=== PATIENT | male | born 1970 | race Caucasian/White ===

== ENCOUNTER 2020-08-22 10:49 | Outpatient (REF) | payer OTHER, SELFPAY ==
[2020-08-22 13:53] LABS: MANUAL DIFF FLAG NO
[2020-08-22 14:02] LABS: Basophils Absolute Auto 0.1 X10*3/uL (0.0-0.2); Basophils Percent Auto 0.8 % (0-2); Eosinophils Absolute Auto 0.1 X10*3/uL (0.0-0.4); Eosinophils Percent Auto 0.8 % (0-4); Hematocrit 53.3 % (42-52); Hemoglobin 16.9 g/dl (14.0-18.0); Imm Gran Abs Auto 0.04 X10*3/uL (0.00-0.03); Imm Gran Pct Auto 0.4 % (0.0-0.4); Lymphocytes Absolute Auto 2.1 X10*3/uL (1.2-4.9); Lymphocytes Percent Auto 22.2 % (20-40); Mean Corpuscular HGB Conc 31.7 g/dl (31.0-36.0); Mean Corpuscular Volume 78.8 fL (80-98); Mean Platelet Volume 11.3 fL (9.4-12.4); Monocytes Absolute Auto 0.7 X10*3/uL (0.1-1.2); Monocytes Percent Auto 7.3 % (2-11); Neutrophils Absolute Auto 6.4 X10*3/uL (2.0-8.3); Neutrophils Percent Auto 68.5 % (45-73); Platelet Count 280 X10*3/uL (160-400); Red Blood Count 6.76 X10*6/uL (4.60-5.80); Red Cell Distribution Width 19.5 % (11.0-16.0); White Blood Count 9.3 X10*3/uL (4.8-10.8)
[2020-08-22 14:06] LABS: Estimated Average Glucose 128 mg/dL; Hemoglobin A1c % 6.1 %
[2020-08-22 14:35] LABS: Anion Gap 16 (12-20); Blood Urea Nitrogen 21 mg/dL (9-16); Calcium 9.5 mg/dL (8.4-10.2); Carbon Dioxide 24 mmol/L (22-29); Chloride 103 mmol/L (96-108); Estimated Glomerular Filt Rate > 60; Glucose Random 85 mg/dL (60-115); Potassium 4.3 mmol/l (3.3-5.1); Sodium 139 mmol/L (135-145)
[2020-08-22 14:43] LABS: Microalbumin Urine < 5.0 mg/L
[2020-08-22 14:47] LABS: TSH reflex Free T4 1.33 mIU/mL (0.32-4.0)
[2020-08-23 21:12] LABS: LDL Cholesterol Direct 102 mg/dL (<100)
== END 2020-08-22 10:50 | disposition home or self-care (01) ==
LOC: HO.HMGCLDS 10:49
PROVIDERS: PCP Internal Medicine; Visit Provider Internal Medicine
DX: K21.9 Gastro-esophageal reflux disease without esophagitis (principal); E78.9 Disorder of lipoprotein metabolism, unspecified; E13.9 Other specified diabetes mellitus without complications; I10 Essential (primary) hypertension; Z76.89 Persons encountering health services in other specified circumstances
CPT/HCPCS: 36415; 80048; 82043; 83036; 83721; 84443; 85025

== ENCOUNTER 2021-01-03 11:40 | Outpatient (REF) | payer OTHER, SELFPAY ==
[2021-01-03 13:55] LABS: MANUAL DIFF FLAG NO
[2021-01-03 13:59] LABS: Basophils Absolute Auto 0.1 X10*3/uL (0.0-0.2); Basophils Percent Auto 0.5 % (0-2); Eosinophils Absolute Auto 0.1 X10*3/uL (0.0-0.4); Eosinophils Percent Auto 0.6 % (0-4); Hematocrit 50.5 % (42-52); Hemoglobin 15.7 g/dl (14.0-18.0); Imm Gran Abs Auto 0.05 X10*3/uL (0.00-0.03); Imm Gran Pct Auto 0.5 % (0.0-0.4); Lymphocytes Absolute Auto 2.1 X10*3/uL (1.2-4.9); Lymphocytes Percent Auto 21.1 % (20-40); Mean Corpuscular HGB Conc 31.1 g/dl (31.0-36.0); Mean Corpuscular Hemoglobin 25.2 pg (27.0-33.0); Mean Corpuscular Volume 80.9 fL (80-98); Mean Platelet Volume 11.3 fL (9.4-12.4); Monocytes Absolute Auto 0.8 X10*3/uL (0.1-1.2); Monocytes Percent Auto 8.3 % (2-11); Neutrophils Absolute Auto 6.9 X10*3/uL (2.0-8.3); Platelet Count 377 X10*3/uL (160-400); Red Blood Count 6.24 X10*6/uL (4.60-5.80); Red Cell Distribution Width 18.3 % (11.0-16.0)
[2021-01-03 14:10] LABS: Estimated Average Glucose 123 mg/dL; Hemoglobin A1c % 5.9 %
[2021-01-03 14:27] LABS: Alanine Aminotransferase 78 U/L (0-40); Albumin Level 4.4 g/dL (3.5-5.0); Alkaline Phosphatase 44 U/L (39-117); Anion Gap 14 (12-20); Aspartate Amino Transferase 58 U/L (5-37); Bilirubin Direct 0.3 mg/dL (0.0-0.5); Bilirubin Total 0.6 mg/dL (0.0-1.0); Blood Urea Nitrogen 18 mg/dL (9-16); Calcium 9.7 mg/dL (8.4-10.2); Carbon Dioxide 28 mmol/L (22-29); Chloride 99 mmol/L (96-108); Estimated Glomerular Filt Rate > 60; Glucose Random 103 mg/dL (60-115); Potassium 4.5 mmol/L (3.3-5.1); Sodium 136 mmol/L (135-145); Total Protein 7.3 g/dL (6.5-8.0)
[2021-01-03 14:37] LABS: Creatinine Urine 63.81 mg/dL; Microalbum/Creatinine Ratio Ur 15.6 ug/mg cr
[2021-01-04 05:06] LABS: LDL Cholesterol Direct 123 mg/dL (<100)
== END 2021-01-03 11:41 | disposition home or self-care (01) ==
LOC: HO.HMGCLDS 11:40
PROVIDERS: PCP Internal Medicine; Visit Provider Internal Medicine
DX: M96.1 Postlaminectomy syndrome, not elsewhere classified (principal); I10 Essential (primary) hypertension; E78.9 Disorder of lipoprotein metabolism, unspecified; E13.9 Other specified diabetes mellitus without complications
CPT/HCPCS: 36415; 80048; 80076; 82043; 83036; 83721; 85025

== ENCOUNTER 2021-01-28 07:57 | Outpatient (REF) | payer OTHER, SELFPAY ==
--- NOTE | ~2021-01-28 | CT_ITS ---
EXAMINATION: CT CHEST WITHOUT CONTRAST CLINICAL INFORMATION: Contusion of right frontal wall of thorax. COMPARISON: Chest 11/30/2019. TECHNIQUE: Multidetector volumetric CT imaging of the chest was done. Axial MIP volume rendering provided. Sagittal and coronal reformatted images were obtained. This CT examination was performed using dose optimization techniques as appropriate, variously including the following: *Automated exposure control *Adjustment of mA and/or kV according to patient size (this includes techniques or standardized protocols for targeted exams where dose is matched to indication/reason for exam; i.e. extremities or head) *Use of iterative reconstruction technique DLP: 279 mGy-cm. 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 LUNGS: The lungs are well expanded and clear of acute pneumonic process. There are no pulmonary nodules, mass or consolidation. MEDIASTINUM: The thyroid lobes are symmetrical and normal. The central trachea and the bronchi are widely patent. There is no pericardial effusion. Heart size and great vessels are normal caliber. No abnormal-sized mediastinal or hilar lymph nodes seen. There is a small hiatal hernia. PLEURA: There is no pleural effusion. No pleural mass or thickening. AXILLA: No lymphadenopathy. UPPER ABDOMEN: Visualized liver, spleen, pancreas and bilateral adrenal glands are unremarkable. OSSEOUS STRUCTURES: There is no lytic or sclerotic process. There is moderate ventral spondylosis T9-T10 disc level. CT/CT chest wo con IMPRESSION: No acute intrathoracic process seen. There is no consolidation, pulmonary nodule or abnormal mediastinal or hilar lymph nodes.
== END 2021-01-28 07:58 | disposition home or self-care (01) ==
LOC: HO.CT 07:57
PROVIDERS: PCP Internal Medicine; Visit Provider Hospitalist
DX: S20.211A Contusion of right front wall of thorax, initial encounter (principal)
CPT/HCPCS: 71250

== ENCOUNTER 2021-04-29 16:26 | Emergency (ER) | payer OTHER, SELFPAY ==
[2021-04-29 17:23] VITALS: BP 153/89; PULSE 73; RESP 18; TEMP 36.8; O2SAT 96; BMI 33.6
--- NOTE | 2021-04-29 18:12 | ED_ITS ---
HPI - Ear Problem General Chief complaint: Ear Problems Stated complaint: ear infection Source: patient Mode of arrival: ambulatory Limitations: no limitations History of Present Illness HPI Narrative: PATIENT PRESENTS TO ED FOR LEFT EAR PAIN. PATIENT STATES HISTORY OF RECURRENT EAR INFECTION. PATIENT STATES SHE HAS BEEN A DRAIN ANTIBIOTIC FOR 1 WEEK AND STILL HAS EAR PAIN. Related Data Home Medications Medication Instructions Recorded Confirmed albuterol sulfate 90 mcg/actuation 0 mcg INHALATION 08/22/20 04/19/21 aerosol inhaler alprazolam 1 mg tablet 0 mg PO 08/22/20 04/19/21 aripiprazole 20 mg tablet 20 mg PO DAILY 08/22/20 04/19/21 dextroamphetamine-amphetamine 10 1 tab PO DAILY 08/22/20 04/19/21 mg tablet dextroamphetamine-amphetamine 30 1 tab PO TID 08/22/20 04/19/21 mg tablet fluoxetine 40 mg capsule 0 mg PO 08/22/20 04/19/21 metoprolol succinate 25 mg 25 mg PO DAILY 08/22/20 04/19/21 tablet,extended release 24 hr zolpidem 10 mg tablet 10 mg PO BEDTIME PRN 08/22/20 02/27/21 Previous Rx's Medication Instructions Recorded rosuvastatin 20 mg tablet 20 mg PO DAILY #90 tab 11/11/20 blood sugar diagnostic #100 ea 11/29/20 blood-glucose meter #1 ea 11/29/20 lancets #100 ea 11/29/20 ibuprofen 600 mg tablet 600 mg PO TID #90 tab 01/03/21 empagliflozin 10 mg tablet 10 mg PO QAM #30 tab 01/23/21 lisinopril 20 1 tab PO DAILY #90 tab 02/11/21 mg-hydrochlorothiazide 25 mg tablet omeprazole 20 mg capsule,delayed 20 mg PO DAILY #90 cap 04/02/21 release amoxicillin 875 mg-potassium 1 tab PO BID #20 tab 04/19/21 clavulanate 125 mg tablet prednisone 20 mg tablet 20 mg PO .COMPLEX #18 tab 04/19/21 ciprofloxacin HCl [Cipro] 500 mg PO Q12H 7 Days #14 tab 04/29/21 oxycodone-acetaminophen [Percocet] 1 tab PO TID PRN #9 tab 04/29/21 Allergies Allergy/AdvReac Type Severity Reaction Status Date / Time benztropine [From COGENTIN] Allergy Unknown SWEATING Verified 04/29/21 17:22 pregabalin [From LYRICA] Allergy Unknown SWELLING Verified 04/29/21 17:22 sitagliptin [From JANUVIA] Allergy Unknown PER H&P Verified 04/29/21 17:22 Review of Systems Review of Systems: Yes all other systems are reviewed and are negative Constitutional: Constitutional: Reports as per HPI and Reports no additional constitutional complaints Eyes: Eyes: Reports as per HPI and Reports no additional eye complaints ENT: Reports system reviewed and no additional complaints, except as documented and Reports as per HPI Cardiovascular: Cardiovascular: Reports as per HPI and Reports no additional cardiovascular complaints Respiratory: Respiratory: Reports as per HPI and Reports no additional respiratory complaints Gastrointestinal: Gastrointestinal: Reports as per HPI and Reports no additional gastrointestinal complaints Genitourinary: Genitourinary: Reports no additional male genitourinary complaints and Reports as per HPI Musculoskeletal: Musculoskeletal: Reports no additional musculoskeletal complaints and Reports as per HPI Neurologic: Reports system reviewed and no additional complaints, except as documented and Reports as per HPI Psychiatric: Psychiatric: Reports no additional psychiatric complaints and Reports as per HPI [facility] Past Medical History Medical History (Updated 04/29/21 @ 18:50 by ALYSON Najera) ADHD Anxiety, generalized Chronic GERD Depression, major, 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, managed as type 2 Ear infection Erectile 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 Hypertension, essential Lipid disorder PTSD (post-traumatic stress disorder) Sleep apnea Surgical History History of discectomy History of ear surgery History of knee surgery History of laparoscopic appendectomy History of left knee surgery History of lithotripsy History of lumbar fusion History of removal of laparoscopic gastric banding device Family History Family History Father Alcoholism Hyperlipidemia HTN (hypertension) CVD (cardiovascular disease) Mental illness in member of household Mother CAD (coronary artery disease) Breast cancer High cholesterol Diabetes mellitus CVD (cardiovascular disease) Mental illness in member of household Maternal Grandfather No problems noted. Maternal Grandmother No problems noted. Paternal Grandfather No problems noted. Paternal Grandmother No problems noted. Sister No problems noted. Sister No problems noted. Daughter No problems noted. Daughter No problems noted. Social History Social History Advance Directives: No Advance Directives Information Provided: Yes Physical Exam Vital Signs: Vital Signs: Last Vital Signs Temp 98.4 F 04/29/21 18:26 Pulse 68 04/29/21 18:26 Resp 16 04/29/21 18:26 BP 163/95 H 04/29/21 18:26 Pulse Ox 95 04/29/21 18:26 Body Mass Index 33.6 Const: General: cooperative, healthy appearing, comfortable, no acute distress, well developed, alert, awake and Physically active Orientation/consciousness: patient oriented x3 HENMT: Other: NEGATIVE FOR SWELLING OR REDNESS IN FRONT OR BEHIND EAR TO INDICATE MASTOIDITIS. EARS NOT RED OR SWOLLEN. ORAL EXAM NEGATIVE FOR ANY ABSCESSES. not able to evaluate tympanic membrane. Head: Yes normal to inspection, Yes No palpable skull fracture present, Yes normocephalic, Yes atraumatic and No abrasion Ears: mastoids normal and Abnormal EAC present ( SWOLLEN WITH YELLOW DISCHARGE. NOT ABLE TO SEE TYMPANIC MEMBRANE.) Eyes: General: appearance normal, both eyes and all related structures Neck: Neck: Yes normal visual inspection, Yes full ROM, Yes no lymphadenopathy, Yes no meningeal signs, Yes trachea midline, Yes supple and No tender Chest: Chest palpation & inspection: normal inspection of the chest and normal palpation of entire chest wall Resp: Effort & Inspection: normal respiratory effort and able to speak in complete sentences Cardio: Jugular venous distension: no JVD Heart sounds: S1 normal heart sound present and S2 normal heart sound present GI: Inspection: Yes normal to inspection and No abdominal wall ecchymosis Palpation (GI): Soft to palpation, not firm, nontender, no guarding and not rigid : General: No CVA tenderness and Yes no CVA tenderness Back/Spine/Pelvis: Back: no CVA tenderness, No CVA tenderness and No back tenderness Skin: General skin exam: no rashes or lesions noted and elasticity normal Neuro: General: patient oriented x3, no meningeal signs and CN's II-XI intact bilaterally Cranial nerves: Yes CN's II-XII intact bilaterally Extrem: General: Yes normal to inspection and Yes full ROM Psych: Appearance: grossly normal, well kempt and not disheveled Course Course Course Narrative: OTITIS EXTERNA. Reevaluation(s) Reevaluation #1: PATIENT REFUSES EAR DROPS. PATIENT WAS EXPLAINED HE WOULD BENEFIT FROM EAR DROPS WITH EAR WICK, BUT PATIENT REFUSED. PATIENT STATES HE HAS PTSD FROM EAR DROPS SINCE BEING A CHILD AND will NOT TAKE ANY TYPE OF EAR DROPS EVEN WITH wick. PATIENT WILL TAKE ORAL ANTIBIOTICS. PATIENT ALREADY ON AMOXICILLIN AND PREDNISONE. PATIENT WILL BE DISCHARGED WITH CIPRO AND PERCOCET. NOT SUSPECTING ANY MASTOIDITIS. Time: 18:37 MDM - Ear MDM Narrative Medical decision making narrative: OITIS MEDIA Discharge Plan Discharge Clinical Impression: Otitis externa Patient Disposition: Home, Self-Care Instructions: Otitis Externa (ED) Additional Instructions: Return to the ED immediately for worsening ear pain, swelling/redness of ear /in front or behind ear,, headache, dizziness, fever, chills, dizziness, ringing in the ear, or any other concerning symptoms. Please follow-up with the PCP Prescriptions: New ciprofloxacin HCl [Cipro] 500 mg tablet 500 mg PO Q12H 7 Days Qty: 14 RF: 0 oxycodone-acetaminophen [Percocet] 5-325 mg tablet 1 tab PO TID PRN (Reason: pain) Qty: 9 RF: 0 No Action rosuvastatin 20 mg tablet 20 mg PO DAILY Qty: 90 RF: 1 empagliflozin [Jardiance] 10 mg tablet 10 mg PO QAM Qty: 30 RF: 3 lisinopril-hydrochlorothiazide 20-25 mg tablet 1 tab PO DAILY Qty: 90 RF: 0 omeprazole 20 mg capsule,delayed release(DR/EC) 20 mg PO DAILY Qty: 90 RF: 0 dextroamphetamine-amphetamine 30 mg tablet 1 tab PO TID RF: 0 dextroamphetamine-amphetamine 10 mg tablet 1 tab PO DAILY RF: 0 zolpidem 10 mg tablet 10 mg PO BEDTIME PRNRF: 0 alprazolam 1 mg tablet 0 mg PO RF: 0 aripiprazole 20 mg tablet 20 mg PO DAILY RF: 0 fluoxetine 40 mg capsule 0 mg PO RF: 0 albuterol sulfate 90 mcg/actuation HFA aerosol inhaler 0 mcg inhalation RF: 0 metoprolol succinate 25 mg tablet extended release 24 hr 25 mg PO DAILY RF: 0 (DME) lancets [Accu-Chek Softclix Lancets] Misc See Rx Instructions .ROUTE .MEDSUPPLY Qty: 100 RF: 0 (DME) blood-glucose meter [Accu-Chek Guide Glucose Meter] Misc See Rx Instructions .ROUTE .MEDSUPPLY Qty: 1 RF: 0 (DME) Accu-Chek Guide test strips Strip See Rx Instructions .ROUTE .MEDSUPPLY Qty: 100 RF: 0 prednisone 20 mg tablet 20 mg PO .COMPLEX Qty: 18 RF: 0 amoxicillin-pot clavulanate [Augmentin] 875-125 mg tablet 1 tab PO BID Qty: 20 RF: 0 ibuprofen 600 mg tablet 600 mg PO TID Qty: 90 RF: 0 Referrals: Lizabeth Adame MD [Primary Care Provider] - 2 days ( recurring infection) Gino Shine [Physician] - 2 days ( recurring infections) Interventions: ED Discharge Assessment Last Done: 04/29/21 18:59 Discharge Date/Time: 04/29/21 19:02 Print Language: Faroese
[2021-04-29 18:26] VITALS: BP 163/95; PULSE 68; RESP 16; TEMP 36.9; O2SAT 95
== END 2021-04-29 19:02 | disposition home or self-care (01) ==
PROVIDERS: Emergency Provider Internal Medicine; PCP Internal Medicine
DX: H60.92 Unspecified otitis externa, left ear (principal); E13.9 Other specified diabetes mellitus without complications; I10 Essential (primary) hypertension; Z79.899 Other long term (current) drug therapy
CPT/HCPCS: 99283; 99284

== ENCOUNTER 2021-08-05 15:00 | Outpatient (REF) | payer OTHER, SELFPAY ==
[2021-08-05 16:24] LABS: MANUAL DIFF FLAG NO
[2021-08-05 16:35] LABS: Basophils Absolute Auto 0.1 X10*3/uL (0.0-0.2); Basophils Percent Auto 0.8 % (0-2); Eosinophils Absolute Auto 0.8 X10*3/uL (0.0-0.4); Eosinophils Percent Auto 9.3 % (0-4); Hematocrit 53.7 % (42-52); Hemoglobin 17.6 g/dl (14.0-18.0); Imm Gran Abs Auto 0.04 X10*3/uL (0.00-0.03); Imm Gran Pct Auto 0.5 % (0.0-0.4); Lymphocytes Absolute Auto 2.2 X10*3/uL (1.2-4.9); Lymphocytes Percent Auto 24.7 % (20-40); Mean Corpuscular HGB Conc 32.8 g/dl (31.0-36.0); Mean Corpuscular Hemoglobin 28.1 pg (27.0-33.0); Mean Corpuscular Volume 85.8 fL (80-98); Mean Platelet Volume 10.6 fL (9.4-12.4); Monocytes Absolute Auto 0.7 X10*3/uL (0.1-1.2); Monocytes Percent Auto 7.5 % (2-11); Neutrophils Percent Auto 57.2 % (45-73); Platelet Count 376 X10*3/uL (160-400); Red Blood Count 6.26 X10*6/uL (4.60-5.80); Red Cell Distribution Width 14.6 % (11.0-16.0); White Blood Count 8.8 X10*3/uL (4.8-10.8)
[2021-08-05 16:36] LABS: Estimated Average Glucose 137 mg/dL; Hemoglobin A1c % 6.4 %
[2021-08-05 16:49] LABS: Alanine Aminotransferase 71 U/L (0-40); Albumin Level 4.6 g/dL (3.5-5.0); Alkaline Phosphatase 61 U/L (39-117); Anion Gap 14 (12-20); Aspartate Amino Transferase 38 U/L (5-37); Bilirubin Total 0.6 mg/dL (0.0-1.0); Blood Urea Nitrogen 14 mg/dL (9-16); Calcium 9.2 mg/dL (8.4-10.2); Carbon Dioxide 26 mmol/L (22-29); Chloride 102 mmol/L (96-108); Estimated Glomerular Filt Rate > 60; Glucose Random 131 mg/dL (60-115); Lipase 138 U/L (8-78); Potassium 4.3 mmol/L (3.3-5.1); Sodium 138 mmol/L (135-145); Total Protein 7.4 g/dL (6.5-8.0)
[2021-08-05 16:52] LABS: Microalbum/Creatinine Ratio Ur 26.7 ug/mg cr
== END 2021-08-05 15:01 | disposition home or self-care (01) ==
LOC: HO.HMGCLDS 15:00
PROVIDERS: PCP Internal Medicine; Visit Provider Internal Medicine
DX: E13.9 Other specified diabetes mellitus without complications (principal); K85.90 Acute pancreatitis without necrosis or infection, unspecified; I10 Essential (primary) hypertension; K21.9 Gastro-esophageal reflux disease without esophagitis; E78.9 Disorder of lipoprotein metabolism, unspecified
CPT/HCPCS: 36415; 80053; 82043; 83036; 83690; 85025

== ENCOUNTER 2021-12-31 11:18 | Outpatient (REF) | payer OTHER, SELFPAY ==
[2021-12-31 14:18] LABS: Estimated Average Glucose 226 mg/dL; Hemoglobin A1c % 9.5 %
[2021-12-31 14:28] LABS: Alanine Aminotransferase 32 U/L (0-40); Albumin Level 4.5 g/dL (3.5-5.0); Alkaline Phosphatase 72 U/L (39-117); Anion Gap 15 (12-20); Aspartate Amino Transferase 20 U/L (5-37); Bilirubin Direct 0.2 mg/dL (0.0-0.5); Bilirubin Total 0.7 mg/dL (0.0-1.0); Blood Urea Nitrogen 16 mg/dL (9-16); Calcium 10.1 mg/dL (8.4-10.2); Carbon Dioxide 27 mmol/L (22-29); Chloride 99 mmol/L (96-108); Estimated Glomerular Filt Rate > 60; Glucose Random 278 mg/dL (60-115); Lipase 73 U/L (8-78); Potassium 4.2 mmol/L (3.3-5.1); Sodium 137 mmol/L (135-145); Total Protein 7.6 g/dL (6.5-8.0)
== END 2021-12-31 11:19 | disposition home or self-care (01) ==
LOC: HO.HMGCLDS 11:18
PROVIDERS: PCP Internal Medicine; Visit Provider Internal Medicine
DX: K85.90 Acute pancreatitis without necrosis or infection, unspecified (principal); E13.9 Other specified diabetes mellitus without complications; I10 Essential (primary) hypertension
CPT/HCPCS: 36415; 80053; 82248; 83036; 83690

== ENCOUNTER 2022-07-30 15:04 | Outpatient (REF) | payer OTHER, SELFPAY ==
[2022-07-30 17:05] LABS: Alanine Aminotransferase 24 U/L (0-40); Albumin Level 4.9 g/dL (3.5-5.0); Alkaline Phosphatase 80 U/L (39-117); Anion Gap 21 (12-20); Aspartate Amino Transferase 14 U/L (5-37); Bilirubin Total 0.2 mg/dL (0.0-1.0); Blood Urea Nitrogen 17 mg/dL (9-16); Calcium 9.9 mg/dL (8.4-10.2); Carbon Dioxide 23 mmol/L (22-29); Chloride 99 mmol/L (96-108); Estimated Glomerular Filt Rate > 60; Glucose Random 220 mg/dL (60-115); Potassium 4.1 mmol/L (3.3-5.1); Sodium 139 mmol/L (135-145); Total Protein 7.8 g/dL (6.5-8.0)
[2022-08-01 10:22] LABS: LDL Cholesterol Direct 155 mg/dL (<100)
== END 2022-07-30 15:05 | disposition home or self-care (01) ==
LOC: HO.HMGCLDS 15:04
PROVIDERS: PCP Internal Medicine; Visit Provider Internal Medicine
DX: E11.65 Type 2 diabetes mellitus with hyperglycemia (principal); E78.9 Disorder of lipoprotein metabolism, unspecified; I10 Essential (primary) hypertension; K21.9 Gastro-esophageal reflux disease without esophagitis
CPT/HCPCS: 36415; 80053; 83721

== ENCOUNTER 2022-12-08 16:07 | Emergency (ER) | payer OTHER, SELFPAY ==
[2022-12-08 17:07] VITALS: BP 141/102; PULSE 91; RESP 18; TEMP 36.7; O2SAT 96; BMI 38.4
--- NOTE | 2022-12-08 17:07 | ECG_ITS ---
Test Reason : nausea Blood Pressure : / mmHG Vent. Rate : 087 BPM Atrial Rate : 087 BPM P-R Int : 136 ms QRS Dur : 100 ms QT Int : 408 ms P-R-T Axes : 037 000 006 degrees QTc Int : 490 ms Normal sinus rhythm Prolonged QT Abnormal ECG No previous ECGs available Referred By: Bossman Mcfarlane Electronically Signed By:ANDRÉS MELENDEZ MD
--- NOTE | 2022-12-08 17:10 | ED.GENADULT ---
HPI - General Adult General Chief complaint: General Medical Stated complaint: high blood sugar Time Seen by Provider: 12/08/22 21:02 Related Data Home Medications Medication Instructions Recorded Confirmed albuterol sulfate 90 mcg/actuation 0 mcg inhalation 08/22/20 08/04/22 aerosol inhaler alprazolam 1 mg tablet 0 mg PO 08/22/20 08/04/22 aripiprazole 20 mg tablet 20 mg PO DAILY 08/22/20 08/04/22 dextroamphetamine-amphetamine 10 1 tab PO DAILY 08/22/20 08/04/22 mg tablet dextroamphetamine-amphetamine 30 1 tab PO TID 08/22/20 08/04/22 mg tablet zolpidem 10 mg tablet 10 mg PO BEDTIME PRN 08/22/20 08/04/22 lurasidone 80 mg tablet (Latuda) 80 mg PO DAILY 01/01/22 08/04/22 vortioxetine 20 mg tablet 20 mg PO DAILY 01/01/22 08/04/22 (Trintellix) Previous Rx's Medication Instructions Recorded blood sugar diagnostic (Accu-Chek #100 ea 11/29/20 Guide test strips) blood-glucose meter (Accu-Chek #1 ea 11/29/20 Guide Glucose Meter) lancets (Accu-Chek Softclix #100 ea 11/29/20 Lancets) triamcinolone acetonide 0.1 % 1 appl topical DAILY Rash back 30 01/01/22 lotion days #60 mL empagliflozin 10 mg tablet 10 mg PO QAM 90 days #90 tabs 07/22/22 (Jardiance) lisinopril 20 1 tab PO DAILY #90 tabs 07/22/22 mg-hydrochlorothiazide 25 mg tablet dulaglutide 1.5 mg/0.5 mL 1.5 mg (0.5 mL) subcut QWEEK 30 08/19/22 subcutaneous pen injector days #2.5 mL (Trulicity) amlodipine 5 mg tablet 5 mg PO DAILY 90 days #90 tabs 10/24/22 metoprolol succinate 25 mg 25 mg PO DAILY 90 days #90 tabs 10/24/22 tablet,extended release 24 hr omeprazole 20 mg capsule,delayed 20 mg PO DAILY #90 caps 10/24/22 release rosuvastatin 20 mg tablet 20 mg PO DAILY 90 days #90 tabs 10/24/22 Allergies Allergy/AdvReac Type Severity Reaction Status Date / Time benztropine [From COGENTIN] Allergy Unknown SWEATING Verified 08/04/22 11:52 pregabalin [From LYRICA] Allergy Unknown SWELLING Verified 08/04/22 11:52 sitagliptin [From JANUVIA] Allergy Unknown PER H&P Verified 08/04/22 11:52 PMFSH Past Medical History 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, managed as type 2 Ear infection Erectile 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 Hypertension, essential Lipid disorder PTSD (post-traumatic stress disorder) Sleep apnea Surgical History History of discectomy History of ear surgery History of knee surgery History of laparoscopic appendectomy History of left knee surgery History of lithotripsy History of lumbar fusion History of removal of laparoscopic gastric banding device Family History Family History Father Alcoholism Hyperlipidemia HTN (hypertension) CVD (cardiovascular disease) Mental illness in member of household Mother CAD (coronary artery disease) Breast cancer High cholesterol Diabetes mellitus CVD (cardiovascular disease) Mental illness in member of household Maternal Grandfather No problems noted. Maternal Grandmother No problems noted. Paternal Grandfather No problems noted. Paternal Grandmother No problems noted. Sister No problems noted. Sister No problems noted. Daughter No problems noted. Daughter No problems noted. Other Mental health disorder Social History Social History Housing: Apartment Patient Tobacco Use Status: Never used Tobacco e-Cigarette/Vaping Use: Currently Using (vape) Advance Directives: No Advance Directives Information Provided: No Current occupational status: disabled Cognitive needs: No Hearing needs: No Vision needs: No Physical Exam ED Vital Signs: BMI result Body Mass Index 38.4 Course Course Course Narrative: RME: patient presents to the ED for elevated GLucose. patient states hyperglycemia over 350 with some nausea, polydpsia, and polyuria. patient sent by PCP. Glucose POC in the ER is 180. WIll do labs, EKG, and UA Medical Decision Making Lab Data 12/08/22 17:46 12/08/22 17:46 Labs: Lab Results 12/08/22 12/08/22 12/08/22 Range/Units 17:46 17:46 17:46 WBC 10.3 (4.8-10.8) X10*3/uL RBC 5.94 H (4.60-5.80) X10*6/uL Hgb 17.5 (14.0-18.0) g/dl Hct 50.1 (42.0-52.0) % MCV 84.3 (80.0-98.0) fL MCH 29.5 (27.0-33.0) pg MCHC 34.9 (31.0-36.0) g/dl RDW 12.8 (11.0-16.0) % Plt Count 256 (160-400) X10*3/uL MPV 10.5 (9.4-12.4) fL Immature Gran % (Auto) 0.5 H (0.0-0.4) % Neut % (Auto) 69.7 (45-73) % Lymph % (Auto) 22.5 (20-40) % [place] % (Auto) 6.0 (2-11) % Eos % (Auto) 0.6 (0-4) % Baso % (Auto) 0.7 (0-2) % Lymph # (Auto) 2.3 (1.2-4.9) X10*3/uL [place] # (Auto) 0.6 (0.1-1.2) X10*3/uL Eos # (Auto) 0.1 (0.0-0.4) X10*3/uL Baso # (Auto) 0.1 (0.0-0.2) X10*3/uL Abs Immat Gran (auto) 0.05 H (0.00-0.03) X10*3/uL Absolute Neuts (auto) 7.2 (2.0-8.3) x10*3/uL Absolute Nucleated RBC 0.000 (0.0-0.012) X10*3/uL Nucleated RBC % (auto) 0.0 (0.0-0.2) /100WBC PT (10.0-13.1) SEC INR (0.9-1.1) APTT (26.0-36.4) SEC Sodium 136 (135-145) mmol/L Potassium 4.0 (3.3-5.1) mmol/L Chloride 98 (96-108) mmol/L Carbon Dioxide 24 (22-29) mmol/L Anion Gap 18 (12-20) BUN 15 (9-16) mg/dL Creatinine 0.85 (0.5-1.4) mg/dL Estim Creat Clear Calc 125.8 Estimated GFR > 60 Random Glucose 190 H (60-115) mg/dL Calcium 9.8 (8.4-10.2) mg/dL Total Bilirubin 0.5 (0.0-1.0) mg/dL AST 18 (5-37) U/L ALT 32 (0-40) U/L Alkaline Phosphatase 77 (39-117) U/L Troponin I High Sens < 3.5 (<3.5-35.0) ng/L Total Protein 7.6 (6.5-8.0) g/dL Albumin 4.8 (3.5-5.0) g/dL Urine Color Urine Appearance Urine pH (5.0-9.0) Ur Specific [place] (1.005-1.025) Urine Protein (Neg-Trace) mg/dL Urine Glucose (UA) (Negative) mg/dL Urine Ketones (Negative) mg/dL Urine Blood (Negative) Urine Nitrite (Negative) Ur Leukocyte Esterase (Negative) Urine RBC (0-2) /HPF Urine WBC (0-5) /HPF Ur Squamous Epith Cells (0-2) /HPF Urine Bacteria (None Seen) Hyaline Casts (0-2) /LPF Acetone, Qual (Negative) 12/08/22 12/08/22 12/08/22 Range/Units 17:46 17:46 21:31 WBC (4.8-10.8) X10*3/uL RBC (4.60-5.80) X10*6/uL Hgb (14.0-18.0) g/dl Hct (42.0-52.0) % MCV (80.0-98.0) fL MCH (27.0-33.0) pg MCHC (31.0-36.0) g/dl RDW (11.0-16.0) % Plt Count (160-400) X10*3/uL MPV (9.4-12.4) fL Immature Gran % (Auto) (0.0-0.4) % Neut % (Auto) (45-73) % Lymph % (Auto) (20-40) % [place] % (Auto) (2-11) % Eos % (Auto) (0-4) % Baso % (Auto) (0-2) % Lymph # (Auto) (1.2-4.9) X10*3/uL [place] # (Auto) (0.1-1.2) X10*3/uL Eos # (Auto) (0.0-0.4) X10*3/uL Baso # (Auto) (0.0-0.2) X10*3/uL Abs Immat Gran (auto) (0.00-0.03) X10*3/uL Absolute Neuts (auto) (2.0-8.3) x10*3/uL Absolute Nucleated RBC (0.0-0.012) X10*3/uL Nucleated RBC % (auto) (0.0-0.2) /100WBC PT 10.5 (10.0-13.1) SEC INR 0.9 (0.9-1.1) APTT 28.5 (26.0-36.4) SEC Sodium (135-145) mmol/L Potassium (3.3-5.1) mmol/L Chloride (96-108) mmol/L Carbon Dioxide (22-29) mmol/L Anion Gap (12-20) BUN (9-16) mg/dL Creatinine (0.5-1.4) mg/dL Estim Creat Clear Calc Estimated GFR Random Glucose (60-115) mg/dL Calcium (8.4-10.2) mg/dL Total Bilirubin (0.0-1.0) mg/dL AST (5-37) U/L ALT (0-40) U/L Alkaline Phosphatase (39-117) U/L Troponin I High Sens (<3.5-35.0) ng/L Total Protein (6.5-8.0) g/dL Albumin (3.5-5.0) g/dL Urine Color Yellow Urine Appearance Clear Urine pH 6.0 (5.0-9.0) Ur Specific [place] >= 1.030 H (1.005-1.025) Urine Protein Negative (Neg-Trace) mg/dL Urine Glucose (UA) >=1000 H (Negative) mg/dL Urine Ketones 80 (Negative) mg/dL Urine Blood Negative (Negative) Urine Nitrite Negative (Negative) Ur Leukocyte Esterase Negative (Negative) Urine RBC 0-2 (0-2) /HPF Urine WBC 0-5 (0-5) /HPF Ur Squamous Epith Cells 0-2 (0-2) /HPF Urine Bacteria None Seen (None Seen) Hyaline Casts 0-2 (0-2) /LPF Acetone, Qual Negative (Negative) Discharge Plan Discharge Clinical Impression: Acute hyperglycemia Patient Disposition: Home, Self-Care Instructions: Diabetic Hyperglycemia (ED) Prescriptions: No Action Jardiance 10 mg tablet 10 mg PO QAM 90 Days Qty: 90 1RF lisinopril-hydrochlorothiazide 20-25 mg tablet 1 tab PO DAILY Qty: 90 1RF Trulicity 1.5 mg/0.5 mL pen injector 1.5 mg subcut QWEEK 30 Days Qty: 2.5 4RF amlodipine 5 mg tablet 5 mg PO DAILY 90 Days Qty: 90 0RF metoprolol succinate 25 mg tablet extended release 24 hr 25 mg PO DAILY 90 Days Qty: 90 0RF omeprazole 20 mg capsule,delayed release(DR/EC) 20 mg PO DAILY Qty: 90 0RF rosuvastatin 20 mg tablet 20 mg PO DAILY 90 Days Qty: 90 0RF dextroamphetamine-amphetamine 30 mg tablet 1 tab PO TID dextroamphetamine-amphetamine 10 mg tablet 1 tab PO DAILY zolpidem 10 mg tablet 10 mg PO BEDTIME PRN alprazolam 1 mg tablet 0 mg PO aripiprazole 20 mg tablet 20 mg PO DAILY albuterol sulfate 90 mcg/actuation HFA aerosol inhaler 0 mcg inhalation (DME) lancets [Accu-Chek Softclix Lancets] Misc See Rx Instructions .ROUTE .MEDSUPPLY Qty: 100 0RF Rx Instructions: to be checked once daily (DME) blood-glucose meter [Accu-Chek Guide Glucose Meter] Misc See Rx Instructions .ROUTE .MEDSUPPLY Qty: 1 0RF Rx Instructions: to be checked once daily (DME) Accu-Chek Guide test strips Strip See Rx Instructions .ROUTE .MEDSUPPLY Qty: 100 0RF Rx Instructions: to be checked once daily Trintellix 20 mg tablet 20 mg PO DAILY Latuda 80 mg tablet 80 mg PO DAILY Rx Instructions: must administer with food (at least 350 calories) triamcinolone acetonide 0.1 % lotion 1 appl topical DAILY 30 Days Qty: 60 1RF Referrals: Lizabeth Adame MD [Primary Care Provider] - Interventions: ED Discharge Assessment Last Done: 12/08/22 22:31 Discharge Date/Time: 12/08/22 22:36
[2022-12-08 17:52] LABS: MANUAL DIFF FLAG NO
[2022-12-08 17:54] LABS: Basophils Absolute Auto 0.1 X10*3/uL (0.0-0.2); Basophils Percent Auto 0.7 % (0-2); Eosinophils Absolute Auto 0.1 X10*3/uL (0.0-0.4); Eosinophils Percent Auto 0.6 % (0-4); Hematocrit 50.1 % (42.0-52.0); Hemoglobin 17.5 g/dl (14.0-18.0); Imm Gran Abs Auto 0.05 X10*3/uL (0.00-0.03); Imm Gran Pct Auto 0.5 % (0.0-0.4); Lymphocytes Absolute Auto 2.3 X10*3/uL (1.2-4.9); Lymphocytes Percent Auto 22.5 % (20-40); Mean Corpuscular HGB Conc 34.9 g/dl (31.0-36.0); Mean Corpuscular Hemoglobin 29.5 pg (27.0-33.0); Mean Corpuscular Volume 84.3 fL (80.0-98.0); Mean Platelet Volume 10.5 fL (9.4-12.4); Monocytes Absolute Auto 0.6 X10*3/uL (0.1-1.2); Neutrophils Absolute Auto 7.2 x10*3/uL (2.0-8.3); Neutrophils Percent Auto 69.7 % (45-73); Platelet Count 256 X10*3/uL (160-400); Red Blood Count 5.94 X10*6/uL (4.60-5.80); Red Cell Distribution Width 12.8 % (11.0-16.0); White Blood Count 10.3 X10*3/uL (4.8-10.8)
[2022-12-08 18:00] LABS: INTERNATIONAL NORM RATIO 0.9 (0.9-1.1); Prothrombin Time 10.5 SEC (10.0-13.1)
[2022-12-08 18:01] LABS: Acetone, serum QL Negative (Negative)
[2022-12-08 18:03] LABS: Partial Thromboplastin Time 28.5 SEC (26.0-36.4)
[2022-12-08 18:10] LABS: Alanine Aminotransferase 32 U/L (0-40); Albumin Level 4.8 g/dL (3.5-5.0); Alkaline Phosphatase 77 U/L (39-117); Anion Gap 18 (12-20); Aspartate Amino Transferase 18 U/L (5-37); Bilirubin Total 0.5 mg/dL (0.0-1.0); Blood Urea Nitrogen 15 mg/dL (9-16); Calcium 9.8 mg/dL (8.4-10.2); Carbon Dioxide 24 mmol/L (22-29); Chloride 98 mmol/L (96-108); Creatinine Clr Calc Pharmacy 125.8; Estimated Glomerular Filt Rate > 60; Glucose Random 190 mg/dL (60-115); Sodium 136 mmol/L (135-145); Total Protein 7.6 g/dL (6.5-8.0)
[2022-12-08 18:19] LABS: Troponin-I High Sensitivity < 3.5 ng/L (<3.5-35.0)
--- NOTE | 2022-12-08 21:31 | PC.NURSE ---
urine collection obtained and sent to lab via tube system
[2022-12-08 21:53] LABS: Appearance Urine Clear; Color Urine Yellow; Glucose Urine UA >=1000 mg/dL (Negative); Leukocyte Esterase Urine Negative (Negative); Nitrite Urine Negative (Negative); Specific Gravity - Urine >= 1.030 (1.005-1.025); UMIC TRIGGER UACC YES; Urine Blood Negative (Negative); Urine Ketones 80 mg/dL (Negative); Urine Protein Negative (Neg-Trace)
--- NOTE | 2022-12-08 21:58 | ED_ITS ---
HPI - General Adult General Chief complaint: General Medical Stated complaint: high blood sugar Time Seen by Provider: 12/08/22 21:02 History of Present Illness HPI narrative: Patient is a 52-year-old male presented today with having noted by patient's primary physicians have a high sugar on electrolytes labs. Patient feel like he is urinating more than usual. He is on diabetes medicine and he is compliant with his medication. He takes Dulaglutide and empagliflozin. No fever no chills no diaphoresis no chest pain or shortness of breath patient is from home Related Data Home Medications Medication Instructions Recorded Confirmed albuterol sulfate 90 mcg/actuation 0 mcg inhalation 08/22/20 08/04/22 aerosol inhaler alprazolam 1 mg tablet 0 mg PO 08/22/20 08/04/22 aripiprazole 20 mg tablet 20 mg PO DAILY 08/22/20 08/04/22 dextroamphetamine-amphetamine 10 1 tab PO DAILY 08/22/20 08/04/22 mg tablet dextroamphetamine-amphetamine 30 1 tab PO TID 08/22/20 08/04/22 mg tablet zolpidem 10 mg tablet 10 mg PO BEDTIME PRN 08/22/20 08/04/22 lurasidone 80 mg tablet (Latuda) 80 mg PO DAILY 01/01/22 08/04/22 vortioxetine 20 mg tablet 20 mg PO DAILY 01/01/22 08/04/22 (Trintellix) Previous Rx's Medication Instructions Recorded blood sugar diagnostic (Accu-Chek #100 ea 11/29/20 Guide test strips) blood-glucose meter (Accu-Chek #1 ea 11/29/20 Guide Glucose Meter) lancets (Accu-Chek Softclix #100 ea 11/29/20 Lancets) triamcinolone acetonide 0.1 % 1 appl topical DAILY Rash back 30 01/01/22 lotion days #60 mL empagliflozin 10 mg tablet 10 mg PO QAM 90 days #90 tabs 07/22/22 (Jardiance) lisinopril 20 1 tab PO DAILY #90 tabs 07/22/22 mg-hydrochlorothiazide 25 mg tablet dulaglutide 1.5 mg/0.5 mL 1.5 mg (0.5 mL) subcut QWEEK 30 08/19/22 subcutaneous pen injector days #2.5 mL (Trulicity) amlodipine 5 mg tablet 5 mg PO DAILY 90 days #90 tabs 10/24/22 metoprolol succinate 25 mg 25 mg PO DAILY 90 days #90 tabs 10/24/22 tablet,extended release 24 hr omeprazole 20 mg capsule,delayed 20 mg PO DAILY #90 caps 10/24/22 release rosuvastatin 20 mg tablet 20 mg PO DAILY 90 days #90 tabs 10/24/22 Allergies Allergy/AdvReac Type Severity Reaction Status Date / Time benztropine [From COGENTIN] Allergy Unknown SWEATING Verified 08/04/22 11:52 pregabalin [From LYRICA] Allergy Unknown SWELLING Verified 08/04/22 11:52 sitagliptin [From JANUVIA] Allergy Unknown PER H&P Verified 08/04/22 11:52 Review of Systems Review of Systems: No fever no chills no chest pain or shortness of breath no nausea no vomiting no focal weakness Yes all other systems are reviewed and are negative [facility] Past Medical History Attestation statement: The following information was validated with the patient. 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, managed as type 2 Ear infection Erectile 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 Hypertension, essential Lipid disorder PTSD (post-traumatic stress disorder) Sleep apnea Surgical History History of discectomy History of ear surgery History of knee surgery History of laparoscopic appendectomy History of left knee surgery History of lithotripsy History of lumbar fusion History of removal of laparoscopic gastric banding device Family History Family History Father Alcoholism Hyperlipidemia HTN (hypertension) CVD (cardiovascular disease) Mental illness in member of household Mother CAD (coronary artery disease) Breast cancer High cholesterol Diabetes mellitus CVD (cardiovascular disease) Mental illness in member of household Maternal Grandfather No problems noted. Maternal Grandmother No problems noted. Paternal Grandfather No problems noted. Paternal Grandmother No problems noted. Sister No problems noted. Sister No problems noted. Daughter No problems noted. Daughter No problems noted. Other Mental health disorder Social History Social History Housing: Apartment Patient Tobacco Use Status: Never used Tobacco e-Cigarette/Vaping Use: Currently Using (vape) Advance Directives: No Advance Directives Information Provided: No Current occupational status: disabled Cognitive needs: No Hearing needs: No Vision needs: No Physical Exam ED Vital Signs: Vital Signs - 24 hr 12/08/22 17:07 Temperature 98.1 F Pulse Rate 91 Respiratory Rate 18 Blood Pressure 141/102 H Pulse Oximetry 96 Oxygen Delivery Method Room Air BMI result Body Mass Index 38.4 Appearance: Alert. Oriented X3. No acute distress. Eyes: Pupils equal, round and reactive to light. ENT: Pharynx normal. Neck: Normal inspection. Neck supple. No lymph nodes noted. No crepitus CVS: Normal heart rate and rhythm. Pulses normal. Normal S1 and S2 Respiratory: No respiratory distress. Breath sounds normal. No Wheezing. No rales Abdomen: Soft and nontender. No rigidity. No distention. good BS x4 Skin: Skin warm and dry. Normal skin color. Normal skin turgor. Extremities: No lower extremity edema. Neurovascular intact to all extremities. No Lacerations. No Rash Neuro: Oriented X 3. No motor deficit. No sensory deficit. Moving all extermities. No slurred speech Medical Decision Making Medical Decision Making [facility] Narrative: Patient well appearing no acute distress. His electrolytes in the emergency department showed a normal anion gap sugar was 190. There is no evidence for euglycemic diabetic ketoacidosis. Patient's hemoglobin is normal. Well- appearing. No distress. Exam is normal. Will discharge patient home. Sugar slightly elevated will require follow-up on an outpatient basis. Patient is in stable condition.. Differential Diagnosis Hyperglycemia, DKA, other electrolyte abnormality. Lab Data [facility] Lab Attestation statement: I reviewed the patient's lab results. 12/08/22 17:46 12/08/22 17:46 Labs: Lab Results 12/08/22 12/08/22 12/08/22 Range/Units 17:46 17:46 17:46 WBC 10.3 (4.8-10.8) X10*3/uL RBC 5.94 H (4.60-5.80) X10*6/uL Hgb 17.5 (14.0-18.0) g/dl Hct 50.1 (42.0-52.0) % MCV 84.3 (80.0-98.0) fL MCH 29.5 (27.0-33.0) pg MCHC 34.9 (31.0-36.0) g/dl RDW 12.8 (11.0-16.0) % Plt Count 256 (160-400) X10*3/uL MPV 10.5 (9.4-12.4) fL Immature Gran % (Auto) 0.5 H (0.0-0.4) % Neut % (Auto) 69.7 (45-73) % Lymph % (Auto) 22.5 (20-40) % [place] % (Auto) 6.0 (2-11) % Eos % (Auto) 0.6 (0-4) % Baso % (Auto) 0.7 (0-2) % Lymph # (Auto) 2.3 (1.2-4.9) X10*3/uL [place] # (Auto) 0.6 (0.1-1.2) X10*3/uL Eos # (Auto) 0.1 (0.0-0.4) X10*3/uL Baso # (Auto) 0.1 (0.0-0.2) X10*3/uL Abs Immat Gran (auto) 0.05 H (0.00-0.03) X10*3/uL Absolute Neuts (auto) 7.2 (2.0-8.3) x10*3/uL Absolute Nucleated RBC 0.000 (0.0-0.012) X10*3/uL Nucleated RBC % (auto) 0.0 (0.0-0.2) /100WBC PT (10.0-13.1) SEC INR (0.9-1.1) APTT (26.0-36.4) SEC Sodium 136 (135-145) mmol/L Potassium 4.0 (3.3-5.1) mmol/L Chloride 98 (96-108) mmol/L Carbon Dioxide 24 (22-29) mmol/L Anion Gap 18 (12-20) BUN 15 (9-16) mg/dL Creatinine 0.85 (0.5-1.4) mg/dL Estim Creat Clear Calc 125.8 Estimated GFR > 60 Random Glucose 190 H (60-115) mg/dL Calcium 9.8 (8.4-10.2) mg/dL Total Bilirubin 0.5 (0.0-1.0) mg/dL AST 18 (5-37) U/L ALT 32 (0-40) U/L Alkaline Phosphatase 77 (39-117) U/L Troponin I High Sens < 3.5 (<3.5-35.0) ng/L Total Protein 7.6 (6.5-8.0) g/dL Albumin 4.8 (3.5-5.0) g/dL Acetone, Qual (Negative) 12/08/22 12/08/22 Range/Units 17:46 17:46 WBC (4.8-10.8) X10*3/uL RBC (4.60-5.80) X10*6/uL Hgb (14.0-18.0) g/dl Hct (42.0-52.0) % MCV (80.0-98.0) fL MCH (27.0-33.0) pg MCHC (31.0-36.0) g/dl RDW (11.0-16.0) % Plt Count (160-400) X10*3/uL MPV (9.4-12.4) fL Immature Gran % (Auto) (0.0-0.4) % Neut % (Auto) (45-73) % Lymph % (Auto) (20-40) % [place] % (Auto) (2-11) % Eos % (Auto) (0-4) % Baso % (Auto) (0-2) % Lymph # (Auto) (1.2-4.9) X10*3/uL [place] # (Auto) (0.1-1.2) X10*3/uL Eos # (Auto) (0.0-0.4) X10*3/uL Baso # (Auto) (0.0-0.2) X10*3/uL Abs Immat Gran (auto) (0.00-0.03) X10*3/uL Absolute Neuts (auto) (2.0-8.3) x10*3/uL Absolute Nucleated RBC (0.0-0.012) X10*3/uL Nucleated RBC % (auto) (0.0-0.2) /100WBC PT 10.5 (10.0-13.1) SEC INR 0.9 (0.9-1.1) APTT 28.5 (26.0-36.4) SEC Sodium (135-145) mmol/L Potassium (3.3-5.1) mmol/L Chloride (96-108) mmol/L Carbon Dioxide (22-29) mmol/L Anion Gap (12-20) BUN (9-16) mg/dL Creatinine (0.5-1.4) mg/dL Estim Creat Clear Calc Estimated GFR Random Glucose (60-115) mg/dL Calcium (8.4-10.2) mg/dL Total Bilirubin (0.0-1.0) mg/dL AST (5-37) U/L ALT (0-40) U/L Alkaline Phosphatase (39-117) U/L Troponin I High Sens (<3.5-35.0) ng/L Total Protein (6.5-8.0) g/dL Albumin (3.5-5.0) g/dL Acetone, Qual Negative (Negative) External Record Review External record reviewed: Inpatient record Chronic Conditions Patient?s care impacted by: Diabetes Discharge Plan Discharge Clinical Impression: Acute hyperglycemia Patient Disposition: Home, Self-Care Instructions: Diabetic Hyperglycemia (ED) Prescriptions: No Action Jardiance 10 mg tablet 10 mg PO QAM 90 Days Qty: 90 1RF lisinopril-hydrochlorothiazide 20-25 mg tablet 1 tab PO DAILY Qty: 90 1RF Trulicity 1.5 mg/0.5 mL pen injector 1.5 mg subcut QWEEK 30 Days Qty: 2.5 4RF amlodipine 5 mg tablet 5 mg PO DAILY 90 Days Qty: 90 0RF metoprolol succinate 25 mg tablet extended release 24 hr 25 mg PO DAILY 90 Days Qty: 90 0RF omeprazole 20 mg capsule,delayed release(DR/EC) 20 mg PO DAILY Qty: 90 0RF rosuvastatin 20 mg tablet 20 mg PO DAILY 90 Days Qty: 90 0RF dextroamphetamine-amphetamine 30 mg tablet 1 tab PO TID dextroamphetamine-amphetamine 10 mg tablet 1 tab PO DAILY zolpidem 10 mg tablet 10 mg PO BEDTIME PRN alprazolam 1 mg tablet 0 mg PO aripiprazole 20 mg tablet 20 mg PO DAILY albuterol sulfate 90 mcg/actuation HFA aerosol inhaler 0 mcg inhalation (DME) lancets [Accu-Chek Softclix Lancets] Misc See Rx Instructions .ROUTE .MEDSUPPLY Qty: 100 0RF Rx Instructions: to be checked once daily (DME) blood-glucose meter [Accu-Chek Guide Glucose Meter] Misc See Rx Instructions .ROUTE .MEDSUPPLY Qty: 1 0RF Rx Instructions: to be checked once daily (DME) Accu-Chek Guide test strips Strip See Rx Instructions .ROUTE .MEDSUPPLY Qty: 100 0RF Rx Instructions: to be checked once daily Trintellix 20 mg tablet 20 mg PO DAILY Latuda 80 mg tablet 80 mg PO DAILY Rx Instructions: must administer with food (at least 350 calories) triamcinolone acetonide 0.1 % lotion 1 appl topical DAILY 30 Days Qty: 60 1RF Referrals: Lizabeth Adame MD [Primary Care Provider] -
[2022-12-08 22:06] LABS: Bacteria Urine None Seen (None Seen); Hyaline Casts Urine 0-2 /LPF (0-2); RBC Urine 0-2 /HPF (0-2); Squamous Epithelial Cell Urine 0-2 /HPF (0-2); WBC Urine 0-5 /HPF (0-5)
--- NOTE | 2022-12-08 22:34 | PC.NURSE ---
pt left prior to discharge instructions being given; no notice
[2022-12-15 11:52] LABS: Glucose, Whole Blood 182 mg/dL (60-115)
== END 2022-12-08 22:36 | disposition home or self-care (01) ==
PROVIDERS: Physician Assistant; Emergency Provider Emergency Medicine Emergency Medical Services; PCP Internal Medicine
DX: E13.65 Other specified diabetes mellitus with hyperglycemia (principal); Z79.85 Long-term (current) use of injectable non-insulin antidiabetic drugs; I10 Essential (primary) hypertension; E78.5 Hyperlipidemia, unspecified; Z79.02 Long term (current) use of antithrombotics/antiplatelets; Z79.899 Other long term (current) drug therapy
CPT/HCPCS: 36415; 80053; 81001; 82009; 82947; 84484; 85025; 85610; 85730; 93005; 99283; 99284

== ENCOUNTER → 2023-04-08 14:01 | Outpatient (BNVA) | payer OTHER, SELFPAY | PROVIDERS: PCP Internal Medicine; Visit Provider Nurse Practitioner | DX: Z01.818 Encounter for other preprocedural examination (principal); R11.14 Bilious vomiting; K85.90 Acute pancreatitis without necrosis or infection, unspecified; K76.9 Liver disease, unspecified; E66.01 Morbid (severe) obesity due to excess calories; Z68.36 Body mass index [BMI] 36.0-36.9, adult; I10 Essential (primary) hypertension; E10.65 Type 1 diabetes mellitus with hyperglycemia; G47.30 Sleep apnea, unspecified | CPT/HCPCS: 99202 ==

== ENCOUNTER → 2023-04-21 08:05 | Outpatient (REF) | payer OTHER, SELFPAY ==
--- NOTE | ~2023-04-21 | NM_ITS ---
EXAMINATION: NM RADIONUCLIDE SOLID FOOD GASTRIC EMPTYING 4-HOUR STUDY CLINICAL INFORMATION: Nausea with vomiting, unspecified. COMPARISON: None available. TECHNIQUE: A standard meal consisting of 4 oz of Egg Beaters brand tagged with 1000 microcuries Tc-99m Sulfur Colloid, 8 oz water and 2 slices of toast with jelly was administered orally to the patient. Images were obtained using a dual head gamma camera in the anterior and posterior projections over of the stomach immediately post ingestion and at hourly intervals up to 4 hours post ingestion. The anterior and posterior counts at each time interval were averaged using the geometric mean and expressed as percentage of the immediate post ingestion counts. FINDINGS: There is good visualization of activity in the stomach immediately post ingestion. As the study progresses, there is good clearance of activity from the stomach and visualization of progressively increasing small bowel activity. By the end of the study, there is almost no retention noted in the stomach. Retention in the stomach at each time interval was: 1 hour 62% (normal 37%-90%) 2 hours 51% (normal 30%-60%) 3 hours 38% 4 hours 6% (normal 0%-10%) NM/NM gastric emptying study IMPRESSION: Normal 4-hour solid food gastric emptying study.
== END ==
LOC: HO.NUCMED 08:05
PROVIDERS: PCP Internal Medicine; Visit Provider Nurse Practitioner
DX: R11.2 Nausea with vomiting, unspecified (principal); K76.9 Liver disease, unspecified
CPT/HCPCS: 78264; A9541

== ENCOUNTER → 2023-04-23 15:36 | Outpatient (BNVA) | payer OTHER, SELFPAY | PROVIDERS: PCP Internal Medicine; Visit Provider Nurse Practitioner | DX: Z01.818 Encounter for other preprocedural examination (principal); R11.14 Bilious vomiting; K76.9 Liver disease, unspecified; K85.90 Acute pancreatitis without necrosis or infection, unspecified; E10.65 Type 1 diabetes mellitus with hyperglycemia; E10.43 Type 1 diabetes mellitus with diabetic autonomic (poly)neuropathy; K31.84 Gastroparesis; E66.01 Morbid (severe) obesity due to excess calories; U07.0 Vaping-related disorder; Z68.36 Body mass index [BMI] 36.0-36.9, adult; Z86.010 Personal history of colon polyps; Z98.84 Bariatric surgery status | CPT/HCPCS: 99212 ==

== ENCOUNTER 2023-05-08 11:51 | Day surgery (SDC) | payer OTHER, SELFPAY ==
[2023-05-06 12:55] VITALS: BMI 35.4
--- NOTE | 2023-05-07 10:14 | HO.ANESPROP2 ---
HPI - Anesthesia Eval Consult details Narrative: 52yo M for Upper Endoscopy and Colonoscopy COUNTS INCLUDE 234 BEDS AT THE [facility] Active Problems Active Problems: All Active Problems (Updated 05/06/23 @ 12:46 by Jennifer Arriaga, RN) Establishing care with new doctor, encounter for (Acute) Failed back syndrome (Acute) Hematoma of right chest wall (Acute) Left otitis media (Acute) Acute pancreatitis (Acute) Hospital discharge follow-up (Acute) Rash (Acute) Change in mole (Acute) Uncontrolled diabetes mellitus (Acute) Psychiatric illness (Acute) Excessive sweating (Acute) Morbid obesity due to excess calories (Acute) Insulin dependent type 1 diabetes mellitus (Acute) Uncontrolled hypertension (Acute) Colon cancer screening (Acute) Nausea & vomiting (Acute) Pre-op examination (Acute) Liver lesion (Acute) Diabetic gastroparesis (Acute) Sleep apnea (Acute) Erectile 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 (Acute) Hypertension, essential (Acute) Chronic GERD (Acute) Lipid disorder (Acute) Diabetes 1.5, managed as type 2 (Acute) Past Medical History Medical History (Updated 05/06/23 @ 12:46 by Jennifer Arriaga RN) ADHD Anxiety, generalized Back pain Chronic GERD Depression, major, 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, managed as type 2 Ear infection Erectile 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 Hypertension, essential Lipid disorder Liver lesion Pneumonia PTSD (post-traumatic stress disorder) Sleep apnea URI, acute Family History Family History Father Alcoholism Hyperlipidemia HTN (hypertension) CVD (cardiovascular disease) Mental illness in member of household Mother CAD (coronary artery disease) Breast cancer High cholesterol Diabetes mellitus CVD (cardiovascular disease) Mental illness in member of household Maternal Grandfather No problems noted. Maternal Grandmother No problems noted. Paternal Grandfather No problems noted. Paternal Grandmother No problems noted. Sister No problems noted. Sister No problems noted. Daughter No problems noted. Daughter No problems noted. Other Mental health disorder Surgical History Surgical History History of discectomy History of ear surgery History of knee surgery History of laparoscopic appendectomy History of left knee surgery History of lithotripsy History of lumbar fusion History of removal of laparoscopic gastric banding device Social History Social History Housing: Apartment Are you a primary farm or ranch animal caretaker to a significant other at home: No Do you presently have visiting nurse or other home services: No Patient Tobacco Use Status: Former Tobacco user e-Cigarette/Vaping Use: Currently Using service: No Current occupational status: disabled Cognitive needs: No Hearing needs: No Vision needs: No Meds Allergies Allergy/AdvReac Type Severity Reaction Status Date / Time benztropine [From COGENTIN] Allergy Unknown SWEATING Verified 04/23/23 15:40 pregabalin [From LYRICA] Allergy Unknown SWELLING Verified 04/23/23 15:40 sitagliptin [From JANUVIA] Allergy Unknown PER H&P Verified 04/23/23 15:40 Home Medications Medication Instructions Recorded Confirmed Last Taken Type dextroamphetamine-amphetamine 30 1 tab PO TID 08/22/20 05/06/23 Unknown History mg tablet zolpidem 10 mg tablet 10 mg PO BEDTIME PRN Insomnia 08/22/20 05/06/23 Unknown History alprazolam 1 mg tablet 2 mg PO BEDTIME 04/08/23 05/06/23 Unknown History cetirizine 10 mg tablet 10 mg PO DAILY 04/08/23 05/06/23 Unknown History oxcarbazepine 300 mg tablet 300 mg PO DAILY 04/08/23 05/06/23 Unknown History pen needle, diabetic 32 gauge x #50 ea 04/08/23 Unknown History (BD Erica 2nd Gen Pen Needle) tamsulosin 0.4 mg capsule 0.4 mg PO BEDTIME 04/08/23 05/06/23 Unknown History metoprolol succinate 25 mg 25 mg PO BEDTIME 05/06/23 05/06/23 Unknown History tablet,extended release 24 hr oxcarbazepine 600 mg tablet 600 mg PO BEDTIME 05/06/23 05/06/23 Unknown History rosuvastatin 20 mg tablet 20 mg PO BEDTIME 05/06/23 05/06/23 Unknown History Exam Exam Date and Time: May 07, 2023 1014 Height,Weight and Vital Signs: Height 5 ft 9 in Weight 108.862 kg Pertinent Lab Results Pertinent Lab Results: Laboratory Tests 12/08/22 12/08/22 17:46 17:46 WBC 10.3 Hgb 17.5 Hct 50.1 Plt Count 256 Sodium 136 Potassium 4.0 Chloride 98 Carbon Dioxide 24 BUN 15 Creatinine 0.85 Narrative Narrative: EKG 12/2022 Vent. Rate : 087 BPM ? ? Atrial Rate : 087 BPM ?? P-R Int : 136 ms? QRS Dur : 100 ms ? ? QT Int : 408 ms ? ? ? P-R-T Axes : 037 000 006 degrees ?? QTc Int : 490 ms ? Normal sinus rhythm Prolonged QT Abnormal ECG No previous ECGs available Assessment and Plan Assessment Anesthesia Assessment: Chart Reviewed
--- NOTE | 2023-05-08 12:13 | MHC.SHP ---
Pre-Procedural Eval Section A Date of Service: 05/08/23 The patient is an INPATIENT: No Changes since office visit: Yes Patient answered all questions; No Cold of Flu in the past 2 weeks, No New Medical Problems and No Changes in Medication The History & Physical has been completed within 30 days and I have reviewed it.: Yes Section B Chief Complaint: vomiting, screening, morbid obesity, sleep apnea Allergies: Allergies Allergy/AdvReac Type Severity Reaction Status Date / Time benztropine [From COGENTIN] Allergy Unknown SWEATING Verified 04/23/23 15:40 pregabalin [From LYRICA] Allergy Unknown SWELLING Verified 04/23/23 15:40 sitagliptin [From JANUVIA] Allergy Unknown PER H&P Verified 04/23/23 15:40 Plan I have reviewed the history and physical and performed a pertinent physical examination on my patient. No changes have occurred unless specified. Time Spent With Patient Time: Total time managing care of this patient today ____ minutes.
[2023-05-08 12:43] VITALS: BP 132/74; PULSE 80; RESP 16; TEMP 36.7; O2SAT 91
--- NOTE | 2023-05-08 13:56 | P.OP_ITS ---
Operative Note Operative Note Date of Service: 05/08/23 Narrative: FLEXIBLE TRANSORAL UPPER GASTROINTESTINAL ENDOSCOPY WITH BIOPSIES AND COLONOSCOPY TILL TRANSVERSE COLON Pre-op diagnosis: screening, nausea and vomiting Post-op diagnosis: GERD, hiatal hernia, Gastritis, multiple gastric polyps, incomplete colonoscopy due to poor colon prep Endoscopist:Gina Duncan MD Anesthesia:?MAC UPPER ENDOSCOPY Consent: Indications for the procedure and potential complications of bleeding, perforation, reaction to medications and missed diagnosis were discussed with the patient and informed consent was obtained. Instrument: Olympus GIF H 190 mid size upper endoscope Monitoring: Vital signs and clinical assessment, continuous EKG monitoring, Pulse oximetry, Carbon Dioxide monitoring and blood pressure monitoring were done throughout the procedure. Procedure: The patient was placed in the left lateral decubitis position and pre-procedure medications were administered and a bite block was placed. The endoscope was inserted into the mouth and advanced under direct vision to the third part of duodenum. A careful inspection was made as the upper endoscope was withdrawn including a retroflexed examination of the proximal stomach; Findings and interventions are described below. Findings: Larynx: Normal Esophagus: GE junction at 38 cms, hiatal hernia 38 to 42 cms. No esophagitis or Zayas's. Stomach: Multiple 8 to 12 mm benign appearing polyps in the gastric body and fundus - biopsied. Mild gastric erythema. Biopsies were obtained. Grade 3 flap valve on retroflexed examination of the cardia. Duodenum: Normal bulb and descending duodenum. Biopsies were obtained from 3rd part of duodenum to check for celiac sprue. Intervention: Biopsies as noted above COLONOSCOPY PROCEDURE NOTE Consent: Indications for the procedure and potential complications of bleeding, perforation, reaction to medications and missed diagnosis were discussed with the patient and informed consent was obtained. Instrument: Olympus CF H 190 L variable stiffness adult colonoscope Monitoring: Vital signs and clinical assessment, intermittent blood pressure monitoring, continuous EKG monitoring, Pulse oximetry and Carbon Dioxide monitoring were done throughout the procedure. Procedure: The patient was placed in the left lateral decubitis position and pre-procedure medications were administered. After a digital rectal examination of the ano-rectum, the video colonoscope was inserted into the rectum and advanced through the colon to 80 cms into the mid transverse colon. Colonoscope was not advanced further due to poor colon prep with liquid and semi-solid stools covering the colon mucosa and could not be suctioned. colonoscope was slowly withdrawn in a retrograde panoramic fashion and the colon mucosa was carefully examined including a retroflexed view of the rectum. Findings and interventions are described below. Procedure Difficulty: : Without difficulty Findings: Terminal Ileum: Not evaluated Cecum: Not evaluated due to poor prep Ascending Colon: Not evaluated due to poor prep Transverse Colon: Not evaluated due to poor prep Descending Colon: Not evaluated due to poor prep Sigmoid Colon: Partially evaluated due to poor prep Rectum: Partially evaluated due to poor prep Ano-rectum: Not evaluated due to poor prep Colon preparation: Fair in the left colon and poor in the trasverse and right colon Impression and Post Procedure Diagnosis: Endoscopy Findings: ESOPHAGUS: Medium sized hiatal hernia STOMACH: Gastritis and multiple gastric polyps DUODENUM: Normal - biopsied to check for celiac sprue Colonoscopy Findings: Procedure was discontinued due to poor prep. Plan: Await pathology results Patient has an appointment on 05/21/23 in the GI Clinic with Basia Lagos NP. Reschedule colonoscopy appointment after re-discussing colon prep (Consider 2 day prep versus Bisacodyl 2 tablets daily starting 5 days before colonoscopy) Above findings were reviewed with the patient and Gastric polyps and Hiatal Hernia handouts were given in the discharge area BIOPSIES SHOWED: A.? Small bowel, biopsy:? Small-bowel/duodenal mucosa with preserved villi and no specific change; no evidence of celiac disease.? B.? Gastric antrum, biopsy:? Gastric antral mucosa with mild reactive changes and focal minimal chronic inactive inflammation; negative for intestinal metaplasia and dysplasia (see comment).? C.? Gastric polyps:? Fundic gland polyps with focal minimal inactive infl ammation; negative for intestinal metaplasia and dysplasia (see comment).? Comment: (B and C):? H pylori stains: Negative
--- NOTE | 2023-05-08 13:58 | HO.ANESPROP2 ---
[facility] Active Problems Active Problems: All Active Problems (Updated 05/06/23 @ 12:46 by Jennifer Arriaga RN) Establishing care with new doctor, encounter for (Acute) Failed back syndrome (Acute) Hematoma of right chest wall (Acute) Left otitis media (Acute) Acute pancreatitis (Acute) Hospital discharge follow-up (Acute) Rash (Acute) Change in mole (Acute) Uncontrolled diabetes mellitus (Acute) Psychiatric illness (Acute) Excessive sweating (Acute) Morbid obesity due to excess calories (Acute) Insulin dependent type 1 diabetes mellitus (Acute) Uncontrolled hypertension (Acute) Colon cancer screening (Acute) Nausea & vomiting (Acute) Pre-op examination (Acute) Liver lesion (Acute) Diabetic gastroparesis (Acute) Sleep apnea (Acute) Erectile 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 (Acute) Hypertension, essential (Acute) Chronic GERD (Acute) Lipid disorder (Acute) Diabetes 1.5, managed as type 2 (Acute) Past Medical History Medical History (Updated 05/06/23 @ 12:46 by Jennifer Arriaga RN) ADHD Anxiety, generalized Back pain Chronic GERD Depression, major, 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, managed as type 2 Ear infection Erectile 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 Hypertension, essential Lipid disorder Liver lesion Pneumonia PTSD (post-traumatic stress disorder) Sleep apnea URI, acute Family History Family History Father Alcoholism Hyperlipidemia HTN (hypertension) CVD (cardiovascular disease) Mental illness in member of household Mother CAD (coronary artery disease) Breast cancer High cholesterol Diabetes mellitus CVD (cardiovascular disease) Mental illness in member of household Maternal Grandfather No problems noted. Maternal Grandmother No problems noted. Paternal Grandfather No problems noted. Paternal Grandmother No problems noted. Sister No problems noted. Sister No problems noted. Daughter No problems noted. Daughter No problems noted. Other Mental health disorder Family history of problems with anesthesia: No Surgical History Surgical History History of discectomy History of ear surgery History of knee surgery History of laparoscopic appendectomy History of left knee surgery History of lithotripsy History of lumbar fusion History of removal of laparoscopic gastric banding device History of Problems with Anesthesia: Yes (nausea) Social History Social History (Reviewed 04/23/23 @ 15:40 by CLEMENTE Kaufman Housing: Apartment Are you a primary customer care consultant to a significant other at home: No Do you presently have visiting nurse or other home services: No Patient Tobacco Use Status: Former Tobacco user e-Cigarette/Vaping Use: Currently Using Substance Use Frequency: Daily Advance Directives: No Advance Directives Information Provided: Yes Recently lost weight without trying: No Eating poorly because of decreased appetite: No Nutrition Risks: No Nutritional Risk service: No Current occupational status: disabled Cognitive needs: No Hearing needs: No Vision needs: No Meds Allergies Allergy/AdvReac Type Severity Reaction Status Date / Time benztropine [From COGENTIN] Allergy Unknown SWEATING Verified 04/23/23 15:40 pregabalin [From LYRICA] Allergy Unknown SWELLING Verified 04/23/23 15:40 sitagliptin [From JANUVIA] Allergy Unknown PER H&P Verified 04/23/23 15:40 Active Medications: Current Medications Lactated Ringer's (Lr) 1,000 mls @ 100 mls/hr IVCONT .Q10H FABI Last Admin: 05/08/23 12:55 Dose: 100 mls/hr Ondansetron HCl (Ondansetron Hcl 4 Mg/2 Ml Vial) 4 mg IVPUSH ONCE PRN PRN Reason: Nausea and Vomiting Home Medications Medication Instructions Recorded Confirmed Last Taken Type dextroamphetamine-amphetamine 30 1 tab PO TID 08/22/20 05/06/23 Unknown History mg tablet zolpidem 10 mg tablet 10 mg PO BEDTIME PRN Insomnia 08/22/20 05/06/23 Unknown History alprazolam 1 mg tablet 2 mg PO BEDTIME 04/08/23 05/06/23 Unknown History cetirizine 10 mg tablet 10 mg PO DAILY 04/08/23 05/06/23 Unknown History oxcarbazepine 300 mg tablet 300 mg PO DAILY 04/08/23 05/06/23 05/08/23 History pen needle, diabetic 32 gauge x #50 ea 04/08/23 Unknown History (BD Erica 2nd Gen Pen Needle) tamsulosin 0.4 mg capsule 0.4 mg PO BEDTIME 04/08/23 05/06/23 Unknown History metoprolol succinate 25 mg 25 mg PO BEDTIME 05/06/23 05/06/23 Unknown History tablet,extended release 24 hr oxcarbazepine 600 mg tablet 600 mg PO BEDTIME 05/06/23 05/06/23 Unknown History rosuvastatin 20 mg tablet 20 mg PO BEDTIME 05/06/23 05/06/23 Unknown History Exam Exam Date and Time: May 08, 2023 1358 Height,Weight and Vital Signs: Height 5 ft 9 in Weight 108.862 kg Last Vital Signs Temp 98.1 F 05/08/23 12:43 Pulse 80 05/08/23 12:43 Resp 16 05/08/23 12:43 BP 132/74 05/08/23 12:43 Pulse Ox 91 L 05/08/23 12:43 O2 Del Method Room Air 05/08/23 12:43 Pertinent Lab Results Pertinent Lab Results: Laboratory Tests 05/08/23 12:49 POC Glucose 132 H Airway Mallampati Class: I TM Dist: >3cm Neck ROM: Full Loose/Missing/Broken Teeth: Yes and Upper Heart: rrr Lungs: lungs Assessment and Plan Final Anesthetic Review Family History of Problems with Anesthesia: No History of Problems with Anesthesia: Yes (nausea) NPO: Yes ASA Class: III Final Preanesthetic Review: No Changes in Pt Med Stat, Meds/Allgs Chart Reviewed, Consent Obtained/Reviewed and Anes Risks/Benef Reviewed Patient Risk: Intermediate Procedure Risk: Low Anesthetic Plan Anesthetic Plan: MAC: Disposition: Standard PACU
[2023-05-08 14:56] VITALS: BP 99/84; PULSE 88; RESP 20; TEMP 36.8; O2SAT 94
[2023-05-08 15:11] VITALS: BP 123/76; PULSE 71; RESP 20; TEMP 36.6; O2SAT 94
== END 2023-05-08 15:28 | disposition home or self-care (01) ==
PROVIDERS: PCP Internal Medicine; Visit Provider Internal Medicine Gastroenterology
PROC: (CPT 45378; principal; 2023-05-08 14:30)
DX: Z12.11 Encounter for screening for malignant neoplasm of colon (principal); Z86.010 Personal history of colon polyps; R11.14 Bilious vomiting; E66.01 Morbid (severe) obesity due to excess calories; Z68.36 Body mass index [BMI] 36.0-36.9, adult; G47.30 Sleep apnea, unspecified; K29.50 Unspecified chronic gastritis without bleeding; K31.7 Polyp of stomach and duodenum; K21.9 Gastro-esophageal reflux disease without esophagitis; K44.9 Diaphragmatic hernia without obstruction or gangrene; K76.9 Liver disease, unspecified; K85.90 Acute pancreatitis without necrosis or infection, unspecified; I10 Essential (primary) hypertension; E10.65 Type 1 diabetes mellitus with hyperglycemia; K31.84 Gastroparesis; F90.2 Attention-deficit hyperactivity disorder, combined type; F33.9 Major depressive disorder, recurrent, unspecified; Z79.84 Long term (current) use of oral hypoglycemic drugs; Z79.85 Long-term (current) use of injectable non-insulin antidiabetic drugs; Z79.899 Other long term (current) drug therapy; Z87.01 Personal history of pneumonia (recurrent); Z88.8 Allergy status to other drugs, medicaments and biological substances; Z98.890 Other specified postprocedural states; Z87.891 Personal history of nicotine dependence
CPT/HCPCS: 45378; 43239; 82947; 88305; 88342

== ENCOUNTER → 2023-05-08 11:51 | Outpatient (BNV) | payer OTHER, SELFPAY | PROVIDERS: PCP Internal Medicine; Visit Provider Internal Medicine Gastroenterology | DX: Z12.11 Encounter for screening for malignant neoplasm of colon (principal); Z91.199 Patient's noncompliance with other medical treatment and regimen due to unspecified reason; K29.70 Gastritis, unspecified, without bleeding; K31.7 Polyp of stomach and duodenum | CPT/HCPCS: 43239; 45378 ==

== ENCOUNTER 2023-05-21 | Outpatient (REF) | payer OTHER, SELFPAY | END 2023-05-21 00:01 | disposition home or self-care (01) | LOC: CF | PROVIDERS: PCP Internal Medicine; Visit Provider Nurse Practitioner | DX: R11.14 Bilious vomiting (principal); K21.9 Gastro-esophageal reflux disease without esophagitis; K76.9 Liver disease, unspecified; R21 Rash and other nonspecific skin eruption; K31.84 Gastroparesis | CPT/HCPCS: 99212 ==

== ENCOUNTER 2023-05-21 14:25 | Outpatient (AMB) | payer OTHER, SELFPAY ==
--- NOTE | 2023-05-21 14:26 | A.OFFVIS_ITS ---
Intake Vital Signs 05/21/23 14:40 Height 5 ft 9 in Weight 244 lb 11.41 oz BMI 36.1 BP 144/94 H Blood Pressure Location Lt brachial Position Sitting Pulse 105 H Intake Visit Reasons: s/p colo/EGD Intake Note: Joo presents in the office as a follow up egd and colo. CC: He is having concerns with nausea. He had issues with the prep. He threw up twice since the last time he was seen. He is nauseous at times. Rn Placement Required: No Allergies benztropine [From COGENTIN] Allergy (Unknown, Verified 05/21/23 14:41) SWEATING pregabalin [From LYRICA] Allergy (Unknown, Verified 05/21/23 14:41) SWELLING sitagliptin [From JANUVIA] Allergy (Unknown, Verified 05/21/23 14:41) PER H&P HPI s/p colo/EGD HPI Details Assessment & Plan (1) Nausea & vomiting: ?Code(s): R11.2 - Nausea with vomiting, unspecified ?Qualifiers: ?Vomiting type:?bilious vomiting? Qualified Code(s):?R11.14 - Bilious vomiting ?Plan: He is improved with the reglan at 5mg he only vomited twice in the past 2 weeks! But he still has nausea, so we ill increase the dose as he is a big walter and since he has had absolutely no adverse effects or signs of serotonin syndrome.? We will increase it to 10 mg 4 times a day and monitor him.? He feels happy with the progress he has made so far even though it is not complete resolution.? The gastric emptying study was normal but he did not stop the Reglan for the so this likely impacted the study adversely. He has not yet heard about scheduling the MRI to look at his liver lesion which does not surprise me since this needs to go through a prior approval process.? The hematoma on his back has been slowly resolving with the use warm packs and he is happy about this. ROV 4 weeks. (2) Liver lesion: ?Comment: On CT report ATIF and BECK ?Code(s): K76.9 - Liver disease, unspecified (3) Morbid obesity due to excess calories: ?Code(s): E66.01 - Morbid (severe) obesity due to excess calories (4) Uncontrolled diabetes mellitus: ?Code(s): E11.65 - Type 2 diabetes mellitus with hyperglycemia ?Qualifiers: ?Diabetes mellitus type:?type 1??Glycemic state:?with hyperglycemia? Qualified Code(s):?E10.65 - Type 1 diabetes mellitus with hyperglycemia (5) Diabetic gastroparesis: ?Comment: .? Gastric emptying study normal but he for got to stop the Reglan ?Code(s): E11.43 - Type 2 diabetes mellitus with diabetic autonomic (poly)neuropathy; K31.84 - Gastroparesis ? ? ? Medications: New metoclopramide HCl (Reglan) ?? provi maria elena aware of possi ble interactions a nd is monitoring/B 10 mg? PO QIDACHS 120 tabs 6RF E11.43 - Type 2 di abetes mellitus wi th diabetic autono mckinley (poly)neuropat hy, K31.84 - Gastr oparesis ? Discontinued metoclopramide HCl (Reglan) ?? provi maria elena aware of possi ble interactions a nd is monitoring/ ?? Discontinued Re ason:? Doctor's Or maria elena 5 mg? PO QIDACHS 1 20 tabs 3RF R11.2 - Nausea wit h vomiting, unspec ified MRI OF THE ABDOMEN WITH CONTRAST NOT OBTAINED, We cancelled r/t problems with machine they were waiting for reschedule date EGD/COLONOSCOPY 05/08/23 Findings: Larynx:? Normal Esophagus:?GE junction at 38 cms, hiatal hernia 38 to 42 cms. No esophagitis or Zayas's. Stomach:?Multiple 8 to 12 mm benign appearing polyps in the gastric body and fundus - biopsied. Mild gastric erythema. Biopsies were obtained. Grade 3 flap valve on retroflexed examination of the cardia. Duodenum:?Normal bulb and descending duodenum. Biopsies were obtained from 3rd part of duodenum to check for celiac sprue. Intervention:?Biopsies as noted above Findings: Terminal Ileum: Not evaluated Cecum:? Not evaluated due to poor prep Ascending Colon:??Not evaluated due to poor prep Transverse Colon:??Not evaluated due to poor prep Descending Colon:? Not evaluated due to poor prep Sigmoid Colon:??Partially evaluated due to poor prep Rectum:??Partially evaluated due to poor prep Ano-rectum:??Not evaluated due to poor prep Colon preparation: ? Fair in the left colon and poor in the trasverse and right colon Impression and Post Procedure Diagnosis: Endoscopy Findings: ESOPHAGUS: Medium sized hiatal hernia STOMACH: Gastritis and multiple gastric polyps DUODENUM: Normal - biopsied to check for celiac sprue Colonoscopy Findings: Procedure was discontinued due to poor prep. Plan: Await pathology results Patient has an appointment on 05/21/23 in the GI Clinic with? Basia Lagos NP. Reschedule colonoscopy appointment after re-discussing colon prep (Consider 2 day prep versus Bisacodyl 2 tablets daily starting 5 days before colonoscopy) Addendum Addendum #1 (B and C):? Immunostains for H pylori are negative with appropriate control. Electronically Signed By: Oneyda Griffith ? 05/13/23 1610 Diagnosis A.? Small bowel, biopsy:? Small-bowel/duodenal mucosa with preserved villi and no specific change; no evidence of celiac disease.? B.? Gastric antrum, biopsy:? Gastric antral mucosa with mild reactive changes and focal minimal chronic inactive inflammation; negative for intestinal metaplasia and dysplasia (see comment).? C.? Gastric polyps:? Fundic gland polyps with focal minimal inactive inflammat ion; negative for intestinal metaplasia and dysplasia (see comment).? Comment: (B and C):? H pylori stains pending; addendum to follow. TODAY'S VISIT He tolerated the procedure well. They are aware of the problem with the prep, he drank it but was just bloated and did not start moving his bowels till about 4 in the morning and of course he was not well cleared. They are quite agreeable to trying a 2 day prep using MiraLax and Dulcolax for the next round as the patient really dislikes the taste of the GoLYTELY. We review the findings and since there is continued minimal irritation I think will increase his omeprazole 40 mg once a day. However, he is quite happy to report that he has only vomited twice since I last saw him and this is a huge improvement. He does have frequent episodes during the day worry has a feeling that seems to start in his lower belly as a feeling of warmth, moves up to his mid belly and then to the upper belly. He will start burping and this is followed by nausea and vomiting. He is happy that when he does vomited only lasts her about 5 minutes since he states ?it used to last all day. ? I think what we will do is give him 5 mg of Reglan and I encouraged him to take it at the 1st sign of this syndrome to see if we can afford what ever is happening. He is utilizing the 10 mg Reglan 4 times a day without any obvious adverse effects. He has not wanted problem with itching that seems to be isolated to the antecubital area of his right arm that seems worse at night. I am uncertain if this is a medication reaction but I will get a liver panel to see if he is having hyperbilirubinemia and I suggest the use of Benadryl cream and hydroxyzine. They are waiting for their MRI to be rescheduled since there apparently was a problem with the machine that cause a cancellation. 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, managed as type 2 Ear infection Erectile 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 Hypertension, essential Lipid disorder Liver lesion Pneumonia PTSD (post-traumatic stress disorder) Sleep apnea URI, acute Surgical History History of discectomy History of ear surgery History of knee surgery History of laparoscopic appendectomy History of left knee surgery History of lithotripsy History of lumbar fusion History of removal of laparoscopic gastric banding device Family History Father Alcoholism Hyperlipidemia HTN (hypertension) CVD (cardiovascular disease) Mental illness in member of household Mother CAD (coronary artery disease) Breast cancer High cholesterol Diabetes mellitus CVD (cardiovascular disease) Mental illness in member of household Maternal Grandfather No problems noted. Maternal Grandmother No problems noted. Paternal Grandfather No problems noted. Paternal Grandmother No problems noted. Sister No problems noted. Sister No problems noted. Daughter No problems noted. Daughter No problems noted. Other Mental health disorder Social History Housing: Apartment Are you a primary vision care associate to a significant other at home: No Do you presently have visiting nurse or other home services: No Patient Tobacco Use Status: Former Tobacco user e-Cigarette/Vaping Use: Currently Using service: No Current occupational status: disabled Cognitive needs: No Hearing needs: No Vision needs: No Review of Systems Const Denies fatigue, Denies fever(s), Denies night sweats, Denies poor appetite and Denies weight loss ENT Reports Normal hearing present, Denies dental pain, Denies dysphagia, Denies hearing loss, Denies mouth pain, Denies odynophagia, Denies throat swelling, Denies tongue swelling and Reports other (Dentition adequate) Card Reports no additional complaints Resp Reports no additional complaints GI Denies abdominal pain, Denies melena, Reports bloating, Denies hematochezia, Denies constipation, Denies GI cramping, Denies dysphagia, Denies excessive flatus, Denies early satiety, Reports heartburn, Denies diarrhea, Reports nausea, Denies odynophagia, Reports vomiting and Denies hematemesis Skin/Breast Reports pruritus, Denies lesions, Reports rash and Denies jaundice Neuro Reports Normal hearing present and Denies Abnormal speech present Endo Denies fatigue Aller/Immun Denies throat swelling and Denies tongue swelling Physical Exam Vital Signs: Last Vital Signs Pulse 105 H 05/21/23 14:40 BP 144/94 H 05/21/23 14:40 BMI result Body Mass Index 36.1 Const General: cooperative, no acute distress, well developed and well groomed Nutritional Appearance: well nourished and obese Orientation/consciousness: oriented to person, oriented to place and oriented to time Limitations: No language barrier and other limitations HEENT Head: Yes normocephalic and Yes atraumatic Eyes General: appearance normal, both eyes and all related structures Pupils: Equal, round and reactive pupils present Neck Neck: Yes normal visual inspection and Yes no lymphadenopathy Thyroid: Thyroid normal Resp Effort & Inspection: normal respiratory effort and able to speak in complete sentences Auscultation: clear to auscultation bilaterally Cardio Rate: regular rate Rhythm: regular rhythm Heart sounds: Normal, physiologic split S2 sound present Peripheral pulses: radial pulses present and posterior tibial pulses present GI Inspection: No distended, No Abdominal panniculus present and Yes obesity Palpation (GI): Soft to palpation, nontender, no guarding, not rigid and No hepatosplenomegaly present Percussion: Yes normal to percussion Auscultation: normal bowel sounds Rectal Exam - Male: Yes deferred Skin Other: I cannot note any areas of papules macules etc. on the arm in question. There is some excoriation from scratching. General skin exam: no rashes or lesions noted, turgor normal, skin not dry, no jaundice, No spider nevi and no striae Rashes: no rashes Nails: normal Neuro General: oriented to person, oriented to place and oriented to time Cranial nerves: Yes Equal, round and reactive pupils present and Yes Normal hearing present Speech: No Abnormal speech present Extrem General: Yes normal to inspection, No clubbing, No cyanosis and No edema Psych Appearance: grossly normal and well kempt Mental Status: mental status grossly normal Speech and movement: Normal speech and movement present Affect: normal affect Attitude: cooperative Thought process: Normal thought process present and not confabulating Thought content: Normal thought content present Insight: Limited insight present (Psych) Judgement: Limited judgement present (Psych) Results Reviewed Results Reviewed: EGD/COLONOSCOPY 05/08/23 Findings: Larynx:? Normal Esophagus:?GE junction at 38 cms, hiatal hernia 38 to 42 cms. No esophagitis or Zayas's. Stomach:?Multiple 8 to 12 mm benign appearing polyps in the gastric body and fundus - biopsied. Mild gastric erythema. Biopsies were obtained. Grade 3 flap valve on retroflexed examination of the cardia. Duodenum:?Normal bulb and descending duodenum. Biopsies were obtained from 3rd part of duodenum to check for celiac sprue. Intervention:?Biopsies as noted above Findings: Terminal Ileum: Not evaluated Cecum:? Not evaluated due to poor prep Ascending Colon:??Not evaluated due to poor prep Transverse Colon:??Not evaluated due to poor prep Descending Colon:? Not evaluated due to poor prep Sigmoid Colon:??Partially evaluated due to poor prep Rectum:??Partially evaluated due to poor prep Ano-rectum:??Not evaluated due to poor prep Colon preparation: ? Fair in the left colon and poor in the trasverse and right colon Impression and Post Procedure Diagnosis: Endoscopy Findings: ESOPHAGUS: Medium sized hiatal hernia STOMACH: Gastritis and multiple gastric polyps DUODENUM: Normal - biopsied to check for celiac sprue Colonoscopy Findings: Procedure was discontinued due to poor prep. Plan: Await pathology results Patient has an appointment on 05/21/23 in the GI Clinic with? Basia Lagos NP. Reschedule colonoscopy appointment after re-discussing colon prep (Consider 2 day prep versus Bisacodyl 2 tablets daily starting 5 days before colonoscopy) Addendum Addendum #1 (B and C):? Immunostains for H pylori are negative with appropriate control. Electronically Signed By: Oneyda Griffith ? 05/13/23 1610 Diagnosis A.? Small bowel, biopsy:? Small-bowel/duodenal mucosa with preserved villi and no specific change; no evidence of celiac disease.? B.? Gastric antrum, biopsy:? Gastric antral mucosa with mild reactive changes and focal minimal chronic inactive inflammation; negative for intestinal metaplasia and dysplasia (see comment).? C.? Gastric polyps:? Fundic gland polyps with focal minimal inactive inflammation; negative for intestinal metaplasia and dysplasia (see comment).? Comment: (B and C):? H pylori stains pending; addendum to follow. Assessment & Plan Assessment & Plan (1) Diabetic gastroparesis: Comment: . Gastric emptying study normal but he for got to stop the Reglan Code(s): E11.43 - Type 2 diabetes mellitus with diabetic autonomic (poly)neuropathy; K31.84 - Gastroparesis Plan: He tolerated the procedure well. They are aware of the problem with the prep, he drank it but was just bloated and did not start moving his bowels till about 4 in the morning and of course he was not well cleared. They are quite agreeable to trying a 2 day prep using MiraLax and Dulcolax for the next round as the patient really dislikes the taste of the GoLYTELY. We review the findings and since there is continued minimal irritation I think will increase his omeprazole 40 mg once a day. However, he is quite happy to report that he has only vomited twice since I last saw him and this is a huge improvement. He does have frequent episodes during the day worry has a feeling that seems to start in his lower belly as a feeling of warmth, moves up to his mid belly and then to the upper belly. He will start burping and this is followed by nausea and vomiting. He is happy that when he does vomited only lasts her about 5 minutes since he states ?it used to last all day. ? I think what we will do is give him 5 mg of Reglan and I encouraged him to take it at the 1st sign of this syndrome to see if we can afford what ever is happening. He is utilizing the 10 mg Reglan 4 times a day without any obvious adverse effects. He has not wanted problem with itching that seems to be isolated to the antecubital area of his right arm that seems worse at night. I am uncertain if this is a medication reaction but I will get a liver panel to see if he is having hyperbilirubinemia and I suggest the use of Benadryl cream and hydroxyzine. They are waiting for their MRI to be rescheduled since there apparently was a problem with the machine that cause a cancellation. Return office visit in 3 weeks MRI OF THE ABDOMEN WITH CONTRAST NOT OBTAINED, We cancelled r/t problems with machine they were waiting for reschedule date (2) Nausea & vomiting: Code(s): R11.2 - Nausea with vomiting, unspecified Qualifiers: Vomiting type: bilious vomiting Qualified Code(s): R11.14 - Bilious vomiting (3) Morbid obesity due to excess calories: Code(s): E66.01 - Morbid (severe) obesity due to excess calories (4) Liver lesion: Comment: On CT report Monica Code(s): K76.9 - Liver disease, unspecified (5) Chronic GERD: Code(s): K21.9 - Gastro-esophageal reflux disease without esophagitis (6) Uncontrolled diabetes mellitus: Code(s): E11.65 - Type 2 diabetes mellitus with hyperglycemia Qualifiers: Diabetes mellitus type: type 1 Glycemic state: with hyperglycemia Qualified Code(s): E10.65 - Type 1 diabetes mellitus with hyperglycemia (7) History of esophagogastroduodenoscopy (EGD): Code(s): Z98.890 - Other specified postprocedural states (8) Rash: Code(s): R21 - Rash and other nonspecific skin eruption (9) Colon cancer screening: Code(s): Z12.11 - Encounter for screening for malignant neoplasm of colon Orders: Orders Liver Panel Today R21 - Rash and other nonspecific skin eruption Complete Blood Count Auto Diff Today R21 - Rash and other nonspecific skin eruption Colonoscopy - GI Use Only Today Z12.11 - Encounter for screening for malignant neoplasm of colon Medications: New omeprazole 40 mg PO DAILY 30 days 30 caps 6RF R11.2 - Nausea with vomiting, unspecified metoclopramide HCl (Reglan) 5 mg PO TID 90 tabs 3RF E11.43 - Type 2 diabetes mellitus with diabetic autonomic (poly)neuropathy, K31.84 - Gastroparesis diphenhydramine HCl 2% (Benadryl) 1 appl topical QID 103 mL 3RF R21 - Rash and other nonspecific skin eruption hydroxyzine HCl 50 mg (2 x 25 mg) PO BEDTIME 60 tabs 3RF R21 - Rash and other nonspecific skin eruption polyethylene glycol 3350 (Miralax) 238 grams PO ONCE 1 day 238 grams 0RF colonoscopy prep bisacodyl (Dulcolax (bisacodyl)) 10 mg (2 x 5 mg) PO BEDTIME 2 days 8 tabs 0RF Discontinued rosuvastatin 20 mg PO DAILY 90 days 90 tabs 0RF omeprazole Discontinued Reason: Doctor's Order 20 mg PO DAILY 90 caps 0RF K21.9 - Gastro-esophageal reflux disease without esophagitis metoprolol succinate ER 25 mg PO DAILY 90 days 90 tabs 0RF Coding Level of Care Code Est Pt Level 4 (50439) Diagnoses Diabetic gastroparesis E11.43; K31.84 Nausea & vomiting R11.14 Vomiting type: bilious vomiting Morbid obesity due to excess calories E66.01 Liver lesion K76.9 Chronic GERD K21.9 Uncontrolled diabetes mellitus E10.65 Diabetes mellitus type: type 1 Glycemic state: with hyperglycemia History of esophagogastroduodenoscopy (EGD) Z98.890 Rash R21 Colon cancer screening Z12.11
[2023-05-21 14:40] VITALS: BP 144/94; PULSE 105; BMI 36.1
== END 2023-05-21 15:11 | disposition home or self-care (01) ==
LOC: HO.HGI 14:25
PROVIDERS: PCP Internal Medicine; Visit Provider Nurse Practitioner
DX: R11.14 Bilious vomiting (principal); K31.84 Gastroparesis; K21.9 Gastro-esophageal reflux disease without esophagitis; K76.9 Liver disease, unspecified
CPT/HCPCS: 99214

== ENCOUNTER 2023-06-03 15:07 | Outpatient (AMB) | payer OTHER, SELFPAY ==
--- NOTE | 2023-06-03 15:08 | MHC.PC.OV ---
Vital Signs 06/03/23 15:10 Height 5 ft 9 in Weight 249 lb BMI 36.8 BP 138/92 H Blood Pressure Location Rt brachial Position Sitting Pulse 97 Pulse Source Pulse Oximeter Pulse Oximetry (%) 95 Oxygen Delivery Method Room Air Intake Visit Reasons: resched from 05/12/2023 Allergies benztropine [From COGENTIN] Allergy (Unknown, Verified 06/03/23 15:10) SWEATING pregabalin [From LYRICA] Allergy (Unknown, Verified 06/03/23 15:10) SWELLING sitagliptin [From JANUVIA] Allergy (Unknown, Verified 06/03/23 15:10) PER H&P Medication List - Last Reconciled 06/03/23 by Lizabeth Adame MD alprazolam 2 mg PO BEDTIME amlodipine 5 mg PO DAILY 90 days blood sugar diagnostic (Accu-Chek Guide test strips) to be checked once daily blood-glucose meter (Accu-Chek Guide Glucose Meter) to be checked once daily cetirizine 10 mg PO DAILY dextroamphetamine-amphetamine 30 mg 1 tab PO TID diphenhydramine HCl 2% (Benadryl) 1 appl topical QID dulaglutide (Trulicity) 1.5 mg (0.5 mL) subcut QWEEK 30 days empagliflozin (Jardiance) 10 mg PO QAM 90 days hydrochlorothiazide 25 mg PO DAILY hydroxyzine HCl 50 mg (2 x 25 mg) PO BEDTIME insulin glargine (Lantus Solostar U-100 Insulin) 38 units (0.38 mL) subcut QPM 30 days [Insulin pen needles Once a day] lancets (Accu-Chek Softclix Lancets) to be checked once daily lisinopril 40 mg PO DAILY metoclopramide HCl (Reglan) 10 mg PO QIDACHS metoprolol succinate ER 25 mg PO BEDTIME omeprazole 40 mg PO DAILY 30 days oxcarbazepine 600 mg PO BEDTIME oxcarbazepine 300 mg PO DAILY pen needle, diabetic (BD Erica 2nd Gen Pen Needle) As directed polyethylene glycol 3350 (Miralax) 238 grams PO ONCE 1 day rosuvastatin 20 mg PO BEDTIME tamsulosin 0.4 mg PO BEDTIME zolpidem 10 mg PO BEDTIME PRN Tobacco use date assessed: 06/03/23 Dental Screening Dental Screen Date: 06/03/23 Did you have a dental visit in the last 12 months?: Yes Did you have a dental problem in the last 6 months where you did not have access to dental care?: No Was dental information given to patient?: Patient has dentist HPI resched from 05/12/2023 HPI Details Patient is a 52-year-old gentleman who has been having uncontrolled sugars. Lab order placed to be done as soon as possible his last hemoglobin A1c was above 9 He is currently taking Trulicity 3, Jardiance 10 mg, and long-acting insulin 38 units I have also increase his Trulicity to 3 mg Hypertension: Continue lisinopril to 40 mg and hydrochlorothiazide 25 mg , metoprolol 25 mg Need to lose weight BMI is elevated Patient has developed rash on his right forearm he has seen manisha see Dermatology and was given 3 different creams which did not help him On examination it seems as if patient developed contact dermatitis like poison sarah and he continued to scratch it so it is not healing. I have placed dermatology referral for 2nd opinion meanwhile I have told his to put a sock on his left hand, patient is left handed He had pneumonia in March and after that he feels as if he gets short of breath if he is exerting himself, his pulse ox is 95% on room air I am ordering pulmonary rehab patient will benefit from that. 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, managed as type 2 Ear infection Erectile 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 Hypertension, essential Lipid disorder Liver lesion Pneumonia PTSD (post-traumatic stress disorder) Sleep apnea URI, acute Surgical History History of discectomy History of ear surgery History of knee surgery History of laparoscopic appendectomy History of left knee surgery History of lithotripsy History of lumbar fusion History of removal of laparoscopic gastric banding device Family History Father Alcoholism Hyperlipidemia HTN (hypertension) CVD (cardiovascular disease) Mental illness in member of household Mother CAD (coronary artery disease) Breast cancer High cholesterol Diabetes mellitus CVD (cardiovascular disease) Mental illness in member of household Maternal Grandfather No problems noted. Maternal Grandmother No problems noted. Paternal Grandfather No problems noted. Paternal Grandmother No problems noted. Sister No problems noted. Sister No problems noted. Daughter No problems noted. Daughter No problems noted. Other Mental health disorder Social History Housing: Apartment Are you a primary elderly caregiver to a significant other at home: No Do you presently have visiting nurse or other home services: No Patient Tobacco Use Status: Former Tobacco user e-Cigarette/Vaping Use: Currently Using service: No Current occupational status: disabled Cognitive needs: No Hearing needs: No Vision needs: No Questionnaire Thrive Questionnaire Date Thrive assessed: 12/19/22 AUDIT C Alcohol Use Questionnaire (AUDIT-C) 1. How often do you have a drink containing alcohol?: Never Total Score: 0 RISHI-7 AMB Questionnaire RISHI-7 Date RISHI - 7 assessed: 12/19/22 Source: Developed by Drs. Jan Del Rio, Gail Hayward, Son Hanks and colleagues, with an educational jeannie from [employer]. Review of Systems Const Denies chills and Denies fever(s) ENT Denies epistaxis and Denies nasal discharge Card Denies chest pain Resp Denies chest congestion, Denies cough and Denies hemoptysis GI Denies diarrhea and Denies nausea Skin/Breast Denies rash Neuro Reports no additional complaints Psych Reports no additional complaints Endo Reports no additional complaints Physical exam (Primary Care) Vital Signs: Last Vital Signs Pulse 97 06/03/23 15:10 BP 138/92 H 06/03/23 15:10 Pulse Ox 95 06/03/23 15:10 Oxygen Delivery Method Room Air 06/03/23 15:10 BMI result Body Mass Index 36.8 Tobacco/Smoking Status: Tobacco use Status Tobacco use date assessed 06/03/23 06/03/23 15:11 Patient Tobacco Use Status Former Tobacco user 06/03/23 15:09 e-Cigarette/Vaping Use Currently Using 06/03/23 15:09 Thrive Assessment: Date of Thrive Assessment Date Thrive assessed 12/19/22 06/03/23 15:09 Const General: cooperative, comfortable and no acute distress Orientation/consciousness: patient oriented x3 HENMT Head: Yes normocephalic Eyes General: appearance normal, both eyes and all related structures Neck Neck: Yes supple Resp Effort & Inspection: normal respiratory effort, no cough and no stridor Cardio Rhythm: regular rhythm Heart sounds: S1 normal heart sound present and S2 normal heart sound present Skin General skin exam: turgor normal Full body images: 1. Discrete papular rash with scratch garcia Neuro General: patient oriented x3, tone normal and moves all extremities Extrem Right lower extremity: no edema Left lower extremity: no edema Assessment and Plan Assessment & Plan (1) Diabetes 1.5, managed as type 2: Code(s): E13.9 - Other specified diabetes mellitus without complications (2) Lipid disorder: Code(s): E78.9 - Disorder of lipoprotein metabolism, unspecified (3) Chronic GERD: Code(s): K21.9 - Gastro-esophageal reflux disease without esophagitis (4) Hypertension, essential: Code(s): I10 - Essential (primary) hypertension (5) Insulin dependent type 1 diabetes mellitus: Code(s): E10.9 - Type 1 diabetes mellitus without complications (6) Shortness of breath: Code(s): R06.02 - Shortness of breath (7) History of pneumonia: Code(s): Z87.01 - Personal history of pneumonia (recurrent) (8) Rash: Code(s): R21 - Rash and other nonspecific skin eruption (9) Uncontrolled diabetes mellitus: Code(s): E11.65 - Type 2 diabetes mellitus with hyperglycemia Qualifiers: Diabetes mellitus type: type 1 Glycemic state: with hyperglycemia Qualified Code(s): E10.65 - Type 1 diabetes mellitus with hyperglycemia (10) Morbid obesity due to excess calories: Code(s): E66.01 - Morbid (severe) obesity due to excess calories (11) Psychiatric illness: Code(s): F99 - Mental disorder, not otherwise specified Plan Patient is a 52-year-old gentleman who has been having uncontrolled sugars. Lab order placed to be done as soon as possible his last hemoglobin A1c was above 9 He is currently taking Trulicity 3, Jardiance 10 mg, and long-acting insulin 38 units I have also increase his Trulicity to 3 mg Hypertension: Continue lisinopril to 40 mg and hydrochlorothiazide 25 mg , metoprolol 25 mg Need to lose weight BMI is elevated Patient has developed rash on his right forearm he has seen manisha see Dermatology and was given 3 different creams which did not help him On examination it seems as if patient developed contact dermatitis like poison sarah and he continued to scratch it so it is not healing. I have placed dermatology referral for 2nd opinion meanwhile I have told his to put a sock on his left hand, patient is left handed He had pneumonia in March and after that he feels as if he gets short of breath if he is exerting himself, his pulse ox is 95% on room air I am ordering pulmonary rehab patient will benefit from that. He is requesting refill on numerous medication which I have sent for him He is also requesting a script for gustavo a Glucometer which I have sent if his insurance covers it he can have that Labs to be done as soon as possible Follow-up after the lab if sugar is still high otherwise in 3 months Orders: Orders Comprehensive Met. Panel Today E13.9 - Other specified diabetes mellitus without complications, E78.9 - Disorder of lipoprotein metabolism, unspecified, I10 - Essential (primary) hypertension, K21.9 - Gastro-esophageal reflux disease without esophagitis Hemoglobin A1c Today E13.9 - Other specified diabetes mellitus without complications, E78.9 - Disorder of lipoprotein metabolism, unspecified, I10 - Essential (primary) hypertension, K21.9 - Gastro-esophageal reflux disease without esophagitis LDL Cholesterol Direct Today E13.9 - Other specified diabetes mellitus without complications, E78.9 - Disorder of lipoprotein metabolism, unspecified, I10 - Essential (primary) hypertension, K21.9 - Gastro-esophageal reflux disease without esophagitis Complete Blood Count Auto Diff Today E13.9 - Other specified diabetes mellitus without complications, E78.9 - Disorder of lipoprotein metabolism, unspecified, I10 - Essential (primary) hypertension, K21.9 - Gastro-esophageal reflux disease without esophagitis Pulmonary Rehab Today R06.02 - Shortness of breath, Z87.01 - Personal history of pneumonia (recurrent) Referrals Dermatology Referral R21 - Rash and other nonspecific skin eruption Medications: New cetirizine 10 mg PO DAILY 90 tabs 0RF tamsulosin 0.4 mg PO BEDTIME 90 caps 0RF albuterol sulfate 90 mcg/actuation (Ventolin HFA) 1 inh inhalation QID PRN 6.7 grams 0RF shortness of breath or wheezing 30 days fluticasone propionate 50 mcg/actuation (Flonase Allergy Relief) administer into each nostril 1 spray intranasal DAILY 16 grams 0RF [gustavo Glucometer] As directed 1 ea 0RF NS E10.9 - Type 1 diabetes mellitus without complications Refilled hydrochlorothiazide 25 mg PO DAILY 90 tabs 0RF lisinopril 40 mg PO DAILY 90 tabs 0RF Discontinued rosuvastatin 20 mg PO DAILY 90 days 90 tabs 0RF metoprolol succinate ER 25 mg PO DAILY 90 days 90 tabs 0RF Coding Level of Care Code Est Pt Level 5 (05056) Diagnoses Diabetes 1.5, managed as type 2 E13.9 Lipid disorder E78.9 Chronic GERD K21.9 Hypertension, essential I10 Insulin dependent type 1 diabetes mellitus E10.9 Shortness of breath R06.02 History of pneumonia Z87.01 Rash R21 Uncontrolled diabetes mellitus E10.65 Diabetes mellitus type: type 1 Glycemic state: with hyperglycemia Morbid obesity due to excess calories E66.01 Psychiatric illness F99 Time Spent (min) 45 Comment [id number], charting, coordination of care
[2023-06-03 15:10] VITALS: BP 138/92; PULSE 97; O2SAT 95; BMI 36.8
== END 2023-06-03 15:37 | disposition home or self-care (01) ==
PROVIDERS: PCP Internal Medicine; Visit Provider Internal Medicine
DX: E13.9 Other specified diabetes mellitus without complications (principal); E78.9 Disorder of lipoprotein metabolism, unspecified; K21.9 Gastro-esophageal reflux disease without esophagitis; I10 Essential (primary) hypertension; E10.9 Type 1 diabetes mellitus without complications; R06.02 Shortness of breath; Z87.01 Personal history of pneumonia (recurrent); R21 Rash and other nonspecific skin eruption; E10.65 Type 1 diabetes mellitus with hyperglycemia; E66.01 Morbid (severe) obesity due to excess calories; F99 Mental disorder, not otherwise specified
CPT/HCPCS: 99215

== ENCOUNTER 2023-06-08 11:41 | Outpatient (REF) | payer OTHER, SELFPAY ==
[2023-06-08 13:37] LABS: MANUAL DIFF FLAG NO
[2023-06-08 14:03] LABS: Basophils Absolute Auto 0.1 X10*3/uL (0.0-0.2); Eosinophils Absolute Auto 0.1 X10*3/uL (0.0-0.4); Eosinophils Percent Auto 1.4 % (0-4); Hematocrit 47.1 % (42.0-52.0); Hemoglobin 15.6 g/dl (14.0-18.0); Imm Gran Abs Auto 0.01 X10*3/uL (0.00-0.03); Imm Gran Pct Auto 0.2 % (0.0-0.4); Lymphocytes Absolute Auto 2.4 X10*3/uL (1.2-4.9); Lymphocytes Percent Auto 37.3 % (20-40); Mean Corpuscular HGB Conc 33.1 g/dl (31.0-36.0); Mean Corpuscular Hemoglobin 28.1 pg (27.0-33.0); Mean Corpuscular Volume 84.9 fL (80.0-98.0); Mean Platelet Volume 10.4 fL (9.4-12.4); Monocytes Absolute Auto 0.6 X10*3/uL (0.1-1.2); Monocytes Percent Auto 10.2 % (2-11); Neutrophils Absolute Auto 3.2 x10*3/uL (2.0-8.3); Neutrophils Percent Auto 49.9 % (45-73); Platelet Count 284 X10*3/uL (160-400); Red Blood Count 5.55 X10*6/uL (4.60-5.80); Red Cell Distribution Width 13.1 % (11.0-16.0); White Blood Count 6.3 X10*3/uL (4.8-10.8)
[2023-06-08 14:42] LABS: Alanine Aminotransferase 20 U/L (0-40); Albumin Level 4.4 g/dL (3.5-5.0); Alkaline Phosphatase 85 U/L (39-117); Anion Gap 13 (12-20); Aspartate Amino Transferase 19 U/L (5-37); Bilirubin Direct < 0.2 mg/dL (0.0-0.5); Bilirubin Total 0.2 mg/dL (0.0-1.0); Blood Urea Nitrogen 23 mg/dL (9-16); Calcium 9.4 mg/dL (8.4-10.2); Carbon Dioxide 26 mmol/L (22-29); Chloride 106 mmol/L (96-108); Estimated Glomerular Filt Rate > 60; Glucose Random 134 mg/dL (60-115); Potassium 3.6 mmol/L (3.3-5.1); Sodium 141 mmol/L (135-145); Total Protein 7.3 g/dL (6.5-8.0)
[2023-06-08 15:10] LABS: Estimated Average Glucose 146 mg/dL; Hemoglobin A1c % 6.7 %
[2023-06-09 09:27] LABS: LDL Cholesterol Direct 107 mg/dL (<100)
== END 2023-06-08 11:42 | disposition home or self-care (01) ==
LOC: HO.HMGCLDS 11:41
PROVIDERS: Absent Provider Nurse Practitioner; PCP Internal Medicine; Visit Provider Internal Medicine
DX: R21 Rash and other nonspecific skin eruption (principal); E13.9 Other specified diabetes mellitus without complications; E78.9 Disorder of lipoprotein metabolism, unspecified; I10 Essential (primary) hypertension; K21.9 Gastro-esophageal reflux disease without esophagitis
CPT/HCPCS: 36415; 80053; 80076; 82248; 83036; 83721; 85025

== ENCOUNTER 2023-06-11 14:25 | Outpatient (AMB) | payer OTHER, SELFPAY ==
--- NOTE | 2023-06-11 14:27 | A.OFFVIS_ITS ---
Intake Vital Signs 06/11/23 14:28 Height 5 ft 9 in Weight 242 lb 8.136 oz BMI 35.8 BP 139/79 Blood Pressure Location Rt brachial Position Sitting Pulse 87 Intake Visit Reasons: 3 Week Follow Up Intake Note: Joo presents in the office as a follow up constipation. CC: Patient reports he had an episode of severe abdominal pain. He also c/o constipation, and nausea. 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 Gastric emptying study normal but he for got to stop the Reglan ?Code(s): E11.43 - Type 2 diabetes mellitus with diabetic autonomic (poly)neuropathy; K31.84 - Gastroparesis ?Plan: He tolerated the procedure well. They are aware of the problem with the prep, he drank it but was just bloated and did not start moving his bowels till about 4 in the morning and of course he was not well cleared.? They are quite agreeable to trying a 2 day prep using MiraLax and Dulcolax for the next round as the patient really dislikes the taste of the GoLYTELY. We review the findings and since there is continued minimal irritation I think will increase his omeprazole 40 mg once a day.? However, he is quite happy to report that he has only vomited twice since I last saw him and this is a huge improvement.? He does have frequent episodes during the day worry has a feeling that seems to start in his lower belly as a feeling of warmth, moves up to his mid belly and then to the upper belly.? He will start burping and this is followed by nausea and vomiting.? He is happy that when he does vomited only lasts her about 5 minutes since he states ?it used to last all day. ?? I think what we will do is give him 5 mg of Reglan and I encouraged him to take it at the 1st sign of this syndrome to see if we can afford what ever is happening. He is utilizing the 10 mg Reglan 4 times a day without any obvious adverse effects.? He has not wanted problem with itching that seems to be isolated to the antecubital area of his right arm that seems worse at night.? I am uncertain if this is a medication reaction but I will get a liver panel to see if he is having hyperbilirubinemia and I suggest the use of Benadryl cream and hydroxyzine. They are waiting for their MRI to be rescheduled since there apparently was a problem with the machine that cause a cancellation. Return office visit in 3 weeks MRI OF THE ABDOMEN WITH CONTRAST NOT OBTAINED, We cancelled r/t problems with machine they were waiting for re schedule date (2) Nausea & vomiting: ?Code(s): R11.2 - Nausea with vomiting, unspecified ?Qualifiers: ?Vomiting type:?bilious vomiting? Qualified Code(s):?R11.14 - Bilious vomiting (3) Morbid obesity due to excess calories: ?Code(s): E66.01 - Morbid (severe) obesity due to excess calories (4) Liver lesion: ?Comment: On CT report Monica ?Code(s): K76.9 - Liver disease, unspecified (5) Chronic GERD: ?Code(s): K21.9 - Gastro-esophageal reflux disease without esophagitis (6) Uncontrolled diabetes mellitus: ?Code(s): E11.65 - Type 2 diabetes mellitus with hyperglycemia ?Qualifiers: ?Diabetes mellitus type:?type 1??Glycemic state:?with hyperglycemia? Qualified Code(s):?E10.65 - Type 1 diabetes mellitus with hyperglycemia (7) History of esophagogastroduodenoscopy (EGD): ?Code(s): Z98.890 - Other specified postprocedural states (8) Rash: ?Code(s): R21 - Rash and other nonspecific skin eruption (9) Colon cancer screening: ?Code(s): Z12.11 - Encounter for screening for malignant neoplasm of colon ? ? ? Orders: Orders Liver Panel Today R21 - Rash and oth er nonspecific ski n eruption ? Complete Blood Cou nt Auto Diff Today R21 - Rash and oth er nonspecific ski n eruption ? Colonoscopy - GI U se Only Today Z12.11 - Encounter for screening for malignant neoplas m of colon ? Medications: New omeprazole 40 mg? PO DAILY 30 days 30 caps 6RF H R11.2 - Nausea wit h vomiting, unspec ified ? metoclopramide HCl (Reglan) 5 mg? PO TID 90 ta bs 3RFH E11.43 - Type 2 di abetes mellitus wi th diabetic autono mckinley (poly)neuropat hy, K31.84 - Gastr oparesis ? diphenhydramine HC l 2% (Benadryl) 1 appl? topical QI D 103 mL 3RF R21 - Rash and oth er nonspecific ski n eruption ? hydroxyzine HCl 50 mg (2 x 25 mg) PO BEDTIME 60 tabs 3RF R21 - Rash and oth er nonspecific ski n eruption ? polyethylene glyco l 3350 (Miralax) 238 grams? PO ONCE 1 day 238 grams 0 RF colonoscopy pre p ? ? bisacodyl (Dulcola x (bisacodyl)) 10 mg (2 x 5 mg) P O BEDTIME 2 days 8 tabs 0RF ? ? Discontinued rosuvastatin 20 mg? PO DAILY 90 days 90 tabs 0RF F ? ? omeprazole ?? Disc ontinued Reason:? Doctor's Order 20 mg? PO DAILY 90 caps 0RF K21.9 - Gastro-eso phageal reflux dis ease without esoph agitis ? metoprolol succina te ER 25 mg? PO DAILY 90 days 90 tabs 0RF F ? LABS; Laboratory Tests 06/08/23 06/08/23 11:46 11:46 WBC 6.3 Hgb 15.6 Hct 47.1 Plt Count 284 Total Bilirubin 0.2 Direct Bilirubin < 0.2 AST 19 ALT 20 Alkaline Phosphata se 85 ... COLONOSCOPY 05/08/23 Findings: Larynx:? Normal Esophagus:?GE junction at 38 cms, hiatal hernia 38 to 42 cms. No esophagitis or Zayas's. Stomach:?Multiple 8 to 12 mm benign appearing polyps in the gastric body and fundus - biopsied. Mild gastric erythema. Biopsies were obtained. Grade 3 flap valve on retroflexed examination of the cardia. Duodenum:?Normal bulb and descending duodenum. Biopsies were obtained from 3rd part of duodenum to check for celiac sprue. Findings: Terminal Ileum: Not evaluated Cecum:? Not evaluated due to poor prep Ascending Colon:??Not evaluated due to poor prep Transverse Colon:??Not evaluated due to poor prep Descending Colon:? Not evaluated due to poor prep Sigmoid Colon:??Partially evaluated due to poor prep Rectum:??Partially evaluated due to poor prep Ano-rectum:??Not evaluated due to poor prep Colon preparation: ? Fair in the left colon and poor in the trasverse and right colon Impression and Post Procedure Diagnosis: Endoscopy Findings: ESOPHAGUS: Medium sized hiatal hernia STOMACH: Gastritis and multiple gastric polyps DUODENUM: Normal - biopsied to check for celiac sprue Colonoscopy Findings: Procedure was discontinued due to poor prep. Plan: Await pathology results Patient has an appointment on 05/21/23 in the GI Clinic with? aBsia Lagos NP. Reschedule colonoscopy appointment after re-discussing colon prep (Consider 2 day prep versus Bisacodyl 2 tablets daily starting 5 days before colonoscopy) Above findings were reviewed with the patient and Gastric polyps and Hiatal Hernia handouts were given in the discharge area BIOPSIES SHOWED: A.? Small bowel, biopsy:? Small-bowel/duodenal mucosa with preserved villi and no specific change; no evidence of celiac disease.? B.? Gastric antrum, biopsy:? Gastric antral mucosa with mild reactive changes and focal minimal chronic inactive inflammation; negative for intestinal metaplasia and dysplasia (see comment).? C.? Gastric polyps:? Fundic gland polyps with focal minimal inactive inflammation; negative for intestinal metaplasia and dysplasia (see comment).? Comment: (B and C):? H pylori stains:? Negative MRI OF THE ABDOMEN WITH CONTRAST cancelled r/t problems with machine they were waiting for reschedule date TODAY'S VISIT He tolerated the EGD and colonoscopy well however he did not completely clear. He did not have any trouble tolerating the prep and he does not understand why he did not clear. He is agreeable to rescheduling the procedure and we will do a 2 day prep and treat what I think is ongoing constipation.. He was seen at the [facility] about 2 weeks ago and had another CT. He developed severe RLQ to suprapubic pain at about 11pm. Initially it was colicky but then it was sustained and he describes it as diarrhea cramping, burning, muscle sore, and he was running tot the BR but could not move anything. A 2nd MRI was rescheduled with [facility] r/t insurance problems. (his initial MRI was unclear because of motion artifact) His second CT at [facility] did NOT show a liver lesion. This continues to be an ongoing worry for him because of the way this was presented to him initially by an ER doctor and he worries about the possibility of cancer. He would really like to get this clarify since he is getting conflicting reports from different studies. Unfortunately all of these studies are coming from different institution so it makes it difficult for me to contact our radiologist to review results. He continues to have episodes of nausea although improved, with the above presentation, his failure to clear for scope, and finding of moderate stool burden on CT I think hs has CIC more than he knows. WE will start Trulance. We will increase the 10mg reglan to 6 times a day as his is a bigger walter and his body mass likely will support this since he has had no adverse reactions. ROV 3 weeks. [facility] Medical History ADHD Anxiety, generalized Back pain Chronic GERD Depression, major, 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, managed as type 2 Ear infection Erectile 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 Hypertension, essential Lipid disorder Liver lesion Pneumonia PTSD (post-traumatic stress disorder) Sleep apnea URI, acute Surgical History History of discectomy History of ear surgery History of knee surgery History of laparoscopic appendectomy History of left knee surgery History of lithotripsy History of lumbar fusion History of removal of laparoscopic gastric banding device Family History Father Alcoholism Hyperlipidemia HTN (hypertension) CVD (cardiovascular disease) Mental illness in member of household Mother CAD (coronary artery disease) Breast cancer High cholesterol Diabetes mellitus CVD (cardiovascular disease) Mental illness in member of household Maternal Grandfather No problems noted. Maternal Grandmother No problems noted. Paternal Grandfather No problems noted. Paternal Grandmother No problems noted. Sister No problems noted. Sister No problems noted. Daughter No problems noted. Daughter No problems noted. Other Mental health disorder Social History Housing: Apartment Are you a primary anesthesiologist and critical care to a significant other at home: No Do you presently have visiting nurse or other home services: No Patient Tobacco Use Status: Former Tobacco user e-Cigarette/Vaping Use: Currently Using service: No Current occupational status: disabled Cognitive needs: No Hearing needs: No Vision needs: No Review of Systems Const Denies fatigue, Denies fever(s), Denies night sweats, Denies poor appetite and Denies weight loss ENT Reports Normal hearing present, Denies dental pain, Denies dysphagia, Denies hearing loss, Denies mouth pain, Denies odynophagia, Denies throat swelling, Denies tongue swelling and Reports other (Dentition adequate) Card Reports no additional complaints Resp Reports no additional complaints GI Denies abdominal pain, Denies melena, Denies bloating, Denies hematochezia, Reports constipation, Denies GI cramping, Denies dysphagia, Denies excessive flatus, Reports early satiety, Reports heartburn, Denies diarrhea, Reports nausea, Denies odynophagia, Denies vomiting and Denies hematemesis Skin/Breast Denies pruritus, Denies lesions, Denies rash and Denies jaundice Neuro Reports Normal hearing present and Denies Abnormal speech present Endo Denies fatigue Aller/Immun Denies throat swelling and Denies tongue swelling Physical Exam Vital Signs: Last Vital Signs Pulse 87 06/11/23 14:28 BP 139/79 06/11/23 14:28 BMI result Body Mass Index 35.8 Const General: cooperative, no acute distress, well developed and well groomed Nutritional Appearance: well nourished and obese centrally obese Orientation/consciousness: oriented to person, oriented to place and oriented to time Limitations: No language barrier HEENT Head: Yes normocephalic and Yes atraumatic Eyes General: appearance normal, both eyes and all related structures Pupils: Equal, round and reactive pupils present Neck Neck: Yes normal visual inspection and Yes no lymphadenopathy Thyroid: Thyroid normal Resp Effort & Inspection: normal respiratory effort and able to speak in complete sentences Auscultation: clear to auscultation bilaterally Cardio Rate: regular rate Rhythm: regular rhythm Heart sounds: Normal, physiologic split S2 sound present Peripheral pulses: radial pulses present and posterior tibial pulses present GI Inspection: No distended, No Abdominal panniculus present and Yes obesity Palpation (GI): Soft to palpation, nontender, no guarding, not rigid and No hepatosplenomegaly present Percussion: Yes normal to percussion Auscultation: normal bowel sounds Rectal Exam - Male: Yes deferred Skin General skin exam: no rashes or lesions noted, turgor normal, skin not dry, no jaundice, No spider nevi and no striae Rashes: no rashes Nails: normal Neuro General: oriented to person, oriented to place and oriented to time Cranial nerves: Yes Equal, round and reactive pupils present and Yes Normal hearing present Speech: No Abnormal speech present Extrem General: Yes normal to inspection, No clubbing, No cyanosis and No edema Psych Appearance: grossly normal and well kempt Mental Status: mental status grossly normal Speech and movement: Normal speech and movement present Affect: normal affect Attitude: cooperative Thought process: Normal thought process present and not confabulating Thought content: Normal thought content present Insight: Fair insight present (Psych) Judgement: Fair judgement present (Psych) Results Reviewed Results Reviewed: Laboratory Tests 06/08/23 06/08/23 11:46 11:46 WBC 6.3 Hgb 15.6 Hct 47.1 Plt Count 284 Total Bilirubin 0.2 Direct Bilirubin < 0.2 AST 19 ALT 20 Alkaline Phosphatase 85 ... COLONOSCOPY 05/08/23 Findings: Larynx:? Normal Esophagus:?GE junction at 38 cms, hiatal hernia 38 to 42 cms. No esophagitis or Zayas's. Stomach:?Multiple 8 to 12 mm benign appearing polyps in the gastric body and fundus - biopsied. Mild gastric erythema. Biopsies were obtained. Grade 3 flap valve on retroflexed examination of the cardia. Duodenum:?Normal bulb and descending duodenum. Biopsies were obtained from 3rd part of duodenum to check for celiac sprue. Findings: Terminal Ileum: Not evaluated Cecum:? Not evaluated due to poor prep Ascending Colon:??Not evaluated due to poor prep Transverse Colon:??Not evaluated due to poor prep Descending Colon:? Not evaluated due to poor prep Sigmoid Colon:??Partially evaluated due to poor prep Rectum:??Partially evaluated due to poor prep Ano-rectum:??Not evaluated due to poor prep Colon preparation: ? Fair in the left colon and poor in the trasverse and right colon Impression and Post Procedure Diagnosis: Endoscopy Findings: ESOPHAGUS: Medium sized hiatal hernia STOMACH: Gastritis and multiple gastric polyps DUODENUM: Normal - biopsied to check for celiac sprue Colonoscopy Findings: Procedure was discontinued due to poor prep. Plan: Await pathology results Patient has an appointment on 05/21/23 in the GI Clinic with? Basia Lagos NP. Reschedule colonoscopy appointment after re-discussing colon prep (Consider 2 day prep versus Bisacodyl 2 tablets daily starting 5 days before colonoscopy) Above findings were reviewed with the patient and Gastric polyps and Hiatal Hernia handouts were given in the discharge area BIOPSIES SHOWED: A.? Small bowel, biopsy:? Small-bowel/duodenal mucosa with preserved villi and no specific change; no evidence of celiac disease.? B.? Gastric antrum, biopsy:? Gastric antral mucosa with mild reactive changes and focal minimal chronic inactive inflammation; negative for intestinal metaplasia and dysplasia (see comment).? C.? Gastric polyps:? Fundic gland polyps with focal minimal inactive inflammation; negative for intestinal metaplasia and dysplasia (see comment).? Comment: (B and C):? H pylori stains:? Negative MRI OF THE ABDOMEN WITH CONTRAST cancelled r/t problems with machine they were waiting for reschedule date Assessment & Plan Assessment & Plan (1) Diabetic gastroparesis: Comment: . Gastric emptying study normal but he for got to stop the Reglan Code(s): E11.43 - Type 2 diabetes mellitus with diabetic autonomic (poly)neuropathy; K31.84 - Gastroparesis Plan: He tolerated the EGD and colonoscopy well however he did not completely clear. He did not have any trouble tolerating the prep and he does not understand why he did not clear. He is agreeable to rescheduling the procedure and we will do a 2 day prep and treat what I think is ongoing constipation.. He was seen at the [facility] about 2 weeks ago and had another CT. He developed severe RLQ to suprapubic pain at about 11pm. Initially it was colicky but then it was sustained and he describes it as diarrhea cramping, burning, muscle sore, and he was running tot the BR but could not move anything. A 2nd MRI was rescheduled with [facility] r/t insurance problems. (his initial MRI was unclear because of motion artifact) His second CT at [facility] did NOT show a liver lesion. This continues to be an ongoing worry for him because of the way this was presented to him initially by an ER doctor and he worries about the possibility of cancer. He would really like to get this clarify since he is getting conflicting reports from different studies. Unfortunately all of these studies are coming from different institution so it makes it difficult for me to contact our radiologist to review results. He continues to have episodes of nausea although improved, with the above presentation, his failure to clear for scope, and finding of moderate stool burden on CT I think hs has CIC more than he knows. WE will start Trulance. We will increase the 10mg reglan to 6 times a day as his is a bigger walter and his body mass likely will support this since he has had no adverse reactions. ROV 3 weeks. MRI of the abdomen Colonoscopy Biopsy (2) Chronic GERD: Code(s): K21.9 - Gastro-esophageal reflux disease without esophagitis (3) Colon cancer screening: Code(s): Z12.11 - Encounter for screening for malignant neoplasm of colon (4) Chronic idiopathic constipation: Code(s): K59.04 - Chronic idiopathic constipation Medications: New plecanatide (Trulance) 3 mg PO DAILY 30 tabs 3RF K59.04 - Chronic idiopathic constipation Changed From metoclopramide HCl provider aware of possible interactions and is monitoring/ 10 mg PO QIDACHS 120 tabs 6RF E11.43 - Type 2 diabetes mellitus with diabetic autonomic (poly)neuropathy, K31.84 - Gastroparesis To metoclopramide HCl (Reglan) provider aware of possible interactions and is monitoring/ 10 mg PO .six times a day 180 tabs 6RF E11.43 - Type 2 diabetes mellitus with diabetic autonomic (poly)neuropathy, K31.84 - Gastroparesis Discontinued rosuvastatin 20 mg PO DAILY 90 days 90 tabs 0RF metoprolol succinate ER 25 mg PO DAILY 90 days 90 tabs 0RF Coding Level of Care Code Est Pt Level 4 (76367) Diagnoses Diabetic gastroparesis E11.43; K31.84 Chronic GERD K21.9 Colon cancer screening Z12.11 Chronic idiopathic constipation K59.04
[2023-06-11 14:28] VITALS: BP 139/79; PULSE 87; BMI 35.8
== END 2023-06-11 15:12 | disposition home or self-care (01) ==
PROVIDERS: PCP Internal Medicine; Visit Provider Nurse Practitioner
DX: E11.43 Type 2 diabetes mellitus with diabetic autonomic (poly)neuropathy (principal); K31.84 Gastroparesis; K21.9 Gastro-esophageal reflux disease without esophagitis; Z12.11 Encounter for screening for malignant neoplasm of colon; K59.04 Chronic idiopathic constipation
CPT/HCPCS: 99214

== ENCOUNTER → 2023-06-11 14:25 | Outpatient (BNVA) | payer OTHER, SELFPAY | PROVIDERS: PCP Internal Medicine; Visit Provider Nurse Practitioner | DX: E11.43 Type 2 diabetes mellitus with diabetic autonomic (poly)neuropathy (principal); K31.84 Gastroparesis; K21.9 Gastro-esophageal reflux disease without esophagitis; K59.04 Chronic idiopathic constipation; Z98.890 Other specified postprocedural states | CPT/HCPCS: 99212 ==

== ENCOUNTER 2023-07-15 09:09 | Outpatient (AMB) | payer OTHER, SELFPAY ==
--- NOTE | 2023-07-15 09:25 | A.OFFPC_ITS ---
Intake Visit Reasons: Discuss Referral~ Intake Note: [phone] Allergies benztropine [From COGENTIN] Allergy (Unknown, Verified 07/15/23 09:25) SWEATING pregabalin [From LYRICA] Allergy (Unknown, Verified 07/15/23 09:25) SWELLING sitagliptin [From JANUVIA] Allergy (Unknown, Verified 07/15/23 09:25) PER H&P Medication List - Last Reconciled 07/15/23 by Lizabeth Adame MD albuterol sulfate 90 mcg/actuation (Ventolin HFA) 1 inh inhalation QID PRN 30 days alprazolam 2 mg PO BEDTIME amlodipine 5 mg PO DAILY 90 days blood sugar diagnostic (Accu-Chek Guide test strips) to be checked once daily blood-glucose meter (Accu-Chek Guide Glucose Meter) to be checked once daily cetirizine 10 mg PO DAILY dextroamphetamine-amphetamine 30 mg 1 tab PO TID diphenhydramine HCl 2% (Benadryl) 1 appl topical QID dulaglutide (Trulicity) 1.5 mg (0.5 mL) subcut QWEEK 30 days empagliflozin (Jardiance) 10 mg PO QAM 90 days flash glucose scanning reader (FreeStyle Ajith 2 [place]) Use to monitor blood sugars through the day/night flash glucose sensor (FreeStyle Ajith 2 Sensor kit) Use to monitor blood sugars through the day/night fluticasone propionate 50 mcg/actuation (Flonase Allergy Relief) 1 spray intranasal DAILY hydrochlorothiazide 25 mg PO DAILY hydroxyzine HCl 50 mg (2 x 25 mg) PO BEDTIME insulin glargine (Lantus Solostar U-100 Insulin) 38 units (0.38 mL) subcut QPM 30 days [Insulin pen needles Once a day] lancets (Accu-Chek Softclix Lancets) to be checked once daily [ajith Glucometer As directed NS] lisinopril 40 mg PO DAILY metoclopramide HCl (Reglan) 10 mg PO .six times a day metoprolol succinate ER 25 mg PO BEDTIME omeprazole 40 mg PO DAILY 30 days oxcarbazepine 600 mg PO BEDTIME oxcarbazepine 300 mg PO DAILY pen needle, diabetic (BD Erica 2nd Gen Pen Needle) T.i.d. plecanatide (Trulance) 3 mg PO DAILY polyethylene glycol 3350 (Miralax) 238 grams PO ONCE 1 day rosuvastatin 20 mg PO BEDTIME tamsulosin 0.4 mg PO BEDTIME zolpidem 10 mg PO BEDTIME PRN Tobacco use date assessed: 07/15/23 Dental Screening Dental Screen Date: 07/15/23 Did you have a dental visit in the last 12 months?: Yes Did you have a dental problem in the last 6 months where you did not have access to dental care?: No Was dental information given to patient?: Patient has dentist HPI Discuss Referral~ HPI Details Patient is 52-year-old gentleman with a history of neck pain In the past patient had L5-S1 back surgeries through Neurosurgery Dr. Craft Lately has been having neck pain radiating to both his arms and hand Patient says that he feels weak in his hand and is dropping things. Problem has been happening for a while patient has been using medical marijuana for the pain control. I see that I do not have any imaging in the chart I have ordered neck x-ray as well as EMG nerve conduction study We will book appointment in the office so we can document examination and if needed get MRI approved. There is no bowel or bladder or gait problems [facility] Medical History Back pain Liver lesion URI, acute Pneumonia Ear infection Erectile 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 Depression, major, recurrent ADHD Anxiety, generalized PTSD (post-traumatic stress disorder) Sleep apnea Hypertension, essential Chronic GERD 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, managed as type 2 Surgical History History of ear surgery History of removal of laparoscopic gastric banding device History of left knee surgery History of lithotripsy History of laparoscopic appendectomy History of knee surgery History of discectomy History of lumbar fusion Family History Father Alcoholism Hyperlipidemia HTN (hypertension) CVD (cardiovascular disease) Mental illness in member of household Mother CAD (coronary artery disease) Breast cancer High cholesterol Diabetes mellitus CVD (cardiovascular disease) Mental illness in member of household Maternal Grandfather No problems noted. Maternal Grandmother No problems noted. Paternal Grandfather No problems noted. Paternal Grandmother No problems noted. Sister No problems noted. Sister No problems noted. Daughter No problems noted. Daughter No problems noted. Other Mental health disorder Social History Housing: Apartment Are you a primary janitor caretaker to a significant other at home: No Do you presently have visiting nurse or other home services: No Patient Tobacco Use Status: Former Tobacco user e-Cigarette/Vaping Use: Currently Using service: No Current occupational status: disabled Cognitive needs: No Hearing needs: No Vision needs: No Questionnaire Thrive Questionnaire Date Thrive assessed: 12/19/22 AUDIT C Alcohol Use Questionnaire (AUDIT-C) 1. How often do you have a drink containing alcohol?: Never 3. How often do you have six or more drinks on one occasion?: Never Total Score: 0 RISHI-7 AMB Questionnaire RISHI-7 Date RISHI - 7 assessed: 12/19/22 Source: Developed by Drs. Jan Del Rio, Gail Hayward, Son Hanks and colleagues, with an educational jeannie from [employer]. Review of Systems Const Denies chills and Denies fever(s) ENT Denies epistaxis and Denies nasal discharge Card Denies chest pain Resp Denies chest congestion, Denies cough and Denies hemoptysis GI Denies diarrhea and Denies nausea Skin/Breast Denies rash Neuro Reports no additional complaints Psych Reports no additional complaints Endo Reports no additional complaints Physical exam (Primary Care) Tobacco/Smoking Status: Tobacco use Status Tobacco use date assessed 07/15/23 07/15/23 09:26 Patient Tobacco Use Status Former Tobacco user 07/15/23 09:26 e-Cigarette/Vaping Use Currently Using 07/15/23 09:26 Thrive Assessment: Date of Thrive Assessment Date Thrive assessed 12/19/22 07/15/23 09:26 Telehealth Telehealth Location of provider rendering services: practice address Location of patient: address on file Patient Identification confirmed using: Name, : Yes Telehealth method: voice only Patient verbally consented to treatment: Yes Patient verbally consented to billing insurance company: Yes Patient informed of any privacy concerns related to visit: Yes Assessment and Plan Assessment & Plan (1) Cervical radiculitis: Code(s): M54.12 - Radiculopathy, cervical region (2) Paresthesia of hand, bilateral: Code(s): R20.2 - Paresthesia of skin Plan Patient is 52-year-old gentleman with a history of neck pain In the past patient had L5-S1 back surgeries through Neurosurgery Dr. Craft Lately has been having neck pain radiating to both his arms and hand Patient says that he feels weak in his hand and is dropping things. Problem has been happening for a while patient has been using medical marijuana for the pain control. I see that I do not have any imaging in the chart I have ordered neck x-ray as well as EMG nerve conduction study We will book appointment in the office so we can document examination and if needed get MRI approved. There is no bowel or bladder or gait problems Orders: Orders XR cervical spine 2V Today M54.12 - Radiculopathy, cervical region, R20.2 - Paresthesia of skin NE electromyogram (EMG) Today M54.12 - Radiculopathy, cervical region, R20.2 - Paresthesia of skin NE nerve conduction velocity Today M54.12 - Radiculopathy, cervical region, R20.2 - Paresthesia of skin Coding Level of Care Code Tele Est Pt Level 4 (87185) Diagnoses Cervical radiculitis M54.12 Paresthesia of hand, bilateral R20.2 Time Spent (min) 30 Comment 5 prep, 15 with patient, 10 charting/coordination of care
== END 2023-07-15 12:16 | disposition home or self-care (01) ==
LOC: HO.HMGC 09:09
PROVIDERS: PCP Internal Medicine; Visit Provider Internal Medicine
DX: M54.12 Radiculopathy, cervical region (principal); R20.2 Paresthesia of skin
CPT/HCPCS: 99443

== ENCOUNTER 2023-07-22 10:10 | Outpatient (REF) | payer OTHER, SELFPAY ==
--- NOTE | 2023-07-22 10:11 | EMG_ITS ---
Please see scanned EMG / Nerve Conduction Report. MTDD
== END 2023-07-22 10:11 | disposition home or self-care (01) ==
LOC: HO.NEURO 10:10
PROVIDERS: PCP Internal Medicine; Visit Provider Internal Medicine
DX: M54.12 Radiculopathy, cervical region (principal); R20.2 Paresthesia of skin
CPT/HCPCS: 95885; 95913

== ENCOUNTER 2023-07-22 11:03 | Outpatient (REF) | payer OTHER, SELFPAY ==
--- NOTE | ~2023-07-22 | XR_ITS ---
EXAMINATION: XR CERVICAL SPINE CLINICAL INFORMATION: Cervical radiculopathy. COMPARISON: None available. TECHNIQUE: AP, lateral, open-mouth, odontoid, and [place]عر[place] views of the cervical spine. FINDINGS: Normal vertebral body alignment. The cervical lordosis is maintained. No acute fracture or subluxation. Normal atlantoaxial alignment. No loss of vertebral body height. Loss of intervertebral disc height with degenerative changes at C3-C4 and C5-C6. No concerning lytic or blastic osseous lesion. Unremarkable prevertebral soft tissues. XR/XR cervical spine 2V IMPRESSION: Moderate degenerative disc disease at C3-C4 and C5-C6.
[2023-07-23 12:49] LABS: Alpha Fetoprotein 2.2 ng/mL (<6.1)
== END 2023-07-22 11:04 | disposition home or self-care (01) ==
LOC: HO.HMGCX 11:03
PROVIDERS: Absent Provider Nurse Practitioner; PCP Internal Medicine; Visit Provider Internal Medicine
DX: M54.12 Radiculopathy, cervical region (principal); R20.2 Paresthesia of skin; K76.9 Liver disease, unspecified
CPT/HCPCS: 36415; 72040; 82105

== ENCOUNTER 2023-07-28 07:49 | Outpatient (REF) | payer OTHER, SELFPAY ==
--- NOTE | 2023-07-28 08:26 | PFT_ITS ---
Forced vital capacity 103%, FEV1 105%, FEV1/FVC ratio is 78. TXA09-02 112%, MVV 72%. Post bronchodilator therapy, there is no change. Total lung capacity 89% and residual volume 120%. Diffusion capacity 122%. CONCLUSION: Normal pulmonary function test, and there is no evidence of any obstructive or restrictive pulmonary disorder. MD JOHN Shelton/KIMMY / [id number]
== END 2023-07-28 07:50 | disposition home or self-care (01) ==
LOC: HO.RESP 07:49
PROVIDERS: PCP Internal Medicine; Visit Provider Internal Medicine
DX: R06.02 Shortness of breath (principal)
CPT/HCPCS: 94010; 94727; 94729

== ENCOUNTER → 2023-07-28 08:26 | Outpatient (BNV) | payer OTHER, SELFPAY | PROVIDERS: PCP Internal Medicine; Visit Provider Internal Medicine | DX: R06.02 Shortness of breath (principal) | CPT/HCPCS: 94060; 94727; 94729 ==

== ENCOUNTER 2023-07-29 10:11 | Day surgery (SDC) | payer OTHER, SELFPAY ==
[2023-07-27 15:06] VITALS: BMI 35.7
--- NOTE | 2023-07-28 09:57 | P.CONAN_ITS ---
Documented by User: Lety Melissa NP 07/28/23 10:05 HPI - Anesthesia Eval Consult details Narrative: 52yo M for Colonoscopy s/p EGD and Vassar 05/2023 with [facility] Active Problems Active Problems: All Active Problems (Updated 07/16/23 @ 14:18 by VERONICA Ford) Paresthesia of hand, bilateral (Acute) Cervical radiculitis (Acute) Chronic idiopathic constipation (Acute) History of pneumonia (Acute) Shortness of breath (Acute) Diabetic gastroparesis (Acute) Liver lesion (Acute) Pre-op examination (Acute) Nausea & vomiting (Acute) Colon cancer screening (Acute) Uncontrolled hypertension (Acute) Insulin dependent type 1 diabetes mellitus (Acute) Morbid obesity due to excess calories (Acute) Excessive sweating (Acute) Psychiatric illness (Acute) Uncontrolled diabetes mellitus (Acute) Change in mole (Acute) Rash (Acute) Hospital discharge follow-up (Acute) Acute pancreatitis (Acute) Left otitis media (Acute) Hematoma of right chest wall (Acute) Failed back syndrome (Acute) Establishing care with new doctor, encounter for (Acute) Liver lesion (Acute) Sleep apnea (Acute) Erectile 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 (Acute) Hypertension, essential (Acute) Chronic GERD (Acute) Lipid disorder (Acute) Diabetes 1.5, managed as type 2 (Acute) Past Medical History Medical History Back pain Liver lesion URI, acute Pneumonia Ear infection Erectile 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 Depression, major, recurrent ADHD Anxiety, generalized PTSD (post-traumatic stress disorder) Sleep apnea Hypertension, essential Chronic GERD 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, managed as type 2 Family History Family History Father Alcoholism Hyperlipidemia HTN (hypertension) CVD (cardiovascular disease) Mental illness in member of household Mother CAD (coronary artery disease) Breast cancer High cholesterol Diabetes mellitus CVD (cardiovascular disease) Mental illness in member of household Maternal Grandfather No problems noted. Maternal Grandmother No problems noted. Paternal Grandfather No problems noted. Paternal Grandmother No problems noted. Sister No problems noted. Sister No problems noted. Daughter No problems noted. Daughter No problems noted. Other Mental health disorder Family history of problems with anesthesia: No Surgical History Surgical History History of esophagogastroduodenoscopy (EGD) H/O colonoscopy History of ear surgery History of removal of laparoscopic gastric banding device History of left knee surgery History of lithotripsy History of laparoscopic appendectomy History of knee surgery History of discectomy History of lumbar fusion History of Problems with Anesthesia: Yes (nausea) Social History Social History (Updated 07/29/23 @ 12:19 by Lashawn Barraza MD) Housing: Apartment Are you a primary day care attendant to a significant other at home: No Do you presently have visiting nurse or other home services: No Patient Tobacco Use Status: Former Tobacco user e-Cigarette/Vaping Use: Currently Using Substance Use Type: Marijuana service: No Current occupational status: disabled Cognitive needs: No Hearing needs: No Vision needs: No Meds Allergies Allergy/AdvReac Type Severity Reaction Status Date / Time benztropine [From COGENTIN] Allergy Unknown SWEATING Verified 07/15/23 09:25 pregabalin [From LYRICA] Allergy Unknown SWELLING Verified 07/15/23 09:25 sitagliptin [From JANUVIA] Allergy Unknown PER H&P Verified 07/15/23 09:25 Home Medications Medication Instructions Recorded Confirmed Last Taken Type dextroamphetamine-amphetamine 30 1 tab PO TID 08/22/20 07/27/23 Unknown History mg tablet zolpidem 10 mg tablet 10 mg PO BEDTIME PRN Insomnia 08/22/20 07/27/23 Unknown History alprazolam 1 mg tablet 2 mg PO BEDTIME 04/08/23 07/27/23 Unknown History oxcarbazepine 300 mg tablet 300 mg PO DAILY 04/08/23 07/27/23 05/08/23 History oxcarbazepine 600 mg tablet 600 mg PO BEDTIME 05/06/23 07/27/23 Unknown History rosuvastatin 20 mg tablet 20 mg PO BEDTIME 05/06/23 07/27/23 Unknown History Exam Exam Date and Time: July 28, 2023 0957 Height,Weight and Vital Signs: Height 5 ft 9 in Weight 109.769 kg Pertinent Lab Results Pertinent Lab Results: Laboratory Tests 06/08/23 11:46 WBC 6.3 Hgb 15.6 Hct 47.1 Plt Count 284 Sodium 141 Potassium 3.6 Chloride 106 Carbon Dioxide 26 BUN 23 H Creatinine 0.75 Narrative Narrative: EKG 12/2022 Vent. Rate : 087 BPM Atrial Rate : 087 BPM P-R Int : 136 ms QRS Dur : 100 ms QT Int : 408 ms P-R-T Axes : 037 000 006 degrees QTc Int : 490 ms Normal sinus rhythm Prolonged QT Abnormal ECG No previous ECGs available Assessment and Plan Assessment Anesthesia Assessment: Chart Reviewed Final Anesthetic Review Family History of Problems with Anesthesia: No History of Problems with Anesthesia: Yes (nausea) Documented by User: Lashawn Barraza MD 07/29/23 12:21 HPI - Anesthesia Eval Consult details Narrative: 52yo M for Colonoscopy s/p EGD and Vassar 05/2023 with [facility]. Poor prep. Incomplete Colonoscopy PMFSH Active Problems Active Problems: All Active Problems (Updated 07/29/23 @ 11:30 by Lashawn Barraza MD) Paresthesia of hand, bilateral (Acute) Cervical radiculitis (Acute) Chronic idiopathic constipation (Acute) History of pneumonia (Acute) Shortness of breath (Acute) Diabetic gastroparesis (Acute) Liver lesion (Acute) Pre-op examination (Acute) Nausea & vomiting (Acute) Colon cancer screening (Acute) Uncontrolled hypertension (Acute) Insulin dependent type 1 diabetes mellitus (Acute) Morbid obesity due to excess calories (Acute) Excessive sweating (Acute) Psychiatric illness (Acute) Uncontrolled diabetes mellitus (Acute) Change in mole (Acute) Rash (Acute) Hospital discharge follow-up (Acute) Acute pancreatitis (Acute) Left otitis media (Acute) Hematoma of right chest wall (Acute) Failed back syndrome (Acute) Establishing care with new doctor, encounter for (Acute) Liver lesion (Acute) Sleep apnea (Acute)- patient states does not have SIMÓN any more since losing weight Erectile 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 (Acute) Hypertension, essential (Acute) Chronic GERD (Acute) Lipid disorder (Acute) Diabetes 1.5, managed as type 2 (Acute) Anxiety Marijuana every 4 hours Past Medical History Medical History Back pain Liver lesion URI, acute Pneumonia Ear infection Erectile 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 Depression, major, recurrent ADHD Anxiety, generalized PTSD (post-traumatic stress disorder) Sleep apnea Hypertension, essential Chronic GERD 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, managed as type 2 Narrative: i Family History Family History Father Alcoholism Hyperlipidemia HTN (hypertension) CVD (cardiovascular disease) Mental illness in member of household Mother CAD (coronary artery disease) Breast cancer High cholesterol Diabetes mellitus CVD (cardiovascular disease) Mental illness in member of household Maternal Grandfather No problems noted. Maternal Grandmother No problems noted. Paternal Grandfather No problems noted. Paternal Grandmother No problems noted. Sister No problems noted. Sister No problems noted. Daughter No problems noted. Daughter No problems noted. Other Mental health disorder Surgical History Surgical History History of esophagogastroduodenoscopy (EGD) H/O colonoscopy History of ear surgery History of removal of laparoscopic gastric banding device History of left knee surgery History of lithotripsy History of laparoscopic appendectomy History of knee surgery History of discectomy History of lumbar fusion Social History Social History (Updated 07/29/23 @ 12:19 by Lashawn Barraza MD) Housing: Apartment Are you a primary day care attendant to a significant other at home: No Do you presently have visiting nurse or other home services: No Patient Tobacco Use Status: Former Tobacco user e-Cigarette/Vaping Use: Currently Using Substance Use Type: Marijuana service: No Current occupational status: disabled Cognitive needs: No Hearing needs: No Vision needs: No Meds Allergies Allergy/AdvReac Type Severity Reaction Status Date / Time benztropine [From COGENTIN] Allergy Unknown SWEATING Verified 07/15/23 09:25 pregabalin [From LYRICA] Allergy Unknown SWELLING Verified 07/15/23 09:25 sitagliptin [From JANUVIA] Allergy Unknown PER H&P Verified 07/15/23 09:25 Home Medications Medication Instructions Recorded Confirmed Last Taken Type dextroamphetamine-amphetamine 30 1 tab PO TID 08/22/20 07/27/23 Unknown History mg tablet zolpidem 10 mg tablet 10 mg PO BEDTIME PRN Insomnia 08/22/20 07/27/23 Unknown History alprazolam 1 mg tablet 2 mg PO BEDTIME 04/08/23 07/27/23 Unknown History oxcarbazepine 300 mg tablet 300 mg PO DAILY 04/08/23 07/27/23 05/08/23 History oxcarbazepine 600 mg tablet 600 mg PO BEDTIME 05/06/23 07/27/23 Unknown History rosuvastatin 20 mg tablet 20 mg PO BEDTIME 05/06/23 07/27/23 Unknown History Exam Height,Weight and Vital Signs: Height 5 ft 9 in Weight 109.769 kg Vital Signs Temp Pulse Resp BP Pulse Ox O2 Del Method 07/29/23 10:52 98.1 F 57 16 136/92 H 98 Room Air Airway Mallampati Class: II TM Dist: >3cm Neck ROM: Full Partial: Upper and Lower Loose/Missing/Broken Teeth: Yes (Denies broken or loose teeth) Heart: RRR Lungs: CTAB Assessment and Plan Assessment Anesthesia Assessment: Anesthesia Plan Discussed Final Anesthetic Review NPO: Yes ASA Class: III Final Preanesthetic Review: No Changes in Pt Med Stat, Meds/Allgs Chart Reviewed, Consent Obtained/Reviewed and Anes Risks/Benef Reviewed Patient Risk: Intermediate Procedure Risk: Low Assessment/Block/Sedation in SS: Assess/Block/Sedation-SS Anesthetic Plan Anesthetic Plan: MAC: and Other (Asked to see patient by Dr Ovalle as patient is requesting medication for anxiety.) Disposition: Standard PACU
[2023-07-29 10:50] LABS: Glucose, Whole Blood 129 mg/dL (60-115)
[2023-07-29 10:52] VITALS: BP 136/92; PULSE 57; RESP 16; TEMP 36.7; O2SAT 98
[2023-07-29] MEDS: Lactated Ringers 1,000 ML 100 ML IVCONT (11:00)
--- NOTE | 2023-07-29 11:10 | PC.NURSE ---
patient extremely anxious, states he has ptsd and needs his present until he goes in. requested his give him the enema
--- NOTE | 2023-07-29 11:40 | PC.NURSE ---
Dr Barraza gave 2mg versed at bedside, pulse oximeter in place, bed rails up, patient resting. VSS
--- NOTE | 2023-07-29 12:05 | P.HPSUR_ITS ---
Pre-Procedural Eval Section A Date of Service: 07/29/23 Section B Chief Complaint: Liver disease, unspecified,obesity Relevant Family History (Specify if Yes): No Relevant Social History: None Present Medications: see Short Stay Collaborative assessment Medical History: Significant History (Back pain Liver lesion URI, acute Pneumonia Ear infection Erectile 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 Depr ession, major, recurrent ADHD Anxiety, generalized PTSD (post-traumatic stress disorder) Sleep apnea Hypertension, essential Chronic GERD 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, managed as type 2) History of Previous Operations: Relevant previous surgery/procedure and date(s) (History of esophagogastroduodenoscopy (EGD) H/O colonoscopy History of ear surgery History of removal of laparoscopic gastric banding device History of left knee surgery History of lithotripsy History of laparoscopic appendectomy History of knee surgery History of discectomy History of lumbar fusion) Allergies: Allergies Allergy/AdvReac Type Severity Reaction Status Date / Time benztropine [From COGENTIN] Allergy Unknown SWEATING Verified 07/15/23 09:25 pregabalin [From LYRICA] Allergy Unknown SWELLING Verified 07/15/23 09:25 sitagliptin [From JANUVIA] Allergy Unknown PER H&P Verified 07/15/23 09:25 Review of Systems Sugical H&P ROS: Negative: Constitution, Cardiovascular, Respiratory, Neurological, Psychiatric, Hem-Onc, Allergic/Immunologic, Gastrointestinal, Genitourinary, Musculoskeletal, Integumentary, Endocrine and Eyes/Ears/Nose/Throat Exam Surgical H&P Exam: Normal: HEENT, Normal: Heart, Normal: Lungs, Normal: Extre mities, Normal: Abdomen, Normal: Skin and Normal: Neurological Plan Diagnosis/Plan: Unchanged I have reviewed the history and physical and performed a pertinent physical examination on my patient. No changes have occurred unless specified. Time Spent With Patient Time: Total time managing care of this patient today ____ minutes.
--- NOTE | 2023-07-29 12:06 | W.PM.OPN ---
Operative Note Operative Note Date of Service: 07/29/23 Narrative: Operative Information Procedure Description: Colonoscopy Indication: screening Anesthesia: MAC COLONOSCOPY Instrument: Olympus variable stiffness ADULT scope 190L Colonoscopy Monitoring: Vital signs and clinical assessment, continuous EKG monitoring, Pulse oximetry, Carbon Dioxide monitoring and blood pressure monitoring were done throughout the procedure. Colon withdrawal time was [] minutes. Procedure: The patient was placed in the left lateral decubitis position and pre-procedure medications were administered. After a digital rectal examination of the ano-rectum, the video colonoscope was inserted into the rectum and advanced through the colon to the cecum/TI. The colonoscope was slowly withdrawn in a retrograde panoramic fashion and the colon mucosa was carefully examined including a retroflexed view of the rectum. Findings and interventions are described below. Procedure Difficulty: easy Findings: Terminal Ileum-not intubated Cecum:normal Ascending Colon: normal Transverse Colon -normal Descending Colon:normal Sigmoid Colon: midl -moderate diverticulosis Rectum: Retroflexion with small internal hemorrhoids, grade I Anorectum - normal Colon preparation: [place] Bowel Preparation Scale Right colon; 1 Transverse colon: 1-2 Left colon; 0 (0 = Unprepared colon segment with mucosa not seen due to solid stool that cannot be cleared. 1 = Portion of mucosa of the colon segment seen, but other areas of the colon segment not well seen due to staining, residual stool and/or opaque liquid. 2 = Minor amount of residual staining, small fragments of stool and/or opaque liquid, but mucosa of colon segment seen well. 3 = Entire mucosa of colon segment seen well with no residual staining, small fragments of stool or opaque liquid) Impression and Post Procedure Diagnosis: diverticulosis internal hemorrhoids Plan: High fiber diet leaflet Avoid straining at stool, epsom salts and sitz bath, anusol supps or cream Repeat Colonoscopy in 1 year or earlier if clinically indicated, maybe next time 3 d of clears, avoid nuts and high riughage food for 1 week before and use miralax for 1 week before prep Above findings were reviewed with the patient and relevant handouts were provided if indicated.
[2023-07-29 12:50] VITALS: BP 137/80; PULSE 60; RESP 18; TEMP 36.2; O2SAT 100
[2023-07-29 13:19] VITALS: BP 128/80; PULSE 70; RESP 18; TEMP 36.1; O2SAT 99
== END 2023-07-29 14:49 | disposition home or self-care (01) ==
PROVIDERS: PCP Internal Medicine; Visit Provider Internal Medicine Gastroenterology
PROC: 0DJD8ZZ Inspection of Lower Intestinal Tract, Via Natural or Artificial Opening Endoscopic (ICD-10-PCS; CPT 45378; principal; 2023-07-29 11:50)
DX: Z12.11 Encounter for screening for malignant neoplasm of colon (principal); K57.30 Diverticulosis of large intestine without perforation or abscess without bleeding; K64.0 First degree hemorrhoids; K76.9 Liver disease, unspecified; K59.04 Chronic idiopathic constipation; K21.9 Gastro-esophageal reflux disease without esophagitis; I10 Essential (primary) hypertension; E13.8 Other specified diabetes mellitus with unspecified complications; Z79.4 Long term (current) use of insulin; N52.1 Erectile dysfunction due to diseases classified elsewhere; E66.01 Morbid (severe) obesity due to excess calories; E75.6 Lipid storage disorder, unspecified; Z68.35 Body mass index [BMI] 35.0-35.9, adult; F33.9 Major depressive disorder, recurrent, unspecified; F90.9 Attention-deficit hyperactivity disorder, unspecified type; F43.10 Post-traumatic stress disorder, unspecified; F12.90 Cannabis use, unspecified, uncomplicated; Z79.899 Other long term (current) drug therapy; Z88.8 Allergy status to other drugs, medicaments and biological substances; Z98.890 Other specified postprocedural states; Z87.891 Personal history of nicotine dependence
CPT/HCPCS: G0121; 82947; J2250; J2765

== ENCOUNTER → 2023-07-29 10:11 | Outpatient (BNV) | payer OTHER, SELFPAY | PROVIDERS: PCP Internal Medicine; Visit Provider Internal Medicine Gastroenterology | DX: Z12.11 Encounter for screening for malignant neoplasm of colon (principal); Z91.198 Patient's noncompliance with other medical treatment and regimen for other reason; K64.0 First degree hemorrhoids; K57.30 Diverticulosis of large intestine without perforation or abscess without bleeding | CPT/HCPCS: G0121 ==

== ENCOUNTER 2023-07-30 09:06 | Outpatient (AMB) | payer OTHER, SELFPAY ==
--- NOTE | 2023-07-30 09:17 | A.OFFVIS_ITS ---
Intake Vital Signs 07/30/23 09:21 Height 5 ft 9 in Weight 242 lb 15.19 oz BMI 35.9 BP 114/74 Blood Pressure Location Rt brachial Position Sitting Intake Visit Reasons: discuss medication and MRI Intake Note: Joo presents in the office as a follow up constipation. Patient underwent colonoscopy yesterday 07/[address] Ovalle. CC: Patient reports that prep did not work well for him and he was told that he needs to repeat colo in 6 months. He reports he has a couple episodes of vomiting and dry heaves. He also c/o nausea daily that goes away quickly. He states that he has been able to have BM today and last night. Orthotist/Prosthetist Required: No Allergies benztropine [From COGENTIN] Allergy (Unknown, Verified 07/30/23 09:26) SWEATING pregabalin [From LYRICA] Allergy (Unknown, Verified 07/30/23 09:26) SWELLING sitagliptin [From JANUVIA] Allergy (Unknown, Verified 07/30/23 09:26) PER H&P HPI discuss medication and MRI HPI Details Assessment & Plan (1) Diabetic gastroparesis: Comment: . Gastric emptying study normal but he for got to stop the Reglan Code(s): E11.43 - Type 2 diabetes mellitus with diabetic autonomic (poly)neuropathy; K31.84 - Gastroparesis Plan: He tolerated the EGD and colonoscopy well however he did not completely clear. He did not have any trouble tolerating the prep and he does not understand why he did not clear. He is agreeable to rescheduling the procedure and we will do a 2 day prep and treat what I think is ongoing constipation.. He was seen at the [facility] about 2 weeks ago and had another CT. He developed severe RLQ to suprapubic pain at about 11pm. Initially it was colicky but then it was sustained and he describes it as diarrhea cramping, burning, muscle sore, and he was running tot the BR but could not move anything. A 2nd MRI was rescheduled with Perez r/t insurance problems. (his initial MRI was unclear because of motion artifact) His second CT at [facility] did NOT show a liver lesion. This continues to be an ongoing worry for him because of the way this was presented to him initially by an ER doctor and he worries about the possibility of cancer. He would really like to get this clarify since he is getting conflicting reports from different studies. Unfortunately all of these studies are coming from different institution so it makes it difficult for me to contact our radiologist to review results. He continues to have episodes of nausea although improved, with the above presentation, his failure to clear for scope, and finding of moderate stool burden on CT I think hs has CIC more than he knows. WE will start Trulance. We will increase the 10mg reglan to 6 times a day as his is a bigger walter and his body mass likely will support this since he has had no adverse reactions. Colonoscopy 05/11/23 Findings: Terminal Ileum-not intubated Cecum:normal Ascending Colon: normal Transverse Colon -normal Descending Colon:normal Sigmoid Colon: midl -moderate diverticulosis Rectum: Retroflexion with small internal hemorrhoids, grade I Anorectum - normal Impression and Post Procedure Diagnosis: diverticulosis internal hemorrhoids Plan: High fiber diet leaflet Avoid straining at stool, epsom salts and sitz bath, anusol supps or cream Repeat Colonoscopy in 1 year or earlier if clinically indicated, maybe next time 3 d of clears, avoid nuts and high riughage food for 1 week before and use miralax for 1 week before prep Biopsy Received: 05/11/23 ADDENDUM REPORT Addendum Addendum #1 (B and C): Immunostains for H pylori are negative with appropriate control. Electronically Signed By: Oneyda Griffith 05/13/23 1610 Diagnosis A. Small bowel, biopsy: Small-bowel/duodenal mucosa with preserved villi and no specific change; no evidence of celiac disease. B. Gastric antrum, biopsy: Gastric antral mucosa with mild reactive changes and focal minimal chronic inactive inflammation; negative for intestinal metaplasia and dysplasia (see comment). C. Gastric polyps: Fundic gland polyps with focal minimal inactive inflammation; negative for intestinal metaplasia and dysplasia (see comment). Comment: (B and C): H pylori stains pending; adde ndum to follow. (2) Chronic GERD: Code(s): K21.9 - Gastro-esophageal reflux disease without esophagitis (3) Colon cancer screening: Code(s): Z12.11 - Encounter for screening for malignant neoplasm of colon (4) Chronic idiopathic constipation: Code(s): K59.04 - Chronic idiopathic constipation Medications: New plecanatide (Trula nce) 3 mg PO DAILY 30 t abs 3RF K59.04 - Chronic i diopathic constipa tion Changed From metoclopramide HCl provider aware of possible inter actions and is mon itoring/ 10 mg PO QIDACHS 120 tabs 6RF E11.43 - Type 2 di abetes mellitus wi th diabetic autono mckinley (poly)neuropat hy, K31.84 - Gastr oparesis To metoclopramide HCl (Reglan) provi maria elena aware of possi ble interactions a nd is monitoring/ 10 mg PO .six time s a day 180 tabs 6 RF E11.43 - Type 2 di abetes mellitus wi th diabetic autono mckinley (poly)neuropat hy, K31.84 - Gastr oparesis Discontinued rosuvastatin 20 mg PO DAILY 90 days 90 tabs 0RF metoprolol succina te ER 25 mg PO DAILY 90 days 90 tabs 0RF MRI of the abdomen [facility] MRI IMPRESSION 1 hepatic segment IV enhancing lesion, without definite correlate on the T2 weighted sequence. Differential considerations include a small FNH or adenoma. An atypical hemangioma is possible, though slightly less likely. Follow-up examination in 3 6 months is recommended to assess for stability, at which time EOVIST contrast should be used to further delineate the lesion. 2 hepatomegaly with mild hepatic steatos is 3 no other acute findings to explain andrew blake's symptoms. CORRESPONDENCE On 07/15/23 @ 10:17 Lala Dempsey Wrote To [place],January January, have you had a chance to speak to this patient or his ? On 07/14/23 @ 16:26 Althea Key Wrote To Lala Dempsey Can you please call Pt and let him know per message below please? On 07/13/23 @ 11:35 Basia [place] Wrote To DemondBasia ?Focal Nodular Hyperplasia?verses atypical hemangioma versus adenoma, 1.5 cm On 07/13/23 @ 11:25 Serina Miller Wrote To DemondJanuary (2) Patient's called returning a phone call? I see this message - She states that she has questions regarding the MRI that is being done - very anxious about cancer. On 07/09/23 @ 11:19 Lala Dempsey Wrote To DemondBasia please review results. I scanned them into chart. On 07/09/23 @ 11:13 Angela Smith Wrote To DemondJanuary (2) PT's called and would like to know if someone can call her back to discuss MRI that Joo had TODAYS VISIT He is here today with his who is supportive. We review all of the tests. Trulance works too well, we may use this for prep if he puts it aside. Will go to LInzess 145 and titrate. His N/V is greatly improved, but it will occur suddenly and then disappear before I can get the prn pill out. Will keep journal. The pain that was doubling him over has completely resolved. He will have more dry heaves. AFP normal, so this good! Have repeat MRI already ordered with Evovist contrast. The itching on his arm is r/t his paresthesias of cervical spine origin. We need to repeat the colonoscopy in 1 year as he was not completely clear. The procedure was well tolerated. The results were explained and the patient is ag reeable to the follow-up interval as stated. The bowel pattern has returned to normal. Education was provided to tell any 1st degree relatives about their findings to be sure that they are screened by age 45. Educated that they will be put on a recall list when it is time for their repeat scope but should they move out of state or away from the hospital they will need to remember along with their primary to repeat the procedure in a timely fashion to avoid any adverse complications. Return office visit in 8 weeks and will try to see if they found any patterns to his sudden onsets of nausea. However, I think that taking the Reglan regularly is helping to keep it mostly at [place] with occasional breakthrough. 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, managed as type 2 Surgical History History of esophagogastroduodenoscopy (EGD) H/O colonoscopy History of ear surgery History of removal of laparoscopic gastric banding device History of left knee surgery History of lithotripsy History of laparoscopic appendectomy History of knee surgery History of discectomy History of lumbar fusion Family History Father Alcoholism Hyperlipidemia HTN (hypertension) CVD (cardiovascular disease) Mental illness in member of household Mother CAD (coronary artery disease) Breast cancer High cholesterol Diabetes mellitus CVD (cardiovascular disease) Mental illness in member of household Maternal Grandfather No problems noted. Maternal Grandmother No problems noted. Paternal Grandfather No problems noted. Paternal Grandmother No problems noted. Sister No problems noted. Sister No problems noted. Daughter No problems noted. Daughter No problems noted. Other Mental health disorder Social History (Updated 07/29/23 @ 12:19 by Lashawn Barraza MD) Housing: Apartment Are you a primary child caregiver to a significant other at home: No Do you presently have visiting nurse or other home services: No Patient Tobacco Use Status: Former Tobacco user e-Cigarette/Vaping Use: Currently Using Substance Use Type: Marijuana service: No Current occupational status: disabled Cognitive needs: No Hearing needs: No Vision needs: No Review of Systems Const Denies fatigue, Denies fever(s), Denies night sweats, Denies poor appetite and Denies weight loss ENT Reports Normal hearing present, Denies dental pain, Denies dysphagia, Denies hearing loss, Denies mouth pain, Denies odynophagia, Denies throat swelling, Denies tongue swelling and Reports other (Dentition adequate) Card Reports no additional complaints Resp Reports no additional complaints GI Denies abdominal pain, Denies melena, Denies bloating, Denies hematochezia, Reports constipation, Denies GI cramping, Denies dysphagia, Denies excessive flatus, Denies early satiety, Reports heartburn, Denies diarrhea, Reports nausea, Denies odynophagia, Reports vomiting and Denies hematemesis Skin/Breast Denies pruritus, Denies lesions, Denies rash and Denies jaundice Neuro Reports Normal hearing present and Denies Abnormal speech present Endo Denies fatigue Aller/Immun Denies throat swelling and Denies tongue swelling Physical Exam Vital Signs: Last Vital Signs BP 114/74 07/30/23 09:21 BMI result Body Mass Index 35.9 Const General: cooperative, no acute distress, well developed and well groomed Nutritional Appearance: well nourished and obese centrally obese Orientation/consciousness: oriented to person, oriented to place and oriented to time Limitations: No language barrier HEENT Head: Yes normocephalic and Yes atraumatic Eyes General: appearance normal, both eyes and all related structures Pupils: Equal, round and reactive pupils present Neck Neck: Yes normal visual inspection and Yes no lymphadenopathy Thyroid: Thyroid normal Resp Effort & Inspection: normal respiratory effort and able to speak in complete sentences Auscultation: clear to auscultation bilaterally Cardio Rate: regular rate Rhythm: regular rhythm Heart sounds: Normal, physiologic split S2 sound present Peripheral pulses: radial pulses present and posterior tibial pulses present GI Inspection: No distended, Yes Abdominal panniculus present and Yes obesity Palpation (GI): Soft to palpation, nontender, no guarding, not rigid and No hepatosplenomegaly present Percussion: Yes normal to percussion Auscultation: normal bowel sounds Rectal Exam - Male: Yes deferred Skin General skin exam: no rashes or lesions noted, turgor normal, skin not dry, no jaundice, No spider nevi and no striae Rashes: no rashes Nails: normal Neuro General: oriented to person, oriented to place and oriented to time Cranial nerves: Yes Equal, round and reactive pupils present and Yes Normal hearing present Speech: No Abnormal speech present Extrem General: Yes normal to inspection, No clubbing, No cyanosis and No edema Psych Appearance: grossly normal and well kempt Mental Status: mental status grossly normal Speech and movement: Normal speech and movement present Affect: normal affect Attitude: cooperative Thought process: Normal thought process present and not confabulating Thought content: Normal thought content present Insight: Limited insight present (Psych) Judgement: Limited judgement present (Psych) Assessment & Plan Assessment & Plan (1) Chronic idiopathic constipation: Code(s): K59.04 - Chronic idiopathic constipation Plan: He is here today with his who is supportive. We review all of the tests. Trulance works too well, we may use this for prep if he puts it aside. Will go to LInzess 145 and titrate. His N/V is greatly improved, but it will occur suddenly and then disappear before I can get the prn pill out. Will keep journal. The pain that was doubling him over has completely resolved. He will have more dry heaves. AFP normal, so this good! Have repeat MRI already ordered with Evovist contrast. The itching on his arm is r/t his paresthesias of cervical spine origin. We need to repeat the colonoscopy in 1 year as he was not completely clear. The procedure was well tolerated. The results were explained and the patient is agreeable to the follow-up interval as stated. The bowel pattern has returned to normal. Education was provided to tell any 1st degree relatives about their findings to be sure that they are screened by age 45. Educated that they will be put on a recall list when it is time for their repeat scope but should they move out of state or away from the hospital they will need to remember along with their primary to repeat the procedure in a timely fashion to avoid any adverse complications. Return office visit in 8 weeks and will try to see if they found any patterns to his sudden onsets of nausea. However, I think that taking the Reglan regularly is helping to keep it mostly at [place] with occasional breakthrough. (2) Diabetic gastroparesis: Comment: . Gastric emptying study normal but he for got to stop the Reglan Code(s): E11.43 - Type 2 diabetes mellitus with diabetic autonomic (poly)neuropathy; K31.84 - Gastroparesis (3) Chronic GERD: Code(s): K21.9 - Gastro-esophageal reflux disease without esophagitis (4) Liver lesion: Code(s): K76.9 - Liver disease, unspecified (5) Hiatal hernia: Code(s): K44.9 - Diaphragmatic hernia without obstruction or gangrene Orders: Referrals General Surgery Referral K44.9 - Diaphragmatic hernia without obstruction or gangrene Medications: New linaclotide (Linzess) 145 mcg PO QAM 30 caps 3RF K59.04 - Chronic idiopathic constipation On Hold plecanatide (Trulance) Hold Comment: Doctor's Order 3 mg PO DAILY 30 tabs 3RF K59.04 - Chronic idiopathic constipation Coding Level of Care Code Est Pt Level 3 (94299) Diagnoses Chronic idiopathic constipation K59.04 Diabetic gastroparesis E11.43; K31.84 Chronic GERD K21.9 Liver lesion K76.9 Hiatal hernia K44.9
[2023-07-30 09:21] VITALS: BP 114/74; BMI 35.9
== END 2023-07-30 10:06 | disposition home or self-care (01) ==
PROVIDERS: PCP Internal Medicine; Visit Provider Nurse Practitioner
DX: K59.04 Chronic idiopathic constipation (principal); E11.43 Type 2 diabetes mellitus with diabetic autonomic (poly)neuropathy; K31.84 Gastroparesis; K21.9 Gastro-esophageal reflux disease without esophagitis; K76.9 Liver disease, unspecified; K44.9 Diaphragmatic hernia without obstruction or gangrene
CPT/HCPCS: 99213

== ENCOUNTER → 2023-07-30 09:06 | Outpatient (BNVA) | payer OTHER, SELFPAY | PROVIDERS: PCP Internal Medicine; Visit Provider Nurse Practitioner | DX: K59.04 Chronic idiopathic constipation (principal); E11.43 Type 2 diabetes mellitus with diabetic autonomic (poly)neuropathy; K31.84 Gastroparesis; K21.9 Gastro-esophageal reflux disease without esophagitis; K76.9 Liver disease, unspecified; K44.9 Diaphragmatic hernia without obstruction or gangrene | CPT/HCPCS: 99212 ==

== ENCOUNTER 2023-09-08 11:12 | Outpatient (AMB) | payer OTHER, SELFPAY ==
--- NOTE | 2023-09-08 11:12 | MHC.PC.OV ---
Intake Visit Reasons: 3 month fu Allergies benztropine [From COGENTIN] Allergy (Unknown, Verified 09/08/23 11:13) SWEATING pregabalin [From LYRICA] Allergy (Unknown, Verified 09/08/23 11:13) SWELLING sitagliptin [From JANUVIA] Allergy (Unknown, Verified 09/08/23 11:13) PER H&P Medication List - Last Reconciled 09/08/23 by Lizabeth Adame MD albuterol sulfate 90 mcg/actuation (Ventolin HFA) 1 inh inhalation QID PRN 30 days alprazolam 2 mg PO BEDTIME amlodipine 5 mg PO DAILY 90 days blood sugar diagnostic (Accu-Chek Guide test strips) to be checked once daily blood-glucose meter (Accu-Chek Guide Glucose Meter) to be checked once daily blood-glucose meter,continuous ([employer] G6 Clearance Rep) Use to monitor blood sugars through the day/night blood-glucose sensor (Dexcom G6 Sensor device) Use to monitor blood sugars through the day/night blood-glucose transmitter ([employer] G6 Transmitter device) Use to monitor blood sugars through the day/night cetirizine 10 mg PO DAILY dextroamphetamine-amphetamine 10 mg 1 tab PO DAILY dextroamphetamine-amphetamine 30 mg 1 tab PO TID diphenhydramine HCl 2% (Benadryl) 1 appl topical QID dulaglutide (Trulicity) 1.5 mg (0.5 mL) subcut QWEEK 30 days empagliflozin (Jardiance) 10 mg PO QAM 90 days fluticasone propionate 50 mcg/actuation (Flonase Allergy Relief) 1 spray intranasal DAILY gabapentin 300 mg PO DAILY hydrochlorothiazide 25 mg PO DAILY hydroxyzine HCl 50 mg (2 x 25 mg) PO BEDTIME insulin glargine (Lantus Solostar U-100 Insulin) 38 units (0.38 mL) subcut QPM 30 days [Insulin pen needles Once a day] lancets (Accu-Chek Softclix Lancets) to be checked once daily [gustavo Glucometer As directed NS] linaclotide (Linzess) 145 mcg PO QAM lisinopril 40 mg PO DAILY metoclopramide HCl 5 mg PO TID metoclopramide HCl (Reglan) 20 mg (2 x 10 mg) PO QID metoprolol succinate ER 25 mg PO BEDTIME omeprazole 40 mg PO DAILY 30 days ondansetron HCl mg PO DAILY oxcarbazepine 600 mg PO BID pen needle, diabetic (BD Erica 2nd Gen Pen Needle) T.i.d. plecanatide (Trulance) 3 mg PO DAILY rosuvastatin 20 mg PO BEDTIME tamsulosin 0.4 mg PO BEDTIME vortioxetine (Trintellix) 10 mg PO DAILY Tobacco use date assessed: 09/08/23 Dental Screening Dental Screen Date: 09/08/23 Did you have a dental visit in the last 12 months?: Yes Did you have a dental problem in the last 6 months where you did not have access to dental care?: No Was dental information given to patient?: Patient has dentist HPI 3 month fu HPI Details Patient is a 52-year-old gentleman who continued to have neck pain Patient was evaluated by [facility] and was told that most likely he will need cervical fusion He had a cervical spine x-ray done July 22 which showed Loss of intervertebral disc height with degenerative changes at C3-C4 and C5-C6 I have ordered MRI of his cervical spine He continued to have weakness and paresthesia in both of his hands. Patient says that he had nerve conduction study done through [facility] I do not have the report but we will call [facility] and request that. Meanwhile I have ordered MRI cervical spine for the patient As he is requesting a referral to neurosurgery. Patient is diabetic last hemoglobin A1c was in 6 range Medication list reviewed He is requesting pain management, patient says the tramadol does not work He will take oxycodone 5 mg I was sent 30 tablets 1 he will return from [place] in few days. 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 Depression, major, recurrent ADHD Anxiety, generalized PTSD (post-traumatic stress disorder) Sleep apnea Hypertension, essential Chronic GERD 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, managed as type 2 Surgical History History of esophagogastroduodenoscopy (EGD) H/O colonoscopy History of ear surgery History of removal of laparoscopic gastric banding device History of left knee surgery History of lithotripsy History of laparoscopic appendectomy History of knee surgery History of discectomy History of lumbar fusion Family History Father Alcoholism Hyperlipidemia HTN (hypertension) CVD (cardiovascular disease) Mental illness in member of household Mother CAD (coronary artery disease) Breast cancer High cholesterol Diabetes mellitus CVD (cardiovascular disease) Mental illness in member of household Maternal Grandfather No problems noted. Maternal Grandmother No problems noted. Paternal Grandfather No problems noted. Paternal Grandmother No problems noted. Sister No problems noted. Sister No problems noted. Daughter No problems noted. Daughter No problems noted. Other Mental health disorder Social History Housing: Apartment Are you a primary healthcare manager to a significant other at home: No Do you presently have visiting nurse or other home services: No Patient Tobacco Use Status: Former Tobacco user e-Cigarette/Vaping Use: Currently Using Substance Use Type: Marijuana service: No Current occupational status: disabled Cognitive needs: No Hearing needs: No Vision needs: No Questionnaire Thrive Questionnaire Date Thrive assessed: 12/19/22 AUDIT C Alcohol Use Questionnaire (AUDIT-C) 1. How often do you have a drink containing alcohol?: Never 3. How often do you have six or more drinks on one occasion?: Never Total Score: 0 Score Reviewed/Action Taken: Yes RISHI-7 AMB Questionnaire RISHI-7 Date RISHI - 7 assessed: 12/19/22 Source: Developed by Drs. Jan Del Rio, Gail Hayward, Son Hanks and colleagues, with an educational jeannie from [employer]. Review of Systems Const Denies chills and Denies fever(s) ENT Denies epistaxis and Denies nasal discharge Card Denies chest pain Resp Denies chest congestion, Denies cough and Denies hemoptysis GI Denies diarrhea and Denies nausea Skin/Breast Denies rash Neuro Reports no additional complaints Psych Reports no additional complaints Endo Reports no additional complaints Physical exam (Primary Care) Tobacco/Smoking Status: Tobacco use Status Tobacco use date assessed 09/08/23 09/08/23 11:14 Patient Tobacco Use Status Former Tobacco user 09/08/23 11:14 e-Cigarette/Vaping Use Currently Using 09/08/23 11:14 Thrive Assessment: Date of Thrive Assessment Date Thrive assessed 12/19/22 09/08/23 11:14 Telehealth Telehealth Location of provider rendering services: practice address Location of patient: address on file Patient Identification confirmed using: Name, : Yes Telehealth method: video Patient verbally consented to treatment: Yes Patient verbally consented to billing insurance company: Yes Patient informed of any privacy concerns related to visit: Yes Assessment and Plan Assessment & Plan (1) Cervical radiculitis: Code(s): M54.12 - Radiculopathy, cervical region (2) Paresthesia of hand, bilateral: Code(s): R20.2 - Paresthesia of skin (3) DJD (degenerative joint disease) of cervical spine: Code(s): M47.812 - Spondylosis without myelopathy or radiculopathy, cervical region Qualifiers: Spinal osteoarthritis complication: with radiculopathy Qualified Code(s): M47.22 - Other spondylosis with radiculopathy, cervical region (4) Lipid disorder: Code(s): E78.9 - Disorder of lipoprotein metabolism, unspecified (5) Chronic GERD: Code(s): K21.9 - Gastro-esophageal reflux disease without esophagitis (6) Hypertension, essential: Code(s): I10 - Essential (primary) hypertension (7) Insulin dependent type 1 diabetes mellitus: Code(s): E10.9 - Type 1 diabetes mellitus without complications Qualifiers: Diabetes mellitus complication status: with neurologic complications Diabetes mellitus complication detail: with polyneuropathy Qualified Code(s): E10.42 - Type 1 diabetes mellitus with diabetic polyneuropathy (8) Psychiatric illness: Code(s): F99 - Mental disorder, not otherwise specified (9) PTSD (post-traumatic stress disorder): Code(s): F43.10 - Post-traumatic stress disorder, unspecified (10) Diabetic gastroparesis: Comment: . Gastric emptying study normal but he for got to stop the Reglan Code(s): E11.43 - Type 2 diabetes mellitus with diabetic autonomic (poly)neuropathy; K31.84 - Gastroparesis (11) Depression, major, recurrent: Code(s): F33.9 - Major depressive disorder, recurrent, unspecified Qualifiers: Active/Remission status: in partial remission Qualified Code(s): F33.41 - Major depressive disorder, recurrent, in partial remission Plan Patient is a 52-year-old gentleman who continued to have neck pain Patient was evaluated by [facility] and was told that most likely he will need cervical fusion He had a cervical spine x-ray done July 22 which showed Loss of intervertebral disc height with degenerative changes at C3-C4 and C5-C6 I have ordered MRI of his cervical spine He continued to have weakness and paresthesia in both of his hands. Patient says that he had nerve conduction study done through [facility] I do not have the report but we will call [facility] and request that. Meanwhile I have ordered MRI cervical spine for the patient As he is requesting a referral to neurosurgery. Patient is diabetic last hemoglobin A1c was in 6 range Medication list reviewed Patient have a history of PTSD, major depression, psychiatric care through Psychiatry Is gastroparesis symptoms have improved He is requesting pain management, patient says the tramadol does not work He will take oxycodone 5 mg I was sent 30 tablets 1 he will return from [place] in few days. Meanwhile he is using marijuana for pain control Orders: Orders MR cervical spine wo con Today M47.812 - Spondylosis without myelopathy or radiculopathy, cervical region, M54.12 - Radiculopathy, cervical region, R20.2 - Paresthesia of skin Coding Level of Care Code Tele Est Pt Level 4 (74605) Diagnoses Cervical radiculitis M54.12 Paresthesia of hand, bilateral R20.2 Osteoarthritis of spine with radiculopathy, cervical region M47.22 Spinal osteoarthritis complication: with radiculopathy Lipid disorder E78.9 Chronic GERD K21.9 Hypertension, essential I10 Type 1 diabetes mellitus with diabetic polyneuropathy E10.42 Diabetes mellitus complication status: with neurologic complications Diabetes mellitus complication detail: with polyneuropathy Psychiatric illness F99 PTSD (post-traumatic stress disorder) F43.10 Diabetic gastroparesis E11.43; K31.84 Recurrent major depressive disorder, in partial remission F33.41 Active/Remission status: in partial remission Comment 30 minute spent in care of this patient
== END 2023-09-08 12:46 | disposition home or self-care (01) ==
PROVIDERS: PCP Internal Medicine; Visit Provider Internal Medicine
DX: R20.2 Paresthesia of skin (principal); E11.43 Type 2 diabetes mellitus with diabetic autonomic (poly)neuropathy; F33.41 Major depressive disorder, recurrent, in partial remission; M47.22 Other spondylosis with radiculopathy, cervical region; E78.9 Disorder of lipoprotein metabolism, unspecified; K21.9 Gastro-esophageal reflux disease without esophagitis; I10 Essential (primary) hypertension; F99 Mental disorder, not otherwise specified; F43.10 Post-traumatic stress disorder, unspecified; K31.84 Gastroparesis
CPT/HCPCS: 99214

== ENCOUNTER 2023-09-28 15:57 | Outpatient (AMB) | payer OTHER, SELFPAY ==
[2023-09-28 16:08] VITALS: BP 122/74; PULSE 118; TEMP 36.3; O2SAT 96; BMI 35.7
--- NOTE | 2023-09-28 16:08 | MHC.OFFWIV ---
Intake Vital Signs 09/28/23 16:08 Height 5 ft 9 in Weight 242 lb BMI 35.7 BP 122/74 Blood Pressure Location Rt brachial Position Sitting Pulse 118 H Pulse Source Pulse Oximeter Temp 97.4 F Temp Source Temporal Artery Scan Pulse Oximetry (%) 96 Oxygen Delivery Method Room Air Intake Visit Reasons: EP LFT shoulder pain Intake Note: Pt is here for c/o left shoulder pain, requesting oxycodone Patient Tobacco Use Status: Former Tobacco user Allergies benztropine [From COGENTIN] Allergy (Unknown, Verified 09/28/23 16:09) SWEATING pregabalin [From LYRICA] Allergy (Unknown, Verified 09/28/23 16:09) SWELLING sitagliptin [From JANUVIA] Allergy (Unknown, Verified 09/28/23 16:09) PER H&P Do you need a note to return to daycare/school/sports/work: Yes HPI EP LFT shoulder pain HPI Details 53-year-old male presents to the office a sick visit. He is requesting narcotics prescription for left shoulder pain and chronic pain syndrome. [facility] Medical History (Updated 09/08/23 @ 11:46 by Lizabeth Adame MD) Back pain Liver lesion URI, acute Pneumonia Ear infection Erectile 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 Depression, major, recurrent ADHD Anxiety, generalized PTSD (post-traumatic stress disorder) Sleep apnea Hypertension, essential Chronic GERD 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, managed as type 2 Surgical History History of esophagogastroduodenoscopy (EGD) H/O colonoscopy History of ear surgery History of removal of laparoscopic gastric banding device History of left knee surgery History of lithotripsy History of laparoscopic appendectomy History of knee surgery History of discectomy History of lumbar fusion Family History Father Alcoholism Hyperlipidemia HTN (hypertension) CVD (cardiovascular disease) Mental illness in member of household Mother CAD (coronary artery disease) Breast cancer High cholesterol Diabetes mellitus CVD (cardiovascular disease) Mental illness in member of household Maternal Grandfather No problems noted. Maternal Grandmother No problems noted. Paternal Grandfather No problems noted. Paternal Grandmother No problems noted. Sister No problems noted. Sister No problems noted. Daughter No problems noted. Daughter No problems noted. Other Mental health disorder Housing: Apartment Are you a primary healthcare science specialist to a significant other at home: No Do you presently have visiting nurse or other home services: No Patient Tobacco Use Status: Former Tobacco user e-Cigarette/Vaping Use: Currently Using Substance Use Type: Marijuana service: No Current occupational status: disabled Cognitive needs: No Hearing needs: No Vision needs: No Physical Exam Vital Signs: Last Vital Signs Temp 97.4 F 09/28/23 16:08 Pulse 118 H 09/28/23 16:08 BP 122/74 09/28/23 16:08 Pulse Ox 96 09/28/23 16:08 Oxygen Delivery Method Room Air 09/28/23 16:08 BMI result Body Mass Index 35.7 Assessment & Plan Assessment & Plan (1) Shoulder pain: Code(s): M25.519 - Pain in unspecified shoulder Plan: Very brief visit. Patient was told that narcotic prescriptions will not be prescribed at the walk-in. Patient walked out. Coding Level of Care Code Est Pt Level 3 (57921) Diagnoses Shoulder pain M25.519
== END 2023-09-28 16:50 | disposition home or self-care (01) ==
PROVIDERS: PCP Internal Medicine; Visit Provider Internal Medicine
DX: M25.519 Pain in unspecified shoulder (principal)
CPT/HCPCS: 99213

== ENCOUNTER 2023-10-22 08:34 | Outpatient (AMB) | payer OTHER, SELFPAY ==
--- NOTE | 2023-10-22 08:45 | A.OFFPC_ITS ---
Vital Signs 10/22/23 08:46 Height 5 ft 9 in Intake Visit Reasons: Discuss Results ~ Allergies benztropine [From COGENTIN] Allergy (Unknown, Verified 10/22/23 08:45) SWEATING pregabalin [From LYRICA] Allergy (Unknown, Verified 10/22/23 08:45) SWELLING sitagliptin [From JANUVIA] Allergy (Unknown, Verified 10/22/23 08:45) PER H&P Tobacco use date assessed: 10/22/23 Dental Screening Dental Screen Date: 10/22/23 Did you have a dental visit in the last 12 months?: Yes Did you have a dental problem in the last 6 months where you did not have access to dental care?: No Was dental information given to patient?: Patient has dentist HPI Discuss Results ~ HPI Details Patient is 53-year-old gentleman this is a telemedicine visit to go over his test reports Patient had pulmonary function test as he was having shortness of breath, report is within normal limit patient says that he no longer have shortness of breath he was probably going through a viral illness. EMG nerve conduction study upper extremities shows mild carpal tunnel in his left wrist, patient continued to complain of feeling weak in his arms and he is dropping things. He also have a lot of pain in his neck and shoulder area. X-ray of cervical spine shows moderate to severe DJD. He is waiting for MRI cervical spine. I have sent 28 tablets of oxycodone he may take 1 Q 8 as needed Explained to patient that I will not be continuing the narcotic prescription on monthly basis. I have already placed a referral to Pain Management. [facility] Medical History Back pain Liver lesion URI, acute Pneumonia Ear infection Erectile 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 Depression, major, recurrent ADHD Anxiety, generalized PTSD (post-traumatic stress disorder) Sleep apnea Hypertension, essential Chronic GERD 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, managed as type 2 Surgical History History of esophagogastroduodenoscopy (EGD) H/O colonoscopy History of ear surgery History of removal of laparoscopic gastric banding device History of left knee surgery History of lithotripsy History of laparoscopic appendectomy History of knee surgery History of discectomy History of lumbar fusion Family History Father Alcoholism Hyperlipidemia HTN (hypertension) CVD (cardiovascular disease) Mental illness in member of household Mother CAD (coronary artery disease) Breast cancer High cholesterol Diabetes mellitus CVD (cardiovascular disease) Mental illness in member of household Maternal Grandfather No problems noted. Maternal Grandmother No problems noted. Paternal Grandfather No problems noted. Paternal Grandmother No problems noted. Sister No problems noted. Sister No problems noted. Daughter No problems noted. Daughter No problems noted. Other Mental health disorder Social History Housing: Apartment Are you a primary elderly caregiver to a significant other at home: No Do you presently have visiting nurse or other home services: No Patient Tobacco Use Status: Former Tobacco user e-Cigarette/Vaping Use: Currently Using Substance Use Type: Marijuana service: No Current occupational status: disabled Cognitive needs: No Hearing needs: No Vision needs: No Questionnaire Thrive Questionnaire Date Thrive assessed: 12/19/22 AUDIT C Alcohol Use Questionnaire (AUDIT-C) 1. How often do you have a drink containing alcohol?: Never 3. How often do you have six or more drinks on one occasion?: Never Total Score: 0 Score Reviewed/Action Taken: Yes RISHI-7 AMB Questionnaire RISHI-7 Date RISHI - 7 assessed: 12/19/22 Source: Developed by Drs. Jan Del Rio, Gail Hayward, Son Hanks and colleagues, with an educational jeannie from [employer]. Review of Systems Const Denies chills and Denies fever(s) ENT Denies epistaxis and Denies nasal discharge Card Denies chest pain Resp Denies chest congestion, Denies cough and Denies hemoptysis GI Denies diarrhea and Denies nausea Skin/Breast Denies rash Neuro Reports no additional complaints Psych Reports no additional complaints Endo Reports no additional complaints Physical exam (Primary Care) Tobacco/Smoking Status: Tobacco use Status Tobacco use date assessed 10/22/23 10/22/23 08:47 Patient Tobacco Use Status Former Tobacco user 10/22/23 08:47 e-Cigarette/Vaping Use Currently Using 10/22/23 08:47 Thrive Assessment: Date of Thrive Assessment Date Thrive assessed 12/19/22 10/22/23 08:47 Telehealth Telehealth Location of provider rendering services: practice address Location of patient: address on file Patient Identification confirmed using: Name, : Yes Telehealth method: voice only Patient verbally consented to treatment: Yes Patient verbally consented to billing insurance company: Yes Patient informed of any privacy concerns related to visit: Yes Assessment and Plan Assessment & Plan (1) Cervical radiculitis: Code(s): M54.12 - Radiculopathy, cervical region (2) Paresthesia of hand, bilateral: Code(s): R20.2 - Paresthesia of skin (3) DJD (degenerative joint disease) of cervical spine: Code(s): M47.812 - Spondylosis without myelopathy or radiculopathy, cervical region Qualifiers: Spinal osteoarthritis complication: with radiculopathy Qualified Code(s): M47.22 - Other spondylosis with radiculopathy, cervical region (4) Marijuana dependence: Code(s): F12.20 - Cannabis dependence, uncomplicated (5) Pain management: Code(s): R52 - Pain, unspecified Plan Patient is 53-year-old gentleman this is a telemedicine visit to go over his test reports Patient had pulmonary function test as he was having shortness of breath, report is within normal limit patient says that he no longer have shortness of breath he was probably going through a viral illness. EMG nerve conduction study upper extremities shows mild carpal tunnel in his left wrist, patient continued to complain of feeling weak in his arms and he is dropping things. He also have a lot of pain in his neck and shoulder area. X-ray of cervical spine shows moderate to severe DJD. He is waiting for MRI cervical spine. I have sent 28 tablets of oxycodone he may take 1 Q 8 as needed Explained to patient that I will not be continuing the narcotic prescription on monthly basis. I have already placed a referral to Pain Management. He continued to use marijuana which is helping with his pain however patient says that it is too expensive to continue using it Medications: Changed From oxycodone Partial Fill upon patient request. 5 mg PO BID 7 days PRN 14 caps 0RF pain To oxycodone Partial Fill upon patient request. 5 mg PO Q8H PRN 28 caps 0RF pain 14 days Coding Level of Care Code Tele Est Pt Level 4 (14450) Diagnoses Cervical radiculitis M54.12 Paresthesia of hand, bilateral R20.2 Osteoarthritis of spine with radiculopathy, cervical region M47.22 Spinal osteoarthritis complication: with radiculopathy Marijuana dependence F12.20 Pain management R52 Comment 5 pre visit / 18 with patient/ 7 charting , coordination of care
== END 2023-10-22 11:27 | disposition home or self-care (01) ==
PROVIDERS: PCP Internal Medicine; Visit Provider Internal Medicine
DX: M54.12 Radiculopathy, cervical region (principal); R20.2 Paresthesia of skin; F12.20 Cannabis dependence, uncomplicated; R52 Pain, unspecified
CPT/HCPCS: 99443

== ENCOUNTER 2023-11-03 08:39 | Outpatient (AMB) | payer OTHER, SELFPAY ==
--- NOTE | 2023-11-03 08:43 | MHC.OFFVIS ---
Intake Vital Signs 11/03/23 08:50 Height 5 ft 9 in Weight 256 lb 2.834 oz BMI 37.8 BP 127/73 Blood Pressure Location Rt brachial Position Sitting Pulse 93 Intake Visit Reasons: 8 week follow up Intake Note: Joo presents in the office as a follow up constipation. CC: Today patient states he has been doing well from nausea and vomiting but he has been feeling a marble when drinking d/t hiatal hernia. He states he has been chocking and can't breath when drinking liquids. Patient received information about Thoracic Surgery at 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 Air Table Operator Required: No Accompanied by: Spouse Allergies benztropine [From COGENTIN] Allergy (Unknown, Verified 11/03/23 09:02) SWEATING pregabalin [From LYRICA] Allergy (Unknown, Verified 11/03/23 09:02) SWELLING sitagliptin [From JANUVIA] Allergy (Unknown, Verified 11/03/23 09:02) PER H&P HPI 8 week follow up HPI Details Assessment & Plan (1) Chronic idiopathic constipation: Code(s): K59.04 - Chronic idiopathic constipation Plan: He is here today with his who is supportive. We review all of the tests. Trulance works too well, we may use this for prep if he puts it aside. Will go to LInzess 145 and titrate. His N/V is greatly improved, but it will occur suddenly and then disappear before I can get the prn pill out. Will keep journal. The pain that was doubling him over has completely resolved. He will have more dry heaves. AFP normal, so this good! Have repeat MRI already ordered with Evovist contrast. The itching on his arm is r/t his paresthesias of cervical spine origin. We need to repeat the colonoscopy in 1 year as he was not completely clear. The procedure was well tolerated. The results were explained and the patient is agreeable to the follow-up interval as stated. The bowel pattern has returned to normal. Education was provided to tell any 1st degree relatives about their findings to be sure that they are screened by age 45. Educated that they will be put on a recall list when it is time for their repeat scope but should they move out of state or away from the hospital they will need to remember along with their primary to repeat the procedure in a timely fashion to avoid any adverse complications. Return office visit in 8 weeks and will try to see if they found any patterns to his sudden onsets of nausea. However, I think that taking the Reglan regularly is helping to keep it mostly at [place] with occasional breakthrough. (2) Diabetic gastroparesis: Comment: . Gastric emptying study normal but he for got to stop the Reglan Code(s): E11.43 - Type 2 diabetes mellitus with diabetic autonomic (poly)neuropathy; K31.84 - Gastroparesis (3) Chronic GERD: Code(s): K21.9 - Gastro-esophageal reflux disease without esophagitis (4) Liver lesion: Code(s): K76.9 - Liver disease, unspecified (5) Hiatal hernia: Code(s): K44.9 - Diaphragmatic hernia without obstruction or gangrene Orders: Referrals General Surgery Re ferral K44.9 - Diaphragma tic hernia without obstruction or ga ngrene Medications: New linaclotide (Linze ss) 145 mcg PO QAM 30 caps 3RF K59.04 - Chronic i diopathic constipa tion On Hold plecanatide (Trula nce) Hold Comme nt: Doctor's Orde r 3 mg PO DAILY 30 tabs 3RF K59.04 - Chronic i diopathic constipa tion MRI of the abdomen [facility] MRI IMPRESSION 1 hepatic segment IV enhancing lesion, without definite correlate on the T2 weighted sequence. Differential considerations include a small FNH or adenoma. An atypical hemangioma is possible, though slightly less likely. Follow-up examination in 3 6 months is recommended to assess for stability, at which time EOVIST contrast should be used to further delineate the lesion. 2 hepatomegaly with mild hepatic steatosis 3 no other acute findings to explain patient's symptoms. TODAYS VISIT He is here today with this who is supportive. He has continued dysphagia, so bad now that he feels he will not be able to breathe. The food is sticking lower down in the esophagus now so he can't reach in and scoop it out anymore. We review Heimlich techniques since his was quite concerned she would be able to get her arms around him so I show her modified technique and this makes him feel somewhat better. With that quite a bit of trouble getting him to surgery to have the hiatal hernia repaired apparently because our surgeons have left and [facility] were [facility] I think they have not been calling them back because they do not have a records but I will be attending to that today. I give them the name the phone number where I referred them at [facility] and if there are problems they will get back to me. He is doing really well with his gastroparesis and nausea and vomiting he now seems pretty stable taking 2 metoclopramide twice a day. They still have quite a reserve in case he needs an emergency dose in the middle of the day. He has only vomited once since I last saw him. He has never had a barium swallow although we do have a CT scan from [facility] showing him to have a moderate type 3 paraesophageal/hiatal hernia. I will print this reports they can take it with the but I will also order an urgent barium swallow so that they have a study to help facilitate the surgical referral. He has a repeat MRI coming up for the monitoring of his liver lesion that looks like it is probably a focal nodular hyperplasia but we want a monitor it just to make sure it is not anything more concerning. He is also having quite a lot trouble with his cervical spine and is seeing orthopedics about this. It is possible he may have some osteophytes impinging on the esophagus as well so this is something we can better evaluate through the barium swallow. The MRI is scheduled for November 11 so I will bring the back in 3 weeks to review this result. [facility] Medical History Back pain Liver lesion URI, acute Pneumonia Ear infection Erectile 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 Depression, major, recurrent ADHD Anxiety, generalized PTSD (post-traumatic stress disorder) Sleep apnea Hypertension, essential Chronic GERD 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, managed as type 2 Surgical History History of esophagogastroduodenoscopy (EGD) H/O colonoscopy History of ear surgery History of removal of laparoscopic gastric banding device History of left knee surgery History of lithotripsy History of laparoscopic appendectomy History of knee surgery History of discectomy History of lumbar fusion Family History Father Alcoholism Hyperlipidemia HTN (hypertension) CVD (cardiovascular disease) Mental illness in member of household Mother CAD (coronary artery disease) Breast cancer High cholesterol Diabetes mellitus CVD (cardiovascular disease) Mental illness in member of household Maternal Grandfather No problems noted. Maternal Grandmother No problems noted. Paternal Grandfather No problems noted. Paternal Grandmother No problems noted. Sister No problems noted. Sister No problems noted. Daughter No problems noted. Daughter No problems noted. Other Mental health disorder Social History Housing: Apartment Are you a primary palliative care nurse to a significant other at home: No Do you presently have visiting nurse or other home services: No Patient Tobacco Use Status: Former Tobacco user e-Cigarette/Vaping Use: Currently Using Substance Use Type: Marijuana service: No Current occupational status: disabled Cognitive needs: No Hearing needs: No Vision needs: No Review of Systems Const Denies fatigue, Denies fever(s), Denies night sweats, Denies poor appetite and Denies weight loss Eyes Details: glasses Reports requires corrective lenses ENT Reports Normal hearing present, Denies dental pain, Reports dysphagia, Denies hearing loss, Denies mouth pain, Reports neck pain, Denies odynophagia, Denies throat swelling, Denies tongue swelling and Reports other (Dentition adequate) Card Reports chest pain and Reports dyspnea Resp Reports dyspnea GI Denies abdominal pain, Denies melena, Denies bloating, Denies hematochezia, Reports constipation, Denies GI cramping, Reports dysphagia, Denies excessive flatus, Denies early satiety, Reports heartburn, Denies diarrhea, Reports nausea, Denies odynophagia, Reports vomiting and Denies hematemesis Musc Reports back pain, Reports myalgias, Reports arthralgias and Reports neck pain Skin/Breast Denies pruritus, Denies lesions, Denies rash and Denies jaundice Neuro Reports Normal hearing present and Denies Abnormal speech present Psych Reports anxiety Endo Denies fatigue Aller/Immun Denies throat swelling and Denies tongue swelling Physical Exam Vital Signs: Last Vital Signs Pulse 93 11/03/23 08:50 BP 127/73 11/03/23 08:50 BMI result Body Mass Index 37.8 Const General: cooperative, no acute distress, well developed and well groomed Nutritional Appearance: well nourished and obese Orientation/consciousness: oriented to person, oriented to place and oriented to time Limitations: No language barrier HEENT Head: Yes normocephalic and Yes atraumatic Eyes General: appearance normal, both eyes and all related structures Pupils: Equal, round and reactive pupils present Neck Neck: Yes normal visual inspection and Yes no lymphadenopathy Thyroid: Thyroid normal Resp Effort & Inspection: normal respiratory effort and able to speak in complete sentences Auscultation: clear to auscultation bilaterally Cardio Rate: regular rate Rhythm: regular rhythm Heart sounds: Normal, physiologic split S2 sound present Peripheral pulses: radial pulses present and posterior tibial pulses present GI Inspection: No distended, No Abdominal panniculus present and Yes obesity Palpation (GI): Soft to palpation, nontender, no guarding, not rigid and No hepatosplenomegaly present Percussion: Yes normal to percussion Auscultation: normal bowel sounds Rectal Exam - Male: Yes deferred Skin General skin exam: no rashes or lesions noted, turgor normal, skin not dry, no jaundice, No spider nevi and no striae Rashes: no rashes Nails: normal Neuro General: oriented to person, oriented to place and oriented to time Cranial nerves: Yes Equal, round and reactive pupils present and Yes Normal hearing present Speech: No Abnormal speech present Extrem General: Yes normal to inspection, No clubbing, No cyanosis and No edema Psych Appearance: grossly normal and well kempt Mental Status: mental status grossly normal Speech and movement: Normal speech and movement present Affect: normal affect Attitude: cooperative Thought process: Normal thought process present and not confabulating Thought content: Normal thought content present Insight: Limited insight present (Psych) Judgement: Limited judgement present (Psych) Assessment & Plan Assessment & Plan (1) Dysphagia: Code(s): R13.10 - Dysphagia, unspecified (2) Hiatal hernia: Code(s): K44.9 - Diaphragmatic hernia without obstruction or gangrene (3) Liver lesion: Comment: On CT report Monica Code(s): K76.9 - Liver disease, unspecified (4) Chronic idiopathic constipation: Code(s): K59.04 - Chronic idiopathic constipation (5) Diabetic gastroparesis: Comment: . Gastric emptying study normal but he for got to stop the Reglan Code(s): E11.43 - Type 2 diabetes mellitus with diabetic autonomic (poly)neuropathy; K31.84 - Gastroparesis (6) Chronic GERD: Code(s): K21.9 - Gastro-esophageal reflux disease without esophagitis Plan He is here today with this who is supportive. He has continued dysphagia, so bad now that he feels he will not be able to breathe. The food is sticking lower down in the esophagus now so he can't reach in and scoop it out anymore. We review Heimlich techniques since his was quite concerned she would be able to get her arms around him so I show her modified technique and this makes him feel somewhat better. With that quite a bit of trouble getting him to surgery to have the hiatal hernia repaired apparently because our surgeons have left and they were unaware that I had redirected them to [facility]. I think they have not been calling them back because they do not have a records but I will be attending to that today. I give them the name the phone number where I referred them at [facility] and if there are problems they will get back to me. He is doing really well with his gastroparesis and nausea and vomiting he now seems pretty stable taking 2 metoclopramide twice a day. They still have quite a reserve in case he needs an emergency dose in the middle of the day. He has only vomited once since I last saw him. He has never had a barium swallow although we do have a CT scan from [facility] showing him to have a moderate type 3 paraesophageal/hiatal hernia. I will print this reports they can take it with the but I will also order an urgent barium swallow so that they have a study to help facilitate the surgical referral. He has a repeat MRI coming up for the monitoring of his liver lesion that looks like it is probably a focal nodular hyperplasia but we want a monitor it just to make sure it is not anything more concerning. He is also having quite a lot trouble with his cervical spine and is seeing orthopedics about this. It is possible he may have some osteophytes impinging on the esophagus as well so this is something we can better evaluate through the barium swallow. The MRI is scheduled for November 11 so I will bring the back in 3 weeks to review this result Orders: Orders [place] barium swallow Today K44.9 - Diaphragmatic hernia without obstruction or gangrene, R13.10 - Dysphagia, unspecified Medications: Changed From metoclopramide HCl (Reglan) provider aware of possible interactions and is monitoring/ 20 mg (2 x 10 mg) PO QID 240 tabs 6RF E11.43 - Type 2 diabetes mellitus with diabetic autonomic (poly)neuropathy, K31.84 - Gastroparesis To metoclopramide HCl (Reglan) provider aware of possible interactions and is monitoring/ 20 mg (2 x 10 mg) PO TID 30 days 180 tabs 6RF E11.43 - Type 2 diabetes mellitus with diabetic autonomic (poly)neuropathy, K31.84 - Gastroparesis Coding Level of Care Code Est Pt Level 4 (32982) Diagnoses Dysphagia R13.10 Hiatal hernia K44.9 Liver lesion K76.9 Chronic idiopathic constipation K59.04 Diabetic gastroparesis E11.43; K31.84 Chronic GERD K21.9 Time Spent (min) 32 Comment Twenty-seven [id number] 5 chart
[2023-11-03 08:50] VITALS: BP 127/73; PULSE 93; BMI 37.8
== END 2023-11-03 09:45 | disposition home or self-care (01) ==
PROVIDERS: PCP Internal Medicine; Visit Provider Nurse Practitioner
DX: R13.10 Dysphagia, unspecified (principal); K44.9 Diaphragmatic hernia without obstruction or gangrene; K76.9 Liver disease, unspecified; K59.04 Chronic idiopathic constipation; E11.43 Type 2 diabetes mellitus with diabetic autonomic (poly)neuropathy; K31.84 Gastroparesis; K21.9 Gastro-esophageal reflux disease without esophagitis
CPT/HCPCS: 99214

== ENCOUNTER → 2023-11-03 08:39 | Outpatient (BNVA) | payer OTHER, SELFPAY | PROVIDERS: PCP Internal Medicine; Visit Provider Nurse Practitioner | DX: R13.10 Dysphagia, unspecified (principal); K44.9 Diaphragmatic hernia without obstruction or gangrene; K76.9 Liver disease, unspecified; K59.04 Chronic idiopathic constipation; E11.43 Type 2 diabetes mellitus with diabetic autonomic (poly)neuropathy; K31.84 Gastroparesis; K21.9 Gastro-esophageal reflux disease without esophagitis | CPT/HCPCS: 99212 ==

== ENCOUNTER 2023-11-25 09:48 | Outpatient (AMB) | payer OTHER, SELFPAY ==
[2023-11-25 09:55] VITALS: BP 126/68; BMI 37.8
--- NOTE | 2023-11-25 09:55 | A.OFFVIS_ITS ---
Intake Vital Signs 11/25/23 09:55 Height 5 ft 9 in Weight 256 lb 2.834 oz BMI 37.8 BP 126/68 Blood Pressure Location Rt brachial Position Sitting Intake Visit Reasons: MRI follow up Intake Note: Patient returns to in office visit today in follow up of MRI. CC: Patient states he was scheduled with thoracic surgeon for 02/06/24. Patient states symptoms have worsen since last visit per patient. He states when he drinks something he feels it stays in his esophagus and hears like a gargling noise. Security Rep Required: No Accompanied by: Spouse Allergies benztropine [From COGENTIN] Allergy (Unknown, Verified 11/25/23 09:58) SWEATING pregabalin [From LYRICA] Allergy (Unknown, Verified 11/25/23 09:58) SWELLING sitagliptin [From JANUVIA] Allergy (Unknown, Verified 11/25/23 09:58) PER H&P HPI MRI follow up HPI Details Assessment & Plan (1) Chronic idiopathic constipation: Code(s): K59.04 - Chronic idiopathic constipation Plan: He is here today with his who is supportive. We review all of the tests. Trulance works too well, we may use this for prep if he puts it aside. Will go to LInzess 145 and titrate. His N/V is greatly improved, but it will occur suddenly and then disappear before I can get the prn pill out. Will keep journal. The pain that was doubling him over has completely resolved. He will have more dry heaves. AFP normal, so this good! Have repeat MRI already ordered with Evovist contrast. The itching on his arm is r/t his paresthesias of cervical spine origin. We need to repeat the colonoscopy in 1 year as he was not completely clear. The procedure was well tolerated. The results were explained and the patient is agreeable to the follow-up interval as stated. The bowel pattern has returned to normal. Education was provided to tell any 1st degree relatives about their findings to be sure that they are screened by age 45. Educated that they will be put on a recall list when it is time for their repeat scope but should they move out of state or away from the hospital they will need to remember along with their primary to repeat the procedure in a timely fashion to avoid any adverse complications. Return office visit in 8 weeks and will try to see if they found any patterns to his sudden onsets of nausea. However, I think that taking the Reglan regularly is helping to keep it mostly at [place] with occasional breakthrough. (2) Diabetic gastroparesis: Comment: . Gastric emptying study normal but he for got to stop the Reglan Code(s): E11.43 - Type 2 diabetes mellitus with diabetic autonomic (poly)neuropathy; K31.84 - Gastroparesis (3) Chronic GERD: Code(s): K21.9 - Gastro-esophageal reflux disease without esophagitis (4) Liver lesion: Code(s): K76.9 - Liver disease, unspecified (5) Hiatal hernia: Code(s): K44.9 - Diaphragmatic hernia without obstruction or gangrene Orders: Referrals General Surgery Re ferral K44.9 - Diaphragma tic hernia without obstruction or ga ngrene Medications: New linaclotide (Linze ss) 145 mcg PO QAM 30 caps 3RF K59.04 - Chronic i diopathic constipa tion On Hold plecanatide (Trula nce) Hold Comme nt: Doctor's Orde r 3 mg PO DAILY 30 tabs 3RF K59.04 - Chronic i diopathic constipa tion MRI OF THE ABDOMEN 11/2023-[facility] Liver morphology is normal. However, there is diffuse hepatic steatosis, with signal drop on the out of phase sequences. Liver is also enlarged measuring 22 cm craniocaudally. No pancreatic or biliary duct dilation. There are no focal renal masses or hydronephrosis. There is T1 shortening of the calyx of the left kidney measuring 2 x 1.2 cm in size. There are small bilateral renal cysts within the parenchyma. Punctate hemorrhagic cyst observed in the left kidney as well. There has no abnormal enhancing liver other solid organ masses. Delayed imaging shows no defect in the liver. There is biliary excretion on the delayed phase. No focal masses in the spleen, adrenal glands, and pancreas. No lymphadenopathy or ascites. Hepatic and portal veins are patent. IMPRESSION 1. No abnormalities to explain nausea a nd vomiting. Specifically biliary tree is within normal limits and gallbladder appears unremarkable. 2. Liver is mildly steatotic 3. Small hiatal hernia is present 4. There has an indeterminate focus of i ntrinsic T1 brightness measuring 2 x 1.2 cm in the left renal calyx. This could represent a calyceal diverticulum or other filling defect in the calyx. Recommended CT urogram with and without contrast for correlation. 5. Bilateral renal cysts with punctate h emorrhagic cyst in the left kidney. MRI of the abdomen [facility] MRI 06/2023 IMPRESSION 1 hepatic segment IV enhancing lesion, without definite correlate on the T2 weighted sequence. Differential considerations include a small FNH or adenoma. An atypical hemangioma is possible, though slightly less likely. Follow-up examination in 3 6 months is recommended to assess for stability, at which time EOVIST contrast should be used to further delineate the lesion. 2 hepatomegaly with mild hepatic steatos is 3 no other acute findings to explain andrew blake's symptoms. TODAYS VISIT We review the MRI from November and they did not even see the lesion on other studies. He had renal cysts that should be followed by CT urogram, may need renal referral. He has not had any nausea and no vomiting since I last saw him on his reglan 2tabs bid and some extra for breakthrough. Has not needed to use the Linzess. So far he is quite happy with this While he still has some difficulty with swallowing and has an upcoming barium swallow and colonoscopy at least they have not had to consider using the Heimlich maneuver which we went over at the last visit. He had an EGD 05/2023 that showed a normal esophagus without any strictures irritation etc.. He did have multiple polyps in the stomach. Again, his current GI regimen consists of Linzess 145 micro g when needed, metoclopramide 2 tabs twice a day and 1 for breakthrough, omeprazole 40 mg daily, MiraLax as needed. Of note he is on Trulicity and Jardiance. I am uncertain how much Trulicity is contributing to his vomiting syndrome. 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 Depression, major, recurrent ADHD Anxiety, generalized PTSD (post-traumatic stress disorder) Sleep apnea Hypertension, essential Chronic GERD 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, managed as type 2 Surgical History History of esophagogastroduodenoscopy (EGD) H/O colonoscopy History of ear surgery History of removal of laparoscopic gastric banding device History of left knee surgery History of lithotripsy History of laparoscopic appendectomy History of knee surgery History of discectomy History of lumbar fusion Family History Father Alcoholism Hyperlipidemia HTN (hypertension) CVD (cardiovascular disease) Mental illness in member of household Mother CAD (coronary artery disease) Breast cancer High cholesterol Diabetes mellitus CVD (cardiovascular disease) Mental illness in member of household Maternal Grandfather No problems noted. Maternal Grandmother No problems noted. Paternal Grandfather No problems noted. Paternal Grandmother No problems noted. Sister No problems noted. Sister No problems noted. Daughter No problems noted. Daughter No problems noted. Other Mental health disorder Social History Housing: Apartment Are you a primary career guidance technician to a significant other at home: No Do you presently have visiting nurse or other home services: No Patient Tobacco Use Status: Former Tobacco user e-Cigarette/Vaping Use: Currently Using Substance Use Type: Marijuana service: No Current occupational status: disabled Cognitive needs: No Hearing needs: No Vision needs: No Review of Systems Const Denies fatigue, Denies fever(s), Denies night sweats, Denies poor appetite and Denies weight loss ENT Reports Normal hearing present, Denies dental pain, Denies dysphagia, Denies hearing loss, Denies mouth pain, Denies odynophagia, Denies throat swelling, Denies tongue swelling and Reports other (Dentition adequate) Card Reports no additional complaints Resp Reports no additional complaints GI Denies abdominal pain, Denies melena, Denies bloating, Denies hematochezia, Denies constipation, Denies GI cramping, Denies dysphagia, Denies excessive flatus, Denies early satiety, Reports heartburn, Denies diarrhea, Reports nausea, Denies odynophagia, Reports vomiting and Denies hematemesis Skin/Breast Denies pruritus, Denies lesions, Denies rash and Denies jaundice Neuro Reports Normal hearing present and Denies Abnormal speech present Endo Denies fatigue Aller/Immun Denies throat swelling and Denies tongue swelling Physical Exam Vital Signs: Last Vital Signs BP 126/68 11/25/23 09:55 BMI result Body Mass Index 37.8 Const General: cooperative, no acute distress, well developed and well groomed Nutritional Appearance: well nourished and obese Orientation/consciousness: oriented to person, oriented to place and oriented to time Limitations: No language barrier HEENT Head: Yes normocephalic and Yes atraumatic Eyes General: appearance normal, both eyes and all related structures Pupils: Equal, round and reactive pupils present Neck Neck: Yes normal visual inspection and Yes no lymphadenopathy Thyroid: Thyroid normal Resp Effort & Inspection: normal respiratory effort and able to speak in complete sentences Auscultation: clear to auscultation bilaterally Cardio Rate: regular rate Rhythm: regular rhythm Heart sounds: Normal, physiologic split S2 sound present Peripheral pulses: radial pulses present and posterior tibial pulses present GI Inspection: No distended, No Abdominal panniculus present and Yes obesity Palpation (GI): Soft to palpation, nontender, no guarding, not rigid and No hepatosplenomegaly present Percussion: Yes normal to percussion Auscultation: normal bowel sounds Rectal Exam - Male: Yes deferred Skin General skin exam: no rashes or lesions noted, turgor normal, skin not dry, no jaundice, No spider nevi and no striae Rashes: no rashes Nails: normal Neuro General: oriented to person, oriented to place and oriented to time Cranial nerves: Yes Equal, round and reactive pupils present and Yes Normal hearing present Speech: No Abnormal speech present Extrem General: Yes normal to inspection, No clubbing, No cyanosis and No edema Psych Appearance: grossly normal and well kempt Mental Status: mental status grossly normal Speech and movement: Normal speech and movement present Affect: normal affect Attitude: cooperative Thought process: Normal thought process present and not confabulating Thought content: Normal thought content present Insight: Limited insight present (Psych) Judgement: Limited judgement present (Psych) Results Reviewed Results Reviewed: MRI OF THE ABDOMEN 11/2023-[facility] Liver morphology is normal. However, there is diffuse hepatic steatosis, with signal drop on the out of phase sequences. Liver is also enlarged measuring 22 cm craniocaudally. No pancreatic or biliary duct dilation. There are no focal renal masses or hydronephrosis. There is T1 shortening of the calyx of the left kidney measuring 2 x 1.2 cm in size. There are small bilateral renal cysts within the parenchyma. Punctate hemorrhagic cyst observed in the left kidney as well. There has no abnormal enhancing liver other solid organ masses. Delayed imaging shows no defect in the liver. There is biliary excretion on the delayed phase. No focal masses in the spleen, adrenal glands, and pancreas. No lymphadenopathy or ascites. Hepatic and portal veins are patent. IMPRESSION 1. No abnormalities to explain nausea and vomiting. Specifically biliary tree is within normal limits and gallbladder appears unremarkable. 2. Liver is mildly steatotic 3. Small hiatal hernia is present 4. There has an indeterminate focus of intrinsic T1 brightness measuring 2 x 1.2 cm in the left renal calyx. This could represent a calyceal diverticulum or other filling defect in the calyx. Recommended CT urogram with and without contrast for correlation. 5. Bilateral renal cysts with punctate hemorrhagic cyst in the left kidney. Assessment & Plan Assessment & Plan (1) Chronic GERD: Code(s): K21.9 - Gastro-esophageal reflux disease without esophagitis (2) Dysphagia: Code(s): R13.10 - Dysphagia, unspecified (3) Chronic idiopathic constipation: Code(s): K59.04 - Chronic idiopathic constipation (4) Diabetic gastroparesis: Comment: . Gastric emptying study normal but he for got to stop the Reglan Code(s): E11.43 - Type 2 diabetes mellitus with diabetic autonomic (poly)neuropathy; K31.84 - Gastroparesis (5) Liver lesion: Comment: On CT report Monica Code(s): K76.9 - Liver disease, unspecified Plan We review the MRI from November and they did not even see the lesion on other studies. He had renal cysts that should be followed by CT urogram, may need renal referral. He has not had any nausea and no vomiting since I last saw him on his reglan 2tabs bid and some extra for breakthrough. Has not needed to use the Linzess. So far he is quite happy with this While he still has some difficulty with swallowing and has an upcoming barium swallow and colonoscopy at least they have not had to consider using the Heimlich maneuver which we went over at the last visit. He had an EGD 05/2023 that showed a normal esophagus without any strictures irritation etc.. He did have multiple polyps in the stomach. Again, his current GI regimen consists of Linzess 145 micro g when needed, metoclopramide 2 tabs twice a day and 1 for breakthrough, omeprazole 40 mg daily, MiraLax as needed. Of note he is on Trulicity and Jardiance. I am uncertain how much Trulicity is contributing to his vomiting syndrome. ROV about a week after colonoscopy that is on 01/28 Coding Level of Care Code Est Pt Level 3 (66661) Diagnoses Chronic GERD K21.9 Dysphagia R13.10 Chronic idiopathic constipation K59.04 Diabetic gastroparesis E11.43; K31.84 Liver lesion K76.9
== END 2023-11-25 10:28 | disposition home or self-care (01) ==
PROVIDERS: PCP Internal Medicine; Visit Provider Nurse Practitioner
DX: K21.9 Gastro-esophageal reflux disease without esophagitis (principal); R13.10 Dysphagia, unspecified; K59.04 Chronic idiopathic constipation; E11.43 Type 2 diabetes mellitus with diabetic autonomic (poly)neuropathy; K31.84 Gastroparesis; K76.9 Liver disease, unspecified
CPT/HCPCS: 99213

== ENCOUNTER → 2023-11-25 09:48 | Outpatient (BNVA) | payer OTHER, SELFPAY | PROVIDERS: PCP Internal Medicine; Visit Provider Nurse Practitioner | DX: K21.9 Gastro-esophageal reflux disease without esophagitis (principal); K59.04 Chronic idiopathic constipation; K76.9 Liver disease, unspecified; K31.84 Gastroparesis; E11.43 Type 2 diabetes mellitus with diabetic autonomic (poly)neuropathy; R13.10 Dysphagia, unspecified | CPT/HCPCS: 99212 ==

== ENCOUNTER 2024-01-26 14:20 | Outpatient (AMB) | payer OTHER, SELFPAY ==
[2024-01-26 14:26] VITALS: BP 122/76; PULSE 102; O2SAT 95; BMI 37.8
--- NOTE | 2024-01-26 14:26 | A.OFFPC_ITS ---
Vital Signs 01/26/24 14:26 Height 5 ft 9 in Weight 256 lb BMI 37.8 BP 122/76 Blood Pressure Location Rt brachial Position Sitting Pulse 102 H Pulse Source Pulse Oximeter Pulse Oximetry (%) 95 Oxygen Delivery Method Room Air Intake Visit Reasons: Rescheduled 12/29 Allergies benztropine [From COGENTIN] Allergy (Unknown, Verified 01/26/24 14:29) SWEATING pregabalin [From LYRICA] Allergy (Unknown, Verified 01/26/24 14:29) SWELLING sitagliptin [From JANUVIA] Allergy (Unknown, Verified 01/26/24 14:29) PER H&P Medication List - Last Reconciled 01/26/24 by Lizabeth Adame MD albuterol sulfate 90 mcg/actuation (Ventolin HFA) 1 inh inhalation QID PRN 30 days alprazolam 2 mg PO BEDTIME amlodipine 5 mg PO DAILY 90 days blood sugar diagnostic (Accu-Chek Guide test strips) to be checked once daily blood-glucose meter (Accu-Chek Guide Glucose Meter) to be checked once daily blood-glucose sensor (Aheadyle Ajith 3 Sensor device) As directed to test blood sugar 4 times a day cetirizine 10 mg PO DAILY dextroamphetamine-amphetamine 10 mg 1 tab PO DAILY dextroamphetamine-amphetamine 30 mg 1 tab PO TID diphenhydramine HCl 2% (Benadryl) 1 appl topical QID dulaglutide (Trulicity) 1.5 mg (0.5 mL) subcut QWEEK 30 days empagliflozin (Jardiance) 10 mg PO QAM 90 days fluticasone propionate 50 mcg/actuation (Flonase Allergy Relief) 1 spray intranasal DAILY gabapentin 300 mg PO TID hydrochlorothiazide 25 mg PO DAILY hydroxyzine HCl 50 mg (2 x 25 mg) PO BEDTIME insulin glargine (Lantus Solostar U-100 Insulin) 38 units (0.38 mL) subcut QPM 30 days [Insulin pen needles Once a day] lancets (Accu-Chek Softclix Lancets) to be checked once daily [ajith Glucometer As directed NS] linaclotide (Linzess) 145 mcg PO QAM lisinopril 40 mg PO DAILY metoclopramide HCl 5 mg PO TID metoclopramide HCl (Reglan) 20 mg (2 x 10 mg) PO TID 30 days metoprolol succinate ER 25 mg PO BEDTIME omeprazole 40 mg PO DAILY ondansetron HCl mg PO DAILY oxcarbazepine 600 mg PO BID oxycodone 5 mg PO Q8H PRN 14 days peg 3350-electrolytes 236-22.74-6.74 -5.86 gram 240 mL PO Q10M pen needle, diabetic (BD Erica 2nd Gen Pen Needle) T.i.d. plecanatide (Trulance) 3 mg PO DAILY polyethylene glycol 3350 (Miralax) 17 grams PO DAILY 7 days rosuvastatin 20 mg PO BEDTIME tamsulosin 0.4 mg PO BEDTIME vortioxetine (Trintellix) 10 mg PO DAILY Tobacco use date assessed: 01/26/24 Dental Screening Dental Screen Date: 01/26/24 Did you have a dental visit in the last 12 months?: Yes Did you have a dental problem in the last 6 months where you did not have access to dental care?: No Was dental information given to patient?: Patient has dentist HPI Rescheduled 12/29 HPI Details Patient is a 53-year-old gentleman came in today for his regular follow-up appointment Patient is going in for hiatal hernia surgery followed by right shoulder surgery and then right knee surgery in summer He is complaining of carpal tunnel paresthesia in his hands, for that he is to get wrist splint and start wearing that Blood pressure is stable Patient is taking all his medications and tolerating them. Due for labs to be done today BMI is elevated need to lose weight Patient has psychiatric illness and is seeing psychiatrist taking medication through them For pain management patient is taking high dose CBD which is helping him PFSH 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, managed as type 2 Surgical History History of esophagogastroduodenoscopy (EGD) H/O colonoscopy History of ear surgery History of removal of laparoscopic gastric banding device History of left knee surgery History of lithotripsy History of laparoscopic appendectomy History of knee surgery History of discectomy History of lumbar fusion Family History Father Alcoholism Hyperlipidemia HTN (hypertension) CVD (cardiovascular disease) Mental illness in member of household Mother CAD (coronary artery disease) Breast cancer High cholesterol Diabetes mellitus CVD (cardiovascular disease) Mental illness in member of household Maternal Grandfather No problems noted. Maternal Grandmother No problems noted. Paternal Grandfather No problems noted. Paternal Grandmother No problems noted. Sister No problems noted. Sister No problems noted. Daughter No problems noted. Daughter No problems noted. Other Mental health disorder Social History Housing: Apartment Are you a primary career orientation teacher to a significant other at home: No Do you presently have visiting nurse or other home services: No Patient Tobacco Use Status: Former Tobacco user e-Cigarette/Vaping Use: Currently Using Substance Use Type: Marijuana service: No Current occupational status: disabled Cognitive needs: No Hearing needs: No Vision needs: No Questionnaire Thrive Questionnaire Date Thrive assessed: 12/19/22 AUDIT C Alcohol Use Questionnaire (AUDIT-C) 1. How often do you have a drink containing alcohol?: Never 3. How often do you have six or more drinks on one occasion?: Never Total Score: 0 Score Reviewed/Action Taken: Yes RISHI-7 AMB Questionnaire RISHI-7 Date RISHI - 7 assessed: 12/19/22 Source: Developed by Drs. Jan Del Rio, Gail Hayward, Son Hanks and colleagues, with an educational jeannie from [employer]. Review of Systems Const Denies chills and Denies fever(s) ENT Denies epistaxis and Denies nasal discharge Card Denies chest pain Resp Denies chest congestion, Denies cough and Denies hemoptysis GI Denies diarrhea and Denies nausea Skin/Breast Denies rash Neuro Reports no additional complaints Psych Reports no additional complaints Endo Reports no additional complaints Physical exam (Primary Care) Vital Signs: Last Vital Signs Pulse 102 H 01/26/24 14:26 BP 122/76 01/26/24 14:26 Pulse Ox 95 01/26/24 14:26 Oxygen Delivery Method Room Air 01/26/24 14:26 BMI result Body Mass Index 37.8 Tobacco/Smoking Status: Tobacco use Status Tobacco use date assessed 01/26/24 01/26/24 14:30 Patient Tobacco Use Status Former Tobacco user 01/26/24 14:30 e-Cigarette/Vaping Use Currently Using 01/26/24 14:30 Thrive Assessment: Date of Thrive Assessment Date Thrive assessed 12/19/22 01/26/24 14:30 Const General: cooperative, comfortable and no acute distress Orientation/consciousness: patient oriented x3 HENMT Head: Yes normocephalic Eyes General: appearance normal, both eyes and all related structures Neck Neck: Yes supple Resp Effort & Inspection: normal respiratory effort, no cough and no stridor Cardio Rhythm: regular rhythm Heart sounds: S1 normal heart sound present and S2 normal heart sound present Skin General skin exam: turgor normal Neuro General: patient oriented x3, tone normal and moves all extremities Extrem Right lower extremity: no edema Left lower extremity: no edema Assessment and Plan Assessment & Plan (1) Diabetes 1.5, managed as type 2: Code(s): E13.9 - Other specified diabetes mellitus without complications (2) Chronic GERD: Code(s): K21.9 - Gastro-esophageal reflux disease without esophagitis (3) Lipid disorder: Code(s): E78.9 - Disorder of lipoprotein metabolism, unspecified (4) Hypertension, essential: Code(s): I10 - Essential (primary) hypertension (5) Morbid obesity due to excess calories: Code(s): E66.01 - Morbid (severe) obesity due to excess calories (6) Chronic idiopathic constipation: Code(s): K59.04 - Chronic idiopathic constipation (7) PTSD (post-traumatic stress disorder): Code(s): F43.10 - Post-traumatic stress disorder, unspecified (8) Depression, major, recurrent: Code(s): F33.9 - Major depressive disorder, recurrent, unspecified Qualifiers: Active/Remission status: in partial remission Qualified Code(s): F33.41 - Major depressive disorder, recurrent, in partial remission (9) Marijuana dependence: Code(s): F12.20 - Cannabis dependence, uncomplicated (10) Hiatal hernia: Code(s): K44.9 - Diaphragmatic hernia without obstruction or gangrene Plan Patient is a 53-year-old gentleman came in today for his regular follow-up appointment Patient is going in for hiatal hernia surgery followed by right shoulder surgery and then right knee surgery in summer He is complaining of carpal tunnel paresthesia in his hands, for that he is to get wrist splint and start wearing that Blood pressure is stable Patient is taking all his medications and tolerating them. Due for labs to be done today BMI is elevated need to lose weight Patient has psychiatric illness and is seeing psychiatrist taking medication through them For pain management patient is taking high dose CBD which is helping him Orders: Orders Microalbumin, Random (w Creat) Today E13.9 - Other specified diabetes mellitus without complications, E66.01 - Morbid (severe) obesity due to excess calories, E78.9 - Disorder of lipoprotein metabolism, unspecified, F12.20 - Cannabis dependence, uncomplicated, F33.9 - Major depressive disorder, recurrent, unspecified, F43.10 - Post-traumatic stress disorder, unspecified, I10 - Essential (primary) hypertension, K21.9 - Gastro-esophageal reflux disease without esophagitis, K44.9 - Diaphragmatic hernia without obstruction or gangrene, K59.04 - Chronic idiopathic constipation Comprehensive Met. Panel Today E13.9 - Other specified diabetes mellitus without complications, E66.01 - Morbid (severe) obesity due to excess calories, E78.9 - Disorder of lipoprotein metabolism, unspecified, F12.20 - Cannabis dependence, uncomplicated, F33.9 - Major depressive disorder, recurrent, unspecified, F43.10 - Post-traumatic stress disorder, unspecified, I10 - Essential (primary) hypertension, K21.9 - Gastro-esophageal reflux disease without esophagitis, K44.9 - Diaphragmatic hernia without obstruction or gangrene, K59.04 - Chronic idiopathic constipation Hemoglobin A1c Today E13.9 - Other specified diabetes mellitus without complications, E66.01 - Morbid (severe) obesity due to excess calories, E78.9 - Disorder of lipoprotein metabolism, unspecified, F12.20 - Cannabis dependence, uncomplicated, F33.9 - Major depressive disorder, recurrent, unspecified, F43.10 - Post-traumatic stress disorder, unspecified, I10 - Essential (primary) hypertension, K21.9 - Gastro-esophageal reflux disease without esophagitis, K44.9 - Diaphragmatic hernia without obstruction or gangrene, K59.04 - Chronic idiopathic constipation Complete Blood Count Auto Diff Today E13.9 - Other specified diabetes mellitus without complications, E66.01 - Morbid (severe) obesity due to excess calories, E78.9 - Disorder of lipoprotein metabolism, unspecified, F12.20 - Cannabis dependence, uncomplicated, F33.9 - Major depressive disorder, recurrent, unspecified, F43.10 - Post-traumatic stress disorder, unspecified, I10 - Essential (primary) hypertension, K21.9 - Gastro-esophageal reflux disease without esophagitis, K44.9 - Diaphragmatic hernia without obstruction or gangrene, K59.04 - Chronic idiopathic constipation LDL Cholesterol Direct Today E13.9 - Other specified diabetes mellitus without complications, E66.01 - Morbid (severe) obesity due to excess calories, E78.9 - Disorder of lipoprotein metabolism, unspecified, F12.20 - Cannabis dependence, uncomplicated, F33.9 - Major depressive disorder, recurrent, unspecified, F43.10 - Post-traumatic stress disorder, unspecified, I10 - Essential (primary) hypertension, K21.9 - Gastro-esophageal reflux disease without esophagitis, K44.9 - Diaphragmatic hernia without obstruction or gangrene, K59.04 - Chronic idiopathic constipation Coding Level of Care Code Est Pt Level 4 (77148) Diagnoses Diabetes 1.5, managed as type 2 E13.9 Chronic GERD K21.9 Lipid disorder E78.9 Hypertension, essential I10 Morbid obesity due to excess calories E66.01 Chronic idiopathic constipation K59.04 PTSD (post-traumatic stress disorder) F43.10 Recurrent major depressive disorder, in partial remission F33.41 Active/Remission status: in partial remission Marijuana dependence F12.20 Hiatal hernia K44.9
== END 2024-01-26 15:00 | disposition home or self-care (01) ==
PROVIDERS: PCP Internal Medicine; Visit Provider Internal Medicine
DX: E13.9 Other specified diabetes mellitus without complications (principal); E66.01 Morbid (severe) obesity due to excess calories; F33.41 Major depressive disorder, recurrent, in partial remission; Z68.37 Body mass index [BMI] 37.0-37.9, adult; F12.20 Cannabis dependence, uncomplicated; E78.9 Disorder of lipoprotein metabolism, unspecified; K21.9 Gastro-esophageal reflux disease without esophagitis; I10 Essential (primary) hypertension; K59.04 Chronic idiopathic constipation; F43.10 Post-traumatic stress disorder, unspecified; K44.9 Diaphragmatic hernia without obstruction or gangrene
CPT/HCPCS: 99214

== ENCOUNTER 2024-01-26 14:42 | Outpatient (REF) | payer OTHER, SELFPAY ==
[2024-01-26 16:13] LABS: MANUAL DIFF FLAG NO
[2024-01-26 16:18] LABS: Basophils Absolute Auto 0.1 X10*3/uL (0.0-0.2); Basophils Percent Auto 1.2 % (0-2); Eosinophils Absolute Auto 0.2 X10*3/uL (0.0-0.4); Eosinophils Percent Auto 2.3 % (0-4); Hemoglobin 15.7 g/dl (14.0-18.0); Imm Gran Abs Auto 0.03 X10*3/uL (0.00-0.03); Imm Gran Pct Auto 0.5 % (0.0-0.4); Lymphocytes Absolute Auto 1.9 X10*3/uL (1.2-4.9); Lymphocytes Percent Auto 29.6 % (20-40); Mean Corpuscular HGB Conc 34.1 g/dl (31.0-36.0); Mean Corpuscular Hemoglobin 29.1 pg (27.0-33.0); Mean Corpuscular Volume 85.3 fL (80.0-98.0); Mean Platelet Volume 9.7 fL (9.4-12.4); Monocytes Absolute Auto 0.5 X10*3/uL (0.1-1.2); Monocytes Percent Auto 8.1 % (2-11); Neutrophils Absolute Auto 3.8 x10*3/uL (2.0-8.3); Neutrophils Percent Auto 58.3 % (45-73); Platelet Count 301 X10*3/uL (160-400); Red Blood Count 5.39 X10*6/uL (4.60-5.80); Red Cell Distribution Width 12.8 % (11.0-16.0); White Blood Count 6.6 X10*3/uL (4.8-10.8)
[2024-01-26 16:28] LABS: Estimated Average Glucose 134 mg/dL; Hemoglobin A1c % 6.3 % (<6.0)
[2024-01-26 16:45] LABS: Alanine Aminotransferase 24 U/L (0-40); Albumin Level 4.5 g/dL (3.5-5.0); Alkaline Phosphatase 82 U/L (39-117); Anion Gap 15 (12-20); Aspartate Amino Transferase 18 U/L (5-37); Bilirubin Total 0.3 mg/dL (0.0-1.0); Blood Urea Nitrogen 18 mg/dL (9-16); Calcium 9.4 mg/dL (8.4-10.2); Carbon Dioxide 22 mmol/L (22-29); Chloride 100 mmol/L (96-108); Estimated Glomerular Filt Rate > 60; Glucose Random 147 mg/dL (60-115); Potassium 3.9 mmol/L (3.3-5.1); Sodium 133 mmol/L (135-145); Total Protein 7.5 g/dL (6.5-8.0)
[2024-01-26 17:01] LABS: Creatinine Urine 90.15 mg/dL; Microalbumin Urine < 5.0 mg/L
[2024-01-27 21:23] LABS: LDL Cholesterol Direct 113 mg/dL (<100)
== END 2024-01-26 14:43 | disposition home or self-care (01) ==
LOC: HO.HMGCLDS 14:42
PROVIDERS: PCP Internal Medicine; Visit Provider Internal Medicine
DX: E13.9 Other specified diabetes mellitus without complications (principal); K21.9 Gastro-esophageal reflux disease without esophagitis; E78.9 Disorder of lipoprotein metabolism, unspecified; I10 Essential (primary) hypertension; E66.01 Morbid (severe) obesity due to excess calories; K59.04 Chronic idiopathic constipation; F43.10 Post-traumatic stress disorder, unspecified; F33.9 Major depressive disorder, recurrent, unspecified; F12.20 Cannabis dependence, uncomplicated; K44.9 Diaphragmatic hernia without obstruction or gangrene
CPT/HCPCS: 36415; 80053; 82043; 82570; 83036; 83721; 85025

== ENCOUNTER 2024-02-06 00:42 | Emergency (ER) | payer OTHER, SELFPAY ==
[2024-02-06 00:58] VITALS: BP 160/87; PULSE 110; RESP 18; TEMP 36.4; O2SAT 96; BMI 39.2
--- NOTE | 2024-02-06 04:04 | ED.GENADULT ---
HPI - General Adult General Chief complaint: General Medical Stated complaint: Back pain/shoulder pain/R Knee pain -No Inj Time Seen by Provider: 02/06/24 03:57 Source: patient Mode of arrival: ambulatory Limitations: no limitations History of Present Illness HPI narrative: Patient comes to the emergency room complaining of chronic pain. Patient complaining of bilateral shoulder and knee pain. Patient states that he has several surgeries pending. Patient requesting pain medication. Patient denies any new trauma. Related Data Home Medications ?Medication ?Instructions ?Recorded ?Confirmed dextroamphetamine-amphetamine 30 1 tab PO TID 08/22/20 01/26/24 mg tablet alprazolam 1 mg tablet 2 mg PO BEDTIME 04/08/23 01/26/24 dextroamphetamine-amphetamine 10 1 tab PO DAILY 07/30/23 01/26/24 mg tablet metoclopramide HCl 5 mg tablet 5 mg PO TID 07/30/23 01/26/24 ondansetron HCl 4 mg tablet mg PO DAILY 07/30/23 01/26/24 oxcarbazepine 600 mg tablet 600 mg PO BID 07/30/23 01/26/24 vortioxetine 10 mg tablet 10 mg PO DAILY 07/30/23 01/26/24 (Trintellix) gabapentin 300 mg capsule 300 mg PO TID 11/03/23 01/26/24 Previous Rx's ?Medication ?Instructions ?Recorded blood sugar diagnostic (Accu-Chek #100 ea 11/29/20 Guide test strips) blood-glucose meter (Accu-Chek #1 ea 11/29/20 Guide Glucose Meter) lancets (Accu-Chek Softclix #100 ea 11/29/20 Lancets) Insulin pen needles #100 ea 03/06/23 diphenhydramine HCl 2 % topical 1 appl topical QID #103 mL 05/22/23 gel (Benadryl) ajith Glucometer #1 ea 06/03/23 tamsulosin 0.4 mg capsule 0.4 mg PO BEDTIME #90 caps 06/03/23 plecanatide 3 mg tablet (Trulance) 3 mg PO DAILY #30 tabs 06/11/23 pen needle, diabetic 32 gauge x #100 ea 06/30/23 (BD Erica 2nd Gen Pen Needle) peg 3350-electrolytes 236 240 ml PO Q10M #4,000 mL 10/08/23 gram-22.74 gram-6.74 gram-5.86 gram solution polyethylene glycol 3350 17 17 g PO DAILY 7 days #119 grams 10/08/23 gram/dose oral powder (Miralax) albuterol sulfate 90 mcg/actuation 1 inh inhalation QID PRN shortness 10/12/23 aerosol inhaler (Ventolin HFA) of breath or wheezing 30 days #6.7 grams oxycodone 5 mg capsule 5 mg PO Q8H PRN pain 14 days #28 10/22/23 caps metoclopramide HCl 10 mg tablet 20 mg (2 x 10 mg) PO TID 30 days 11/03/23 (Reglan) #180 tabs dulaglutide 1.5 mg/0.5 mL 1.5 mg (0.5 mL) subcut QWEEK 30 11/04/23 subcutaneous pen injector days #2.5 mL (Trulicity) amlodipine 5 mg tablet 5 mg PO DAILY 90 days #90 tabs 11/27/23 cetirizine 10 mg tablet 10 mg PO DAILY #90 tabs 11/27/23 hydrochlorothiazide 25 mg tablet 25 mg PO DAILY #90 tabs 11/27/23 lisinopril 40 mg tablet 40 mg PO DAILY #90 tabs 11/27/23 metoprolol succinate 25 mg 25 mg PO BEDTIME #90 tabs 11/27/23 tablet,extended release 24 hr insulin glargine 100 unit/mL (3 38 unit (0.38 mL) subcut QPM 30 12/03/23 mL) subcutaneous pen (Lantus days #15 mL Solostar U-100 Insulin) linaclotide 145 mcg capsule 145 mcg PO QAM #30 caps 12/04/23 (Linzess) empagliflozin 10 mg tablet 10 mg PO QAM 90 days #90 tabs 12/08/23 (Jardiance) fluticasone propionate 50 1 spray intranasal DAILY #16 grams 12/24/23 mcg/actuation nasal spray,suspension (Flonase Allergy Relief) blood-glucose sensor (FreeStyle #2 ea 12/28/23 Ajith 3 Sensor device) hydroxyzine HCl 25 mg tablet 50 mg (2 x 25 mg) PO BEDTIME #60 12/29/23 tabs rosuvastatin 20 mg tablet 20 mg PO BEDTIME #90 tabs 01/01/24 omeprazole 40 mg capsule,delayed 40 mg PO DAILY #90 caps 01/18/24 release ketorolac 10 mg tablet 10 mg PO Q8H #12 tabs 02/06/24 Allergies Allergy/AdvReac Type Severity Reaction Status Date / Time benztropine [From COGENTIN] Allergy Unknown SWEATING Verified 02/06/24 00:59 pregabalin [From LYRICA] Allergy Unknown SWELLING Verified 02/06/24 00:59 sitagliptin [From JANUVIA] Allergy Unknown PER H&P Verified 02/06/24 00:59 Review of Systems Review of Systems: Constitutional : No Weight loss, No Fever, No Chills, No Night Sweats, No Fatigue, No Malaise ENT/Mouth : No Hearing loss, No Ear Pain, No Nasal Congestion, No Sinus Pain, No Hoarseness, No sore throat, No Rhinorrhea, No Swallowing Difficulty Eyes: No Eye Pain, No Swelling, No Redness, No Foreign Body, No Discharge, No Vision Changes Cardiovascular : No Chest Pain, No SOB, No Dyspnea on Exertion, No Orthopnea, No Edema, No Palpitations Respiratory : No Cough, No Sputum, No Wheezing, No Smoke Exposure, No Dyspnea Gastrointestinal : No Nausea, No Vomiting, No Diarrhea, No Constipation, No abdominal Pain, No Hematochezia, No Melena Genitourinary : no irregular bleeding, No Dysuria, No Urinary Frequency, No Hematuria, No Urinary Incontinence, No Urgency, No Flank Pain, No Urinary Flow Changes, No Hesitancy Musculoskeletal : Complaining of chronic pain in the shoulders, knees and neck Skin : No Skin Lesions, No rash Neuro : No Weakness, No Numbness, No Paresthesias, No Loss of Consciousness, No Dizziness, No Headache Psych : No Anxiety/Panic, No Depression, No SI/HI/AH/VH, No Social Issues, Heme/Lymph: No Bruising, No Bleeding,No Lymphadenopathy Endocrine : No Polyuria, No Polydipsia, No Temperature Intolerance PMFSH Past Medical History Onset Time:: 04:05 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, managed as type 2 Surgical History History of esophagogastroduodenoscopy (EGD) H/O colonoscopy History of ear surgery History of removal of laparoscopic gastric banding device History of left knee surgery History of lithotripsy History of laparoscopic appendectomy History of knee surgery History of discectomy History of lumbar fusion Family History Family History Father Alcoholism Hyperlipidemia HTN (hypertension) CVD (cardiovascular disease) Mental illness in member of household Mother CAD (coronary artery disease) Breast cancer High cholesterol Diabetes mellitus CVD (cardiovascular disease) Mental illness in member of household Maternal Grandfather No problems noted. Maternal Grandmother No problems noted. Paternal Grandfather No problems noted. Paternal Grandmother No problems noted. Sister No problems noted. Sister No problems noted. Daughter No problems noted. Daughter No problems noted. Other Mental health disorder Social History Social History Housing: Apartment Are you a primary managed care coordinator to a significant other at home: No Do you presently have visiting nurse or other home services: No Alcohol intake: current Alcohol intake frequency: holidays/special occasions only Patient Tobacco Use Status: Former Tobacco user Smoked in Last 30 Days: No e-Cigarette/Vaping Use: Currently Using Use of substances other than those prescribed or required for medical reasons: Yes Substance Use Type: Marijuana Substance Use Frequency: Daily Advance Directives: No Advance Directives Information Provided: Yes service: No Current occupational status: disabled Cognitive needs: No Hearing needs: No Vision needs: No Physical Exam ED Vital Signs: Vital Signs - 24 hr 02/06/24 00:58 Temperature 97.6 F Pulse Rate 110 H Respiratory Rate 18 Blood Pressure 160/87 H Pulse Oximetry 96 Oxygen Delivery Method Room Air BMI result Body Mass Index 39.2 Const Other: Appearance: Alert. Oriented X3. No acute distress. Eyes: Pupils equal, round and reactive to light. ENT: Pharynx normal. Neck: Normal inspection. Neck supple. No lymph nodes noted. No crepitus CVS: Normal heart rate and rhythm. Pulses normal. Normal S1 and S2 Respiratory: No respiratory distress. Breath sounds normal. No Wheezing. No rales Abdomen: Soft and nontender. No rigidity. No distention. Skin: Skin warm and dry. Normal skin color. Normal skin turgor. Extremities: No lower extremity edema. No Lacerations. No Rash Neuro: Oriented X 3. No motor deficit. No sensory deficit. Moving all extremities. No slurred speech. CN 2 through 12 grossly intact Psych: calm, cooperative, normal affect Medical Decision Making Medical Decision Making MDM Narrative: -patient complaining of chronic pain. Patient has multiple appointments with orthopedics pending. -patient requesting a no narcotic pain medication. Patient given IM Toradol and sent p.o. meds to the patient's pharmacy. Discharge Plan Discharge Clinical Impression: Chronic joint pain Patient Disposition: Home, Self-Care Instructions: Chronic Pain (ED) Additional Instructions: Please follow-up with your primary care physician tomorrow. If you have any worsening or new symptoms, please return to the emergency room or call 911 Prescriptions: New ketorolac 10 mg tablet 10 mg PO Q8H Qty: 12 0RF Rx Instructions: maximum total duration of 5 days from all oral, intranasal, or parenteral formulations No Action (DME) Insulin pen needles Smallest See Rx Instructions .Route .MEDSUPPLY Qty: 100 0RF Rx Instructions: Once a day Benadryl 2 % gel 1 appl topical QID Qty: 103 3RF (DME) pen needle, diabetic [BD Erica 2nd Gen Pen Needle] 32 gauge x 5/32 needle See Rx Instructions .ROUTE .MEDSUPPLY Qty: 100 6RF Rx Instructions: T.i.d. polyethylene glycol 3350 [Miralax] 17 gram/dose powder 17 g PO DAILY 7 Days Qty: 119 0RF Rx Instructions: start 1 week prior to colonoscopy peg 3350-electrolytes 236-22.74-6.74 -5.86 gram recon soln 240 ml PO Q10M Qty: 4000 0RF Rx Instructions: Refer to prep instructions given/ mailed to you from GI OFFICE. until fecal effluent is clear albuterol sulfate [Ventolin HFA] 90 mcg/actuation HFA aerosol inhaler 1 inh inhalation QID PRN (Reason: shortness of breath or wheezing) 30 Days Qty: 6.7 2RF Trulicity 1.5 mg/0.5 mL pen injector 1.5 mg subcut QWEEK 30 Days Qty: 2.5 4RF Patient Comments: thursday metoprolol succinate 25 mg tablet extended release 24 hr 25 mg PO BEDTIME Qty: 90 1RF lisinopril 40 mg tablet 40 mg PO DAILY Qty: 90 0RF amlodipine 5 mg tablet 5 mg PO DAILY 90 Days Qty: 90 0RF cetirizine 10 mg tablet 10 mg PO DAILY Qty: 90 0RF hydrochlorothiazide 25 mg tablet 25 mg PO DAILY Qty: 90 0RF insulin glargine [Lantus Solostar U-100 Insulin] 100 unit/mL (3 mL) insulin pen 38 unit subcut QPM 30 Days Qty: 15 2RF Linzess 145 mcg capsule 145 mcg PO QAM Qty: 30 3RF Jardiance 10 mg tablet 10 mg PO QAM 90 Days Qty: 90 1RF fluticasone propionate [Flonase Allergy Relief] 50 mcg/actuation spray,suspension 1 spray intranasal DAILY Qty: 16 2RF Rx Instructions: administer into each nostril (DME) FreeStyle Ajith 3 Sensor Device See Rx Instructions .Route Qty: 2 2RF Rx Instructions: As directed to test blood sugar 4 times a day hydroxyzine HCl 25 mg tablet 50 mg PO BEDTIME Qty: 60 3RF rosuvastatin 20 mg tablet 20 mg PO BEDTIME Qty: 90 1RF omeprazole 40 mg capsule,delayed release(DR/EC) 40 mg PO DAILY Qty: 90 2RF oxcarbazepine 600 mg tablet 600 mg PO BID dextroamphetamine-amphetamine 30 mg tablet 1 tab PO TID alprazolam 1 mg tablet 2 mg PO BEDTIME (DME) lancets [Accu-Chek Softclix Lancets] Misc See Rx Instructions .ROUTE .MEDSUPPLY Qty: 100 0RF Rx Instructions: to be checked once daily (DME) blood-glucose meter [Accu-Chek Guide Glucose Meter] Misc See Rx Instructions .ROUTE .MEDSUPPLY Qty: 1 0RF Rx Instructions: to be checked once daily (DME) Accu-Chek Guide test strips Strip See Rx Instructions .ROUTE .MEDSUPPLY Qty: 100 0RF Rx Instructions: to be checked once daily tamsulosin 0.4 mg capsule 0.4 mg PO BEDTIME Qty: 90 0RF (DME) ajith Glucometer See Rx Instructions .Route .MEDSUPPLY Qty: 1 0RF Rx Instructions: As directed oxycodone 5 mg capsule 5 mg PO Q8H PRN (Reason: pain) 14 Days Qty: 28 0RF Rx Instructions: Partial Fill upon patient request. dextroamphetamine-amphetamine 10 mg tablet 1 tab PO DAILY Trintellix 10 mg tablet 10 mg PO DAILY metoclopramide HCl 5 mg tablet 5 mg PO TID ondansetron HCl 4 mg tablet PO DAILY gabapentin 300 mg capsule 300 mg PO TID metoclopramide HCl [Reglan] 10 mg tablet 20 mg PO TID 30 Days Qty: 180 6RF Rx Instructions: provider aware of possible interactions and is monitoring/ Trulance 3 mg tablet 3 mg PO DAILY Qty: 30 3RF Hold Instructions: Doctor's Order Print Language: [place]an
[2024-02-06 04:23] VITALS: BP 144/88; PULSE 110; RESP 24; O2SAT 93
[2024-02-06] MEDS: Ketorolac Tromethamine 60 MG/2 ML VIAL IM (04:38)
[2024-02-06 05:38] VITALS: BP 130/89; PULSE 99; RESP 16; TEMP 36.7; O2SAT 98
== END 2024-02-06 05:38 | disposition home or self-care (01) ==
PROVIDERS: Emergency Provider Emergency Medicine; PCP Internal Medicine
DX: M54.50 Low back pain, unspecified (principal); M25.511 Pain in right shoulder; Z79.899 Other long term (current) drug therapy
CPT/HCPCS: 96372; 99284; J1885

== ENCOUNTER 2024-03-03 08:41 | Outpatient (AMB) | payer OTHER, SELFPAY ==
--- NOTE | 2024-03-03 09:19 | MHC.PC.OV ---
Intake Visit Reasons: Discuss Med Change~ [phone] Allergies benztropine [From COGENTIN] Allergy (Unknown, Verified 03/03/24 09:23) SWEATING pregabalin [From LYRICA] Allergy (Unknown, Verified 03/03/24 09:23) SWELLING sitagliptin [From JANUVIA] Allergy (Unknown, Verified 03/03/24 09:23) PER H&P Medication List - Last Reconciled 03/03/24 by Lizabeth Adame MD albuterol sulfate 90 mcg/actuation (Ventolin HFA) 1 inh inhalation QID PRN 30 days alprazolam 2 mg PO BEDTIME amlodipine 5 mg PO DAILY 90 days blood sugar diagnostic (Accu-Chek Guide test strips) to be checked once daily blood-glucose meter (Accu-Chek Guide Glucose Meter) to be checked once daily blood-glucose sensor (DiglyStyle Ajith 3 Sensor device) As directed to test blood sugar 4 times a day cetirizine 10 mg PO DAILY dextroamphetamine-amphetamine 10 mg 1 tab PO DAILY dextroamphetamine-amphetamine 30 mg 1 tab PO TID dulaglutide (Trulicity) 1.5 mg (0.5 mL) subcut QWEEK 30 days empagliflozin (Jardiance) 10 mg PO QAM 90 days fluticasone propionate 50 mcg/actuation (Flonase Allergy Relief) 1 spray intranasal DAILY gabapentin 300 mg PO TID hydrochlorothiazide 25 mg PO DAILY hydroxyzine HCl 50 mg (2 x 25 mg) PO BEDTIME insulin glargine (Lantus Solostar U-100 Insulin) 38 units (0.38 mL) subcut QPM 30 days [Insulin pen needles Once a day] lancets (Accu-Chek Softclix Lancets) to be checked once daily [ajith Glucometer As directed NS] linaclotide (Linzess) 145 mcg PO QAM lisinopril 40 mg PO DAILY metoclopramide HCl 5 mg PO TID metoclopramide HCl (Reglan) 20 mg (2 x 10 mg) PO TID 30 days metoprolol succinate ER 25 mg PO BEDTIME omeprazole 40 mg PO DAILY ondansetron HCl mg PO DAILY oxcarbazepine 600 mg PO BID peg 3350-electrolytes 236-22.74-6.74 -5.86 gram 240 mL PO Q10M pen needle, diabetic (BD Erica 2nd Gen Pen Needle) T.i.d. polyethylene glycol 3350 (Miralax) 17 grams PO DAILY 7 days rosuvastatin 20 mg PO BEDTIME tamsulosin 0.4 mg PO BEDTIME Tobacco use date assessed: 03/03/24 Dental Screening Dental Screen Date: 03/03/24 Did you have a dental visit in the last 12 months?: Yes Did you have a dental problem in the last 6 months where you did not have access to dental care?: No Was dental information given to patient?: Patient has dentist HPI Discuss Med Change~ [phone] HPI Details This is a telemedicine visit Patient is 53-year-old morbidly obese gentleman who is insulin-dependent diabetic Currently taking Lantus 40 units at night Patient was also on Trulicity 1.5 mg However Trulicity is back ordered and patient has not been able to get a refill Last time she had release a day was 1 week ago that was is last was. He want to be changed to Ozempic However patient have a history of pancreatitis in the past However he is tolerating Trulicity, I do not think it is a good idea to switch to Ozempic I have told him while we wait for Trulicity, to come back in stock, he can titrate his Lantus to his morning sugar of 150 He he may continued to add 2 units at night to his 40 units of Lantus until his morning sugar is 140 Is also asking for more sensors, as sensors keep falling off his skin, script sent [facility] 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, managed as type 2 Surgical History History of esophagogastroduodenoscopy (EGD) H/O colonoscopy History of ear surgery History of removal of laparoscopic gastric banding device History of left knee surgery History of lithotripsy History of laparoscopic appendectomy History of knee surgery History of discectomy History of lumbar fusion Family History Father Alcoholism Hyperlipidemia HTN (hypertension) CVD (cardiovascular disease) Mental illness in member of household Mother CAD (coronary artery disease) Breast cancer High cholesterol Diabetes mellitus CVD (cardiovascular disease) Mental illness in member of household Maternal Grandfather No problems noted. Maternal Grandmother No problems noted. Paternal Grandfather No problems noted. Paternal Grandmother No problems noted. Sister No problems noted. Sister No problems noted. Daughter No problems noted. Daughter No problems noted. Other Mental health disorder Social History Housing: Apartment Are you a primary healthcare social worker to a significant other at home: No Do you presently have visiting nurse or other home services: No Alcohol intake: current Alcohol intake frequency: holidays/special occasions only Patient Tobacco Use Status: Former Tobacco user e-Cigarette/Vaping Use: Currently Using Substance Use Type: Marijuana service: No Current occupational status: disabled Cognitive needs: No Hearing needs: No Vision needs: No Questionnaire Thrive Questionnaire Date Thrive assessed: 12/19/22 AUDIT C Alcohol Use Questionnaire (AUDIT-C) 1. How often do you have a drink containing alcohol?: Never 3. How often do you have six or more drinks on one occasion?: Never Total Score: 0 Score Reviewed/Action Taken: Yes RISHI-7 AMB Questionnaire RISHI-7 Date RISHI - 7 assessed: 12/19/22 Source: Developed by Drs. Jan Del Rio, Gail Hayward, Son Hanks and colleagues, with an educational jeannie from [employer]. Review of Systems Const Denies chills and Denies fever(s) ENT Denies epistaxis and Denies nasal discharge Card Denies chest pain Resp Denies chest congestion, Denies cough and Denies hemoptysis GI Denies diarrhea and Denies nausea Skin/Breast Denies rash Neuro Reports no additional complaints Psych Reports no additional complaints Endo Reports no additional complaints Physical exam (Primary Care) Tobacco/Smoking Status: Tobacco use Status Tobacco use date assessed 03/03/24 03/03/24 09:23 Patient Tobacco Use Status Former Tobacco user 03/03/24 09:23 e-Cigarette/Vaping Use Currently Using 03/03/24 09:23 Thrive Assessment: Date of Thrive Assessment Date Thrive assessed 12/19/22 03/03/24 09:23 Telehealth Telehealth Telehealth Platform: [email or web address] Location of provider rendering services: practice address Location of patient: address on file Patient Identification confirmed using: Name, : Yes Telehealth method: voice only Patient verbally consented to treatment: Yes Patient verbally consented to billing insurance company: Yes Patient informed of any privacy concerns related to visit: Yes Minutes spent on Phone/Video with Pt.: 14 Assessment and Plan Assessment & Plan (1) Diabetes 1.5, managed as type 2: Code(s): E13.9 - Other specified diabetes mellitus without complications (2) Morbid obesity due to excess calories: Code(s): E66.01 - Morbid (severe) obesity due to excess calories Plan This is a telemedicine visit Patient is 53-year-old morbidly obese gentleman who is insulin-dependent diabetic Currently taking Lantus 40 units at night Patient was also on Trulicity 1.5 mg However Trulicity is back ordered and patient has not been able to get a refill Last time she had release a day was 1 week ago that was is last was. He want to be changed to Ozempic However patient have a history of pancreatitis in the past However he is tolerating Trulicity, I do not think it is a good idea to switch to Ozempic I have told him while we wait for Trulicity, to come back in stock, he can titrate his Lantus to his morning sugar of 150 He he may continued to add 2 units at night to his 40 units of Lantus until his morning sugar is 140 Is also asking for more sensors, as sensors keep falling off his skin, script sent Medications: Refilled blood-glucose sensor (FreeStyle Ajith 3 Sensor device) As directed to test blood sugar 4 times a day 4 ea 2RF E10.42 - Type 1 diabetes mellitus with diabetic polyneuropathy dulaglutide (Trulicity) 1.5 mg (0.5 mL) subcut QWEEK 2.5 mL 4RF 30 days Discontinued dulaglutide (Trulicity) Discontinued Reason: Patient no longer taking 1.5 mg (0.5 mL) subcut QWEEK 30 days 2.5 mL 4RF Coding Level of Care Code Tele Est Pt Level 3 (53845) Diagnoses Diabetes 1.5, managed as type 2 E13.9 Morbid obesity due to excess calories E66.01
== END 2024-03-03 10:14 | disposition home or self-care (01) ==
LOC: HO.HMGC 08:41
PROVIDERS: PCP Internal Medicine; Visit Provider Internal Medicine
DX: E13.9 Other specified diabetes mellitus without complications (principal); E66.01 Morbid (severe) obesity due to excess calories
CPT/HCPCS: 99442

== ENCOUNTER 2024-05-19 14:09 | Outpatient (AMB) | payer OTHER, SELFPAY ==
--- NOTE | 2024-05-19 14:10 | AM.OFFWIN_ITS ---
Intake Vital Signs 05/19/24 14:12 Height 5 ft 9 in Weight 255 lb BMI 37.7 BP 110/78 Blood Pressure Location Rt brachial Position Sitting Pulse 103 H Pulse Source Pulse Oximeter Temp 98.1 F Temp Source Oral Pulse Oximetry (%) 97 Oxygen Delivery Method Room Air Intake Visit Reasons: EP Back Pain/?Kidney Intake Note: pt here c/o back pain. ? Kidney stones Patient Tobacco Use Status: Former Tobacco user Allergies benztropine [From COGENTIN] Allergy (Unknown, Verified 05/19/24 14:10) SWEATING pregabalin [From LYRICA] Allergy (Unknown, Verified 05/19/24 14:10) SWELLING sitagliptin [From JANUVIA] Allergy (Unknown, Verified 05/19/24 14:10) PER H&P Do you need a note to return to daycare/school/sports/work: No HPI EP Back Pain/?Kidney HPI Details This note is constructed using voice recognition software. While every effort has been made to ensure accuracy, college or university business manager errors may have been included. 53 y.o. male patient presents with 1 day history of bilateral flank pain, left more than right. He notes a history of kidney stones, and when the pain was col icky and extreme last night, he called EMS to go to ER. He went to [facility] ER, and left without being seen due to prolonged wait times. He has had kidney stones in the past, and reports the pain to be similar. He denies urgency, burning, and obvious blood in urine. He uses medical marijuana and reports this has not touched the pain. He is type 2 diabetic and wears a continuous glucose monitor. He had been advised he may need an employee representative due to fluctuance in his readings. He reports compliance with his medication. He also has a bad back , reports waking up most days feeling charisma and that the aches and pains typically subside as the day goes on. These pains have not subsided, nor feel like his normal aches and pains. 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, managed as type 2 Surgical History History of esophagogastroduodenoscopy (EGD) H/O colonoscopy History of ear surgery History of removal of laparoscopic gastric banding device History of left knee surgery History of lithotripsy History of laparoscopic appendectomy History of knee surgery History of discectomy History of lumbar fusion Family History Father Alcoholism Hyperlipidemia HTN (hypertension) CVD (cardiovascular disease) Mental illness in member of household Mother CAD (coronary artery disease) Breast cancer High cholesterol Diabetes mellitus CVD (cardiovascular disease) Mental illness in member of household Maternal Grandfather No problems noted. Maternal Grandmother No problems noted. Paternal Grandfather No problems noted. Paternal Grandmother No problems noted. Sister No problems noted. Sister No problems noted. Daughter No problems noted. Daughter No problems noted. Other Mental health disorder Social History Housing: Apartment Are you a primary healthcare prof to a significant other at home: No Do you presently have visiting nurse or other home services: No Alcohol intake: current Alcohol intake frequency: holidays/special occasions only Patient Tobacco Use Status: Former Tobacco user e-Cigarette/Vaping Use: Currently Using Substance Use Type: Marijuana service: No Current occupational status: disabled Cognitive needs: No Hearing needs: No Vision needs: No Review of Systems Const All systems reviewed & are unremarkable except as noted in HPI and below Physical Exam Vital Signs: Last Vital Signs Temp 98.1 F 05/19/24 14:12 Pulse 103 H 05/19/24 14:12 BP 110/78 05/19/24 14:12 Pulse Ox 97 05/19/24 14:12 Oxygen Delivery Method Room Air 05/19/24 14:12 BMI result Body Mass Index 37.7 Const Other: In obvious pain, moaning in hallway when moving. General: cooperative, healthy appearing and alert Orientation/consciousness: patient oriented x3 Limitations: no limitations Resp Effort & Inspection: normal respiratory effort and able to speak in complete sentences Auscultation: clear to auscultation bilaterally Cardio Jugular venous distension: no JVD Palpation: normal PMI Rate: regular rate Heart sounds: S1 normal heart sound present, S2 normal heart sound present, no click, no gallops, no murmurs and no rubs GI Inspection: Yes normal to inspection Palpation (GI): Soft to palpation and nontender Percussion: Yes normal to percussion Auscultation: normal bowel sounds General: Yes CVA tenderness (Bilaterally) Back/Spine/Pelvis Back: CVA tenderness (Bilaterally) Skin General skin exam: no rashes or lesions noted, elasticity normal and turgor normal Neuro General: patient oriented x3 Psych Appearance: grossly normal Mental Status: mental status grossly normal Speech and movement: Normal speech and movement present Affect: normal affect Results AMB Urinalysis, Automated UA Leukoctes 0 Niurka/uL Last Edit by Perez Chaparro CMA on 05/19/24 14:28 UA Nitrite Negative Last Edit by Perez Chaparro CMA on 05/19/24 14:28 UA Urobilinogen 0.2 mg/dL Last Edit by Perez Chaparro CMA on 05/19/24 14:28 UA Protein 0 mg/dL Last Edit by Perez Chaparro CMA on 05/19/24 14:28 UA pH 6.0 Last Edit by Perez Chaparro CMA on 05/19/24 14:28 UA Blood 0 Bryon/uL Last Edit by Perez Chaparro CMA on 05/19/24 14:28 UA Specific [place] 1.010 Last Edit by Perez Chaparro CMA on 05/19/24 14:28 UA Ketone Negative Last Edit by Perez Chaparro CMA on 05/19/24 14:28 UA Bilirubin 0 mg/dL Last Edit by Perez Chaparro CMA on 05/19/24 14:28 UA Glucose 1000 mg/dL Last Edit by Perez Chaparro CMA on 05/19/24 14:28 AMB Random Glucose (hemocue) AMB Random Glucose (hemocue) 135 mg/dL Last Edit by Perez Chaparro CMA on 05/19/24 14:32 Assessment & Plan Assessment & Plan (1) Flank pain, acute: Code(s): R10.9 - Unspecified abdominal pain Plan: Etiology unclear. In office urine dip without obvious signs of infection or kidney stone, however does reflect significant glucose spill. Advised ER given significant pain and lack of obvious source as he can have rapid lab work up, imaging if appropriate. He agreed to proceed to the ER for additional work up. (2) Uncontrolled diabetes mellitus: Code(s): E11.65 - Type 2 diabetes mellitus with hyperglycemia Qualifiers: Diabetes mellitus type: type 1 Glycemic state: with hyperglycemia Qualified Code(s): E10.65 - Type 1 diabetes mellitus with hyperglycemia Plan: Significant glucose spilling on urinalysis, may be appropriate based on current treatment, but unable to compare to his baseline. Advised patient to follow with pcp after ER evaluation for adjustment if needed in treatment plan. In office finger glucose comparible to glucose monitor. Plan See above for full details and plan. Orders: Orders AMB Urinalysis Automated Today Z13.9 - Encounter for screening, unspecified AMB Random Glucose (hemocue) Today Z13.9 - Encounter for screening, unspecified Coding Level of Care Code Est Pt Level 4 (45128) Diagnoses Flank pain, acute R10.9 Uncontrolled type 1 diabetes mellitus with hyperglycemia E10.65 Diabetes mellitus type: type 1 Glycemic state: with hyperglycemia
[2024-05-19 14:12] VITALS: BP 110/78; PULSE 103; TEMP 36.7; O2SAT 97; BMI 37.7
== END 2024-05-19 15:27 | disposition home or self-care (01) ==
PROVIDERS: PCP Internal Medicine; Visit Provider Registered Nurse
DX: R10.9 Unspecified abdominal pain (principal); E10.65 Type 1 diabetes mellitus with hyperglycemia
CPT/HCPCS: 81003; 82948; 99214

== ENCOUNTER 2024-05-19 14:55 | Emergency (ER) | payer OTHER, SELFPAY ==
--- NOTE | ~2024-05-19 | CT_ITS ---
EXAMINATION: CT ABDOMEN AND PELVIS WITHOUT CONTRAST CLINICAL INFORMATION: Bilateral flank pain. COMPARISON: Renal ultrasound dated 02/03/2017. TECHNIQUE: Multidetector volumetric imaging was performed from the superior aspect of the liver through the pubic symphysis. Sagittal and coronal reformatted images were obtained on the technologist's workstation. This CT examination was performed using dose optimization techniques as appropriate, variously including the following: *Automated exposure control *Adjustment of mA and/or kV according to patient size (this includes techniques or standardized protocols for targeted exams where dose is matched to indication/reason for exam; i.e. extremities or head) *Use of iterative reconstruction technique DLP: 1097 mGy-cm FINDINGS: LUNG BASES: There is mild bibasilar dependent hypoaeration. LIVER, GALLBLADDER, AND BILIARY TREE: The liver is normal in size, shape, and attenuation. No focal hepatic lesion or biliary ductal dilatation is present. The gallbladder is unremarkable with no evidence of radiopaque gallstones, gallbladder wall thickening, or obvious pericholecystic inflammatory changes. PANCREAS: Unremarkable. SPLEEN: Unremarkable. ADRENAL GLANDS: Unremarkable. KIDNEYS AND URETERS: The kidneys are normal in size, shape, and attenuation. At the upper pole of the left kidney (4:282), a 3 mm nonobstructing calculus is seen. There are a few further tiny 1 mm nonobstructing bilateral renal calculi. No perinephric stranding. At the upper pole of the right kidney (4:271), a 6 mm benign, fat density angiomyolipoma is seen. At the interpolar left kidney (4:314), a 5 mm benign fat density angiomyolipoma is seen. BLADDER: Unremarkable. GASTROINTESTINAL TRACT: There is a small hiatus hernia. Distal esophageal wall thickening is questioned. The small and large bowel are unremarkable. The appendix is unremarkable. There are surgical clips towards the distal margin of the appendix. No appendicitis is seen. ABDOMINAL WALL: No significant hernia is appreciated. LYMPH NODES: Normal. VASCULAR: Unremarkable. PELVIC VISCERA: The prostate and seminal vesicles are unremarkable. OSSEOUS STRUCTURES: There is a mild T12 anterior wedge compression fracture. There is marked degenerative disc disease at L5-S1, with vacuum disc phenomenon. There is multi-level thoracolumbar endplate arthropathy and Schmorl's node formation. There is orthopedic hardware consistent with a prior L4-L5 posterior fusion and L5-S1 anterior fusion. No acute or aggressive osseous finding is noted. CT/CT abdomen pelvis wo IV con IMPRESSION: 1. There are tiny nonobstructing bilateral renal calculi, the largest at the upper pole of the left kidney measuring 3 mm. No ureteric calculus or obstruction is noted. 2. 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 3. There is a small hiatus hernia. Distal esophageal wall thickening suspected, which can be more fully evaluated with a barium swallow or upper endoscopy, if clinically indicated. 4. No appendicitis is seen. A possible appendiceal remnant and adjacent surgical clips are noted. Please correlate with the patient's Past Surgical History. 5. There is no bowel obstruction, free intraperitoneal air or abscess. 6. No abdominopelvic mass, free fluid or lymphadenopathy is seen. 7. There is a mild T12 anterior wedge compression fracture, unchanged from the CT chest dated 01/19/2021. No acute or aggressive osseous finding is noted. Fleischner guidelines were followed.
--- NOTE | 2024-05-19 15:02 | ED_ITS ---
HPI - General Adult General Chief complaint: Back Pain/Injury Stated complaint: Lower back pain - sent by PCP Time Seen by Provider: 05/19/24 17:34 Related Data Home Medications ?Medication ?Instructions ?Recorded ?Confirmed dextroamphetamine-amphetamine 30 1 tab PO TID 08/22/20 03/03/24 mg tablet alprazolam 1 mg tablet 2 mg PO BEDTIME 04/08/23 03/03/24 dextroamphetamine-amphetamine 10 1 tab PO DAILY 07/30/23 03/03/24 mg tablet metoclopramide HCl 5 mg tablet 5 mg PO TID 07/30/23 03/03/24 ondansetron HCl 4 mg tablet mg PO DAILY 07/30/23 03/03/24 oxcarbazepine 600 mg tablet 600 mg PO BID 07/30/23 03/03/24 gabapentin 300 mg capsule 300 mg PO TID 11/03/23 03/03/24 Previous Rx's ?Medication ?Instructions ?Recorded blood sugar diagnostic (Accu-Chek #100 ea 11/29/20 Guide test strips) blood-glucose meter (Accu-Chek #1 ea 11/29/20 Guide Glucose Meter) lancets (Accu-Chek Softclix #100 ea 11/29/20 Lancets) Insulin pen needles #100 ea 03/06/23 ajith Glucometer #1 ea 06/03/23 tamsulosin 0.4 mg capsule 0.4 mg PO BEDTIME #90 caps 06/03/23 pen needle, diabetic 32 gauge x #100 ea 06/30/23 5/32 (BD Erica 2nd Gen Pen Needle) metoclopramide HCl 10 mg tablet 20 mg (2 x 10 mg) PO TID 30 days 11/03/23 (Reglan) #180 tabs fluticasone propionate 50 1 spray intranasal DAILY #16 grams 12/24/23 mcg/actuation nasal spray,suspension (Flonase Allergy Relief) rosuvastatin 20 mg tablet 20 mg PO BEDTIME #90 tabs 01/01/24 omeprazole 40 mg capsule,delayed 40 mg PO DAILY #90 caps 01/18/24 release albuterol sulfate 90 mcg/actuation 1 inh inhalation QID PRN shortness 02/23/24 aerosol inhaler (Ventolin HFA) of breath or wheezing 30 days #6.7 grams blood-glucose sensor (FreeStyle #4 ea 03/03/24 Ajith 3 Sensor device) dulaglutide 1.5 mg/0.5 mL 1.5 mg (0.5 mL) subcut QWEEK 30 03/03/24 subcutaneous pen injector days #2.5 mL (Trulicity) insulin glargine 100 unit/mL (3 38 unit (0.38 mL) subcut QPM 30 03/16/24 mL) subcutaneous pen (Lantus days #15 mL Solostar U-100 Insulin) linaclotide 145 mcg capsule 145 mcg PO QAM #30 caps 03/22/24 (Linzess) hydroxyzine HCl 25 mg tablet 50 mg (2 x 25 mg) PO BEDTIME #180 04/11/24 tabs amlodipine 5 mg tablet 5 mg PO DAILY 90 days #90 tabs 05/02/24 cetirizine 10 mg tablet 10 mg PO DAILY #90 tabs 05/02/24 hydrochlorothiazide 25 mg tablet 25 mg PO DAILY #90 tabs 05/02/24 lisinopril 40 mg tablet 40 mg PO DAILY #90 tabs 05/02/24 metoprolol succinate 25 mg 25 mg PO BEDTIME #90 tabs 05/02/24 tablet,extended release 24 hr empagliflozin 10 mg tablet 10 mg PO QAM 90 days #90 tabs 05/11/24 (Jardiance) cyclobenzaprine 10 mg tablet 10 mg PO TID PRN pain #14 tabs 05/19/24 ibuprofen 400 mg tablet 400 mg PO Q6H PRN pain #20 tabs 05/19/24 Allergies Allergy/AdvReac Type Severity Reaction Status Date / Time benztropine [From COGENTIN] Allergy Unknown SWEATING Verified 05/19/24 15:11 pregabalin [From LYRICA] Allergy Unknown SWELLING Verified 05/19/24 15:11 sitagliptin [From JANUVIA] Allergy Unknown PER H&P Verified 05/19/24 15:11 FORMERLY [facility] Past Medical History 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, managed as type 2 Surgical History History of esophagogastroduodenoscopy (EGD) H/O colonoscopy History of ear surgery History of removal of laparoscopic gastric banding device History of left knee surgery History of lithotripsy History of laparoscopic appendectomy History of knee surgery History of discectomy History of lumbar fusion Family History Family History Father Alcoholism Hyperlipidemia HTN (hypertension) CVD (cardiovascular disease) Mental illness in member of household Mother CAD (coronary artery disease) Breast cancer High cholesterol Diabetes mellitus CVD (cardiovascular disease) Mental illness in member of household Maternal Grandfather No problems noted. Maternal Grandmother No problems noted. Paternal Grandfather No problems noted. Paternal Grandmother No problems noted. Sister No problems noted. Sister No problems noted. Daughter No problems noted. Daughter No problems noted. Other Mental health disorder Social History Social History Housing: Apartment Are you a primary neonatal intensive care nurse to a significant other at home: No Do you presently have visiting nurse or other home services: No Alcohol intake: current Alcohol intake frequency: holidays/special occasions only Patient Tobacco Use Status: Former Tobacco user Smoked in Last 30 Days: No e-Cigarette/Vaping Use: Currently Using Use of substances other than those prescribed or required for medical reasons: No Substance Use Type: Marijuana Advance Directives: No Advance Directives Information Provided: No service: No Current occupational status: disabled Cognitive needs: No Hearing needs: No Vision needs: No Physical Exam ED Vital Signs: Vital Signs - 24 hr 05/19/24 15:08 05/19/24 18:20 05/19/24 21:48 Temperature 97.3 F 98.0 F 98.2 F Pulse Rate 100 86 80 Respiratory Rate 20 16 16 Blood Pressure 148/76 H 124/75 107/71 Pulse Oximetry 96 94 96 Oxygen Delivery Method Room Air Room Air Room Air 05/19/24 22:03 Temperature 98.2 F Pulse Rate 80 Respiratory Rate 16 Blood Pressure 107/71 Pulse Oximetry 96 Oxygen Delivery Method Room Air BMI result Body Mass Index 37.7 Course Course Course Narrative: This is a Rapid Medical Exam performed in triage by Nancy Pretty PA-C. Full HPI, ROS and PE to be performed by primary ED provider. 53 year-old M w/ PMHx DM, gastroparesis, back fusion, renal stones, presenting to the ED sent in by PCP c/o bilateral low back/flank pain > left x few days. Denies urinary sx, injury/fall. 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 +b/l CVAT Plan: Labs, UA Medications Administered Discontinued Medications Generic Name Dose Route Start Last Admin Trade Name Freq PRN Reason Stop Dose Admin Hydromorphone HCl 1 mg 05/19/24 18:50 05/19/24 19:58 Hydromorphone Hcl 1 Mg/Ml Syringe IVPUSH 05/19/24 18:51 1 mg ONCE ONE Administration Protocol Ketorolac Tromethamine 30 mg 05/19/24 18:50 05/19/24 19:58 Ketorolac Tromethamine 30 Mg/Ml Vial IVPUSH 05/19/24 18:51 30 mg ONCE ONE Administration Ondansetron HCl 4 mg 05/19/24 18:50 05/19/24 19:58 Ondansetron Hcl 4 Mg/2 Ml Vial IVPUSH 05/19/24 18:51 4 mg ONCE ONE Administration Medical Decision Making Lab Data 05/19/24 16:13 05/19/24 16:13 Labs: Lab Results 05/19/24 05/19/24 05/19/24 Range/Units 16:12 16:13 16:30 WBC 7.5 (4.8-10.8) X10*3/uL RBC 5.17 (4.60-5.80) X10*6/uL Hgb 14.7 (14.0-18.0) g/dl Hct 43.5 (42.0-52.0) % MCV 84.1 (80.0-98.0) fL MCH 28.4 (27.0-33.0) pg MCHC 33.8 (31.0-36.0) g/dl RDW 14.2 (11.0-16.0) % Plt Count 270 (160-400) X10*3/uL MPV 9.4 (9.4-12.4) fL Immature Gran % (Auto) 0.3 (0.0-0.4) % Neut % (Auto) 65.1 (45-73) % Lymph % (Auto) 24.1 (20-40) % [place] % (Auto) 7.7 (2-11) % Eos % (Auto) 2.0 (0-4) % Baso % (Auto) 0.8 (0-2) % Lymph # (Auto) 1.8 (1.2-4.9) X10*3/uL [place] # (Auto) 0.6 (0.1-1.2) X10*3/uL Eos # (Auto) 0.2 (0.0-0.4) X10*3/uL Baso # (Auto) 0.1 (0.0-0.2) X10*3/uL Abs Immat Gran (auto) 0.02 (0.00-0.03) X10*3/uL Absolute Neuts (auto) 4.9 (2.0-8.3) x10*3/uL Absolute Nucleated RBC 0.000 (0.0-0.012) X10*3/uL Nucleated RBC % (auto) 0.0 (0.0-0.2) /100WBC Sodium 136 (135-145) mmol/L Potassium 3.8 (3.3-5.1) mmol/L Chloride 103 (96-108) mmol/L Carbon Dioxide 21 L (22-29) mmol/L Anion Gap 16 (12-20) BUN 20 H (9-16) mg/dL Creatinine 0.76 (0.5-1.4) mg/dL Estim Creat Clear Calc 137.7 Estimated GFR > 60 POC Glucose 171 H (60-115) mg/dL Random Glucose 167 H (60-115) mg/dL Estimat Average Glucose 134 mg/dL Hemoglobin A1c % 6.3 H (<6.0) % Calcium 9.3 (8.4-10.2) mg/dL Magnesium 2.2 (1.6-2.6) mg/dL Total Bilirubin 0.2 (0.0-1.0) mg/dL Direct Bilirubin < 0.2 (0.0-0.5) mg/dL AST 14 (5-37) U/L ALT 20 (0-40) U/L Alkaline Phosphatase 87 (39-117) U/L Total Protein 7.0 (6.5-8.0) g/dL Albumin 4.4 (3.5-5.0) g/dL Beta-Hydroxybutyrate 0.22 (0.02-0.27) mmol/L Urine Color Yellow Urine Appearance Clear Urine pH 6.0 (5.0-9.0) Ur Specific [place] >= 1.030 H (1.005-1.025) Urine Protein Negative (Neg-Trace) mg/dL Urine Glucose (UA) >=1000 H (Negative) mg/dL Urine Ketones Negative (Negative) mg/dL Urine Blood Negative (Negative) Urine Nitrite Negative (Negative) Ur Leukocyte Esterase Negative (Negative) Urine RBC 0-2 (0-2) /HPF Urine WBC 0-5 (0-5) /HPF Ur Squamous Epith Cells 0-2 (0-2) /HPF Urine Bacteria None Seen (None Seen) Hyaline Casts 0-2 (0-2) /LPF Discharge Plan Discharge Clinical Impression: Back pain Patient Disposition: Home, Self-Care Instructions: Back Pain (ED) Prescriptions: New cyclobenzaprine 10 mg tablet 10 mg PO TID PRN (Reason: pain) Qty: 14 0RF ibuprofen 400 mg tablet 400 mg PO Q6H PRN (Reason: pain) Qty: 20 0RF No Action (DME) Insulin pen needles Smallest See Rx Instructions .Route .MEDSUPPLY Qty: 100 0RF Rx Instructions: Once a day (DME) pen needle, diabetic [BD Erica 2nd Gen Pen Needle] 32 gauge x 5/32 needle See Rx Instructions .ROUTE .MEDSUPPLY Qty: 100 6RF Rx Instructions: T.i.d. fluticasone propionate [Flonase Allergy Relief] 50 mcg/actuation spray,suspension 1 spray intranasal DAILY Qty: 16 2RF Rx Instructions: administer into each nostril rosuvastatin 20 mg tablet 20 mg PO BEDTIME Qty: 90 1RF omeprazole 40 mg capsule,delayed release(DR/EC) 40 mg PO DAILY Qty: 90 2RF albuterol sulfate [Ventolin HFA] 90 mcg/actuation HFA aerosol inhaler 1 inh inhalation QID PRN (Reason: shortness of breath or wheezing) 30 Days Qty: 6.7 2RF insulin glargine [Lantus Solostar U-100 Insulin] 100 unit/mL (3 mL) insulin pen 38 unit subcut QPM 30 Days Qty: 15 2RF Linzess 145 mcg capsule 145 mcg PO QAM Qty: 30 3RF hydroxyzine HCl 25 mg tablet 50 mg PO BEDTIME Qty: 180 1RF hydrochlorothiazide 25 mg tablet 25 mg PO DAILY Qty: 90 0RF lisinopril 40 mg tablet 40 mg PO DAILY Qty: 90 0RF metoprolol succinate 25 mg tablet extended release 24 hr 25 mg PO BEDTIME Qty: 90 1RF cetirizine 10 mg tablet 10 mg PO DAILY Qty: 90 0RF amlodipine 5 mg tablet 5 mg PO DAILY 90 Days Qty: 90 0RF Jardiance 10 mg tablet 10 mg PO QAM 90 Days Qty: 90 1RF oxcarbazepine 600 mg tablet 600 mg PO BID dextroamphetamine-amphetamine 30 mg tablet 1 tab PO TID alprazolam 1 mg tablet 2 mg PO BEDTIME (DME) lancets [Accu-Chek Softclix Lancets] Misc See Rx Instructions .ROUTE .MEDSUPPLY Qty: 100 0RF Rx Instructions: to be checked once daily (DME) blood-glucose meter [Accu-Chek Guide Glucose Meter] Misc See Rx Instructions .ROUTE .MEDSUPPLY Qty: 1 0RF Rx Instructions: to be checked once daily (DME) Accu-Chek Guide test strips Strip See Rx Instructions .ROUTE .MEDSUPPLY Qty: 100 0RF Rx Instructions: to be checked once daily tamsulosin 0.4 mg capsule 0.4 mg PO BEDTIME Qty: 90 0RF (DME) ajith Glucometer See Rx Instructions .Route .MEDSUPPLY Qty: 1 0RF Rx Instructions: As directed (DME) FreeStyle Ajith 3 Sensor Device See Rx Instructions .Route Qty: 4 2RF Rx Instructions: As directed to test blood sugar 4 times a day Trulicity 1.5 mg/0.5 mL pen injector 1.5 mg subcut QWEEK 30 Days Qty: 2.5 4RF Patient Comments: thursday dextroamphetamine-amphetamine 10 mg tablet 1 tab PO DAILY metoclopramide HCl 5 mg tablet 5 mg PO TID ondansetron HCl 4 mg tablet PO DAILY gabapentin 300 mg capsule 300 mg PO TID metoclopramide HCl [Reglan] 10 mg tablet 20 mg PO TID 30 Days Qty: 180 6RF Rx Instructions: provider aware of possible interactions and is monitoring/ Interventions: ED Discharge Assessment Last Done: 05/19/24 22:03 Discharge Date/Time: 05/19/24 22:04 Print Language: Romanian
[2024-05-19 15:08] VITALS: BP 148/76; PULSE 100; RESP 20; TEMP 36.3; O2SAT 96; BMI 37.7
[2024-05-19 16:16] LABS: Glucose, Whole Blood 171 mg/dL (60-115)
[2024-05-19 16:21] LABS: MANUAL DIFF FLAG NO
[2024-05-19 16:22] LABS: Basophils Absolute Auto 0.1 X10*3/uL (0.0-0.2); Basophils Percent Auto 0.8 % (0-2); Eosinophils Absolute Auto 0.2 X10*3/uL (0.0-0.4); Hematocrit 43.5 % (42.0-52.0); Hemoglobin 14.7 g/dl (14.0-18.0); Imm Gran Abs Auto 0.02 X10*3/uL (0.00-0.03); Imm Gran Pct Auto 0.3 % (0.0-0.4); Lymphocytes Absolute Auto 1.8 X10*3/uL (1.2-4.9); Lymphocytes Percent Auto 24.1 % (20-40); Mean Corpuscular HGB Conc 33.8 g/dl (31.0-36.0); Mean Corpuscular Hemoglobin 28.4 pg (27.0-33.0); Mean Corpuscular Volume 84.1 fL (80.0-98.0); Mean Platelet Volume 9.4 fL (9.4-12.4); Monocytes Absolute Auto 0.6 X10*3/uL (0.1-1.2); Monocytes Percent Auto 7.7 % (2-11); Neutrophils Absolute Auto 4.9 x10*3/uL (2.0-8.3); Neutrophils Percent Auto 65.1 % (45-73); Platelet Count 270 X10*3/uL (160-400); Red Blood Count 5.17 X10*6/uL (4.60-5.80); Red Cell Distribution Width 14.2 % (11.0-16.0); White Blood Count 7.5 X10*3/uL (4.8-10.8)
[2024-05-19 16:34] LABS: Estimated Average Glucose 134 mg/dL; Hemoglobin A1c % 6.3 % (<6.0)
[2024-05-19 16:40] LABS: Appearance Urine Clear; Color Urine Yellow; Glucose Urine UA >=1000 mg/dL (Negative); Leukocyte Esterase Urine Negative (Negative); Nitrite Urine Negative (Negative); Specific Gravity - Urine >= 1.030 (1.005-1.025); UMIC TRIGGER UACC YES; Urine Blood Negative (Negative); Urine Ketones Negative (Negative); Urine Protein Negative (Neg-Trace)
[2024-05-19 16:42] LABS: Alanine Aminotransferase 20 U/L (0-40); Albumin Level 4.4 g/dL (3.5-5.0); Alkaline Phosphatase 87 U/L (39-117); Anion Gap 16 (12-20); Aspartate Amino Transferase 14 U/L (5-37); Beta-Hydroxybutyrate 0.22 mmol/L (0.02-0.27); Bilirubin Direct < 0.2 mg/dL (0.0-0.5); Bilirubin Total 0.2 mg/dL (0.0-1.0); Blood Urea Nitrogen 20 mg/dL (9-16); Calcium 9.3 mg/dL (8.4-10.2); Carbon Dioxide 21 mmol/L (22-29); Chloride 103 mmol/L (96-108); Creatinine Clr Calc Pharmacy 137.7; Estimated Glomerular Filt Rate > 60; Glucose Random 167 mg/dL (60-115); Magnesium 2.2 mg/dL (1.6-2.6); Potassium 3.8 mmol/L (3.3-5.1); Sodium 136 mmol/L (135-145)
[2024-05-19 16:43] LABS: Bacteria Urine None Seen (None Seen); Hyaline Casts Urine 0-2 /LPF (0-2); RBC Urine 0-2 /HPF (0-2); Squamous Epithelial Cell Urine 0-2 /HPF (0-2); WBC Urine 0-5 /HPF (0-5)
[2024-05-19 18:20] VITALS: BP 124/75; PULSE 86; RESP 16; TEMP 36.7; O2SAT 94
--- NOTE | 2024-05-19 18:51 | ED.BACK ---
HPI - Back Pain/Injury General Chief Complaint: Back Pain/Injury Stated Complaint: Lower back pain - sent by PCP Time Seen by Provider: 05/19/24 17:34 History of Present Illness HPI Narrative: Patient is a 53-year-old male presents today with having lower back pain. Has a history of spinal fusions in the past. Patient denies any fever chills. There is no focal weakness. There is no bowel urinary incontinence. Patient is from home. The pain is getting worse over last few days. There is no radiation of the pain. Patient thought the urine was a little darker. Has a previous history of kidney stones in the past. History of allergies to Lyrica. History of depression history of PTSD, back pain history of larger in size diabetes Related Data Home Medications ?Medication ?Instructions ?Recorded ?Confirmed dextroamphetamine-amphetamine 30 1 tab PO TID 08/22/20 03/03/24 mg tablet alprazolam 1 mg tablet 2 mg PO BEDTIME 04/08/23 03/03/24 dextroamphetamine-amphetamine 10 1 tab PO DAILY 07/30/23 03/03/24 mg tablet metoclopramide HCl 5 mg tablet 5 mg PO TID 07/30/23 03/03/24 ondansetron HCl 4 mg tablet mg PO DAILY 07/30/23 03/03/24 oxcarbazepine 600 mg tablet 600 mg PO BID 07/30/23 03/03/24 gabapentin 300 mg capsule 300 mg PO TID 11/03/23 03/03/24 Previous Rx's ?Medication ?Instructions ?Recorded blood sugar diagnostic (Accu-Chek #100 ea 11/29/20 Guide test strips) blood-glucose meter (Accu-Chek #1 ea 11/29/20 Guide Glucose Meter) lancets (Accu-Chek Softclix #100 ea 11/29/20 Lancets) Insulin pen needles #100 ea 03/06/23 ajith Glucometer #1 ea 06/03/23 tamsulosin 0.4 mg capsule 0.4 mg PO BEDTIME #90 caps 06/03/23 pen needle, diabetic 32 gauge x #100 ea 06/30/23 (BD Erica 2nd Gen Pen Needle) metoclopramide HCl 10 mg tablet 20 mg (2 x 10 mg) PO TID 30 days 11/03/23 (Reglan) #180 tabs fluticasone propionate 50 1 spray intranasal DAILY #16 grams 12/24/23 mcg/actuation nasal spray,suspension (Flonase Allergy Relief) rosuvastatin 20 mg tablet 20 mg PO BEDTIME #90 tabs 01/01/24 omeprazole 40 mg capsule,delayed 40 mg PO DAILY #90 caps 01/18/24 release albuterol sulfate 90 mcg/actuation 1 inh inhalation QID PRN shortness 02/23/24 aerosol inhaler (Ventolin HFA) of breath or wheezing 30 days #6.7 grams blood-glucose sensor (FreeStyle #4 ea 03/03/24 Ajith 3 Sensor device) dulaglutide 1.5 mg/0.5 mL 1.5 mg (0.5 mL) subcut QWEEK 30 03/03/24 subcutaneous pen injector days #2.5 mL (Trulicity) insulin glargine 100 unit/mL (3 38 unit (0.38 mL) subcut QPM 30 03/16/24 mL) subcutaneous pen (Lantus days #15 mL Solostar U-100 Insulin) linaclotide 145 mcg capsule 145 mcg PO QAM #30 caps 03/22/24 (Linzess) hydroxyzine HCl 25 mg tablet 50 mg (2 x 25 mg) PO BEDTIME #180 04/11/24 tabs amlodipine 5 mg tablet 5 mg PO DAILY 90 days #90 tabs 05/02/24 cetirizine 10 mg tablet 10 mg PO DAILY #90 tabs 05/02/24 hydrochlorothiazide 25 mg tablet 25 mg PO DAILY #90 tabs 05/02/24 lisinopril 40 mg tablet 40 mg PO DAILY #90 tabs 05/02/24 metoprolol succinate 25 mg 25 mg PO BEDTIME #90 tabs 05/02/24 tablet,extended release 24 hr empagliflozin 10 mg tablet 10 mg PO QAM 90 days #90 tabs 05/11/24 (Jardiance) cyclobenzaprine 10 mg tablet 10 mg PO TID PRN pain #14 tabs 05/19/24 ibuprofen 400 mg tablet 400 mg PO Q6H PRN pain #20 tabs 05/19/24 Allergies Allergy/AdvReac Type Severity Reaction Status Date / Time benztropine [From COGENTIN] Allergy Unknown SWEATING Verified 05/19/24 15:11 pregabalin [From LYRICA] Allergy Unknown SWELLING Verified 05/19/24 15:11 sitagliptin [From JANUVIA] Allergy Unknown PER H&P Verified 05/19/24 15:11 Review of Systems Review of Systems: Positive back pain PMFSH Past Medical History Attestation statement: The following information was validated with the patient. 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, managed as type 2 Surgical History History of esophagogastroduodenoscopy (EGD) H/O colonoscopy History of ear surgery History of removal of laparoscopic gastric banding device History of left knee surgery History of lithotripsy History of laparoscopic appendectomy History of knee surgery History of discectomy History of lumbar fusion Family History Family History Father Alcoholism Hyperlipidemia HTN (hypertension) CVD (cardiovascular disease) Mental illness in member of household Mother CAD (coronary artery disease) Breast cancer High cholesterol Diabetes mellitus CVD (cardiovascular disease) Mental illness in member of household Maternal Grandfather No problems noted. Maternal Grandmother No problems noted. Paternal Grandfather No problems noted. Paternal Grandmother No problems noted. Sister No problems noted. Sister No problems noted. Daughter No problems noted. Daughter No problems noted. Other Mental health disorder Social History Social History Housing: Apartment Are you a primary director of patient care to a significant other at home: No Do you presently have visiting nurse or other home services: No Alcohol intake: current Alcohol intake frequency: holidays/special occasions only Patient Tobacco Use Status: Former Tobacco user Smoked in Last 30 Days: No e-Cigarette/Vaping Use: Currently Using Use of substances other than those prescribed or required for medical reasons: No Substance Use Type: Marijuana Advance Directives: No Advance Directives Information Provided: No service: No Current occupational status: disabled Cognitive needs: No Hearing needs: No Vision needs: No Physical Exam Vital Signs: Vital Signs: Last Vital Signs Temp 98.0 F 05/19/24 18:20 Pulse 86 05/19/24 18:20 Resp 16 05/19/24 18:20 BP 124/75 05/19/24 18:20 Pulse Ox 94 05/19/24 18:20 O2 Del Method Room Air 05/19/24 18:20 BMI result Body Mass Index 37.7 Appearance: Alert. Oriented X3. No acute distress. Eyes: Pupils equal, round and reactive to light. ENT: Pharynx normal. Neck: Normal inspection. Neck supple. No lymph nodes noted. No crepitus CVS: Normal heart rate and rhythm. Pulses normal. Normal S1 and S2 Respiratory: No respiratory distress. Breath sounds normal. No Wheezing. No rales Abdomen: Soft and nontender. No rigidity. No distention. good BS x4 Skin: Skin warm and dry. Normal skin color. Normal skin turgor. Extremities: No lower extremity edema. Neurovascular intact to all extremities. No Lacerations. No Rash Neuro: Oriented X 3. No motor deficit. No sensory deficit. Moving all extermities. No slurred speech Medications Administered Discontinued Medications Generic Name Dose Route Start Last Admin Trade Name Murrayq PRN Reason Stop Dose Admin Hydromorphone HCl 1 mg 05/19/24 18:50 05/19/24 19:58 Hydromorphone Hcl 1 Mg/Ml Syringe IVPUSH 05/19/24 18:51 1 mg ONCE ONE Administration Protocol Ketorolac Tromethamine 30 mg 05/19/24 18:50 05/19/24 19:58 Ketorolac Tromethamine 30 Mg/Ml Vial IVPUSH 05/19/24 18:51 30 mg ONCE ONE Administration Ondansetron HCl 4 mg 05/19/24 18:50 05/19/24 19:58 Ondansetron Hcl 4 Mg/2 Ml Vial IVPUSH 05/19/24 18:51 4 mg ONCE ONE Administration Medical Decision Making Medical Decision Making MDM Narrative: Positive back pain. Patient neurologically intact. There is no bowel urinary incontinence. There is no evidence for cauda equina syndrome. Patient ambulated without any difficulty. There is no point tenderness. There is no history of IV drug use given pain medication with good relief of symptoms. Patient's CT scan of the abdomen pelvis showed no ureteral stone. No obstruction or abscess no perforation. Will discharge patient home close follow-up on an outpatient basis. Patient's urine showed no signs of infection. Differential Diagnosis Differential Diagnoses: The differential diagnosis associated with the presentation includes Cauda equina, musculoskeletal back pain, kidney stones, obstruction, abscess, perforation Admission/Observation Consideration of admission/observation: Escalation of care including admission/observation considered Lab Data MDM Lab Attestation statement: I reviewed the patient's lab results. 05/19/24 16:13 05/19/24 16:13 Labs: Lab Results 05/19/24 05/19/24 05/19/24 Range/Units 16:12 16:13 16:30 WBC 7.5 (4.8-10.8) X10*3/uL RBC 5.17 (4.60-5.80) X10*6/uL Hgb 14.7 (14.0-18.0) g/dl Hct 43.5 (42.0-52.0) % MCV 84.1 (80.0-98.0) fL MCH 28.4 (27.0-33.0) pg MCHC 33.8 (31.0-36.0) g/dl RDW 14.2 (11.0-16.0) % Plt Count 270 (160-400) X10*3/uL MPV 9.4 (9.4-12.4) fL Immature Gran % (Auto) 0.3 (0.0-0.4) % Neut % (Auto) 65.1 (45-73) % Lymph % (Auto) 24.1 (20-40) % [place]imes % (Auto) 7.7 (2-11) % Eos % (Auto) 2.0 (0-4) % Baso % (Auto) 0.8 (0-2) % Lymph # (Auto) 1.8 (1.2-4.9) X10*3/uL [place]imes # (Auto) 0.6 (0.1-1.2) X10*3/uL Eos # (Auto) 0.2 (0.0-0.4) X10*3/uL Baso # (Auto) 0.1 (0.0-0.2) X10*3/uL Abs Immat Gran (auto) 0.02 (0.00-0.03) X10*3/uL Absolute Neuts (auto) 4.9 (2.0-8.3) x10*3/uL Absolute Nucleated RBC 0.000 (0.0-0.012) X10*3/uL Nucleated RBC % (auto) 0.0 (0.0-0.2) /100WBC Sodium 136 (135-145) mmol/L Potassium 3.8 (3.3-5.1) mmol/L Chloride 103 (96-108) mmol/L Carbon Dioxide 21 L (22-29) mmol/L Anion Gap 16 (12-20) BUN 20 H (9-16) mg/dL Creatinine 0.76 (0.5-1.4) mg/dL Estim Creat Clear Calc 137.7 Estimated GFR > 60 POC Glucose 171 H (60-115) mg/dL Random Glucose 167 H (60-115) mg/dL Estimat Average Glucose 134 mg/dL Hemoglobin A1c % 6.3 H (<6.0) % Calcium 9.3 (8.4-10.2) mg/dL Magnesium 2.2 (1.6-2.6) mg/dL Total Bilirubin 0.2 (0.0-1.0) mg/dL Direct Bilirubin < 0.2 (0.0-0.5) mg/dL AST 14 (5-37) U/L ALT 20 (0-40) U/L Alkaline Phosphatase 87 (39-117) U/L Total Protein 7.0 (6.5-8.0) g/dL Albumin 4.4 (3.5-5.0) g/dL Beta-Hydroxybutyrate 0.22 (0.02-0.27) mmol/L Urine Color Yellow Urine Appearance Clear Urine pH 6.0 (5.0-9.0) Ur Specific [place] >= 1.030 H (1.005-1.025) Urine Protein Negative (Neg-Trace) mg/dL Urine Glucose (UA) >=1000 H (Negative) mg/dL Urine Ketones Negative (Negative) mg/dL Urine Blood Negative (Negative) Urine Nitrite Negative (Negative) Ur Leukocyte Esterase Negative (Negative) Urine RBC 0-2 (0-2) /HPF Urine WBC 0-5 (0-5) /HPF Ur Squamous Epith Cells 0-2 (0-2) /HPF Urine Bacteria None Seen (None Seen) Hyaline Casts 0-2 (0-2) /LPF Independent Interpretation I performed an independent interpretation of an: CT Scan (No acute finding noted) Radiology Impression Discussion of test interpretation with radiology: I have reviewed the radiologist's reading. Discharge Plan Discharge Clinical Impression: Back pain Patient Disposition: Home, Self-Care Instructions: Back Pain (ED) Prescriptions: New cyclobenzaprine 10 mg tablet 10 mg PO TID PRN (Reason: pain) Qty: 14 0RF ibuprofen 400 mg tablet 400 mg PO Q6H PRN (Reason: pain) Qty: 20 0RF No Action (DME) Insulin pen needles Smallest See Rx Instructions .Route .MEDSUPPLY Qty: 100 0RF Rx Instructions: Once a day (DME) pen needle, diabetic [BD Erica 2nd Gen Pen Needle] 32 gauge x 5/32 needle See Rx Instructions .ROUTE .MEDSUPPLY Qty: 100 6RF Rx Instructions: T.i.d. fluticasone propionate [Flonase Allergy Relief] 50 mcg/actuation spray,suspension 1 spray intranasal DAILY Qty: 16 2RF Rx Instructions: administer into each nostril rosuvastatin 20 mg tablet 20 mg PO BEDTIME Qty: 90 1RF omeprazole 40 mg capsule,delayed release(DR/EC) 40 mg PO DAILY Qty: 90 2RF albuterol sulfate [Ventolin HFA] 90 mcg/actuation HFA aerosol inhaler 1 inh inhalation QID PRN (Reason: shortness of breath or wheezing) 30 Days Qty: 6.7 2RF insulin glargine [Lantus Solostar U-100 Insulin] 100 unit/mL (3 mL) insulin pen 38 unit subcut QPM 30 Days Qty: 15 2RF Linzess 145 mcg capsule 145 mcg PO QAM Qty: 30 3RF hydroxyzine HCl 25 mg tablet 50 mg PO BEDTIME Qty: 180 1RF hydrochlorothiazide 25 mg tablet 25 mg PO DAILY Qty: 90 0RF lisinopril 40 mg tablet 40 mg PO DAILY Qty: 90 0RF metoprolol succinate 25 mg tablet extended release 24 hr 25 mg PO BEDTIME Qty: 90 1RF cetirizine 10 mg tablet 10 mg PO DAILY Qty: 90 0RF amlodipine 5 mg tablet 5 mg PO DAILY 90 Days Qty: 90 0RF Jardiance 10 mg tablet 10 mg PO QAM 90 Days Qty: 90 1RF oxcarbazepine 600 mg tablet 600 mg PO BID dextroamphetamine-amphetamine 30 mg tablet 1 tab PO TID alprazolam 1 mg tablet 2 mg PO BEDTIME (DME) lancets [Accu-Chek Softclix Lancets] Misc See Rx Instructions .ROUTE .MEDSUPPLY Qty: 100 0RF Rx Instructions: to be checked once daily (DME) blood-glucose meter [Accu-Chek Guide Glucose Meter] Misc See Rx Instructions .ROUTE .MEDSUPPLY Qty: 1 0RF Rx Instructions: to be checked once daily (DME) Accu-Chek Guide test strips Strip See Rx Instructions .ROUTE .MEDSUPPLY Qty: 100 0RF Rx Instructions: to be checked once daily tamsulosin 0.4 mg capsule 0.4 mg PO BEDTIME Qty: 90 0RF (DME) ajith Glucometer See Rx Instructions .Route .MEDSUPPLY Qty: 1 0RF Rx Instructions: As directed (DME) FreeStyle Ajith 3 Sensor Device See Rx Instructions .Route Qty: 4 2RF Rx Instructions: As directed to test blood sugar 4 times a day Trulicity 1.5 mg/0.5 mL pen injector 1.5 mg subcut QWEEK 30 Days Qty: 2.5 4RF Patient Comments: thursday dextroamphetamine-amphetamine 10 mg tablet 1 tab PO DAILY metoclopramide HCl 5 mg tablet 5 mg PO TID ondansetron HCl 4 mg tablet PO DAILY gabapentin 300 mg capsule 300 mg PO TID metoclopramide HCl [Reglan] 10 mg tablet 20 mg PO TID 30 Days Qty: 180 6RF Rx Instructions: provider aware of possible interactions and is monitoring/ Print Language: Faroese
[2024-05-19] MEDS: HYDROmorphone HCl 1 MG/ML SYRINGE IVPUSH (19:58)
[2024-05-19] MEDS: ondansetron HCL 4 MG/2 ML VIAL IVPUSH (19:58)
[2024-05-19] MEDS: Ketorolac Tromethamine 30 MG/ML VIAL IVPUSH (19:58)
[2024-05-19 21:48] VITALS: BP 107/71; PULSE 80; RESP 16; TEMP 36.8; O2SAT 96
[2024-05-19 22:03] VITALS: BP 107/71; PULSE 80; RESP 16; TEMP 36.8; O2SAT 96
== END 2024-05-19 22:04 | disposition home or self-care (01) ==
PROVIDERS: Physician Assistant; Emergency Provider Emergency Medicine Emergency Medical Services; PCP Internal Medicine
DX: M54.9 Dorsalgia, unspecified (principal); E13.9 Other specified diabetes mellitus without complications; I10 Essential (primary) hypertension; R10.9 Unspecified abdominal pain; K44.9 Diaphragmatic hernia without obstruction or gangrene; Z79.4 Long term (current) use of insulin; Z79.899 Other long term (current) drug therapy
CPT/HCPCS: 36415; 74176; 80048; 80076; 81001; 82010; 82947; 83036; 83735; 85025; 96374; 96375; 99284; J1170; J1885; J2405

== ENCOUNTER 2024-06-14 15:11 | Outpatient (AMB) | payer OTHER, SELFPAY ==
[2024-06-14 15:17] VITALS: BP 132/78; PULSE 92; O2SAT 93; BMI 38.1
--- NOTE | 2024-06-14 15:17 | MHC.PC.OV ---
Vital Signs 06/14/24 15:17 Height 5 ft 9 in Weight 258 lb 2 oz BMI 38.1 BP 132/78 Blood Pressure Location Rt brachial Position Sitting Pulse 92 Pulse Source Pulse Oximeter Pulse Oximetry (%) 93 Oxygen Delivery Method Room Air Intake Visit Reasons: Check up update Allergies benztropine [From COGENTIN] Allergy (Unknown, Verified 06/14/24 15:18) SWEATING pregabalin [From LYRICA] Allergy (Unknown, Verified 06/14/24 15:18) SWELLING sitagliptin [From JANUVIA] Allergy (Unknown, Verified 06/14/24 15:18) PER H&P Medication List - Last Reconciled 06/14/24 by Lizabeth Adame MD albuterol sulfate 90 mcg/actuation (Ventolin HFA) 1 inh inhalation QID PRN 30 days alprazolam 2 mg PO BEDTIME amlodipine 5 mg PO DAILY 90 days blood sugar diagnostic (Accu-Chek Guide test strips) to be checked once daily blood-glucose meter (Accu-Chek Guide Glucose Meter) to be checked once daily blood-glucose sensor (Newscronyle Ajith 3 Sensor device) As directed to test blood sugar 4 times a day cetirizine 10 mg PO DAILY desvenlafaxine succinate ER 25 mg PO DAILY dextroamphetamine-amphetamine 10 mg 1 tab PO DAILY dextroamphetamine-amphetamine 30 mg 1 tab PO TID dulaglutide (Trulicity) 1.5 mg (0.5 mL) subcut QWEEK 30 days empagliflozin (Jardiance) 10 mg PO QAM 90 days fluticasone propionate 50 mcg/actuation (Flonase Allergy Relief) 1 spray intranasal DAILY gabapentin 300 mg PO TID hydrochlorothiazide 25 mg PO DAILY hydroxyzine HCl 50 mg (2 x 25 mg) PO BEDTIME insulin glargine (Lantus Solostar U-100 Insulin) 38 units (0.38 mL) subcut QPM 30 days [Insulin pen needles Once a day] lancets (Accu-Chek Softclix Lancets) to be checked once daily [ajith Glucometer As directed NS] linaclotide (Linzess) 145 mcg PO QAM lisinopril 40 mg PO DAILY metoclopramide HCl 20 mg (2 x 10 mg) PO TID metoprolol succinate ER 25 mg PO BEDTIME omeprazole 40 mg PO DAILY ondansetron HCl mg PO DAILY oxcarbazepine 600 mg PO BID paliperidone ER 6 mg PO DAILY pen needle, diabetic (BD Erica 2nd Gen Pen Needle) T.i.d. rosuvastatin 20 mg PO BEDTIME tamsulosin 0.4 mg PO BEDTIME Tobacco use date assessed: 06/14/24 Dental Screening Dental Screen Date: 06/14/24 Did you have a dental visit in the last 12 months?: Yes Did you have a dental problem in the last 6 months where you did not have access to dental care?: No Was dental information given to patient?: Patient has dentist HPI Check up update HPI Details 53-year-old gentleman came in today for his follow-up and for emergency room visit dated 19 of May when he presented with chief complaint of lower back pain Patient have a history of spinal fusion in the past Patient verbalize that his pain is getting worse over past few days, there is no bowel or urine incontinence There was no radiation of pain He has a history of PTSD Labs showed normal hemoglobin and hematocrit He had a CT scan of back done which showed no acute findings Patient was discharged home on cyclobenzaprine 10 mg t.i.d. p.r.n. 14 tablets And ibuprofen 400 mg q.6 p.r.n. 20 tablets His back pain is better Patient says that he was playing board games before it happened and most likely it was a back spasm CT scan done in the emergency room also shown tiny nonobstructive bilateral renal calculi And small hiatal hernia, distal esophageal wall thickening. Patient is established with Gastroenterology [facility] He is also due to have colonoscopy in July He has developed small lumps lower part of his both legs which are painful On examination they feel like lipomas, patient want biopsy, I have placed a referral to surgery for that. He will return in October for follow-up appointment His hemoglobin A1c is well-controlled at 6.3% He is taking all his medications and tolerating them. 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, managed as type 2 Surgical History History of esophagogastroduodenoscopy (EGD) H/O colonoscopy History of ear surgery History of removal of laparoscopic gastric banding device History of left knee surgery History of lithotripsy History of laparoscopic appendectomy History of knee surgery History of discectomy History of lumbar fusion Family History Father Alcoholism Hyperlipidemia HTN (hypertension) CVD (cardiovascular disease) Mental illness in member of household Mother CAD (coronary artery disease) Breast cancer High cholesterol Diabetes mellitus CVD (cardiovascular disease) Mental illness in member of household Maternal Grandfather No problems noted. Maternal Grandmother No problems noted. Paternal Grandfather No problems noted. Paternal Grandmother No problems noted. Sister No problems noted. Sister No problems noted. Daughter No problems noted. Daughter No problems noted. Other Mental health disorder Social History Housing: Apartment Are you a primary healthcare management to a significant other at home: No Do you presently have visiting nurse or other home services: No Alcohol intake: current Alcohol intake frequency: holidays/special occasions only Patient Tobacco Use Status: Former Tobacco user e-Cigarette/Vaping Use: Currently Using Substance Use Type: Marijuana service: No Current occupational status: disabled Cognitive needs: No Hearing needs: No Vision needs: No Questionnaire PHQ-9 Over the last 2 weeks, how often have you been bothered by any of the following problems? 1. Little interest or pleasure in doing things: several days 2. Feeling down, depressed, or hopeless: several days 3. Trouble falling or staying asleep, or sleeping too much: several days 4. Feeling tired or having little energy: several days 5. Poor appetite or overeating: more than half the days 6. Feeling bad about yourself - or that you are a failure or have let yourself or your family down: several days 7. Trouble concentrating on things, such as reading the newspaper or watching television: several days 8. Moving or speaking so slowly that other people could have noticed. Or the opposite - being so fidgety or restless that you have been moving around a lot more than usual: several days 9. Thoughts that you would be better off or of hurting yourself in some way: several days Total score: 10 Depression Screening Interpretation: Positive Depression Screening Follow-up: Existing condition and In treatment Depression Screening Done: Yes 89043 - PHQ-9 Billing: Yes Source: Developed by Drs. Jan Del Rio, Gail Hayward, Son Hanks and colleagues, with an educational jeannie from [employer]. Thrive Questionnaire Date Thrive assessed: 06/14/24 I am a: Patient What is your living situation today?: I choose not to answer this question Within the past 12 months, did the food you bought not last and you didn't have the money to get more?: I choose not to answer this question Within the past 12 months, did you worry whether your food would run out before you got money to buy more?: I choose not to answer this question Do you have trouble paying for medicines?: I choose not to answer this question Do you have trouble getting transportation to medical appointments?: I choose not to answer this question Do you have trouble paying your heating and electricity bill?: I choose not to answer this question Do you have trouble taking care of your child, family member or friend?: I choose not to answer this question Do you have trouble with day-to-day activities such as bathing, preparing meals, shopping, managing finances, etc.?: I choose not to answer this question Are you currently unemployed and looking for a job?: I choose not to answer this question Are you interested in more education?: I choose not to answer this question Please select the resources that you would like help with: None Currently or been in a relationship where the following occur: No concerns reported THRIVE Score: 0 AUDIT C Alcohol Use Questionnaire (AUDIT-C) 1. How often do you have a drink containing alcohol?: Monthly or less 2. How many drinks containing alcohol do you have on a typical day when you are drinking?: 1 or 2 3. How often do you have six or more drinks on one occasion?: Less than monthly Total Score: 2 Score Reviewed/Action Taken: Yes RISHI-7 AMB Questionnaire RISHI-7 Date RISHI - 7 assessed: 06/14/24 Feeling nervous, anxious, or on edge: 1 = Several days Not being able to stop or control worryin = Several days Worrying too much about different things: 1 = Several days Trouble relaxin = Several days Being so restless that it is hard to sit still: 1 = Several days Becoming easily annoyed or irritable: 1 = Several days Feeling afraid as if something awful might happen: 1 = Several days Total RISHI-7 score (0-4 normal; 5-9 mild; 10-14 moderate; 15-21 severe): 7 Source: Developed by Drs. Jan Del Rio, Gail Hayward, Son Hanks and colleagues, with an educational jeannie from [employer]. RISHI-7 Assessment Billing RISHI-7 Assessment Tool: RISHI-7 Assessment 30132 Review of Systems Const Denies chills and Denies fever(s) ENT Denies epistaxis and Denies nasal discharge Card Denies chest pain Resp Denies chest congestion, Denies cough and Denies hemoptysis GI Denies diarrhea and Denies nausea Skin/Breast Denies rash Neuro Reports no additional complaints Psych Reports no additional complaints Endo Reports no additional complaints Physical exam (Primary Care) Vital Signs: Last Vital Signs Pulse 92 06/14/24 15:17 BP 132/78 06/14/24 15:17 Pulse Ox 93 06/14/24 15:17 Oxygen Delivery Method Room Air 06/14/24 15:17 BMI result Body Mass Index 38.1 Tobacco/Smoking Status: Tobacco use Status Tobacco use date assessed 06/14/24 06/14/24 15:26 Patient Tobacco Use Status Former Tobacco user 06/14/24 15:26 e-Cigarette/Vaping Use Currently Using 06/14/24 15:26 Depression Screening Interpretation: Positive Depression Screening Follow-up: Existing condition and In treatment Thrive Assessment: Date of Thrive Assessment Date Thrive assessed 06/14/24 06/14/24 15:26 Currently or been in a relationship where the following occur: No concerns reported Const General: cooperative, comfortable and no acute distress Orientation/consciousness: patient oriented x3 HENMT Head: Yes normocephalic Eyes General: appearance normal, both eyes and all related structures Neck Neck: Yes supple Resp Effort & Inspection: normal respiratory effort, no cough and no stridor Cardio Rhythm: regular rhythm Heart sounds: S1 normal heart sound present and S2 normal heart sound present Skin General skin exam: turgor normal Neuro General: patient oriented x3, tone normal and moves all extremities Extrem Other: Round firm fatty lumps both lower extremities in the back Right lower extremity: no edema Left lower extremity: no edema Assessment and Plan Assessment & Plan (1) Multiple lipomas: Code(s): D17.9 - Benign lipomatous neoplasm, unspecified (2) Diabetes 1.5, managed as type 2: Code(s): E13.9 - Other specified diabetes mellitus without complications (3) Morbid obesity due to excess calories: Code(s): E66.01 - Morbid (severe) obesity due to excess calories (4) Chronic GERD: Code(s): K21.9 - Gastro-esophageal reflux disease without esophagitis (5) Lipid disorder: Code(s): E78.9 - Disorder of lipoprotein metabolism, unspecified (6) Hypertension, essential: Code(s): I10 - Essential (primary) hypertension (7) PTSD (post-traumatic stress disorder): Code(s): F43.10 - Post-traumatic stress disorder, unspecified (8) Depression, major, recurrent: Code(s): F33.9 - Major depressive disorder, recurrent, unspecified Qualifiers: Active/Remission status: in partial remission Qualified Code(s): F33.41 - Major depressive disorder, recurrent, in partial remission (9) Hiatal hernia: Code(s): K44.9 - Diaphragmatic hernia without obstruction or gangrene Plan 53-year-old gentleman with a history of diabetes, hypertension, obesity, chronic lower back pain, hiatal hernia, constipation, anxiety, depression, allergies Diabetic neuropathy , chronic GERD came in today for his follow-up and for emergency room visit dated 19 of May when he presented with chief complaint of lower back pain Patient have a history of spinal fusion in the past Patient verbalize that his pain is getting worse over past few days, there is no bowel or urine incontinence There was no radiation of pain He has a history of PTSD Labs showed normal hemoglobin and hematocrit He had a CT scan of back done which showed no acute findings Patient was discharged home on cyclobenzaprine 10 mg t.i.d. p.r.n. 14 tablets And ibuprofen 400 mg q.6 p.r.n. 20 tablets His back pain is better Patient says that he was playing board games before it happened and most likely it was a back spasm CT scan done in the emergency room also shown tiny nonobstructive bilateral renal calculi And small hiatal hernia, distal esophageal wall thickening. Patient is established with Gastroenter[facility] He is also due to have colonoscopy in July He has developed small lumps lower part of his both legs which are painful On examination they feel like lipomas, patient want biopsy, I have placed a referral to surgery for that. He will return in October for follow-up appointment His hemoglobin A1c is well-controlled at 6.3% He is taking all his medications and tolerating them. 45 minute spent in care of this patient Orders: Referrals General Surgery Referral D17.9 - Benign lipomatous neoplasm, unspecified Coding Level of Care Code Est Pt Level 5 (12287) Diagnoses Multiple lipomas D17.9 Diabetes 1.5, managed as type 2 E13.9 Morbid obesity due to excess calories E66.01 Chronic GERD K21.9 Lipid disorder E78.9 Hypertension, essential I10 PTSD (post-traumatic stress disorder) F43.10 Recurrent major depressive disorder, in partial remission F33.41 Active/Remission status: in partial remission Hiatal hernia K44.9 Additional Codes RISHI-7 Assessment Billing - RISHI-7 Assessment Tool: RISHI-7 Assessment 68484 ([id number])
== END 2024-06-14 16:15 | disposition home or self-care (01) ==
PROVIDERS: PCP Internal Medicine; Visit Provider Internal Medicine
DX: E13.9 Other specified diabetes mellitus without complications (principal); E66.01 Morbid (severe) obesity due to excess calories; F33.41 Major depressive disorder, recurrent, in partial remission; Z68.38 Body mass index [BMI] 38.0-38.9, adult; D17.9 Benign lipomatous neoplasm, unspecified; K21.9 Gastro-esophageal reflux disease without esophagitis; E78.9 Disorder of lipoprotein metabolism, unspecified; I10 Essential (primary) hypertension; F43.10 Post-traumatic stress disorder, unspecified; K44.9 Diaphragmatic hernia without obstruction or gangrene
CPT/HCPCS: 99215

== ENCOUNTER 2024-06-24 15:41 | Outpatient (REF) | payer OTHER, SELFPAY ==
[2024-06-24 17:43] LABS: Anion Gap 15 (12-20); Blood Urea Nitrogen 27 mg/dL (9-16); Carbon Dioxide 25 mmol/L (22-29); Chloride 98 mmol/L (96-108); Estimated Glomerular Filt Rate > 60; Glucose Random 138 mg/dL (60-115); Potassium 4.4 mmol/L (3.3-5.1); Sodium 134 mmol/L (135-145)
== END 2024-06-24 15:42 | disposition home or self-care (01) ==
LOC: HO.CHCLDS 15:41
PROVIDERS: Visit Provider Psychiatry & Neurology Psychiatry
DX: F33.2 Major depressive disorder, recurrent severe without psychotic features (principal); E87.1 Hypo-osmolality and hyponatremia
CPT/HCPCS: 36415; 80051; 82565; 82947; 84520

== ENCOUNTER 2024-06-28 10:24 | Outpatient (AMB) | payer OTHER, SELFPAY ==
--- NOTE | 2024-06-28 10:29 | MHC.OFFVIS ---
Vital Signs 06/28/24 10:36 Height 5 ft 9 in Weight 255 lb BMI 37.7 BP 136/78 Blood Pressure Location Rt brachial Position Sitting Pulse 94 Intake Visit Reasons: Painful lipomas~ lower legs Intake Note: Patient referred by pcp Dr. Adame for painful lipomas on lower legs. Present for 1yr Patient c/o: pain, tenderness to touch. No personal hx of skin ca. Community Association Manager Required: No Accompanied by: spouse Aishwarya Allergies benztropine [From COGENTIN] Allergy (Unknown, Verified 06/28/24 10:37) SWEATING pregabalin [From LYRICA] Allergy (Unknown, Verified 06/28/24 10:37) SWELLING sitagliptin [From JANUVIA] Allergy (Unknown, Verified 06/28/24 10:37) PER H&P HPI Comments Details: Patient presents with a significant other/ for evaluation of bilateral lower extremity lipomas. He has had these indeterminate time. They are not symptomatic per se but he was just concerned and would like to have them evaluated. An attempted biopsy of 1 of these by route rider was aborted because this was in the subcutaneous tissue. Patient has no other significant other issues or complaints. Chart was reviewed and patient evaluated [facility] 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, managed as type 2 Surgical History History of esophagogastroduodenoscopy (EGD) H/O colonoscopy History of ear surgery History of removal of laparoscopic gastric banding device History of left knee surgery History of lithotripsy History of laparoscopic appendectomy History of knee surgery History of discectomy History of lumbar fusion Family History Father Alcoholism Hyperlipidemia HTN (hypertension) CVD (cardiovascular disease) Mental illness in member of household Mother CAD (coronary artery disease) Breast cancer High cholesterol Diabetes mellitus CVD (cardiovascular disease) Mental illness in member of household Maternal Grandfather No problems noted. Maternal Grandmother No problems noted. Paternal Grandfather No problems noted. Paternal Grandmother No problems noted. Sister No problems noted. Sister No problems noted. Daughter No problems noted. Daughter No problems noted. Other Mental health disorder Social History Housing: Apartment Are you a primary animal care attendant to a significant other at home: No Do you presently have visiting nurse or other home services: No Alcohol intake: current Alcohol intake frequency: holidays/special occasions only Patient Tobacco Use Status: Former Tobacco user e-Cigarette/Vaping Use: Currently Using Substance Use Type: Marijuana service: No Current occupational status: disabled Cognitive needs: No Hearing needs: No Vision needs: No Physical Exam Vital Signs: Last Vital Signs Pulse 94 06/28/24 10:36 BP 136/78 06/28/24 10:36 BMI result Body Mass Index 37.7 Extrem Other: Bilateral lower extremity small lipomas measuring approximately 1 by 2 cm involving the right anterior leg and posterior leg times 2 each and 2 involving the left lower leg. Assessment & Plan Assessment & Plan (1) Multiple lipomas: Code(s): D17.9 - Benign lipomatous neoplasm, unspecified Category: Surgical Plan Patient was reassured that these are benign lipomas. I discussed therapeutic options which arranged from observation to excision. He would like to be treated conservatively for now. Should these increased in size, become more symptomatic he has been instructed to contact the office. He will otherwise follow-up p.r.n.. All questions answered. Medications: On Hold dulaglutide (Trulicity) Hold Comment: Patient want to try Ozempic 1.5 mg (0.5 mL) subcut QWEEK 30 days 2.5 mL 4RF Coding Level of Care Code New Pt Level 4 (86491) Diagnoses Multiple lipomas D17.9
[2024-06-28 10:36] VITALS: BP 136/78; PULSE 94; BMI 37.7
== END 2024-06-28 10:40 | disposition home or self-care (01) ==
PROVIDERS: PCP Internal Medicine; Referring Provider Internal Medicine; Visit Provider Surgery
DX: D17.23 Benign lipomatous neoplasm of skin and subcutaneous tissue of right leg (principal); D17.24 Benign lipomatous neoplasm of skin and subcutaneous tissue of left leg
CPT/HCPCS: 99203

== ENCOUNTER → 2024-06-28 10:24 | Outpatient (BNVA) | payer OTHER, SELFPAY | PROVIDERS: PCP Internal Medicine; Referring Provider Internal Medicine; Visit Provider Surgery | DX: D17.9 Benign lipomatous neoplasm, unspecified (principal) | CPT/HCPCS: 99202 ==

== ENCOUNTER 2024-08-02 12:56 | Outpatient (REF) | payer OTHER, SELFPAY ==
[2024-08-02 16:58] LABS: Anion Gap 15 (12-20); Blood Urea Nitrogen 14 mg/dL (9-16); Calcium 9.7 mg/dL (8.4-10.2); Carbon Dioxide 23 mmol/L (22-29); Chloride 101 mmol/L (96-108); Estimated Glomerular Filt Rate > 60; Glucose Random 136 mg/dL (60-115); Potassium 3.9 mmol/L (3.3-5.1); Sodium 135 mmol/L (135-145)
== END 2024-08-02 12:57 | disposition home or self-care (01) ==
LOC: HO.HMGCLDS 12:56
PROVIDERS: PCP Internal Medicine; Visit Provider Psychiatry & Neurology Psychiatry
DX: R41.0 Disorientation, unspecified (principal); E87.1 Hypo-osmolality and hyponatremia; F11.20 Opioid dependence, uncomplicated; F12.20 Cannabis dependence, uncomplicated; F41.9 Anxiety disorder, unspecified; F90.9 Attention-deficit hyperactivity disorder, unspecified type; I10 Essential (primary) hypertension; E11.9 Type 2 diabetes mellitus without complications; E66.9 Obesity, unspecified; Z09 Encounter for follow-up examination after completed treatment for conditions other than malignant neoplasm; Z79.4 Long term (current) use of insulin; Z79.899 Other long term (current) drug therapy
CPT/HCPCS: 36415; 80048; 99212

== ENCOUNTER 2024-08-02 13:14 | Outpatient (AMB) | payer OTHER, SELFPAY ==
[2024-08-02 13:20] VITALS: BP 130/80; PULSE 94; O2SAT 93; BMI 36.4
--- NOTE | 2024-08-02 13:20 | A.OFFPC_ITS ---
Vital Signs 3 08/02/24 13:20 Height 5 ft 9 in Weight 246 lb 4 oz BMI 36.4 BP 130/80 Blood Pressure Location Rt brachial Position Sitting Pulse 94 Pulse Source Pulse Oximeter Pulse Oximetry (%) 93 Oxygen Delivery Method Room Air Intake Visit Reasons: ED F/U Allergies benztropine [From COGENTIN] Allergy (Unknown, Verified 06/28/24 10:37) SWEATING pregabalin [From LYRICA] Allergy (Unknown, Verified 06/28/24 10:37) SWELLING sitagliptin [From JANUVIA] Allergy (Unknown, Verified 06/28/24 10:37) PER H&P Medication List - Last Reconciled 08/02/24 by Lizabeth Adame MD albuterol sulfate 90 mcg/actuation (Ventolin HFA) 1 inh inhalation QID PRN 30 days alprazolam 2 mg PO BEDTIME amlodipine 5 mg PO DAILY 90 days blood sugar diagnostic (Accu-Chek Guide test strips) to be checked once daily blood-glucose meter (Accu-Chek Guide Glucose Meter) to be checked once daily blood-glucose sensor ([employer] Ajith 3 Sensor device) As directed to test blood sugar 4 times a day cetirizine 10 mg PO DAILY desvenlafaxine succinate ER 25 mg PO DAILY dextroamphetamine-amphetamine 10 mg 1 tab PO DAILY dextroamphetamine-amphetamine 30 mg 1 tab PO TID dulaglutide (Trulicity) 1.5 mg (0.5 mL) subcut QWEEK 30 days empagliflozin (Jardiance) 10 mg PO QAM 90 days fluticasone propionate 50 mcg/actuation (Flonase Allergy Relief) 1 spray intranasal DAILY gabapentin 300 mg PO TID hydrochlorothiazide 25 mg PO DAILY hydroxyzine HCl 50 mg (2 x 25 mg) PO BEDTIME insulin glargine (Lantus Solostar U-100 Insulin) 38 units (0.38 mL) subcut QPM 30 days [Insulin pen needles Once a day] lancets (Accu-Chek Softclix Lancets) to be checked once daily [ajith Glucometer As directed NS] linaclotide (Linzess) 145 mcg PO QAM lisinopril 40 mg PO DAILY metoclopramide HCl 20 mg (2 x 10 mg) PO TID metoprolol succinate ER 25 mg PO BEDTIME omeprazole 40 mg PO DAILY ondansetron HCl mg PO DAILY oxcarbazepine 600 mg PO BID paliperidone ER 6 mg PO DAILY pen needle, diabetic (BD Erica 2nd Gen Pen Needle) T.i.d. rosuvastatin 20 mg PO BEDTIME semaglutide (Ozempic) 1 mg (0.75 mL) subcut QWEEK tamsulosin 0.4 mg PO BEDTIME Tobacco use date assessed: 06/14/24 Dental Screening Dental Screen Date: 06/14/24 HPI ED F/U 2 HPI0 Details Patient is a 53-year-old gentlemen who was evaluated at [facility] on 07/24/2024 when he was brought in with the help of EMS with a chief complaint of change in mental status Patient have a history of hypertension, insulin-dependent diabetes, obesity, mood disorder, anxiety, ADHD, constipation Patient had a right shoulder replacement a week ago, and was on morphine 15 mg every 6 hour Is neurological examination revealed no focal neurological deficit His urine was positive for cannabinoid It was positive for amphetamine It was positive for opioid Urine analysis did not show any infection, he has mild anemia hemoglobin of 12.4, and hyponatremia with sodium of 128, as well as hypokalemia Kidney functions within normal limits, liver functions within normal limit ESR and CRP were elevated No evidence of DKA CT scan of head and neck showed no evidence of stroke MRI of brain was done which was negative for any acute stroke EEG was initially ordered but canceled as neurology felt this was not seizure activity Patient's confusion improved with IV hydration and sodium repletion He was discharged home His sodium was corrected and he was placed on observation unit He is back to his baseline He tells me that he is drinking 3 jugs of 64 oz of water every day Because he feels so We talked about limiting the fluid intake, explained to patient how to much fluid can lower the sodium And then that can cause confusion We also talked about morphine that he is taking currently patient is on 60 mg of morphine in 24 hours That needs to be tapered off as well through orthopedic. It seems as if he is a mouth breather, he needs to start using Flonase nasal spray regularly so that his nasal congestion can be corrected And he starts breathing from his nose He has seen Dr. Hillman his psychiatrist, some of his medications were also adjusted He had labs through Dr. Hillman office today, electrolytes were checked. That is why I did not order more labs. Patient and his was given enough time to ask questions All information were repeated so patient can understand. 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, managed as type 2 Surgical History History of esophagogastroduodenoscopy (EGD) H/O colonoscopy History of ear surgery History of removal of laparoscopic gastric banding device History of left knee surgery History of lithotripsy History of laparoscopic appendectomy History of knee surgery History of discectomy History of lumbar fusion Family History Father Alcoholism Hyperlipidemia HTN (hypertension) CVD (cardiovascular disease) Mental illness in member of household Mother CAD (coronary artery disease) Breast cancer High cholesterol Diabetes mellitus CVD (cardiovascular disease) Mental illness in member of household Maternal Grandfather No problems noted. Maternal Grandmother No problems noted. Paternal Grandfather No problems noted. Paternal Grandmother No problems noted. Sister No problems noted. Sister No problems noted. Daughter No problems noted. Daughter No problems noted. Other Mental health disorder Social History Housing: Apartment Are you a primary child care supervisor to a significant other at home: No Do you presently have visiting nurse or other home services: No Alcohol intake: current Alcohol intake frequency: holidays/special occasions only Patient Tobacco Use Status: Former Tobacco user e-Cigarette/Vaping Use: Currently Using Substance Use Type: Marijuana service: No Current occupational status: disabled Cognitive needs: No Hearing needs: No Vision needs: No Questionnaire Thrive Questionnaire Date Thrive assessed: 06/14/24 I am a: Patient What is your living situation today?: I choose not to answer this question Within the past 12 months, did the food you bought not last and you didn't have the money to get more?: I choose not to answer this question Within the past 12 months, did you worry whether your food would run out before you got money to buy more?: I choose not to answer this question Do you have trouble paying for medicines?: I choose not to answer this question Do you have trouble getting transportation to medical appointments?: I choose not to answer this question Do you have trouble paying your heating and electricity bill?: I choose not to answer this question Do you have trouble taking care of your child, family member or friend?: I choose not to answer this question Do you have trouble with day-to-day activities such as bathing, preparing meals, shopping, managing finances, etc.?: I choose not to answer this question Are you currently unemployed and looking for a job?: I choose not to answer this question Are you interested in more education?: I choose not to answer this question Please select the resources that you would like help with: None Currently or been in a relationship where the following occur: No concerns reported THRIVE Score: 0 RISHI-7 AMB Questionnaire RISHI-7 Date RISHI - 7 assessed: 06/14/24 Source: Developed by Drs. Jan Del Rio, Gail Hayward, Son Hanks and colleagues, with an educational jeannie from [employer]. Review of Systems Const Denies chills and Denies fever(s) ENT Denies epistaxis Card Denies chest pain Resp Denies chest congestion, Denies cough and Denies hemoptysis GI Denies diarrhea and Denies nausea Skin/Breast Denies rash Neuro Reports no additional complaints Psych Reports no additional complaints Endo Reports no additional complaints Physical exam (Primary Care) Vital Signs: Last Vital Signs Pulse 94 08/02/24 13:20 BP 130/80 08/02/24 13:20 Pulse Ox 93 08/02/24 13:20 Oxygen Delivery Method Room Air 08/02/24 13:20 BMI result Body Mass Index 36.4 Tobacco/Smoking Status: Tobacco use Status Tobacco use date assessed 06/14/24 08/02/24 13:28 Patient Tobacco Use Status Former Tobacco user 08/02/24 13:28 e-Cigarette/Vaping Use Currently Using 08/02/24 13:28 Thrive Assessment: Date of Thrive Assessment Date Thrive assessed 06/14/24 08/02/24 13:28 Currently or been in a relationship where the following occur: No concerns reported Const General: cooperative, comfortable and no acute distress Orientation/consciousness: patient oriented x3 HENMT Head: Yes normocephalic Eyes General: appearance normal, both eyes and all related structures Neck Neck: Yes supple Resp Effort & Inspection: normal respiratory effort, no cough and no stridor Cardio Rhythm: regular rhythm Heart sounds: S1 normal heart sound present and S2 normal heart sound present Skin General skin exam: turgor normal Neuro General: patient oriented x3, tone normal and moves all extremities Extrem Shoulder/upper arm images: 2 1. Right shoulder surgical wound healing well Right lower extremity: no edema Left lower extremity: no edema Coding Level of Care Code Est Pt Level 5 (26334) Diagnoses Hospital discharge follow-up Z09 Disorientation R41.0 Altered mental status type: disorientation Hyponatremia E87.1 Uncomplicated opioid dependence F11.20 Substance use status: uncomplicated Marijuana dependence F12.20 Assessment & Plan Assessment & Plan (1) Hospital discharge follow-up: Code(s): Z09 - Encounter for follow-up examination after completed treatment for conditions other than malignant neoplasm Category: Medical (2) Change in mental status: Code(s): R41.82 - Altered mental status, unspecified Category: Medical Qualifiers: Altered mental status type: disorientation Qualified Code(s): R41.0 - Disorientation, unspecified (3) Hyponatremia: Code(s): E87.1 - Hypo-osmolality and hyponatremia Category: Medical (4) Opioid dependence: Code(s): F11.20 - Opioid dependence, uncomplicated Category: Medical Qualifiers: Substance use status: uncomplicated Qualified Code(s): F11.20 - Opioid dependence, uncomplicated (5) Marijuana dependence: Code(s): F12.20 - Cannabis dependence, uncomplicated Category: Medical Plan Patient is a 53-year-old gentlemen who was evaluated at [facility] on 07/24/2024 when he was brought in with the help of EMS with a chief complaint of change in mental status Patient have a history of hypertension, insulin-dependent diabetes, obesity, mood disorder, anxiety, ADHD, constipation Patient had a right shoulder replacement a week ago, and was on morphine 15 mg every 6 hour Is neurological examination revealed no focal neurological deficit His urine was positive for cannabinoid It was positive for amphetamine It was positive for opioid Urine analysis did not show any infection, he has mild anemia hemoglobin of 12.4, and hyponatremia with sodium of 128, as well as hypokalemia Kidney functions within normal limits, liver functions within normal limit ESR and CRP were elevated No evidence of DKA CT scan of head and neck showed no evidence of stroke MRI of brain was done which was negative for any acute stroke EEG was initially ordered but canceled as neurology felt this was not seizure activity Patient's confusion improved with IV hydration and sodium repletion He was discharged home His sodium was corrected and he was placed on observation unit He is back to his baseline He tells me that he is drinking 3 jugs of 64 oz of water every day Because he feels so We talked about limiting the fluid intake, explained to patient how to much fluid can lower the sodium And then that can cause confusion We also talked about morphine that he is taking currently patient is on 60 mg of morphine in 24 hours That needs to be tapered off as well through orthopedic. It seems as if he is a mouth breather, he needs to start using Flonase nasal spray regularly so that his nasal congestion can be corrected And he starts breathing from his nose He has seen Dr. Hillman his psychiatrist, some of his medications were also adjusted He had labs through Dr. Hillman office today, electrolytes were checked. That is why I did not order more labs. Patient and his was given enough time to ask questions All information were repeated so patient can understand. 46 minute spent in care of this patient
== END 2024-08-02 14:15 | disposition home or self-care (01) ==
PROVIDERS: PCP Internal Medicine; Visit Provider Internal Medicine
DX: Z09 Encounter for follow-up examination after completed treatment for conditions other than malignant neoplasm (principal); R41.0 Disorientation, unspecified; E87.1 Hypo-osmolality and hyponatremia; F11.20 Opioid dependence, uncomplicated; F12.20 Cannabis dependence, uncomplicated

== ENCOUNTER 2024-08-18 15:04 | Outpatient (REF) | payer OTHER, SELFPAY ==
[2024-08-18 17:44] LABS: Amphetamine Screen Urine POSITIVE (Not Detect); Barbiturates, Urine Not Detected (Not Detect); Benzodiazepines Screen Urine Not Detected (Not Detect); Buprenorphine Scr Not Detected (Not Detect); Cannabinoid Screen Urine POSITIVE (Not Detect); Cocaine Screen Urine Not Detected (Not Detect); Fentanyl, urine Not Detected (Not Detect); Methadone Screen, Urine Not Detected (Not Detect); Opiate Screen Urine Not Detected (Not Detect); Oxycodone Screen Urine Not Detected (Not Detect); Phencyclidine Screen Urine Not Detected (Not Detect)
== END 2024-08-18 15:05 | disposition home or self-care (01) ==
LOC: HO.CHCLDS 15:04
PROVIDERS: Visit Provider Psychiatry & Neurology Psychiatry
DX: F33.2 Major depressive disorder, recurrent severe without psychotic features (principal)
CPT/HCPCS: 80307

== ENCOUNTER 2024-08-20 11:21 | Emergency (ER) | payer OTHER, SELFPAY ==
[2024-08-20 11:24] VITALS: BP 151/93; PULSE 93; RESP 20; TEMP 37.1; O2SAT 94; BMI 38.5
--- NOTE | 2024-08-20 11:38 | ED_ITS ---
HPI - General Adult General Chief complaint: General Medical Stated complaint: restlessness Time Seen by Provider: 08/20/24 11:36 Source: patient Mode of arrival: ambulatory Limitations: no limitations History of Present Illness ED Provider: Nancy Wolf PA-C HPI narrative: 53-year-old male with history of insulin-dependent diabetes, obesity, mood disorder, anxiety, ADHD, hypertension, constipation, polysubstance use, recent shoulder replacement who presents to the ER from home for evaluation of restlessness and feeling unwell for the last month. His psychiatrist thinks it is an adverse reaction of his invega. He went to [facility] on July 24 via EMS for evaluation of change in mental status. He was found to be mildly hyponatremic with a sodium of 128. He was treated with IV fluids and sodium repletion, discharged home. He saw his primary care doctor on August 02. He endorse drinking 3 jugs of 64 oz of water per day because he is so thirsty. He told her that he continues to take 60 mg of morphine every 24 hours for pain in the shoulder after his recent shoulder replacement. He has since been weaned off of the morphine for the last almost 3 weeks. He reports some ongoing aching in the shoulder but overall doing well. He follows with Dr. Hillman for Psychiatry. He reports some of his medications were adjusted do the sodium levels. He is unsure what medications were adjusted. Patient reports for the last 1 month he has felt restless and uneasy. He feels like wants to ?crawl out of his skin. ? He is unable to sleep at night, alternating from the bed to the recliner to the couch and not getting any rest. He feels very restless. He takes Xanax and that has not helped at all. He was contacting his psychiatrist who told him to come into the ER for evaluation of akathisia and to rule out neuroleptic malignant syndrome. MD complaint: Restlessness Onset (ago): week(s) Severity: severe Pain Consistency: constant Relieving factors: none Exacerbating factors: none Associated symptoms: denies other symptoms Treatments prior to arrival: none Related Data Home Medications ?Medication ?Instructions ?Recorded ?Confirmed dextroamphetamine-amphetamine 30 1 tab PO TID 08/22/20 08/02/24 mg tablet alprazolam 1 mg tablet 2 mg PO BEDTIME 04/08/23 08/02/24 dextroamphetamine-amphetamine 10 1 tab PO DAILY 07/30/23 08/02/24 mg tablet ondansetron HCl 4 mg tablet mg PO DAILY 07/30/23 08/02/24 oxcarbazepine 600 mg tablet 600 mg PO BID 07/30/23 08/02/24 gabapentin 300 mg capsule 300 mg PO TID 11/03/23 08/02/24 desvenlafaxine succinate 25 mg 25 mg PO DAILY 06/14/24 08/02/24 tablet,extended release 24 hr paliperidone 6 mg tablet,extended 6 mg PO DAILY 06/14/24 08/02/24 release 24 hr Previous Rx's ?Medication ?Instructions ?Recorded blood sugar diagnostic (Accu-Chek #100 ea 11/29/20 Guide test strips) blood-glucose meter (Accu-Chek #1 ea 11/29/20 Guide Glucose Meter) lancets (Accu-Chek Softclix #100 ea 11/29/20 Lancets) Insulin pen needles #100 ea 03/06/23 ajith Glucometer #1 ea 06/03/23 tamsulosin 0.4 mg capsule 0.4 mg PO BEDTIME #90 caps 06/03/23 omeprazole 40 mg capsule,delayed 40 mg PO DAILY #90 caps 01/18/24 release albuterol sulfate 90 mcg/actuation 1 inh inhalation QID PRN shortness 02/23/24 aerosol inhaler (Ventolin HFA) of breath or wheezing 30 days #6.7 grams blood-glucose sensor (FreeStyle #4 ea 03/03/24 Ajith 3 Sensor device) dulaglutide 1.5 mg/0.5 mL 1.5 mg (0.5 mL) subcut QWEEK 30 03/03/24 subcutaneous pen injector days #2.5 mL (Trulicity) hydroxyzine HCl 25 mg tablet 50 mg (2 x 25 mg) PO BEDTIME #180 04/11/24 tabs metoprolol succinate 25 mg 25 mg PO BEDTIME #90 tabs 05/02/24 tablet,extended release 24 hr fluticasone propionate 50 1 spray intranasal DAILY #16 grams 06/13/24 mcg/actuation nasal spray,suspension (Flonase Allergy Relief) metoclopramide HCl 10 mg tablet 20 mg (2 x 10 mg) PO TID #180 tabs 06/13/24 rosuvastatin 20 mg tablet 20 mg PO BEDTIME #90 tabs 06/13/24 linaclotide 145 mcg capsule 145 mcg PO QAM #30 caps 07/19/24 (Linzess) amlodipine 5 mg tablet 5 mg PO DAILY 90 days #90 tabs 07/25/24 cetirizine 10 mg tablet 10 mg PO DAILY #90 tabs 07/25/24 hydrochlorothiazide 25 mg tablet 25 mg PO DAILY #90 tabs 07/25/24 lisinopril 40 mg tablet 40 mg PO DAILY #90 tabs 07/25/24 pen needle, diabetic 32 gauge x #100 ea 07/25/24 (BD Erica 2nd Gen Pen Needle) insulin glargine 100 unit/mL (3 38 unit (0.38 mL) subcut QPM 30 07/26/24 mL) subcutaneous pen (Lantus days #15 mL Solostar U-100 Insulin) semaglutide 1 mg/dose (4 mg/3 mL) 1 mg (0.75 mL) subcut QWEEK #3 mL 07/26/24 subcutaneous pen injector (Ozempic) empagliflozin 10 mg tablet 10 mg PO QAM 90 days #90 tabs 08/15/24 (Jardiance) Allergies Allergy/AdvReac Type Severity Reaction Status Date / Time benztropine [From COGENTIN] Allergy Unknown SWEATING Verified 08/20/24 11:28 pregabalin [From LYRICA] Allergy Unknown SWELLING Verified 08/20/24 11:28 sitagliptin [From JANUVIA] Allergy Unknown PER H&P Verified 08/20/24 11:28 Review of Systems 2 Review of Systems: Yes all other systems are reviewed and are negative [facility] Past Medical History Medical History Hospital discharge follow-up History of pneumonia Shortness of breath Pre-op examination Nausea & vomiting Colon cancer screening Insulin dependent type 1 diabetes mellitus Psychiatric illness Establishing care with new doctor, encounter for Back pain URI, acute Pneumonia Ear infection Erectile 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 Depression, major, recurrent ADHD Anxiety, generalized PTSD (post-traumatic stress disorder) Sleep apnea Hypertension, essential Chronic GERD 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, managed as type 2 Surgical History History of esophagogastroduodenoscopy (EGD) H/O colonoscopy History of ear surgery History of removal of laparoscopic gastric banding device History of left knee surgery History of lithotripsy History of laparoscopic appendectomy History of knee surgery History of discectomy History of lumbar fusion Family History Family History Father Alcoholism Hyperlipidemia HTN (hypertension) CVD (cardiovascular disease) Mental illness in member of household Mother CAD (coronary artery disease) Breast cancer High cholesterol Diabetes mellitus CVD (cardiovascular disease) Mental illness in member of household Maternal Grandfather No problems noted. Maternal Grandmother No problems noted. Paternal Grandfather No problems noted. Paternal Grandmother No problems noted. Sister No problems noted. Sister No problems noted. Daughter No problems noted. Daughter No problems noted. Other Mental health disorder Social History Social History Housing: Apartment Are you a primary toddler caregiver to a significant other at home: No Do you presently have visiting nurse or other home services: No Alcohol intake: current Alcohol intake frequency: holidays/special occasions only Patient Tobacco Use Status: Former Tobacco user e-Cigarette/Vaping Use: Currently Using Substance Use Type: Marijuana Advance Directives: No Advance Directives Information Provided: No Do you have a plan to hurt others: No Plan service: No Current occupational status: disabled Cognitive needs: No Hearing needs: No Vision needs: No Physical Exam ED Vital Signs: Vital Signs - 24 hr 08/20/24 11:24 08/20/24 11:49 Temperature 98.8 F Pulse Rate 93 Respiratory Rate 20 16 Blood Pressure 151/93 H Pulse Oximetry 94 Oxygen Delivery Method Room Air BMI result Body Mass Index 38.5 Appearance: Alert. Oriented X3. No acute distress. Head: normocephalic, atraumatic. Eyes: Pupils equal, round and reactive to light. ENT: Pharynx normal. No tonsillar swelling or exudate. Neck: Normal inspection. Neck supple. CVS: Normal heart rate and rhythm. Pulses normal. Respiratory: No respiratory distress. Breath sounds normal. Abdomen: Soft and nontender. +BS x4 Skin: Skin warm and dry. Normal skin color. Normal skin turgor. No rashes. Extremities: No lower extremity edema. No joint swelling. no resting tremor. No cogwheel rigidity. no clonus Neuro/psych: Oriented X 3. No motor deficit. No sensory deficit. CN II-XII intact. Normal speech and cognition. Medications Administered Discontinued Medications Generic Name Dose Route Start Last Admin Trade Name Keith PRN Reason Stop Dose Admin Lorazepam 2 mg 08/20/24 12:11 08/20/24 12:14 Lorazepam 2 Mg/Ml Vial IM 08/20/24 12:12 2 mg STAT STA Administration Medical Decision Making Medical Decision Making [facility] Narrative: 53-year-old male with history of insulin-dependent diabetes, obesity, mood disorder, anxiety, ADHD, hypertension, constipation, polysubstance use, recent shoulder replacement who presents to the ER from home for evaluation of restlessness and feeling unwell for the last month. His psychiatrist thinks it is an adverse reaction of his invega. sent in to r/o NMS. VS are stable. physical exam is reassuring. no resting tremors. no rigidity. labs showing sodium 132. cpk 300s. pt reports adverse reactions to benadryl, so ativan given with some improvement in his symptoms. at this time he is stable for discharge home with close outpatient follow up with his psychiatrist and PCP. no acute need for psychiatric or medical admission at this time. pt agrees with plan Differential Diagnosis Differential Diagnoses: The differential diagnosis associated with the presentation includes anxiety, panic attack, restless leg syndrome, adverse medication reaction, akathisia, NMS less likely Admission/Observation Consideration of admission/observation: Escalation of care including admission/observation considered Lab Data [facility] Lab Attestation statement: I reviewed the patient's lab results. Stable normocytic anemia, mild hyponatremia, mild elevation of CPK no significant rhabdomyolysis 08/20/24 12:00 08/20/24 12:00 Labs: Lab Results 08/20/24 Range/Units 12:00 WBC 7.3 (4.8-10.8) X10*3/uL RBC 5.00 (4.60-5.80) X10*6/uL Hgb 13.9 L (14.0-18.0) g/dl Hct 41.0 L (42.0-52.0) % MCV 82.0 (80.0-98.0) fL MCH 27.8 (27.0-33.0) pg MCHC 33.9 (31.0-36.0) g/dl RDW 13.5 (11.0-16.0) % Plt Count 247 (160-400) X10*3/uL MPV 9.3 L (9.4-12.4) fL Immature Gran % (Auto) 0.4 (0.0-0.4) % Neut % (Auto) 63.4 (45-73) % Lymph % (Auto) 23.5 (20-40) % Charles % (Auto) 10.4 (2-11) % Eos % (Auto) 1.8 (0-4) % Baso % (Auto) 0.5 (0-2) % Lymph # (Auto) 1.7 (1.2-4.9) X10*3/uL Charles # (Auto) 0.8 (0.1-1.2) X10*3/uL Eos # (Auto) 0.1 (0.0-0.4) X10*3/uL Baso # (Auto) 0.0 (0.0-0.2) X10*3/uL Abs Immat Gran (auto) 0.03 (0.00-0.03) X10*3/uL Absolute Neuts (auto) 4.6 (2.0-8.3) x10*3/uL Absolute Nucleated RBC 0.000 (0.0-0.012) X10*3/uL Nucleated RBC % (auto) 0.0 (0.0-0.2) /100WBC Sodium 132 L (135-145) mmol/L Potassium 3.8 (3.3-5.1) mmol/L Chloride 96 (96-108) mmol/L Carbon Dioxide 26 (22-29) mmol/L Anion Gap 14 (12-20) BUN 14 (9-16) mg/dL Creatinine 0.70 (0.5-1.4) mg/dL Estim Creat Clear Calc 151.4 Estimated GFR > 60 Random Glucose 154 H (60-115) mg/dL Calcium 8.8 D (8.4-10.2) mg/dL Magnesium 2.2 (1.6-2.6) mg/dL Total Bilirubin 0.4 (0.0-1.0) mg/dL Direct Bilirubin 0.1 (0.0-0.5) mg/dL AST 17 (5-37) U/L ALT 22 (0-40) U/L Alkaline Phosphatase 112 (39-117) U/L Total Creatine Kinase 328 H (38-174) U/L Total Protein 7.3 (6.5-8.0) g/dL Albumin 4.4 (3.5-5.0) g/dL TSH 1.53 (0.32-4.0) uIU/mL Urine Color Yellow Urine Appearance Clear Urine pH 6.5 (5.0-9.0) Ur Specific Ward >= 1.030 H (1.005-1.025) Urine Protein Negative (Neg-Trace) mg/dL Urine Glucose (UA) >=1000 H (Negative) mg/dL Urine Ketones Negative (Negative) mg/dL Urine Blood Negative (Negative) Urine Nitrite Negative (Negative) Ur Leukocyte Esterase Negative (Negative) Urine RBC 0-2 (0-2) /HPF Urine WBC 0-5 (0-5) /HPF Ur Squamous Epith Cells 0-2 (0-2) /HPF Urine Bacteria None Seen (None Seen) Hyaline Casts 0-2 (0-2) /LPF Urine Opiates Screen Not Detected (Not Detect) Ur Buprenorphine Scrn Not Detected (Not Detect) ng/mL Ur Oxycodone Screen Not Detected (Not Detect) ng/mL Urine Methadone Screen Not Detected (Not Detect) ng/mL Urine Fentanyl Screen Not Detected (Not Detect) Ur Barbiturates Screen Not Detected (Not Detect) Ur Phencyclidine Scrn Not Detected (Not Detect) Ur Amphetamines Screen POSITIVE H (Not Detect) U Benzodiazepines Scrn POSITIVE H (Not Detect) Urine Cocaine Screen Not Detected (Not Detect) U Marijuana (THC) Screen POSITIVE H (Not Detect) Ethyl Alcohol < 10 mg/dL External Record Review External record reviewed: Office record, Outpatient record, Prior outpatient labs and Prior outpatient radiology Prescription Management I considered prescription management with: Other (benzo) Critical Care Time Critical Care Time Critical Care Time: No Discharge Plan Discharge Clinical Impression: Akathisia Patient Disposition: Home, Self-Care Instructions: Extrapyramidal Symptoms (ED) Additional Instructions: Your lab workup today was reassuring. Recommend following back up with your psychiatrist for further management. If you develop new or worsening symptoms call 911 or come back to the ER for further evaluation. Prescriptions: No Action (DME) Insulin pen needles Smallest See Rx Instructions .Route .MEDSUPPLY Qty: 100 0RF Rx Instructions: Once a day omeprazole 40 mg capsule,delayed release(DR/EC) 40 mg PO DAILY Qty: 90 2RF albuterol sulfate [Ventolin HFA] 90 mcg/actuation HFA aerosol inhaler 1 inh inhalation QID PRN (Reason: shortness of breath or wheezing) 30 Days Qty: 6.7 2RF hydroxyzine HCl 25 mg tablet 50 mg PO BEDTIME Qty: 180 1RF metoprolol succinate 25 mg tablet extended release 24 hr 25 mg PO BEDTIME Qty: 90 1RF metoclopramide HCl 10 mg tablet 20 mg PO TID Qty: 180 6RF rosuvastatin 20 mg tablet 20 mg PO BEDTIME Qty: 90 1RF fluticasone propionate [Flonase Allergy Relief] 50 mcg/actuation spray,suspension 1 spray intranasal DAILY Qty: 16 2RF Rx Instructions: administer into each nostril Linzess 145 mcg capsule 145 mcg PO QAM Qty: 30 3RF (DME) pen needle, diabetic [BD Erica 2nd Gen Pen Needle] 32 gauge x 5/32 needle See Rx Instructions .ROUTE .MEDSUPPLY Qty: 100 6RF Rx Instructions: T.i.d. cetirizine 10 mg tablet 10 mg PO DAILY Qty: 90 0RF amlodipine 5 mg tablet 5 mg PO DAILY 90 Days Qty: 90 0RF lisinopril 40 mg tablet 40 mg PO DAILY Qty: 90 0RF hydrochlorothiazide 25 mg tablet 25 mg PO DAILY Qty: 90 0RF insulin glargine [Lantus Solostar U-100 Insulin] 100 unit/mL (3 mL) insulin pen 38 unit subcut QPM 30 Days Qty: 15 2RF Ozempic 1 mg/dose (4 mg/3 mL) pen injector 1 mg subcut QWEEK Qty: 3 0RF Jardiance 10 mg tablet 10 mg PO QAM 90 Days Qty: 90 1RF oxcarbazepine 600 mg tablet 600 mg PO BID dextroamphetamine-amphetamine 30 mg tablet 1 tab PO TID alprazolam 1 mg tablet 2 mg PO BEDTIME (DME) lancets [Accu-Chek Softclix Lancets] Misc See Rx Instructions .ROUTE .MEDSUPPLY Qty: 100 0RF Rx Instructions: to be checked once daily (DME) blood-glucose meter [Accu-Chek Guide Glucose Meter] Misc See Rx Instructions .ROUTE .MEDSUPPLY Qty: 1 0RF Rx Instructions: to be checked once daily (DME) Accu-Chek Guide test strips Strip See Rx Instructions .ROUTE .MEDSUPPLY Qty: 100 0RF Rx Instructions: to be checked once daily desvenlafaxine succinate 25 mg tablet extended release 24 hr 25 mg PO DAILY paliperidone 6 mg tablet extended release 24hr 6 mg PO DAILY tamsulosin 0.4 mg capsule 0.4 mg PO BEDTIME Qty: 90 0RF (DME) ajith Glucometer See Rx Instructions .Route .MEDSUPPLY Qty: 1 0RF Rx Instructions: As directed (DME) FreeStyle Ajith 3 Sensor Device See Rx Instructions .Route Qty: 4 2RF Rx Instructions: As directed to test blood sugar 4 times a day Trulicity 1.5 mg/0.5 mL pen injector 1.5 mg subcut QWEEK 30 Days Qty: 2.5 4RF Patient Comments: thursday dextroamphetamine-amphetamine 10 mg tablet 1 tab PO DAILY ondansetron HCl 4 mg tablet PO DAILY gabapentin 300 mg capsule 300 mg PO TID Print Language: Nepali
[2024-08-20 11:49] VITALS: RESP 16
[2024-08-20 12:06] LABS: Basophils Percent Auto 0.5 % (0-2); Eosinophils Absolute Auto 0.1 X10*3/uL (0.0-0.4); Eosinophils Percent Auto 1.8 % (0-4); Hemoglobin 13.9 g/dl (14.0-18.0); Imm Gran Abs Auto 0.03 X10*3/uL (0.00-0.03); Imm Gran Pct Auto 0.4 % (0.0-0.4); Lymphocytes Absolute Auto 1.7 X10*3/uL (1.2-4.9); Lymphocytes Percent Auto 23.5 % (20-40); MANUAL DIFF FLAG NO; Mean Corpuscular HGB Conc 33.9 g/dl (31.0-36.0); Mean Corpuscular Hemoglobin 27.8 pg (27.0-33.0); Mean Platelet Volume 9.3 fL (9.4-12.4); Monocytes Absolute Auto 0.8 X10*3/uL (0.1-1.2); Monocytes Percent Auto 10.4 % (2-11); Neutrophils Absolute Auto 4.6 x10*3/uL (2.0-8.3); Neutrophils Percent Auto 63.4 % (45-73); Platelet Count 247 X10*3/uL (160-400); Red Cell Distribution Width 13.5 % (11.0-16.0); White Blood Count 7.3 X10*3/uL (4.8-10.8)
[2024-08-20] MEDS: LORazepam 2 MG/ML VIAL IM (12:14)
[2024-08-20 12:18] LABS: Amphetamine Screen Urine POSITIVE (Not Detect); Barbiturates, Urine Not Detected (Not Detect); Benzodiazepines Screen Urine POSITIVE (Not Detect); Buprenorphine Scr Not Detected (Not Detect); Cannabinoid Screen Urine POSITIVE (Not Detect); Cocaine Screen Urine Not Detected (Not Detect); Fentanyl, urine Not Detected (Not Detect); Methadone Screen, Urine Not Detected (Not Detect); Opiate Screen Urine Not Detected (Not Detect); Oxycodone Screen Urine Not Detected (Not Detect); Phencyclidine Screen Urine Not Detected (Not Detect)
[2024-08-20 12:22] LABS: Appearance Urine Clear; Color Urine Yellow; Glucose Urine UA >=1000 mg/dL (Negative); Leukocyte Esterase Urine Negative (Negative); Nitrite Urine Negative (Negative); PH 6.5 (5.0-9.0); Specific Gravity - Urine >= 1.030 (1.005-1.025); UMIC TRIGGER UACC YES; Urine Blood Negative (Negative); Urine Ketones Negative (Negative); Urine Protein Negative (Neg-Trace)
[2024-08-20 12:24] LABS: Anion Gap 14 (12-20)
[2024-08-20 12:30] LABS: Alanine Aminotransferase 22 U/L (0-40); Albumin Level 4.4 g/dL (3.5-5.0); Alkaline Phosphatase 112 U/L (39-117); Aspartate Amino Transferase 17 U/L (5-37); Bilirubin Direct 0.1 mg/dL (0.0-0.5); Bilirubin Total 0.4 mg/dL (0.0-1.0); Blood Urea Nitrogen 14 mg/dL (9-16); Calcium 8.8 mg/dL (8.4-10.2); Carbon Dioxide 26 mmol/L (22-29); Chloride 96 mmol/L (96-108); Creatinine Clr Calc Pharmacy 151.4; Estimated Glomerular Filt Rate > 60; Ethanol < 10 mg/dL; Glucose Random 154 mg/dL (60-115); Magnesium 2.2 mg/dL (1.6-2.6); Potassium 3.8 mmol/L (3.3-5.1); Sodium 132 mmol/L (135-145); Total Protein 7.3 g/dL (6.5-8.0)
[2024-08-20 12:35] LABS: Bacteria Urine None Seen (None Seen); Hyaline Casts Urine 0-2 /LPF (0-2); RBC Urine 0-2 /HPF (0-2); Squamous Epithelial Cell Urine 0-2 /HPF (0-2); WBC Urine 0-5 /HPF (0-5)
[2024-08-20 12:43] LABS: TSH reflex Free T4 1.53 uIU/mL (0.32-4.0)
[2024-08-20 14:18] VITALS: BP 139/89; PULSE 89; RESP 16; TEMP 36.9; O2SAT 98
== END 2024-08-20 14:19 | disposition home or self-care (01) ==
PROVIDERS: Physician Assistant; Emergency Provider Emergency Medicine; PCP Internal Medicine
DX: G25.71 Drug induced akathisia (principal); T43.595A Adverse effect of other antipsychotics and neuroleptics, initial encounter; Y92.9 Unspecified place or not applicable; E87.1 Hypo-osmolality and hyponatremia; E10.9 Type 1 diabetes mellitus without complications; I10 Essential (primary) hypertension; Z79.4 Long term (current) use of insulin; Z87.891 Personal history of nicotine dependence; Z79.85 Long-term (current) use of injectable non-insulin antidiabetic drugs; Z79.899 Other long term (current) drug therapy
CPT/HCPCS: 36415; 80048; 80076; 80307; 81001; 82550; 83735; 84443; 85025; 96372; 99283; 99284; J2060

== ENCOUNTER 2024-09-07 14:55 | Outpatient (REF) | payer OTHER, SELFPAY ==
[2024-09-07 17:59] LABS: Anion Gap 15 (12-20); Blood Urea Nitrogen 18 mg/dL (9-16); Carbon Dioxide 22 mmol/L (22-29); Chloride 99 mmol/L (96-108); Estimated Glomerular Filt Rate > 60; Glucose Random 151 mg/dL (60-115); Potassium 3.9 mmol/L (3.3-5.1); Sodium 132 mmol/L (135-145)
== END 2024-09-07 14:56 | disposition home or self-care (01) ==
LOC: HO.CHCLDS 14:55
PROVIDERS: Visit Provider Psychiatry & Neurology Psychiatry
DX: E87.1 Hypo-osmolality and hyponatremia (principal); Z79.899 Other long term (current) drug therapy
CPT/HCPCS: 36415; 80051; 82565; 82947; 84520

== ENCOUNTER 2024-10-07 11:02 | Outpatient (AMB) | payer OTHER, SELFPAY ==
[2024-10-07 11:06] VITALS: BP 128/76; PULSE 97; O2SAT 94; BMI 36.3
--- NOTE | 2024-10-07 11:06 | MHC.PC.OV ---
Vital Signs 10/07/24 11:06 Height 5 ft 9 in Weight 246 lb 2 oz BMI 36.3 BP 128/76 Blood Pressure Location Rt brachial Position Sitting Pulse 97 Pulse Source Pulse Oximeter Pulse Oximetry (%) 94 Oxygen Delivery Method Room Air Intake Visit Reasons: follow up reschedule from 10/04 Allergies benztropine [From COGENTIN] Allergy (Unknown, Verified 10/07/24 11:09) SWEATING pregabalin [From LYRICA] Allergy (Unknown, Verified 10/07/24 11:09) SWELLING sitagliptin [From JANUVIA] Allergy (Unknown, Verified 10/07/24 11:09) PER H&P Medication List - Last Reconciled 10/07/24 by Lizabeth Adame MD albuterol sulfate 90 mcg/actuation (Ventolin HFA) 1 inh inhalation QID PRN 30 days alprazolam 2 mg PO BEDTIME amlodipine 5 mg PO DAILY 90 days blood sugar diagnostic (Accu-Chek Guide test strips) to be checked once daily blood-glucose meter (Accu-Chek Guide Glucose Meter) to be checked once daily blood-glucose sensor (Trendratingyle Ajith 3 Sensor device) As directed to test blood sugar 4 times a day cetirizine 10 mg PO DAILY desvenlafaxine succinate ER 25 mg PO DAILY dextroamphetamine-amphetamine 10 mg 1 tab PO DAILY dextroamphetamine-amphetamine 30 mg 1 tab PO TID dulaglutide (Trulicity) 1.5 mg (0.5 mL) subcut QWEEK 30 days empagliflozin (Jardiance) 10 mg PO QAM 90 days fluticasone propionate 50 mcg/actuation (Flonase Allergy Relief) 1 spray intranasal DAILY gabapentin 300 mg PO TID hydrochlorothiazide 25 mg PO DAILY hydroxyzine HCl 50 mg (2 x 25 mg) PO BEDTIME insulin glargine (Lantus Solostar U-100 Insulin) 38 units (0.38 mL) subcut QPM 30 days [Insulin pen needles Once a day] lancets (Accu-Chek Softclix Lancets) to be checked once daily [ajith Glucometer As directed NS] linaclotide (Linzess) 145 mcg PO QAM lisinopril 40 mg PO DAILY metoclopramide HCl 20 mg (2 x 10 mg) PO TID metoprolol succinate ER 25 mg PO BEDTIME omeprazole 40 mg PO DAILY ondansetron HCl mg PO DAILY oxcarbazepine 600 mg PO BID paliperidone ER 6 mg PO DAILY pen needle, diabetic (BD Erica 2nd Gen Pen Needle) T.i.d. rosuvastatin 20 mg PO BEDTIME semaglutide 2 mg (0.75 mL) subcut QWEEK 90 days tamsulosin 0.4 mg PO BEDTIME Tobacco use date assessed: 10/07/24 Dental Screening Dental Screen Date: 10/07/24 Did you have a dental visit in the last 12 months?: Yes Did you have a dental problem in the last 6 months where you did not have access to dental care?: No Was dental information given to patient?: Patient has dentist HPI follow up reschedule from 10/04 HPI Details Chief Complaint The patient presents for routine follow-up of chronic conditions and evaluation of hip pain. Assessment and Plan 54-year-old male with a history of hypertension, type 2 diabetes mellitus, and other chronic conditions presenting for routine evaluation of diabetes management and chronic disease follow-up. The patient reports improved blood glucose control on current diabetes medication regimen. Right hip pain secondary to osteoarthritis is noted with a recent cortisone injection for symptomatic relief. Blood pressure is well-controlled, and the patient denies significant ongoing issues related to UTI symptoms. Vaccine administration including flu and pneumonia is advised based on diabetic status. Chronic sodium imbalance is noted without current complications. Weight management is noted as an ongoing . Laboratory evaluations, including hemoglobin A1c testing, are planned to assess ongoing diabetes management. 1. Right Hip Osteoarthritis Patient recently received a cortisone injection for symptomatic relief. Discussed further orthopedic evaluation and potential surgical intervention if symptoms persist. Patient is establishing new [facility] 2. Type 2 Diabetes Mellitus The patient is on a comprehensive regimen including Trulicity and Jardiance, long-acting insulin 38 units at night with improvement in blood glucose control noted since starting Semaglutide. Regular monitoring of blood sugar levels is advised. Hemoglobin A1c will be checked during this visit to assess overall control. 3. Hyperlipidemia Management includes Rosuvastatin. Encouraged dietary modification and regular lipid panel assessment. 4. Sodium Imbalance Hyponatremia Chronic condition with stable electrolytes, continuous monitoring advised. 5. Diabetic Neuropathy Currently managed with Gabapentin. Continued symptom monitoring recommended. 6. History Of Pneumonia Advised updated pneumonia vaccination. 7. Allergic Rhinitis Continued use of Flonase for symptom control. Patient educated on avoiding known allergens. 8. Obstructive Sleep Apnea Continued monitoring of sleep quality and symptoms. Discussed the importance of CPAP compliance. 9. Hypertension Hypertension is well-controlled with current medication regimen including Amlodipine and Hydrochlorothiazide. Regular monitoring of blood pressure at home is advised to ensure continued control. 10. Gastroesophageal Reflux Disease The patient is on Omeprazole. Continue dietary modifications to minimize symptoms. Problem List - Hypertension - Type 2 Diabetes Mellitus - Allergic Rhinitis - Diabetic Neuropathy - Obstructive Sleep Apnea - Hyperlipidemia - Gastroesophageal Reflux Disease - Right Hip Osteoarthritis - History of Pneumonia - Sodium Imbalance (Hyponatremia) Patient Instructions - Regularly monitor blood pressure and blood sugar levels at home. - Schedule a follow-up after hemoglobin A1c results to adjust diabetes management if needed. - Consider getting influenza and updated pneumonia vaccines. - Continue current medications as prescribed and discuss any changes or side effects. - Report any recurrent UTI symptoms or significant pain to the clinic. - Maintain dietary modifications for weight management and lipid control. - Follow up with an neuro psych sales specialist as needed for hip pain management. - Seek medical attention if any new or worsening symptoms arise. Follow-up in December [facility] Medical History (Updated 10/07/24 @ 11:23 by Lizabeth Adame MD) Psychiatric illness Hospital discharge follow-up History of pneumonia Shortness of breath Pre-op examination Nausea & vomiting Colon cancer screening Insulin dependent type 1 diabetes mellitus Establishing care with new doctor, encounter for Back pain URI, acute Pneumonia Ear infection Erectile 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 Depression, major, recurrent ADHD Anxiety, generalized PTSD (post-traumatic stress disorder) Sleep apnea Hypertension, essential Chronic GERD 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, managed as type 2 Surgical History History of esophagogastroduodenoscopy (EGD) H/O colonoscopy History of ear surgery History of removal of laparoscopic gastric banding device History of left knee surgery History of lithotripsy History of laparoscopic appendectomy History of knee surgery History of discectomy History of lumbar fusion Family History Father Alcoholism Hyperlipidemia HTN (hypertension) CVD (cardiovascular disease) Mental illness in member of household Mother CAD (coronary artery disease) Breast cancer High cholesterol Diabetes mellitus CVD (cardiovascular disease) Mental illness in member of household Maternal Grandfather No problems noted. Maternal Grandmother No problems noted. Paternal Grandfather No problems noted. Paternal Grandmother No problems noted. Sister No problems noted. Sister No problems noted. Daughter No problems noted. Daughter No problems noted. Other Mental health disorder Social History Housing: Apartment Are you a primary director career to a significant other at home: No Do you presently have visiting nurse or other home services: No Alcohol intake: current Alcohol intake frequency: holidays/special occasions only Patient Tobacco Use Status: Former Tobacco user e-Cigarette/Vaping Use: Currently Using Substance Use Type: Marijuana service: No Current occupational status: disabled Cognitive needs: No Hearing needs: No Vision needs: No Questionnaire PHQ-9 Over the last 2 weeks, how often have you been bothered by any of the following problems? 1. Little interest or pleasure in doing things: not at all 2. Feeling down, depressed, or hopeless: not at all 3. Trouble falling or staying asleep, or sleeping too much: not at all 4. Feeling tired or having little energy: not at all 5. Poor appetite or overeating: not at all 6. Feeling bad about yourself - or that you are a failure or have let yourself or your family down: not at all 7. Trouble concentrating on things, such as reading the newspaper or watching television: not at all 8. Moving or speaking so slowly that other people could have noticed. Or the opposite - being so fidgety or restless that you have been moving around a lot more than usual: not at all 9. Thoughts that you would be better off or of hurting yourself in some way: not at all Total score: 0 Depression Screening Interpretation: Negative Depression Screening Done: Yes 19026 - PHQ-9 Billing: Yes Source: Developed by Drs. Jan Del Rio, Gail Hayward, Son Hanks and colleagues, with an educational jeannie from [employer]. Thrive Questionnaire Date Thrive assessed: 10/07/24 I am a: Patient What is your living situation today?: I choose not to answer this question Within the past 12 months, did the food you bought not last and you didn't have the money to get more?: I choose not to answer this question Within the past 12 months, did you worry whether your food would run out before you got money to buy more?: I choose not to answer this question Do you have trouble paying for medicines?: I choose not to answer this question Do you have trouble getting transportation to medical appointments?: I choose not to answer this question Do you have trouble paying your heating and electricity bill?: I choose not to answer this question Do you have trouble taking care of your child, family member or friend?: I choose not to answer this question Do you have trouble with day-to-day activities such as bathing, preparing meals, shopping, managing finances, etc.?: I choose not to answer this question Are you currently unemployed and looking for a job?: I choose not to answer this question Are you interested in more education?: I choose not to answer this question Please select the resources that you would like help with: None Currently or been in a relationship where the following occur: No concerns reported THRIVE Score: 0 AUDIT C Alcohol Use Questionnaire (AUDIT-C) 1. How often do you have a drink containing alcohol?: Monthly or less 2. How many drinks containing alcohol do you have on a typical day when you are drinking?: 1 or 2 3. How often do you have six or more drinks on one occasion?: Less than monthly Total Score: 2 Score Reviewed/Action Taken: Yes RISHI-7 AMB Questionnaire RISHI-7 Date RISHI - 7 assessed: 06/14/24 Source: Developed by Drs. Jan Del Rio, Gail Hayward, Son Hanks and colleagues, with an educational jaennie from [employer]. Review of Systems Const Denies chills and Denies fever(s) ENT Denies epistaxis and Denies nasal discharge Card Denies chest pain Resp Denies chest congestion, Denies cough and Denies hemoptysis GI Denies diarrhea and Denies nausea Skin/Breast Denies rash Neuro Reports no additional complaints Psych Reports no additional complaints Endo Reports no additional complaints Physical exam (Primary Care) Vital Signs: Last Vital Signs Pulse 97 10/07/24 11:06 BP 128/76 10/07/24 11:06 Pulse Ox 94 10/07/24 11:06 Oxygen Delivery Method Room Air 10/07/24 11:06 BMI result Body Mass Index 36.3 Tobacco/Smoking Status: Tobacco use Status Tobacco use date assessed 10/07/24 10/07/24 11:10 Patient Tobacco Use Status Former Tobacco user 10/07/24 11:10 e-Cigarette/Vaping Use Currently Using 10/07/24 11:10 PHQ-9: PHQ-9 Score PHQ-9: Total score 0 10/07/24 11:27 Depression Screening Interpretation: Negative Thrive Assessment: Date of Thrive Assessment Date Thrive assessed 10/07/24 10/07/24 11:10 Currently or been in a relationship where the following occur: No concerns reported Const General: cooperative, comfortable and no acute distress Orientation/consciousness: patient oriented x3 HENMT Head: Yes normocephalic Eyes General: appearance normal, both eyes and all related structures Neck Neck: Yes supple Resp Effort & Inspection: normal respiratory effort, no cough and no stridor Cardio Rhythm: regular rhythm Heart sounds: S1 normal heart sound present and S2 normal heart sound present Skin General skin exam: turgor normal Neuro General: patient oriented x3, tone normal and moves all extremities Extrem Right lower extremity: no edema Left lower extremity: no edema Office Procedures Flu Questionnaire Does the patient have a severe egg allergy?: No Does the patient have severe life threatening allergies?: No Does the patient have a fever or illness today?: No Has the patient ever had Guillain-[place] Syndrome?: No Has the patient ever had any past reaction to a flu shot?: No Immunizations Fluarix Triv [id number] (PF) 45 mcg (15 mcg x 3)/0.5 mL IM syringe Performing Provider: Lizabeth Adame MD Performing Location: [facility] Adult [facility] Administered by: Sly Lezama CMA on 10/07/24 11:26 Dose Route Admin Location Dispensed Lot Number Expiration Date NDC Beet End Supervisor 0.5 mL IM Left Deltoid 0.5 mL [id number] 05/01/25 [id number] [employer] VIS Given Date VIS Provided VIS Publication Date 10/07/24 Single Vaccine 21 Eligibility Eligibility Date Funding Source Not [facility] Eligible 10/07/24 Private pneumoc 20-luis f conj-dip cr(PF) 0.5 mL IM syringe Performing Provider: Lizabeth Adame MD Performing Location: [facility] Adult [facility] Administered by: Sly Lezama CMA on 10/07/24 11:26 Dose Route Admin Location Dispensed Lot Number Expiration Date NDC Beet End Supervisor 0.5 mL IM Right Deltoid 0.5 mL [id number] 02/19/26 [id number] [employer] VIS Given Date VIS Provided VIS Publication Date 10/07/24 Single Vaccine 21 Eligibility Eligibility Date Funding Source Not [facility] Eligible 10/07/24 Private Coding Level of Care Code Est Pt Level 4 (06781) Complex EM visit Add On G2211 Diagnoses Diabetes 1.5, managed as type 2 E13.9 Lipid disorder E78.9 Chronic GERD K21.9 Hypertension, essential I10 PTSD (post-traumatic stress disorder) F43.10 Recurrent major depressive disorder, in partial remission F33.41 Active/Remission status: in partial remission Marijuana dependence F12.20 Hyponatremia E87.1 Psychiatric illness F99 Additional Codes PHQ-9 - 79623 - PHQ-9 Billing: Yes ([id number]) Assessment & Plan Assessment & Plan (1) Diabetes 1.5, managed as type 2: Code(s): E13.9 - Other specified diabetes mellitus without complications Category: Medical (2) Lipid disorder: Code(s): E78.9 - Disorder of lipoprotein metabolism, unspecified Category: Medical (3) Chronic GERD: Code(s): K21.9 - Gastro-esophageal reflux disease without esophagitis Category: Medical (4) Hypertension, essential: Code(s): I10 - Essential (primary) hypertension Category: Medical (5) PTSD (post-traumatic stress disorder): Code(s): F43.10 - Post-traumatic stress disorder, unspecified Category: Medical (6) Depression, major, recurrent: Code(s): F33.9 - Major depressive disorder, recurrent, unspecified Category: Medical Qualifiers: Active/Remission status: in partial remission Qualified Code(s): F33.41 - Major depressive disorder, recurrent, in partial remission (7) Marijuana dependence: Code(s): F12.20 - Cannabis dependence, uncomplicated Category: Medical (8) Hyponatremia: Code(s): E87.1 - Hypo-osmolality and hyponatremia Category: Medical (9) Psychiatric illness: Code(s): F99 - Mental disorder, not otherwise specified Category: Medical Plan Chief Complaint The patient presents for routine follow-up of chronic conditions and evaluation of hip pain. Assessment and Plan 54-year-old male with a history of hypertension, type 2 diabetes mellitus, and other chronic conditions presenting for routine evaluation of diabetes management and chronic disease follow-up. The patient reports improved blood glucose control on current diabetes medication regimen. Right hip pain secondary to osteoarthritis is noted with a recent cortisone injection for symptomatic relief. Blood pressure is well-controlled, and the patient denies significant ongoing issues related to UTI symptoms. Vaccine administration including flu and pneumonia is advised based on diabetic status. Chronic sodium imbalance is noted without current complications. Weight management is noted as an ongoing . Laboratory evaluations, including hemoglobin A1c testing, are planned to assess ongoing diabetes management. 1. Right Hip Osteoarthritis Patient recently received a cortisone injection for symptomatic relief. Discussed further orthopedic evaluation and potential surgical intervention if symptoms persist. Patient is establishing [facility] 2. Type 2 Diabetes Mellitus The patient is on a comprehensive regimen including Trulicity and Jardiance, long-acting insulin 38 units at night with improvement in blood glucose control noted since starting Semaglutide. Regular monitoring of blood sugar levels is advised. Hemoglobin A1c will be checked during this visit to assess overall control. 3. Hyperlipidemia Management includes Rosuvastatin. Encouraged dietary modification and regular lipid panel assessment. 4. Sodium Imbalance Hyponatremia Chronic condition with stable electrolytes, continuous monitoring advised. 5. Diabetic Neuropathy Currently managed with Gabapentin. Continued symptom monitoring recommended. 6. History Of Pneumonia Advised updated pneumonia vaccination. 7. Allergic Rhinitis Continued use of Flonase for symptom control. Patient educated on avoiding known allergens. 8. Obstructive Sleep Apnea Continued monitoring of sleep quality and symptoms. Discussed the importance of CPAP compliance. 9. Hypertension Hypertension is well-controlled with current medication regimen including Amlodipine and Hydrochlorothiazide. Regular monitoring of blood pressure at home is advised to ensure continued control. 10. Gastroesophageal Reflux Disease The patient is on Omeprazole. Continue dietary modifications to minimize symptoms. Problem List - Hypertension - Type 2 Diabetes Mellitus- hemoglobin A1c is 6.3% today - Allergic Rhinitis - Diabetic Neuropathy - Obstructive Sleep Apnea - Hyperlipidemia - Gastroesophageal Reflux Disease - Right Hip Osteoarthritis - History of Pneumonia - Sodium Imbalance (Hyponatremia) Patient Instructions - Regularly monitor blood pressure and blood sugar levels at home. - Schedule a follow-up after hemoglobin A1c results to adjust diabetes management if needed. - Consider getting influenza and updated pneumonia vaccines. - Continue current medications as prescribed and discuss any changes or side effects. - Report any recurrent UTI symptoms or significant pain to the clinic. - Maintain dietary modifications for weight management and lipid control. - Follow up with an neuro psych sales specialist as needed for hip pain management. - Seek medical attention if any new or worsening symptoms arise. Follow-up in December Orders: Orders Influenza [id number] Immunization Today Z23 - Encounter for immunization Pneumococcal 20 Immunization Today Z23 - Encounter for immunization Medications: New nystatin 1 appl topical DAILY 60 grams 2RF 30 days B35.4 - Tinea corporis
== END 2024-10-07 14:29 | disposition home or self-care (01) ==
PROVIDERS: PCP Internal Medicine; Visit Provider Internal Medicine
DX: E13.9 Other specified diabetes mellitus without complications (principal); F33.41 Major depressive disorder, recurrent, in partial remission; F12.20 Cannabis dependence, uncomplicated; E78.9 Disorder of lipoprotein metabolism, unspecified; K21.9 Gastro-esophageal reflux disease without esophagitis; I10 Essential (primary) hypertension; F43.10 Post-traumatic stress disorder, unspecified; E87.1 Hypo-osmolality and hyponatremia; F99 Mental disorder, not otherwise specified; Z23 Encounter for immunization

== ENCOUNTER → 2024-10-07 11:02 | Outpatient (BNVA) | payer OTHER, SELFPAY | PROVIDERS: PCP Internal Medicine; Visit Provider Internal Medicine | DX: Z23 Encounter for immunization (principal); E13.9 Other specified diabetes mellitus without complications; E78.5 Hyperlipidemia, unspecified; K21.9 Gastro-esophageal reflux disease without esophagitis; I10 Essential (primary) hypertension; F43.10 Post-traumatic stress disorder, unspecified; F33.41 Major depressive disorder, recurrent, in partial remission; F12.20 Cannabis dependence, uncomplicated; E87.1 Hypo-osmolality and hyponatremia; F99 Mental disorder, not otherwise specified | CPT/HCPCS: 83036; 90471; 90656; 90677; 96127; 99212 ==

== ENCOUNTER 2025-01-17 08:22 | Outpatient (AMB) | payer OTHER, SELFPAY ==
--- NOTE | 2025-01-17 08:27 | A.OFFPC_ITS ---
Vital Signs 01/17/25 08:28 Height 5 ft 9 in Weight 241 lb 8 oz BMI 35.7 BP 118/72 Blood Pressure Location Lt brachial Position Sitting Respiration 18 Pulse 89 Pulse Source Pulse Oximeter Temp 98.1 F Temp Source Oral Pulse Oximetry (%) 97 Oxygen Delivery Method Room Air Intake Visit Reasons: DM, general health Allergies benztropine [From COGENTIN] Allergy (Unknown, Verified 01/17/25 08:28) SWEATING pregabalin [From LYRICA] Allergy (Unknown, Verified 01/17/25 08:28) SWELLING sitagliptin [From JANUVIA] Allergy (Unknown, Verified 01/17/25 08:28) PER H&P Medication List - Last Reconciled 01/17/25 by Lizabeth Adame MD albuterol sulfate 90 mcg/actuation (Ventolin HFA) 1 inh inhalation QID PRN 30 days alprazolam 2 mg PO BEDTIME amlodipine 5 mg PO DAILY 90 days blood sugar diagnostic (Accu-Chek Guide test strips) to be checked once daily blood-glucose meter (Accu-Chek Guide Glucose Meter) to be checked once daily cetirizine 10 mg PO DAILY clotrimazole 1% 1 appl topical bid 4 weeks dextroamphetamine-amphetamine 10 mg 1 tab PO DAILY dextroamphetamine-amphetamine 30 mg 1 tab PO TID dulaglutide (Trulicity) 1.5 mg (0.5 mL) subcut QWEEK 30 days empagliflozin (Jardiance) 10 mg PO QAM 90 days fluconazole 150 mg PO QWEEK 4 weeks fluticasone propionate 50 mcg/actuation (Flonase Allergy Relief) 1 spray intranasal DAILY FreeStyle Ajith 3 Sensor (blood-glucose sensor) test blood sugar 4 times a day NS gabapentin 300 mg PO TID haloperidol 5 mg PO BID hydrochlorothiazide 25 mg PO DAILY hydroxyzine HCl 50 mg (2 x 25 mg) PO BEDTIME insulin glargine (Lantus Solostar U-100 Insulin) 38 units (0.38 mL) subcut QPM 30 days [Insulin pen needles Once a day] lancets (Accu-Chek Softclix Lancets) to be checked once daily [ajith Glucometer As directed NS] linaclotide (Linzess) 145 mcg PO QAM lisinopril 40 mg PO DAILY metoclopramide HCl 20 mg (2 x 10 mg) PO TID metoprolol succinate ER 25 mg PO BEDTIME nystatin 1 appl topical DAILY 30 days omeprazole 40 mg PO DAILY ondansetron HCl mg PO DAILY oxcarbazepine 600 mg PO BID pen needle, diabetic (BD Erica 2nd Gen Pen Needle) T.i.d. rosuvastatin 20 mg PO BEDTIME semaglutide 2 mg (0.75 mL) subcut QWEEK 90 days tamsulosin 0.4 mg PO BEDTIME Tobacco use date assessed: 01/17/25 Dental Screening Dental Screen Date: 01/17/25 Did you have a dental visit in the last 12 months?: Yes Did you have a dental problem in the last 6 months where you did not have access to dental care?: No Was dental information given to patient?: Patient has dentist HPI DM, general health HPI Details Chief Complaint The patient presents for routine follow-up of chronic conditions and evaluation of hip pain. Assessment and Plan 54-year-old male with a history of hyper tension, type 2 diabetes mellitus, obesity, hypertension, hyperlipidemia, osteoarthritis multiple side, failed back syndrome, PTSD, severe depression Going in for right hip replacement surgery next week - patient already have preop clearance t [facility], his or thopedic is located at [facility] - Ongoing shoulder soreness post-rotator cuff injury impacts mobility and is aggravated when pushing oneself off the floor due to unstable housing conditions. - Recent hypoglycemia event with blood g lucose levels dropping below 50, but he is doing fine now, Ozempic is on hold due to surgery The patient manages Type 2 Diabetes Mellitus and reports medication adherence challenges, particularly with continuous glucose monitoring due to device adhesion issues. - Has been on a stable antihypertensive regimen, which includes Lisinopril, Amlodipine, and Hydrochlorothiazide, maintaining current blood pressure within target range. - Reports homelessness impacting daily l palomo, staying temporarily at a family member's residence while awaiting housing assistance. - was able to lose some weight but still BMI above 30 - psychiatric care through Psychiatry 1. Right Hip Osteoarthritis Scheduled for surgery next week [facility] 2. Type 2 Diabetes Mellitus The patient is on a comprehensive regimen including Ozempic[ on hold for surgery] and Jardiance, long-acting insulin 38 units at night 3. Hyperlipidemia Management includes Rosuvastatin. Encouraged dietary modification and regular lipid panel assessment. 4. Obesity, still struggling with weight . 5. Diabetic Neuropathy Currently managed with Gabapentin. Continued symptom monitoring recommended. 6. History Of Pneumonia Advised updated pneumonia vaccination. 7. Allergic Rhinitis Continued use of Flonase for symptom control. Patient educated on avoiding known allergens. 8. Obstructive Sleep Apnea Continued monitoring of sleep quality and symptoms. Discussed the importance of CPAP compliance. Problem List - Hypertension - Type 2 Diabetes Mellitus - Allergic Rhinitis - Diabetic Neuropathy - Obstructive Sleep Apnea - Hyperlipidemia - Gastroesophageal Reflux Disease - Right Hip Osteoarthritis - History of Pneumonia Patient Instructions - Continue your current antihypertensive medications: Lisinopril 40 mg, Amlodipine 10 mg, and Hydrochlorothiazide 25 mg. - Post-surgery, you may monitor your blo od sugar levels and adjust insulin, including Lantus as necessary, per hospital instructions. - Maintain current medications for diabe redd management; reduce Lantus to 30 units if low blood sugars persist. - After the hospital stay, continue elvira toring blood glucose levels closely; the medical team will assist you during the rehabilitation process. - Return for follow-up in three months t o re-evaluate blood pressure management and medications. - Continue exploring housing assistance options and seek support services as necessary. Review of Systems - General: No fever no chills - Neurological: No headaches no dizziness - Ear nose throat: No sore throat no hearing difficulty no ear pain - Cardiovascular: No syncope, no chest pain, no palpitations - Gastrointestinal: No nausea vomiting or diarrhea - Endocrine: No polyuria polydipsia no heat intolerance - Genitourinary: No dysuria , no blood in urine Physical Exam General: No acute distress HEENT: No acute findings Neck: Supple Respiratory system: Able to talk in full sentences, no audible wheeze, lungs are clear cardiovascular: S1-S2 regular in rate and rhythm, heart is fine Gastrointestinal: No pain Extremities: No swelling 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: Alert awake oriented x3 motor sensory intact Skin: Normal turgor [facility] Medical History Psychiatric illness Hospital discharge follow-up History of pneumonia Shortness of breath Pre-op examination Nausea & vomiting Colon cancer screening Insulin dependent type 1 diabetes mellitus Establishing care with new doctor, encounter for Back pain URI, acute Pneumonia Ear infection Erectile 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 Depression, major, recurrent ADHD Anxiety, generalized PTSD (post-traumatic stress disorder) Sleep apnea Hypertension, essential Chronic GERD 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, managed as type 2 Surgical History History of esophagogastroduodenoscopy (EGD) H/O colonoscopy History of ear surgery History of removal of laparoscopic gastric banding device History of left knee surgery History of lithotripsy History of laparoscopic appendectomy History of knee surgery History of discectomy History of lumbar fusion Family History Father Alcoholism Hyperlipidemia HTN (hypertension) CVD (cardiovascular disease) Mental illness in member of household Mother CAD (coronary artery disease) Breast cancer High cholesterol Diabetes mellitus CVD (cardiovascular disease) Mental illness in member of household Maternal Grandfather No problems noted. Maternal Grandmother No problems noted. Paternal Grandfather No problems noted. Paternal Grandmother No problems noted. Sister No problems noted. Sister No problems noted. Daughter No problems noted. Daughter No problems noted. Other Mental health disorder Social History Housing: Apartment Are you a primary menagerie caretaker to a significant other at home: No Do you presently have visiting nurse or other home services: No Alcohol intake: current Alcohol intake frequency: holidays/special occasions only Patient Tobacco Use Status: Former Tobacco user e-Cigarette/Vaping Use: Currently Using Substance Use Type: Marijuana service: No Current occupational status: disabled Cognitive needs: No Hearing needs: No Vision needs: No Questionnaire PHQ-9 Over the last 2 weeks, how often have you been bothered by any of the following problems? 77701 - PHQ-9 Billing: Patient declined-do not bill Source: Developed by Drs. Jan Del Rio, Gail Hayward, Son Hanks and colleagues, with an educational jeannie from [employer]. Thrive Questionnaire Date Thrive assessed: 01/17/25 I am a: Patient What is your living situation today?: I choose not to answer this question Within the past 12 months, did the food you bought not last and you didn't have the money to get more?: I choose not to answer this question Within the past 12 months, did you worry whether your food would run out before you got money to buy more?: I choose not to answer this question Do you have trouble paying for medicines?: I choose not to answer this question Do you have trouble getting transportation to medical appointments?: I choose not to answer this question Do you have trouble paying your heating and electricity bill?: I choose not to answer this question Do you have trouble taking care of your child, family member or friend?: I choose not to answer this question Do you have trouble with day-to-day activities such as bathing, preparing meals, shopping, managing finances, etc.?: I choose not to answer this question Are you currently unemployed and looking for a job?: I choose not to answer this question Are you interested in more education?: I choose not to answer this question Please select the resources that you would like help with: None Currently or been in a relationship where the following occur: No concerns reported THRIVE Score: 0 AUDIT C Alcohol Use Questionnaire (AUDIT-C) 1. How often do you have a drink containing alcohol?: Monthly or less 2. How many drinks containing alcohol do you have on a typical day when you are drinking?: 1 or 2 3. How often do you have six or more drinks on one occasion?: Less than monthly Total Score: 2 Score Reviewed/Action Taken: Yes RISHI-7 AMB Questionnaire RISHI-7 Date RISHI - 7 assessed: 01/17/25 Feeling nervous, anxious, or on edge: 0 = Not at all Not being able to stop or control worryin = Not at all Worrying too much about different things: 0 = Not at all Trouble relaxin = Not at all Being so restless that it is hard to sit still: 0 = Not at all Becoming easily annoyed or irritable: 0 = Not at all Feeling afraid as if something awful might happen: 0 = Not at all Total RISHI-7 score (0-4 normal; 5-9 mild; 10-14 moderate; 15-21 severe): 0 Source: Developed by Drs. Jan Del Rio, Gail Hayward, Son Hanks and colleagues, with an educational jeannie from [employer] RISHI-7 Assessment Billing RISHI-7 Assessment Tool: RISHI-7 Assessment 88359 Physical exam (Primary Care) Vital Signs: Last Vital Signs Temp 98.1 F 01/17/25 08:28 Pulse 89 01/17/25 08:28 Resp 18 01/17/25 08:28 BP 118/72 01/17/25 08:28 Pulse Ox 97 01/17/25 08:28 Oxygen Delivery Method Room Air 01/17/25 08:28 BMI result Body Mass Index 35.7 Tobacco/Smoking Status: Tobacco use Status Tobacco use date assessed 01/17/25 01/17/25 08:31 Patient Tobacco Use Status Former Tobacco user 01/17/25 08:31 e-Cigarette/Vaping Use Currently Using 01/17/25 08:31 Thrive Assessment: Date of Thrive Assessment Date Thrive assessed 01/17/25 01/17/25 08:31 Currently or been in a relationship where the following occur: No concerns reported Results AMB Hemoglobin A1c AMB Hemoglobin A1c 6.3 % Last Edit by MARCIAL Amador on 01/17/25 08:5 1 Coding Level of Care Code Est Pt Level 4 (80921) Complex EM visit Add On G2211 Diagnoses Diabetes 1.5, managed as type 2 E13.9 Primary osteoarthritis of right hip M16.11 Osteoarthritis type: primary Lipid disorder E78.9 Chronic GERD K21.9 Hypertension, essential I10 Obstructive sleep apnea syndrome G47.33 Sleep apnea type: obstructive PTSD (post-traumatic stress disorder) F43.10 Recurrent major depressive disorder, in partial remission F33.41 Active/Remission status: in partial remission Erectile 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 N52.1 Failed back syndrome M96.1 Morbid obesity due to excess calories E66.01 Diabetic gastroparesis E11.43; K31.84 Chronic idiopathic constipation K59.04 Marijuana dependence F12.20 Additional Codes RISHI-7 Assessment Billing - RISHI-7 Assessment Tool: RISHI-7 Assessment 57617 ([id number]) Assessment & Plan Assessment & Plan (1) Diabetes 1.5, managed as type 2: Code(s): E13.9 - Other specified diabetes mellitus without complications Category: Medical (2) Osteoarthritis of right hip: Code(s): M16.11 - Unilateral primary osteoarthritis, right hip Category: Medical Qualifiers: Osteoarthritis type: primary Qualified Code(s): M16.11 - Unilateral primary osteoarthritis, right hip (3) Lipid disorder: Code(s): E78.9 - Disorder of lipoprotein metabolism, unspecified Category: Medical (4) Chronic GERD: Code(s): K21.9 - Gastro-esophageal reflux disease without esophagitis Category: Medical (5) Hypertension, essential: Code(s): I10 - Essential (primary) hypertension Category: Medical (6) Sleep apnea: Code(s): G47.30 - Sleep apnea, unspecified Category: Medical Qualifiers: Sleep apnea type: obstructive Qualified Code(s): G47.33 - Obstructive sleep apnea (adult) (pediatric) (7) PTSD (post-traumatic stress disorder): Code(s): F43.10 - Post-traumatic stress disorder, unspecified Category: Medical (8) Depression, major, recurrent: Code(s): F33.9 - Major depressive disorder, recurrent, unspecified Category: Medical Qualifiers: Active/Remission status: in partial remission Qualified Code(s): F33.41 - Major depressive disorder, recurrent, in partial remission (9) Erectile 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: Code(s): N52.1 - Erectile dysfunction due to diseases classified elsewhere Category: Medical (10) Failed back syndrome: Code(s): M96.1 - Postlaminectomy syndrome, not elsewhere classified Category: Medical (11) Morbid obesity due to excess calories: Code(s): E66.01 - Morbid (severe) obesity due to excess calories Category: Medical (12) Diabetic gastroparesis: Comment: . Gastric emptying study normal but he for got to stop the Reglan Code(s): E11.43 - Type 2 diabetes mellitus with diabetic autonomic (poly)neuropathy; K31.84 - Gastroparesis Category: Medical (13) Chronic idiopathic constipation: Code(s): K59.04 - Chronic idiopathic constipation Category: Medical (14) Marijuana dependence: Code(s): F12.20 - Cannabis dependence, uncomplicated Category: Medical Plan Chief Complaint The patient presents for routine follow-up of chronic conditions and evaluation of hip pain. Assessment and Plan 54-year-old male with a history of hypertension, type 2 diabetes mellitus, obesity, hypertension, hyperlipidemia, osteoarthritis multiple side, failed back syndrome, PTSD, severe depression Going in for right hip replacement surgery next week - patient already have preop clearance through [facility], his orthopedic is located at [facility] - Ongoing shoulder soreness post-rotator cuff injury impacts mobility and is aggravated when pushing oneself off the floor due to unstable housing conditions. - Recent hypoglycemia event with blood glucose levels dropping below 50, but he is doing fine now, Ozempic is on hold due to surgery The patient manages Type 2 Diabetes Mellitus and reports medication adherence challenges, particularly with continuous glucose monitoring due to device adhesion issues. - Has been on a stable antihypertensive regimen, which includes Lisinopril, Amlodipine, and Hydrochlorothiazide, maintaining current blood pressure within target range. - Reports homelessness impacting daily life, staying temporarily at a family member's residence while awaiting housing assistance. - was able to lose some weight but still BMI above 30 - psychiatric care through Psychiatry 1. Right Hip Osteoarthritis Scheduled for surgery next week [facility] 2. Type 2 Diabetes Mellitus The patient is on a comprehensive regimen including Ozempic[ on hold for surgery] and Jardiance, long-acting insulin 38 units at night 3. Hyperlipidemia Management includes Rosuvastatin. Encouraged dietary modification and regular lipid panel assessment. 4. Obesity, still struggling with weight. 5. Diabetic Neuropathy Currently managed with Gabapentin. Continued symptom monitoring recommended. 6. History Of Pneumonia Advised updated pneumonia vaccination. 7. Allergic Rhinitis Continued use of Flonase for symptom control. Patient educated on avoiding known allergens. 8. Obstructive Sleep Apnea Continued monitoring of sleep quality and symptoms. Discussed the importance of CPAP compliance. Problem List - Hypertension - Type 2 Diabetes Mellitus - Allergic Rhinitis - Diabetic Neuropathy - Obstructive Sleep Apnea - Hyperlipidemia - Gastroesophageal Reflux Disease - Right Hip Osteoarthritis - History of Pneumona - sleep apnea - smokes marijuana Patient Instructions - Continue your current antihypertensive medications: Lisinopril 40 mg, Amlodipine 10 mg, and Hydrochlorothiazide 25 mg. - Post-surgery, you may monitor your blood sugar levels and adjust insulin, including Lantus as necessary, per hospital instructions. - Maintain current medications for diabetes management; reduce Lantus to 30 units if low blood sugars persist. - After the hospital stay, continue monitoring blood glucose levels closely; the medical team will assist you during the rehabilitation process. - Return for follow-up in three months to re-evaluate blood pressure management and medications. - Continue exploring housing assistance options and seek support services as necessary. Orders: Orders LDL Cholesterol Direct 2 Months E11.43 - Type 2 diabetes mellitus with diabetic autonomic (poly)neuropathy, E13.9 - Other specified diabetes mellitus without complications, E66.01 - Morbid (severe) obesity due to excess calories, E78.9 - Disorder of lipoprotein metabolism, unspecified, F12.20 - Cannabis dependence, uncomplicated, F33.41 - Major depressive disorder, recurrent, in partial remission, F43.10 - Post-traumatic stress disorder, unspecified, G47.30 - Sleep apnea, unspecified, I10 - Essential (primary) hypertension, K21.9 - Gastro- esophageal reflux disease without esophagitis, K31.84 - Gastroparesis, K59.04 - Chronic idiopathic constipation, M96.1 - Postlaminectomy syndrome, not elsewhere classified, N52.1 - Erectile dysfunction due to diseases classified elsewhere Microalbumin, Random (w Creat) 2 Months E11.43 - Type 2 diabetes mellitus with diabetic autonomic (poly)neuropathy, E13.9 - Other specified diabetes mellitus without complications, E66.01 - Morbid (severe) obesity due to excess calories, E78.9 - Disorder of lipoprotein metabolism, unspecified, F12.20 - Cannabis dependence, uncomplicated, F33.41 - Major depressive disorder, recurrent, in partial remission, F43.10 - Post-traumatic stress disorder, unspecified, G47.30 - Sleep apnea, unspecified, I10 - Essential (primary) hypertension, K21.9 - Gastro-esophageal reflux disease without esophagitis, K31.84 - Gastroparesis, K59.04 - Chronic idiopathic constipation, M96.1 - Postlaminectomy syndrome, not elsewhere classified, N52.1 - Erectile dysfunction due to diseases classified elsewhere AMB Hemoglobin A1c Today Z13.9 - Encounter for screening, unspecified Hemoglobin A1c 2 Months E11.43 - Type 2 diabetes mellitus with diabetic autonomic (poly)neuropathy, E13.9 - Other specified diabetes mellitus without complications, E66.01 - Morbid (severe) obesity due to excess calories, E78.9 - Disorder of lipoprotein metabolism, unspecified, F12.20 - Cannabis dependence, uncomplicated, F33.41 - Major depressive disorder, recurrent, in partial remission, F43.10 - Post-traumatic stress disorder, unspecified, G47.30 - Sleep apnea, unspecified, I10 - Essential (primary) hypertension, K21.9 - Gastro- esophageal reflux disease without esophagitis, K31.84 - Gastroparesis, K59.04 - Chronic idiopathic constipation, M96.1 - Postlaminectomy syndrome, not elsewhere classified, N52.1 - Erectile dysfunction due to diseases classified elsewhere Complete Blood Count Auto Diff 2 Months E11.43 - Type 2 diabetes mellitus with diabetic autonomic (poly)neuropathy, E13.9 - Other specified diabetes mellitus without complications, E66.01 - Morbid (severe) obesity due to excess calories, E78.9 - Disorder of lipoprotein metabolism, unspecified, F12.20 - Cannabis dependence, uncomplicated, F33.41 - Major depressive disorder, recurrent, in partial remission, F43.10 - Post-traumatic stress disorder, unspecified, G47.30 - Sleep apnea, unspecified, I10 - Essential (primary) hypertension, K21.9 - Gastro-esophageal reflux disease without esophagitis, K31.84 - Gastroparesis, K59.04 - Chronic idiopathic constipation, M96.1 - Postlaminectomy syndrome, not elsewhere classified, N52.1 - Erectile dysfunction due to diseases classified elsewhere Comprehensive Met. Panel 2 Months E11.43 - Type 2 diabetes mellitus with diabetic autonomic (poly)neuropathy, E13.9 - Other specified diabetes mellitus without complications, E66.01 - Morbid (severe) obesity due to excess calories, E78.9 - Disorder of lipoprotein metabolism, unspecified, F12.20 - Cannabis depe ndence, uncomplicated, F33.41 - Major depressive disorder, recurrent, in partial remission, F43.10 - Post-traumatic stress disorder, unspecified, G47.30 - Sleep apnea, unspecified, I10 - Essential (primary) hypertension, K21.9 - Gastro- esophageal reflux disease without esophagitis, K31.84 - Gastroparesis, K59.04 - Chronic idiopathic constipation, M96.1 - Postlaminectomy syndrome, not elsewhere classified, N52.1 - Erectile dysfunction due to diseases classified elsewhere Medications: Discontinued dulaglutide (Trulicity) Discontinued Reason: Doctor's Order 1.5 mg (0.5 mL) subcut QWEEK 30 days 2.5 mL 4RF
[2025-01-17 08:28] VITALS: BP 118/72; PULSE 89; RESP 18; TEMP 36.7; O2SAT 97; BMI 35.7
== END 2025-01-17 08:49 | disposition home or self-care (01) ==
LOC: HO.HMCC 08:23
PROVIDERS: PCP Internal Medicine; Visit Provider Internal Medicine
DX: E11.43 Type 2 diabetes mellitus with diabetic autonomic (poly)neuropathy (principal); F33.41 Major depressive disorder, recurrent, in partial remission; E66.01 Morbid (severe) obesity due to excess calories; F12.20 Cannabis dependence, uncomplicated; Z68.35 Body mass index [BMI] 35.0-35.9, adult; M16.11 Unilateral primary osteoarthritis, right hip; E78.9 Disorder of lipoprotein metabolism, unspecified; K21.9 Gastro-esophageal reflux disease without esophagitis; I10 Essential (primary) hypertension; G47.33 Obstructive sleep apnea (adult) (pediatric); F43.10 Post-traumatic stress disorder, unspecified; N52.1 Erectile dysfunction due to diseases classified elsewhere

== ENCOUNTER → 2025-01-17 08:22 | Outpatient (BNVA) | payer OTHER, SELFPAY | PROVIDERS: PCP Internal Medicine; Visit Provider Internal Medicine | DX: M16.11 Unilateral primary osteoarthritis, right hip (principal); E78.9 Disorder of lipoprotein metabolism, unspecified; K21.9 Gastro-esophageal reflux disease without esophagitis; I10 Essential (primary) hypertension; G47.33 Obstructive sleep apnea (adult) (pediatric); F43.10 Post-traumatic stress disorder, unspecified; F33.41 Major depressive disorder, recurrent, in partial remission; N52.1 Erectile dysfunction due to diseases classified elsewhere; M96.1 Postlaminectomy syndrome, not elsewhere classified; E66.01 Morbid (severe) obesity due to excess calories; E11.43 Type 2 diabetes mellitus with diabetic autonomic (poly)neuropathy; K31.84 Gastroparesis; K59.04 Chronic idiopathic constipation; F12.20 Cannabis dependence, uncomplicated | CPT/HCPCS: 83036; 96127; 99212 ==

== ENCOUNTER 2025-04-21 09:51 | Outpatient (AMB) | payer OTHER, SELFPAY ==
--- NOTE | 2025-04-21 09:53 | MHC.PC.OV ---
Vital Signs 04/21/25 09:55 Height 5 ft 9 in Weight 230 lb BMI 34.0 BP 112/70 Blood Pressure Location Lt brachial Respiration 16 Pulse 103 H Pulse Source Pulse Oximeter Temp 98 F Temp Source Oral Pulse Oximetry (%) 98 Oxygen Delivery Method Room Air Intake Visit Reasons: 3m f/u- A1C Allergies benztropine (From COGENTIN) Allergy (Unknown, Verified 01/17/25 08:28) SWEATING pregabalin (From LYRICA) Allergy (Unknown, Verified 01/17/25 08:28) SWELLING sitagliptin (From JANUVIA) Allergy (Unknown, Verified 01/17/25 08:28) PER H&P Medication List - Last Reconciled 04/21/25 by Lizabeth Adame MD albuterol sulfate 90 mcg/actuation (Ventolin HFA) 1 inh inhalation QID PRN 30 days alprazolam 2 mg PO BEDTIME amlodipine 5 mg PO DAILY 90 days blood sugar diagnostic (Accu-Chek Guide test strips) to be checked once daily blood-glucose meter (Accu-Chek Guide Glucose Meter) to be checked once daily cetirizine 10 mg PO DAILY clotrimazole 1% 1 appl topical bid 4 weeks dextroamphetamine-amphetamine 10 mg 1 tab PO DAILY dextroamphetamine-amphetamine 30 mg 1 tab PO TID empagliflozin (Jardiance) 10 mg PO QAM 90 days fluticasone propionate 50 mcg/actuation (Flonase Allergy Relief) 1 spray intranasal DAILY FreeStyle Ajith 3 Sensor (blood-glucose sensor) test blood sugar 4 times a day NS hydrochlorothiazide 25 mg PO DAILY [Insulin pen needles Once a day] lancets (Accu-Chek Softclix Lancets) to be checked once daily [ajith Glucometer As directed NS] linaclotide (Linzess) 145 mcg PO QAM lisinopril 40 mg PO DAILY metoclopramide HCl 20 mg (2 x 10 mg) PO TID metoprolol succinate ER 25 mg PO BEDTIME nystatin 1 appl topical DAILY 30 days omeprazole 40 mg PO DAILY ondansetron HCl mg PO DAILY oxcarbazepine 600 mg PO BID pen needle, diabetic T.i.d. rosuvastatin 20 mg PO BEDTIME semaglutide 2 mg (0.75 mL) subcut QWEEK 90 days tamsulosin 0.4 mg PO BEDTIME Tobacco use date assessed: 04/21/25 Dental Screening Dental Screen Date: 04/21/25 Did you have a dental visit in the last 12 months?: Yes Did you have a dental problem in the last 6 months where you did not have access to dental care?: No Was dental information given to patient?: Patient has dentist HPI 3m f/u- A1C HPI Details History - The patient is a 54-year-old male presenting with management of Type 2 Diabetes Mellitus and associated hypoglycemia. - Type 2 Diabetes Mellitus: The patient has been experiencing episodes of hypoglycemia with blood sugar levels dropping to 50 mg/dL, causing concern. - The patient was advised to stop taking Jardiance and Lantus and is currently only on Ozempic. - Blood sugar levels have been maintained under 200 mg/dL postprandially and 150 mg/dL in the morning. - The patient has lost approximately 11 pounds since December, currently weighing 230 pounds, down from 241.8 pounds. - Diabetic Neuropathy: The patient reports cold extremities, particularly hands and feet, which may be related to diabetic neuropathy - Gastroesophageal Reflux Disease: Stable - The patient has a history of hypertension, currently managed with multiple antihypertensive medications. - The patient also has benign prostatic hyperplasia, managed with tamsulosin. Problem List - Type 2 Diabetes Mellitus - Hypertension - Diabetic Neuropathy - Gastroesophageal Reflux Disease - Obesity - Benign Prostatic Hyperplasia - Preventative care: Regular monitoring of blood glucose levels Patient Instructions - Continue monitoring blood sugar levels and report any significant changes. - Maintain a diet low in sugar and carbohydrates to help manage diabetes. - Use woolen socks and a hot water bottle to manage cold extremities. - Keep a piece of candy handy to manage episodes of hypoglycemia. - Schedule a follow-up appointment in three months and complete lab tests before the visit. Review of Systems - General: No fever no chills - Neurological: No headaches no dizziness - Ear nose throat: No sore throat no hearing difficulty no ear pain - Cardiovascular: No syncope, no chest pain, no palpitations - Gastrointestinal: No nausea vomiting or diarrhea - Endocrine: No polyuria polydipsia no heat intolerance - Genitourinary: No dysuria , no blood in urine Physical Exam General: No acute distress HEENT: No acute findings Neck: Supple Respiratory system: Able to talk in full sentences, no audible wheeze Cardiovascular: S1-S2 regular in rate and rhythm Gastrointestinal: No pain, but experiencing heartburn Extremities: Hands and feet are cold, possibly due to diabetic neuropathy or Rayna[employer]: Alert awake oriented x3 motor sensory intact Skin: Normal turgor [facility] Medical History Psychiatric illness Hospital discharge follow-up History of pneumonia Shortness of breath Pre-op examination Nausea & vomiting Colon cancer screening Insulin dependent type 1 diabetes mellitus Establishing care with new doctor, encounter for Back pain URI, acute Pneumonia Ear infection Erectile 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 Depression, major, recurrent ADHD Anxiety, generalized PTSD (post-traumatic stress disorder) Sleep apnea Hypertension, essential Chronic GERD 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, managed as type 2 Surgical History History of esophagogastroduodenoscopy (EGD) H/O colonoscopy History of ear surgery History of removal of laparoscopic gastric banding device History of left knee surgery History of lithotripsy History of laparoscopic appendectomy History of knee surgery History of discectomy History of lumbar fusion Family History Father Alcoholism Hyperlipidemia HTN (hypertension) CVD (cardiovascular disease) Mental illness in member of household Mother CAD (coronary artery disease) Breast cancer High cholesterol Diabetes mellitus CVD (cardiovascular disease) Mental illness in member of household Maternal Grandfather No problems noted. Maternal Grandmother No problems noted. Paternal Grandfather No problems noted. Paternal Grandmother No problems noted. Sister No problems noted. Sister No problems noted. Daughter No problems noted. Daughter No problems noted. Other Mental health disorder Social History Housing: Apartment Are you a primary home care assistant to a significant other at home: No Do you presently have visiting nurse or other home services: No Alcohol intake: current Alcohol intake frequency: holidays/special occasions only Patient Tobacco Use Status: Former Tobacco user e-Cigarette/Vaping Use: Currently Using Substance Use Type: Marijuana service: No Current occupational status: disabled Cognitive needs: No Hearing needs: No Vision needs: No Questionnaire PHQ-9 Over the last 2 weeks, how often have you been bothered by any of the following problems? 1. Little interest or pleasure in doing things: several days 2. Feeling down, depressed, or hopeless: several days 3. Trouble falling or staying asleep, or sleeping too much: several days 4. Feeling tired or having little energy: several days 5. Poor appetite or overeating: not at all 6. Feeling bad about yourself - or that you are a failure or have let yourself or your family down: not at all 7. Trouble concentrating on things, such as reading the newspaper or watching television: not at all 8. Moving or speaking so slowly that other people could have noticed. Or the opposite - being so fidgety or restless that you have been moving around a lot more than usual: not at all 9. Thoughts that you would be better off or of hurting yourself in some way: not at all Total score: 4 Depression Screening Interpretation: Negative Depression Screening Done: Yes [id number] - PHQ-9 Billing: Yes Source: Developed by Drs. Jan Del Rio, Gail Hayward, Son Hanks and colleagues, with an educational jeannie from [email or web address]. Thrive Questionnaire Date Thrive assessed: 01/17/25 I am a: Patient What is your living situation today?: I choose not to answer this question Within the past 12 months, did the food you bought not last and you didn't have the money to get more?: I choose not to answer this question Within the past 12 months, did you worry whether your food would run out before you got money to buy more?: I choose not to answer this question Do you have trouble paying for medicines?: I choose not to answer this question Do you have trouble getting transportation to medical appointments?: I choose not to answer this question Do you have trouble paying your heating and electricity bill?: I choose not to answer this question Do you have trouble taking care of your child, family member or friend?: I choose not to answer this question Do you have trouble with day-to-day activities such as bathing, preparing meals, shopping, managing finances, etc.?: I choose not to answer this question Are you currently unemployed and looking for a job?: I choose not to answer this question Are you interested in more education?: I choose not to answer this question Please select the resources that you would like help with: None Currently or been in a relationship where the following occur: I choose not to answer THRIVE Score: 0 AUDIT C Alcohol Use Questionnaire (AUDIT-C) 1. How often do you have a drink containing alcohol?: Monthly or less 2. How many drinks containing alcohol do you have on a typical day when you are drinking?: 1 or 2 3. How often do you have six or more drinks on one occasion?: Never Total Score: 1 RISHI-7 AMB Questionnaire RISHI-7 Date RISHI - 7 assessed: 01/17/25 Feeling nervous, anxious, or on edge: 1 = Several days Not being able to stop or control worryin = Several days Worrying too much about different things: 1 = Several days Trouble relaxin = Several days Being so restless that it is hard to sit still: 1 = Several days Becoming easily annoyed or irritable: 1 = Several days Feeling afraid as if something awful might happen: 1 = Several days Total RISHI-7 score (0-4 normal; 5-9 mild; 10-14 moderate; 15-21 severe): 7 Source: Developed by Drs. Jan Del Rio, Gail Hayward, Son Hanks and colleagues, with an educational jeannie from [email or web address]. Physical exam (Primary Care) Vital Signs: Last Vital Signs Temp 98 F 04/21/25 09:55 Pulse 103 H 04/21/25 09:55 Resp 16 04/21/25 09:55 BP 112/70 04/21/25 09:55 Pulse Ox 98 04/21/25 09:55 Oxygen Delivery Method Room Air 04/21/25 09:55 BMI result Body Mass Index 34.0 Tobacco/Smoking Status: Tobacco use Status Tobacco use date assessed 04/21/25 04/21/25 10:03 Patient Tobacco Use Status Former Tobacco user 04/21/25 10:03 e-Cigarette/Vaping Use Currently Using 04/21/25 10:03 PHQ-9: PHQ-9 Score PHQ-9: Total score 4 04/21/25 10:12 Depression Screening Interpretation: Negative Thrive Assessment: Date of Thrive Assessment Date Thrive assessed 01/17/25 04/21/25 10:03 Currently or been in a relationship where the following occur: I choose not to answer Results AMB Hemoglobin A1c AMB Hemoglobin A1c 6.4 % Last Edit by Desirae Chery CMA on 04/21/25 10:12 Results Reviewed Results Reviewed: Laboratory Last Values Hgb A1c (Clinic) 6.4 % (4.0-6.0) H 04/21/25 10:03 Coding Level of Care Code Est Pt Level 4 (33083) Complex EM visit Add On G2211 Diagnoses Diabetes 1.5, managed as type 2 E13.9 Chronic GERD K21.9 Hiatal hernia K44.9 Hypertension, essential I10 Lipid disorder E78.9 Recurrent major depressive disorder, in partial remission F33.41 Active/Remission status: in partial remission PTSD (post-traumatic stress disorder) F43.10 Diabetic gastroparesis E11.43; K31.84 History of right hip replacement Z96.641 History of replacement of both shoulder joints Z96.611; Z96.612 Additional Codes PHQ-9 - 77571 - PHQ-9 Billing: Yes ([id number]) Assessment & Plan Assessment & Plan (1) Diabetes 1.5, managed as type 2: Code(s): E13.9 - Other specified diabetes mellitus without complications Category: Medical (2) Chronic GERD: Code(s): K21.9 - Gastro-esophageal reflux disease without esophagitis Category: Medical (3) Hiatal hernia: Code(s): K44.9 - Diaphragmatic hernia without obstruction or gangrene Category: Medical (4) Hypertension, essential: Code(s): I10 - Essential (primary) hypertension Category: Medical (5) Lipid disorder: Code(s): E78.9 - Disorder of lipoprotein metabolism, unspecified Category: Medical (6) Depression, major, recurrent: Code(s): F33.9 - Major depressive disorder, recurrent, unspecified Category: Medical Qualifiers: Active/Remission status: in partial remission Qualified Code(s): F33.41 - Major depressive disorder, recurrent, in partial remission (7) PTSD (post-traumatic stress disorder): Code(s): F43.10 - Post-traumatic stress disorder, unspecified Category: Medical (8) Diabetic gastroparesis: Comment: . Gastric emptying study normal but he for got to stop the Reglan Code(s): E11.43 - Type 2 diabetes mellitus with diabetic autonomic (poly)neuropathy; K31.84 - Gastroparesis Category: Medical (9) History of right hip replacement: Code(s): Z96.641 - Presence of right artificial hip joint Category: Surgical (10) History of replacement of both shoulder joints: Code(s): Z96.611 - Presence of right artificial shoulder joint; Z96.612 - Presence of left artificial shoulder joint Category: Surgical Plan History - The patient is a 54-year-old male presenting with management of Type 2 Diabetes Mellitus and associated hypoglycemia. - Type 2 Diabetes Mellitus: The patient has been experiencing episodes of hypoglycemia with blood sugar levels dropping to 50 mg/dL, causing concern. - The patient was advised to stop taking Jardiance and Lantus and is currently only on Ozempic. - Blood sugar levels have been maintained under 200 mg/dL postprandially and 150 mg/dL in the morning. - The patient has lost approximately 11 pounds since December, currently weighing 230 pounds, down from 241.8 pounds. - Diabetic Neuropathy: The patient reports cold extremities, particularly hands and feet, which may be related to diabetic neuropathy - Gastroesophageal Reflux Disease: Stable - The patient has a history of hypertension, currently managed with multiple antihypertensive medications. - The patient also has benign prostatic hyperplasia, managed with tamsulosin. Problem List - Type 2 Diabetes Mellitus - Hypertension - Diabetic Neuropathy - Gastroesophageal Reflux Disease - Obesity - Benign Prostatic Hyperplasia - Preventative care: Regular monitoring of blood glucose levels Patient Instructions - Continue monitoring blood sugar levels and report any significant changes. - Maintain a diet low in sugar and carbohydrates to help manage diabetes. - Use woolen socks and a hot water bottle to manage cold extremities. - Keep a piece of candy handy to manage episodes of hypoglycemia. - Schedule a follow-up appointment in three months and complete lab tests before the visit. Orders: Orders AMB Hemoglobin A1c Today E13.9 - Other specified diabetes mellitus without complications, Z13.9 - Encounter for screening, unspecified Medications: On Hold empagliflozin (Jardiance) Hold Comment: Doctor's Order 10 mg PO QAM 90 days 90 tabs 1RF
[2025-04-21 09:55] VITALS: BP 112/70; PULSE 103; RESP 16; TEMP 36.6; O2SAT 98; BMI 34.0
== END 2025-04-21 10:14 | disposition home or self-care (01) ==
LOC: HO.HMCC 09:51
PROVIDERS: PCP Internal Medicine; Visit Provider Internal Medicine
DX: E11.43 Type 2 diabetes mellitus with diabetic autonomic (poly)neuropathy (principal); K21.9 Gastro-esophageal reflux disease without esophagitis; K44.9 Diaphragmatic hernia without obstruction or gangrene; I10 Essential (primary) hypertension; E78.9 Disorder of lipoprotein metabolism, unspecified; F33.41 Major depressive disorder, recurrent, in partial remission; F43.10 Post-traumatic stress disorder, unspecified; K31.84 Gastroparesis; Z96.641 Presence of right artificial hip joint; Z96.611 Presence of right artificial shoulder joint; Z96.612 Presence of left artificial shoulder joint

== ENCOUNTER → 2025-04-21 09:51 | Outpatient (BNVA) | payer OTHER, SELFPAY | PROVIDERS: PCP Internal Medicine; Visit Provider Internal Medicine | DX: E13.649 Other specified diabetes mellitus with hypoglycemia without coma (principal); E13.40 Other specified diabetes mellitus with diabetic neuropathy, unspecified; K21.9 Gastro-esophageal reflux disease without esophagitis; I10 Essential (primary) hypertension; N40.0 Benign prostatic hyperplasia without lower urinary tract symptoms; K44.9 Diaphragmatic hernia without obstruction or gangrene; E78.9 Disorder of lipoprotein metabolism, unspecified; F33.41 Major depressive disorder, recurrent, in partial remission; F43.10 Post-traumatic stress disorder, unspecified; E13.43 Other specified diabetes mellitus with diabetic autonomic (poly)neuropathy; K31.84 Gastroparesis; Z96.641 Presence of right artificial hip joint; Z96.611 Presence of right artificial shoulder joint; Z96.612 Presence of left artificial shoulder joint; Z79.899 Other long term (current) drug therapy | CPT/HCPCS: 83036; 96127; 99212 ==

== ENCOUNTER 2025-08-18 14:15 | Outpatient (REF) | payer OTHER, SELFPAY ==
[2025-08-18 16:03] LABS: MANUAL DIFF FLAG NO
[2025-08-18 16:19] LABS: Hematocrit 43.0 % (42.0-52.0); Hemoglobin 14.9 g/dl (14.0-18.0); Imm Gran Abs Auto 0.02 X10*3/uL (0.00-0.03); Imm Gran Pct Auto 0.2 % (0.0-0.4); Lymphocytes Absolute Auto 2.0 X10*3/uL (1.2-4.9); Mean Corpuscular HGB Conc 34.7 g/dl (31.0-36.0); Mean Corpuscular Hemoglobin 29.2 pg (27.0-33.0); Mean Corpuscular Volume 84.3 fL (80.0-98.0); NRBC Abs Auto 0.000 X10*3/uL (0.0-0.012); NRBC Pct Auto 0.0 /100WBC (0.0-0.2); Platelet Count 377 X10*3/uL (160-400); Red Blood Count 5.10 X10*6/uL (4.60-5.80); White Blood Count 8.2 X10*3/uL (4.8-10.8)
[2025-08-18 16:59] LABS: Alanine Aminotransferase 25 U/L (0-40); Albumin Level 5.0 g/dL (3.5-5.0); Alkaline Phosphatase 123 U/L (39-117); Amylase 37 U/L (28-100); Anion Gap 15 (12-20); Aspartate Amino Transferase 19 U/L (5-37); Blood Urea Nitrogen 15 mg/dL (9-16); Calcium 9.4 mg/dL (8.4-10.2); Carbon Dioxide 23 mmol/L (22-29); Chloride 99 mmol/L (96-108); Estimated Glomerular Filt Rate > 60; Lipase 53 U/L (8-78); Potassium 3.4 mmol/L (3.3-5.1); Sodium 134 mmol/L (135-145); Total Protein 7.9 g/dL (6.5-8.0)
[2025-08-18 17:07] LABS: Microalbum/Creatinine Ratio Ur 8.7 ug/mg cr (<30)
--- OUTSIDE RECORDS SUMMARY | 2025-08-18 17:23 | XMS_ITS | Data Portability ---
Author Organization [place] - [facility], [facility] Address [address] [place] [address] Care Team Providers Care Manager Customer Name Role Phone KARIE TORIBIO Primary Care Provider Assessment Encounter Date Assessment Date Assessment LastModified by Organization Details LastModified Time 02/13/2025 02/13/2025 Assessment: Good chair transfer and gait with some abd gait w/o cane. Able 90+ hip flex Plan: Continue 2x/week per post op Md orders/ precautions. [email or web address] Not available 02/13/2025 10:42:19 02/17/2025 02/17/2025 Assessment: Improving mobility and gait without AD use. Plan: Continue 2x/week and progress independent HEP. [email or web address] Not available 02/17/2025 16:23:19 02/21/2025 02/21/2025 Assessment: Good active motion and improving strength. Normal gait level and improving strength with stairs. Plan: Continue short course of therapy and progress to discharge and independent HEP. [email or web address] Not available 02/21/2025 20:26:14 02/24/2025 02/24/2025 Assessment: Good active motion and improving strength. Normal gait level and improving strength with stairs. Plan: Continue with remaining appts and progress to discharge. [email or web address] Not available 02/24/2025 11:39:35 Plan of Treatment [...] R knee. room 2 2024 025 ricky [facility] Office, [address], [facility] [[email or web address] [address], [place], [address], 06/14/2025 08:14:54 Medication Orders None recorded . Patient TargetsNo targets recorded. Patient InstructionsNo instructions recorded. Reason for Referral None Reported. Results Created Date Observation Date Name Description Value Unit Range Abnormal Flag Note LastModifiedBy Organization Detail LastModifiedTime 01/25/2001/24/2025 XR, hip + pelvi s, unila teral , 2 or 3 view No observ ation record ed. [facility] [address] [facility], [place], [address], 01/25/2025 06:51:47 02/08/2002/07/2025 XR, hip + pelvi s, unila teral , 2 or 3 view http:/ [email or web address] ?Encry pted=s hAaTro YD8dLq bEUv6g %2BXZw aYqtaq 0bqfl% 2Fg9IQ a4ajBk vP9nXo QUaueC m3YtLR FvZlgJ JJ8mAn HZtai3 9f2331 AC0KqY 36CWaS hKiQtr MwF INTERFACE [facility] [address], [address], 02/07/2025 13:51:56 02/08/20 25 02/07/2025 XR, hip + pelvi s, unila teral , 2 or 3 view http:/ [email or web address] ?Encry pted=s hAaTro YD8dLq bEUv6g %2BXZw aYqtaq 0bqfl% 2Fg9IQ a4ajBk vP9nXo QUaueC m3YtLR FvZlgJ JJ8mAn HZtai3 4y7105 AC0KqY 36CWaS hKiQtr MwF INTERFACE [facility] [address], [place], [address], 02/07/2025 13:51:58 06/07/20 25 06/07/2025 XR, knee, 4 or more view http:/ [email or web address] ?Encry pted=s hAaTro YD8dLq bEUv6g %2BXZw aYqtaq 0bqfl% 2Fg9IQ a4ajBk vP9nXo QUaueC m3YtLR FvZlgJ JJ8mAn HZtai3 8g5812 AC0Klb nqEUaO iKiQtr MwF INTERFACE [facility] Office [address] [facility] [address], [place], [address], 06/07/2025 14:05:28 06/07/20 25 06/07/2025 XR, knee, 4 or more view http:/ [email or web address] ?Encry pted=s hAaTro YD8dLq bEUv6g %2BXZw aYqtaq 0bqfl% 2Fg9IQ a4ajBk vP9nXo QUaueC m3YtLR FvZlgJ JJ8mAn HZtai3 2e8498 AC0Klb nqEUaO iKiQtr MwF INTERFACE [facility] Office [address] [facility] [address], [place], [address], 06/07/2025 14:05:30 Result Notes Documentation Provider Name and Address Organization Details Recorded Time Xr, Knee, 4 Or More View : [email or web address]? Encrypted=zoVyKjaUA1kSknJ Uv6g%8PWCrlGrvsc5hxoh%2Fg 9VAd9beLqqD0xYeBRhvuIo1Ln CENdEijUUZ8kHbHXnts66g836 0AS2WkfnhCWqLoVmCxbNdY Not Available [facility] 06/07/2025 14:05: 29 Xr, Knee, 4 Or More View : [email or web address]? Encrypted=leVgEjaCY0aUllR Uv6g%8MRGteXzkqu2lxnd%2Fg 3KSf5icYigY5zGpRVpccZl3Lp PKDuIpsKAD7wXoJKlfa10v595 2YR9WegudWUnPlWcDdwNjA Not Available [facility] 06/07/2025 14:05: 30 Problems Name Problem SNOMED Code Status Onset Date Resolution Date Notes Provider Name and Address Organization Details Recorded Time Idiopathi c osteoarth ritis 725005579 Active 2015 Problem Code: M17.12; Problem Code Type: ICD-10; Status: 'A'; Not Available [facility] 4 11:59:24 Essential hypertens ion 10386122 Active 2023 MARINA mckoy [facility] 4 16:51:48 Diabetes mellitus 10677935 Active 2023 [employer] MARINA mckoy [facility] 4 16:52:00 Hyperlipi demia 18958951 Active 2023 MARINA mckoy [facility] 4 16:52:08 Acid reflux 515567115 Active 2023 MARINA mckoy [facility] 4 16:52:14 Pain of left shoulder joint 23250330409 888300 Active 2023 AILYN mckoy [facility] 4 11:42:23 Osteoarth ritis of joint of right shoulder region 92102016187 9100 Active 2023 Jorje Flowers MD [address], [facility] [place], [address] , [facility] 4 11:09:40 Rupture of rotator cuff of right shoulder 91221870164 403166 Active 2023 AILYN mckoy [facility] 4 13:39:54 Pain of shoulder region 77175456 Active 2023 Gene Mendes PA-C [address], [place], [address] , [facility] 4 18:56:45 Pain of hip region 92371981 [facility] 5 10:35:43 Postopera tive pain 418711257 Active 2024 Sri Morales APRN [address], [place], [address] , [facility] 5 11:29:53 Osteoarth ritis of right knee joint 55827396580 9100 Active 2024 Dung Carter PA-C [address], [place], [address] , [facility] 5 08:20:19 Problem Notes None recorded. Procedures Surgical History Date Name Laterality Status Provider Name and Address Organization Details Recorded Time 5 Sports Knee 4&1 completed Dung Carter PA-C [address], [place], [address], [facility] 06/08/2025 08:19:56 5 23234 Therapeutic Exercise (1:1) cancelled Geetha Bethea, PRODUCT MARKETING CONSULTANT [address], [place], [address], [facility] 02/28/2025 10:21:04 5 84202: Gait training cancelled Geetha Bethea, PRODUCT MARKETING CONSULTANT [address], [place], [address], [facility] 02/28/2025 10:21:04 5 99327: Manual therapy cancelled Geetha Bethea PRODUCT MARKETING CONSULTANT [address], [place], [address], [facility] 02/28/2025 10:21:04 5 62117 Therapeutic Exercise (1:1) completed George Dougherty, AT [address], [place], [address], [facility] 02/24/2025 11:38:30 5 70320: Gait training completed George Dougherty, AT [address], [place], [address], [facility] 02/24/2025 11:38:30 5 14024: Manual therapy completed George Dougherty, AT [address], [place], [address], [facility] 02/24/2025 11:38:30 5 39980 Therapeutic Exercise (1:1) completed George Dougherty, AT [address], [place], [address], [facility] 02/21/2025 20:23:44 5 82556: Gait training completed George Dougherty, AT [address], [place], [address], [facility] 02/21/2025 20:25:13 5 71559: Manual therapy completed George Dougherty, AT [address], [place], [address], [facility] 02/21/2025 20:23:44 5 08887 Therapeutic Exercise (1:1) completed George Dougherty, AT [address], [place], [address], [facility] 02/17/2025 16:21:09 5 43700: Manual therapy completed George Dougherty, AT [address], [place], [address], [facility] 02/17/2025 16:21:09 5 98640: Therapeutic Activities (1:1) completed Buck Wilkins, PT [address] [facility], [place], [address], [facility] 02/13/2025 10:41:21 5 13483 Therapeutic Exercise (1:1) completed Buck Wilkins, PT [address], [place], [address], [facility] 02/13/2025 10:41:37 5 09341: Gait training completed Buck Wilkins, PT [address], [place], [address], [facility] 02/13/2025 10:41:27 5 09845: Manual therapy completed Buck Wilkins, PT [address], [place], [address], [facility] 02/11/2025 14:02:04 5 38175: Therapeutic Activities (1:1) completed George Dougherty, AT [address], [place], [address], [facility] 02/07/2025 12:44:53 5 46403 Therapeutic Exercise (1:1) completed George Dougherty, AT [address], [place], [address], [facility] 02/07/2025 12:44:43 5 96960: Gait training completed George Dougherty, AT [address], [place], [address], [facility] 02/07/2025 12:44:33 5 71307: Manual therapy completed George Dougherty, AT [address], [place], [address], [facility] 02/07/2025 12:44:41 5 29725 Therapeutic Exercise (1:1) completed Buck Kearnsser, PT [address], [place], [address], [facility] 02/02/2025 17:59:20 5 34180: Low complexity PT Eval completed Buck Pyser, PT [address], [place], [address], [facility] 02/02/2025 17:59:25 5 96239 Therapeutic Exercise (1:1) completed Buck Kearnsser, PT [address], [place], [address], [facility] 01/12/2025 18:01:36 5 65147: Low complexity PT Eval completed Buck Pyser, PT [address], [place], [address], [facility] 01/12/2025 18:01:40 5 88025 Therapeutic Exercise (1:1) cancelled Samm Arshad, DPT [address], [place], [address], [facility] 01/10/2025 13:48:50 5 06458: Low complexity PT Eval cancelled Samm Arshad, DPT [address], [place], [address], [facility] 01/10/2025 13:48:48 4 JZHip completed Rayshawn Ortiz PA-C [address], [place], [address], [facility] 10/06/2024 16:10:21 4 Hip Kenalog 2cc Injection, L/R completed Tonya Francisco PA-C [address], [place], [address], [facility] 09/05/2024 15:51:37 4 42301 Therapeutic Exercise (1:1) cancelled Jim Mendez, PT [address], [place], [address], [facility] 09/01/2024 13:07:51 4 05193: Hot or Cold Pack cancelled Jim Mendez, PT [address], [place], [address], [facility] 09/01/2024 13:07:51 4 00202: Manual therapy cancelled Jim Trigg, PT [address], [place], [address], [facility] 09/01/2024 13:07:51 4 84621 Therapeutic Exercise (1:1) cancelled Anshul Robbnyeni, PRODUCT MARKETING CONSULTANT [address], [place], [address], [facility] 09/01/2024 09:36:45 4 68920: Hot or Cold Pack cancelled Anshul Robbnyeni, PRODUCT MARKETING CONSULTANT [address], [place], [address], [facility] 09/01/2024 09:36:45 4 40925: Manual therapy cancelled Anshul Teague, PRODUCT MARKETING CONSULTANT [address], [place], [address], [facility] 09/01/2024 09:36:45 4 16310 Therapeutic Exercise (1:1) cancelled Anshul Robbnyeni, PRODUCT MARKETING CONSULTANT [address], [place], [address], [facility] 08/29/2024 15:06:11 4 02725: Hot or Cold Pack cancelled Anshul Robbnyeni, PRODUCT MARKETING CONSULTANT [address], [place], [address], [facility] 08/29/2024 15:06:11 33720: Manual therapy cancelled Anshul Robbnko, PRODUCT MARKETING CONSULTANT [address], [place], [address], [facility] 08/29/2024 15:06:11 77245 Therapeutic Exercise (1:1) completed Anshul Sebastiánarenyeni, PRODUCT MARKETING CONSULTANT [address], [place], [address], [facility] 08/26/2024 13:39:43 66692: Hot or Cold Pack completed Anshul Teague, PRODUCT MARKETING CONSULTANT [address], [place], [address], [facility] 08/26/2024 13:39:38 15456: Manual therapy completed Anshul Teague, PRODUCT MARKETING CONSULTANT [address], [place], [address], [facility] 08/26/2024 13:39:50 99443 Therapeutic Exercise (1:1) completed Jim Mendez, PT [address], [place], [address], [facility] 08/23/2024 14:06:45 67241: Hot or Cold Pack completed Jim Mendez, PT [address], [place], [address], [facility] 08/19/2024 16:49:01 4 84692: Manual therapy completed Jim Mendez, PT [address], [place], [address], [facility] 08/19/2024 16:49:01 82457 Therapeutic Exercise (1:1) completed Jim Mendez, PT [address], [place], [address], [facility] 08/19/2024 14:54:47 4 60501: Hot or Cold Pack completed Jim Mendez, PT [address], [place], [address], [facility] 08/18/2024 06:28:43 48563: Manual therapy completed Jim eMndez, PT [address], [place], [address], [facility] 08/19/2024 14:55:02 4 16388 Therapeutic Exercise (1:1) completed Jim Mendez, PT [address], [place], [address], [facility] 08/12/2024 14:56:25 05149: Hot or Cold Pack completed Jim Mendez, PT [address], [place], [address], [facility] 08/12/2024 14:56:25 36292: Manual therapy completed Jim Mendez, PT [address], [place], [address], [facility] 08/17/2024 14:04:01 84941 Therapeutic Exercise (1:1) completed Anshul Teague, PRODUCT MARKETING CONSULTANT [address], [place], [address], [facility] 08/11/2024 08:39:36 4 66778: Hot or Cold Pack completed Anshul Pisjosé, PRODUCT MARKETING CONSULTANT [address], [place], [address], [facility] 08/11/2024 08:39:36 4 14929: Manual therapy completed Anshul Teague, PRODUCT MARKETING CONSULTANT [address], [place], [address], [facility] 08/11/2024 08:39:36 62414 Therapeutic Exercise (1:1) completed Anshul Pisarenyeni, PRODUCT MARKETING CONSULTANT [address], [place], [address], [facility] 08/09/2024 15:01:04 91839: Hot or Cold Pack completed Anshul Pisarenyeni, PRODUCT MARKETING CONSULTANT [address], [place], [address], [facility] 08/09/2024 15:01:11 25300: Manual therapy completed Anshul Pisarenyeni, PRODUCT MARKETING CONSULTANT [address], [place], [address], [facility] 08/09/2024 15:01:18 4 04681 Therapeutic Exercise (1:1) completed Jim Mendez, PT [address], [place], [address], [facility] 07/27/2024 17:33:25 4 79017: Low complexity PT Eval completed Jim Mendez, PT [address], [place], [address], [facility] 07/27/2024 17:33:30 4 70798 Therapeutic Exercise (1:1) completed Anshul Teauge, PRODUCT MARKETING CONSULTANT [address], [place], [address], [facility] 06/03/2024 15:03:51 4 64396: Hot or Cold Pack completed Anshul Teague, PRODUCT MARKETING CONSULTANT [address], [place], [address], [facility] 06/03/2024 15:04:16 4 33490: Manual therapy completed Anshul Teague PRODUCT MARKETING CONSULTANT [address], [place], [address], [facility] 06/03/2024 15:03:56 4 71190 Therapeutic Exercise (1:1) completed Jim Mendez, PT [address], [place], [address], [facility] 05/26/2024 16:42:01 4 48153: Hot or Cold Pack completed Jim Mendez, PT [address], [place], [address], [facility] 05/24/2024 15:30:31 4 31618: Manual therapy completed Jim Mendez, PT [address], [place], [address], [facility] 05/26/2024 16:38:03 4 96745 Therapeutic Exercise (1:1) cancelled Jim Mendez, PT [address], [place], [address], [facility] 05/17/2024 16:24:11 4 21761: Hot or Cold Pack cancelled Jim Mendez, PT [address], [place], [address], [facility] 05/17/2024 16:24:11 4 69771: Manual therapy cancelled Jim Mendez, PT [address], [place], [address], [facility] 05/17/2024 16:24:11 4 94389 Therapeutic Exercise (1:1) completed Jim Mendez, PT [address], [place], [address], [facility] 05/12/2024 08:37:56 4 28539: Hot or Cold Pack completed Jim Mendez, PT [address], [place], [address], [facility] 05/12/2024 08:37:56 4 44947: Manual therapy completed Jim Mendez, PT [address], [place], [address], [facility] 05/13/2024 14:23:31 4 39144 Therapeutic Exercise (1:1) completed Jim Mendez, PT [address], [place], [address], [facility] 05/11/2024 12:46:09 4 04300: Hot or Cold Pack completed Jim Mendez, PT [address], [place], [address], [facility] 05/09/2024 16:46:45 4 87336: Manual therapy completed Jim Mendez, PT [address], [place], [address], [facility] 05/11/2024 12:46:14 4 64032 Therapeutic Exercise (1:1) completed Anshul Pisjosé, PRODUCT MARKETING CONSULTANT [address], [place], [address], [facility] 05/04/2024 15:40:28 4 47357: Hot or Cold Pack completed Anshul Sebastiánareroman, PRODUCT MARKETING CONSULTANT [address], [place], [address], [facility] 05/04/2024 15:40:28 4 76918: Manual therapy completed Anshul Teague, PRODUCT MARKETING CONSULTANT [address], [place], [address], [facility] 05/04/2024 15:40:28 4 99071 Therapeutic Exercise (1:1) completed Anshul Teague, PRODUCT MARKETING CONSULTANT [address], [place], [address], [facility] 04/28/2024 14:15:05 4 70356: Hot or Cold Pack completed Anshul Teague, PRODUCT MARKETING CONSULTANT [address], [place], [address], [facility] 04/28/2024 14:15:05 4 65824: Manual therapy completed Anshul Teague, PRODUCT MARKETING CONSULTANT [address], [place], [address], [facility] 04/28/2024 14:15:05 4 07345 Therapeutic Exercise (1:1) completed Anshul Pisarenyeni, PRODUCT MARKETING CONSULTANT [address], [place], [address], [facility] 04/27/2024 11:56:00 4 59426: Hot or Cold Pack completed Anshul Pisarenyeni, PRODUCT MARKETING CONSULTANT [address], [place], [address], [facility] 04/26/2024 08:49:04 4 00458: Manual therapy completed Anshul Teague, PRODUCT MARKETING CONSULTANT [address], [place], [address], [facility] 04/27/2024 11:56:06 4 43510 Therapeutic Exercise (1:1) completed Jim Menedz, PT [address], [place], [address], [facility] 04/22/2024 10:54:18 4 90565: Hot or Cold Pack completed Jim Mendez, PT [address], [place], [address], [facility] 04/20/2024 15:08:14 4 25739: Manual therapy completed Jim Mendez, PT [address], [place], [address], [facility] 04/20/2024 15:08:14 4 27039 Therapeutic Exercise (1:1) completed Anshul Teague, PRODUCT MARKETING CONSULTANT [address], [place], [address], [facility] 04/19/2024 13:33:26 4 69089: Hot or Cold Pack completed Anshul Teague, PRODUCT MARKETING CONSULTANT [address], [place], [address], [facility] 04/19/2024 13:33:26 4 05958: Manual therapy completed Anshul Teague, PRODUCT MARKETING CONSULTANT [address], [place], [address], [facility] 04/19/2024 13:33:26 4 33613 Therapeutic Exercise (1:1) completed Jim Mendez, PT [address], [place], [address], [facility] 04/13/2024 17:45:15 4 44749: Hot or Cold Pack completed Jim Mendez, PT [address], [place], [address], [facility] 04/13/2024 17:45:15 4 20332: Manual therapy completed Jim Mendez, PT [address], [place], [address], [facility] 04/13/2024 17:45:15 4 56469 Therapeutic Exercise (1:1) completed Jim Mendez, PT [address] [address], [place], [address], [facility] 04/13/2024 12:50:11 4 84920: Hot or Cold Pack completed Jim Mendez, PT [address], [place], [address], [facility] 04/11/2024 16:23:31 4 23075: Manual therapy completed Jim Mendez, PT [address], [place], [address], [facility] 04/13/2024 12:49:58 4 62933 Therapeutic Exercise (1:1) cancelled Anshul Zahida, PRODUCT MARKETING CONSULTANT [address], [place], [address], [facility] 04/05/2024 13:09:51 4 91206: Hot or Cold Pack cancelled Anshul Pisarenyeni, PRODUCT MARKETING CONSULTANT [address], [place], [address], [facility] 04/05/2024 13:09:51 4 99851: Manual therapy cancelled Anshul Pisarenko, PRODUCT MARKETING CONSULTANT [address], [place], [address], [facility] 04/05/2024 13:09:51 4 64382 Therapeutic Exercise (1:1) completed Anshul Pisarenko, PRODUCT MARKETING CONSULTANT [address], [place], [address], [facility] 04/01/2024 09:01:32 4 33605: Hot or Cold Pack completed Anshul Pisarenko, PRODUCT MARKETING CONSULTANT [address], [place], [address], [facility] 04/01/2024 09:01:32 4 61908: Manual therapy completed Anshul Pisarenko, PRODUCT MARKETING CONSULTANT [address], [place], [address], [facility] 04/01/2024 09:01:32 4 50809 Therapeutic Exercise (1:1) completed Anshul Pisarenko, PRODUCT MARKETING CONSULTANT [address], [place], [address], [facility] 03/30/2024 10:55:55 4 49127: Hot or Cold Pack completed Anshul Pisarenko, PRODUCT MARKETING CONSULTANT [address], [place], [address], [facility] 03/30/2024 10:55:55 4 94562: Manual therapy completed Anshul Pisarenko, PRODUCT MARKETING CONSULTANT [address], [place], [address], [facility] 03/30/2024 10:55:55 4 46852 Therapeutic Exercise (1:1) completed Anshul Pisarenko, PRODUCT MARKETING CONSULTANT [address], [place], [address], [facility] 03/25/2024 13:23:18 4 73591: Hot or Cold Pack completed Anshul Pisarenko, PRODUCT MARKETING CONSULTANT [address], [place], [address], [facility] 03/25/2024 13:23:18 4 29621: Manual therapy completed Anshul Pisarenko, PRODUCT MARKETING CONSULTANT [address], [place], [address], [facility] 03/25/2024 13:23:18 4 75852 Therapeutic Exercise (1:1) completed Jim Mendez, PT [address], [place], [address], [facility] 03/24/2024 12:05:02 4 11988: Hot or Cold Pack completed Jim Mendez, PT [address], [place], [address], [facility] 03/22/2024 17:01:20 4 33396: Manual therapy completed Jim Mendez, PT [address], [place], [address], [facility] 03/22/2024 17:01:20 4 25141 Therapeutic Exercise (1:1) completed Jim Mendez, PT [address], [place], [address], [facility] 03/22/2024 12:04:17 4 57636: Hot or Cold Pack completed Jim Mendez, PT [address], [place], [address], [facility] 03/18/2024 16:48:43 4 98042: Manual therapy completed Jim Mendez, PT [address], [place], [address], [facility] 03/22/2024 12:03:11 4 65749 Therapeutic Exercise (1:1) completed Jim Mendez, PT [address], [place], [address], [facility] 03/18/2024 15:39:52 4 96577: Hot or Cold Pack completed Jim Mendez, PT [address], [place], [address], [facility] 03/16/2024 18:20:18 4 19115: Manual therapy completed Jim Mendez, PT [address], [place], [address], [facility] 03/16/2024 18:20:18 4 15083 Therapeutic Exercise (1:1) completed Jim Mendez, PT [address], [place], [address], [facility] 03/16/2024 12:32:27 4 02998: Hot or Cold Pack completed Jim Mendez PT [address], [place], [address], [facility] 03/15/2024 15:25:54 4 37452: Manual therapy completed Jim Mendez, PT [address], [place], [address], [facility] 03/16/2024 12:32:37 4 50796 Therapeutic Exercise (1:1) cancelled Jim Mendez PT [address], [place], [address], [facility] 03/11/2024 05:57:59 4 25180: Hot or Cold Pack cancelled Jim Mendez, PT [address], [place], [address], [facility] 03/11/2024 05:57:59 4 72237: Manual therapy cancelled Jim Mendez, PT [address], [place], [address], [facility] 03/11/2024 05:57:59 4 27586 Therapeutic Exercise (1:1) completed Anshul Teague PRODUCT MARKETING CONSULTANT [address], [place], [address], [facility] 03/10/2024 13:47:16 4 28775: Hot or Cold Pack completed Anshul Pisarenko, PRODUCT MARKETING CONSULTANT [address], [place], [address], [facility] 03/10/2024 13:47:22 4 27231: Manual therapy completed Anshul Sebastiánarenko, PRODUCT MARKETING CONSULTANT [address], [place], [address], [facility] 03/10/2024 13:47:19 4 90822 Therapeutic Exercise (1:1) cancelled Anshul Pisarenko, PRODUCT MARKETING CONSULTANT [address], [place], [address], [facility] 03/07/2024 18:21:38 4 74268: Hot or Cold Pack cancelled Anshul Sebastiánarenko, PRODUCT MARKETING CONSULTANT [address], [place], [address], [facility] 03/07/2024 18:21:38 4 75844: Manual therapy cancelled Anshul Sebastiánarenyeni, PRODUCT MARKETING CONSULTANT [address], [place], [address], [facility] 03/07/2024 18:21:38 4 05187 Therapeutic Exercise (1:1) completed Jim Mendez, PT [address], [place], [address], [facility] 03/03/2024 15:17:19 4 72709: Hot or Cold Pack completed Jim Mendez, PT [address], [place], [address], [facility] 03/03/2024 15:37:06 4 50809: Manual therapy completed Jim Mendez, PT [address], [place], [address], [facility] 03/03/2024 15:17:29 4 50707 Therapeutic Exercise (1:1) completed Jim Mendez, PT [address], [place], [address], [facility] 03/02/2024 13:15:51 4 71565: Low complexity PT Eval completed Jim Andrea, PT [address], [place], [address], [facility] 03/02/2024 13:15:59 Imaging Results None recorded. Procedure Notes None recorded. Medical Equipment None Reported. Allergies Allergen ID Allergen Name Allergen Category Reaction Reaction Severity Criticality Documentation Date Start Date Code Code System Note Provider Name and Address Organization Details Recorded Time 902010 Cogentin medicatio n Not available Not available Not available 01/25/2024 45082 2 RxNorm MARINA CHUY [facility] 4 16:51:39 370914 morphine medicatio n Not available Not available Not available 01/05/2025 7052 RxNorm OLIVIA VELEZ [facility] 5 10:59:12 59003 Lyrica medicatio n Not available Not available Not available 01/04/20242009 16311 1 [facility] 4 15:00:55 Medications Name Sig Start Date [...] Updated DateTime 06/07/2025 173.99 cm 35.2 kg/m2 118603.21 g Tracey Campos [place] - [facility] 06/07/2025 13:56:39 Social History None recorded. Functional Status None recorded. Mental Status None recorded. Family History Nothing Reported. Medical History Condition Response Allergies/Hayfever N Coronary Artery Disease N Anxiety/Depression N Emphysema N Thyroid Problems N COPD N Pacemaker N Kidney/Bladder Problems N Anemia N Vascular Disease N Gastrointestinal Disease N Heart Attack ([place]) N Cholesterol Y Diabetes Y Autoimmune disease [...] ICD10 Code Diagnosis IMO Codes Diagnosis Note [id number] MD Rosalie Romano [address]nd floor [address] [place] [address] 02/25/2024 11:17:51 03/18/2024 12:59:47 History of reverse prosthetic total arthroplasty of left shoulder 6679225515 3778053 Z96.612 History of total arthroplasty of left shoulder 5783830082 3256497 Z96.698 [id number] Jim Mendez, PT [facility] [address] [place] [address] 03/02/2024 12:22:36 03/02/2024 13:09:26 Aftercare 749019527 Z47.1 History of total arthroplasty of left shoulder 5708560514 1917710 Z96.775 [id number] Jim Mendez, PT [facility] [address] [place] [address] 03/03/2024 14:29:38 03/03/2024 15:04:54 Aftercare 376965784 Z47.1 History of total arthroplasty of left shoulder 6503473709 7852225 Z96.228 [id number] Anshul Teague, PRODUCT MARKETING CONSULTANT [facility] [address] [place] [address] 03/10/2024 13:24:24 03/10/2024 13:57:42 Aftercare 197217619 Z47.1 History of total arthroplasty of left shoulder 4040049044 2023611 Z96.474 [id number] Jim Mendez, PT [facility] [address] [place] [address] 03/16/2024 11:13:57 03/16/2024 12:03:57 Aftercare 528977376 Z47.1 History of total arthroplasty of left shoulder 8930261825 5157741 Z96.749 [id number] Jim Mendez, PT [facility] [address] [place] [address] 03/18/2024 14:50:24 03/18/2024 15:38:34 Aftercare 525291440 Z47.1 History of total arthroplasty of left shoulder 9440355790 8530602 Z96.157 [id number] Jim Mendez, PT [facility] [address] [place] [address] 03/22/2024 11:33:13 03/22/2024 11:51:17 Aftercare 512580342 Z47.1 History of total arthroplasty of left shoulder 2366787334 1068324 Z96.552 [id number] Jim Mendez, PT [facility] [address] [place] [address] 03/24/2024 11:00:01 03/24/2024 11:41:24 Aftercare 419758603 Z47.1 History of total arthroplasty of left shoulder 8492870121 8942596 Z96.010 [id number] Anshul Teague, PRODUCT MARKETING CONSULTANT [facility] [address] [facility] [place] [address] 03/29/2024 11:05:56 03/29/2024 13:05:27 Aftercare 924769159 Z47.1 History of total arthroplasty of left shoulder 5002394241 4980469 Z96.315 [id number] Anshul Teague, PRODUCT MARKETING CONSULTANT [facility] [address] [facility] [place] [address] 03/31/2024 11:06:45 03/31/2024 11:46:56 Aftercare 812704072 Z47.1 History of total arthroplasty of left shoulder 7138541460 1968750 Z96.064 [id number] Anshul Pisarenko, PRODUCT MARKETING CONSULTANT [facility] [address] [facility] [place] [address] 04/04/2024 12:06:37 04/04/2024 12:36:26 Aftercare 328234537 Z47.1 History of total arthroplasty of left shoulder 9223806400 2908112 Z96.494 [id number] Jim Mendez, PT [facility] [address] [place] [address] 04/13/2024 11:59:14 04/13/2024 12:40:09 Aftercare 434207946 Z47.1 History of total arthroplasty of left shoulder 0272162411 3793178 Z96.588 [id number] Jim Mendez, PT [facility] [address] [place] [address] 04/15/2024 10:04:03 04/15/2024 10:38:59 Aftercare 232799422 Z47.1 History of total arthroplasty of left shoulder 8360987896 9983166 Z96.248 [id number] Anshul Sebastiánjosé, PRODUCT MARKETING CONSULTANT [facility] [address] [facility] [place] [address] 04/20/2024 12:57:01 04/20/2024 14:33:53 Aftercare 244009149 Z47.1 History of total arthroplasty of left shoulder 7155988236 8933912 Z96.457 [id number] MICHELE Reynolds 2nd floor [address] [place] [address] 04/20/2024 09:37:03 05/10/2024 16:11:14 History of total arthroplasty of left shoulder 8543722296 8231362 Z96.828 [id number] Jim Mendez, PT [facility] [address] [facility] [place] [address] 04/22/2024 10:04:07 04/22/2024 10:18:49 Aftercare 095675972 Z47.1 History of total arthroplasty of left shoulder 9377668659 4229108 Z96.516 [id number] Anshul Teague, PRODUCT MARKETING CONSULTANT [facility] [address] [facility] [place] [address] 04/27/2024 11:01:49 04/27/2024 11:39:41 Aftercare 466824465 Z47.1 History of total arthroplasty of left shoulder 0775664515 6062220 Z96.450 [id number] Anshul Teague, PRODUCT MARKETING CONSULTANT [facility] [address] [facility] [place] [address] 04/29/2024 09:35:01 04/29/2024 10:29:56 Aftercare 184683029 Z47.1 History of total arthroplasty of left shoulder 5471595216 3282871 Z96.328 [id number] Anshul Teague, PRODUCT MARKETING CONSULTANT [facility] [address] [place] [address] 05/06/2024 13:05:47 05/06/2024 14:00:38 Aftercare 285112960 Z47.1 History of total arthroplasty of left shoulder 5947340373 2295670 Z96.829 [id number] Jim Andrea, PT [facility] [address] [place] [address] 05/11/2024 12:03:26 05/11/2024 13:24:45 Aftercare 256020509 Z47.1 History of total arthroplasty of left shoulder 1553508615 2195305 Z96.572 [id number] Jim Trigg, PT [facility] [address] [place] 0 05/13/2024 13:29:36 05/13/2024 13:56:38 Aftercare 670316677 Z47.1 History of total arthroplasty of left shoulder 8575014233 5274304 Z96.978 [id number] Jim Mendez, PT [facility] [address] [facility] [place] [address] 05/26/2024 15:26:40 05/26/2024 15:39:13 Aftercare 166725271 Z47.1 History of total arthroplasty of left shoulder 9352554232 8796819 Z96.026 [id number] Anshul Teague, PRODUCT MARKETING CONSULTANT [facility] [address] [place] [address] 06/03/2024 13:57:23 06/03/2024 14:37:22 Aftercare 498588743 Z47.1 History of total arthroplasty of left shoulder 2627564165 6035397 Z96.629 [id number] MD Rosalie Romano 2nd floor [address] [place] [address] 06/23/2024 10:27:04 07/18/2024 10:09:15 History of total arthroplasty of left shoulder 7713239569 1935408 Z96.612 Osteoarthr itis of joint of right shoulder region 1511926861 56639 M19.933 [id number] Chuck Hernández , PT [facility] [address] [place], [place] 0 08/04/2024 11:34:41 08/04/2024 15:14:26 History of total arthroplasty of right shoulder 799333754 Z96.134 [id number] [facility] [address] [place] [address] 07/28/2024 08:04:25 07/28/2024 09:31:58 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 6975740316 Z96.307 [id number] Anshul Teague, PRODUCT MARKETING CONSULTANT [facility] [address] [place], [place] 0 08/09/2024 14:55:17 08/10/2024 08:12:11 History of total arthroplasty of right shoulder 956219219 Z96.055 [id number] Anshul Teague, PRODUCT MARKETING CONSULTANT [facility] [address] [place], [place] 0 08/11/2024 12:57:51 08/12/2024 08:37:05 History of total arthroplasty of right shoulder 666434405 Z96.792 [id number] Jim Mendez, PT [facility] [address] [place], [place] 0 08/17/2024 12:56:54 08/17/2024 15:00:26 History of total arthroplasty of right shoulder 509698716 Z96.307 [id number] Jim Mendez, PT [facility] [address] [place], [place] 0 08/19/2024 14:21:11 08/22/2024 07:56:33 History of total arthroplasty of right shoulder 819810340 Z96.128 [id number] Jim Mendez, PT [facility] [address] [place] [address] 08/23/2024 13:35:07 08/23/2024 14:33:28 History of total arthroplasty of right shoulder 093307638 Z96.317 [id number] Anshul Teague [facility] [address] [place] [address] 08/26/2024 13:00:07 08/26/2024 13:21:00 History of total arthroplasty of right shoulder 658452554 Z96.923 [id number] Tonya Francisco PA-C [facility] [address] [place] [address] 09/05/2024 13:48:12 09/21/2024 11:23:33 Pain of hip region 32728920 M25.551 739069 [id number] Rayshawn Ortiz PA-C [facility] [address] [place] [address] 10/06/2024 14:33:27 10/24/2024 08:29:48 Osteoarthritis of right hip joint 2039139396 28362 M16.11 9351164 [id number] MD [facility] [address] [place] [address] [place] [address] 01/05/2025 10:25:37 01/17/2025 14:26:03 Pain of hip region 95331575 M25.551 [id number] Osteoarthr itis of right hip joint 1170752995 46843 M16.11 5978152 [id number] Rayshawn Hull, PT [facility] [address] [place] [address] 01/17/2025 07:06:23 01/17/2025 07:57:52 Osteoarthritis of hip 625240417 M16.11 [id number] Fadumo Stlol PA-C [facility] [address] [place] [address] 01/20/2025 07:29:57 02/10/2025 04:02:26 Osteoarthritis of right hip joint 1047964620 71158 M16.11 0584137 [id number] Buck Wilkins, PT [facility] [address] [place] [address] 02/03/2025 08:09:58 02/03/2025 08:30:58 Aftercare 104522060 Z47.1 Z96.457 [id number] George Ladonna, AT [facility] [address] [place] [address] 02/07/2025 10:29:51 02/07/2025 11:06:31 Aftercare [id number] Z47.1 Z96.336 [id number] Rayshawn Ortiz PA-C [facility] [address] [place] [address] 02/07/2025 13:29:24 02/17/2025 09:12:44 Pain of hip region 44289725 M25.551 12085448 Osteoarthr itis of right hip joint 8391416504 68700 M16.11 [id number] Buck Wilkins, PT [facility] [address] [place] [address] 02/13/2025 09:56:38 02/13/2025 11:28:54 Aftercare [id number] Z47.1 Z96.440 [id number] George Ladonna, AT [facility] [address] [place] [address] 02/17/2025 12:52:16 02/17/2025 14:15:31 Aftercare 515069847 Z47.1 Z96.567 [id number] George Dougherty, AT [facility] [address] [place] [address] 02/21/2025 08:58:28 02/21/2025 11:48:51 Aftercare [id number] Z47.1 Z96.404 [id number] George Dougherty, AT [facility] [address] [place] [address] 02/24/2025 10:58:44 02/24/2025 11:41:38 Aftercare 153335711 Z47.1 Z96.704 [id number] MICHELE Arshad [address] [place] [address] 06/07/2025 13:47:15 06/14/2025 08:14:53 Pain of right knee joint 9983256293 48891 M25.561 532289 Osteoarthr itis of right knee joint 9413167447 64500 M17.11 [id number] Health Concerns Section Related Observation LastModified by Organization Detai ls LastModified Time None Recorded Concern Status LastModified by Organization Details LastModified Time None Recorded Advance Directives Directive None Recorded Payers Insurance Date Sequence Insurance Name Policy Number Policy Enamorado Covered Member ID Enamorado Member ID Guarantor Name 07/06/2025 1 [facility] - DOS ON OR AFTER 2023 - RETIREMENT OPTIONS AND ONE CARE (MEDICARE REPLACEMENT/ADV ANTAGE - PPO) Joo Gordon [id number] Joo Gordon Notes Date Note Type Note Provider Name and Address Organization Details Recorded Time 02/13/2025 text/html Patient presents today reporting3-4/10 pain. Pt states having difficulty sleeping and muscle tightness about the hip and thigh. Saw Pa Ortiz 02/07/25, happy w status. Most pain first in am Buck Wilkins, PT [address], [place], [address], [facility] 02/13/2025 10:43:14 02/17/2025 text/html Patient presents today reporting 3/10 pain. George Dougherty, AT [address], [place], [address], [facility] 02/17/2025 16:24:05 02/21/2025 text/html Patient presents today reporting 2/10 pain. George Dougherty, AT [address], [place], [address], [facility] 02/21/2025 20:26:36 02/24/2025 text/html Patient presents today reporting 1/10 pain. Pt states feeling better with walking and less ache. George Dougherty, AT [address], [place], [address], [facility] 02/24/2025 11:40:01 06/07/2025 text/html [...] ordered, obtained and independently reviewed today at [facility]. 4 views of the right knee [...] Carter PA-C [address], [place], [address], [facility] 06/08/2025 08:20:46
== END 2025-08-18 14:16 | disposition home or self-care (01) ==
LOC: HO.HMGCLDS 14:15
PROVIDERS: PCP Internal Medicine; Visit Provider Internal Medicine
DX: Z00.01 Encounter for general adult medical examination with abnormal findings (principal); Z23 Encounter for immunization; F33.41 Major depressive disorder, recurrent, in partial remission; I10 Essential (primary) hypertension; E13.9 Other specified diabetes mellitus without complications; K21.9 Gastro-esophageal reflux disease without esophagitis; E11.43 Type 2 diabetes mellitus with diabetic autonomic (poly)neuropathy; K31.84 Gastroparesis; E66.811 Obesity, class 1; E66.01 Morbid (severe) obesity due to excess calories; M25.512 Pain in left shoulder; R14.2 Eructation; E78.9 Disorder of lipoprotein metabolism, unspecified; Z68.33 Body mass index [BMI] 33.0-33.9, adult; Z79.899 Other long term (current) drug therapy
CPT/HCPCS: 36415; 80053; 82043; 82150; 82570; 83036; 83690; 83721; 84443; 85025; 90471; 90656; 99396

== ENCOUNTER 2025-08-18 14:15 | Outpatient (AMB) | payer OTHER, SELFPAY ==
[2025-08-18 14:19] VITALS: BP 130/70; PULSE 95; O2SAT 97; BMI 33.8
--- NOTE | 2025-08-18 14:19 | A.OFFPC_ITS ---
Vital Signs 08/18/25 14:19 Height 5 ft 9 in Weight 229 lb BMI 33.8 BP 130/70 Blood Pressure Location Lt brachial Position Sitting Pulse 95 Pulse Source Pulse Oximeter Pulse Oximetry (%) 97 Intake Visit Reasons: Annual PE Allergies benztropine (From COGENTIN) Allergy (Unknown, Verified 08/18/25 14:19) SWEATING pregabalin (From LYRICA) Allergy (Unknown, Verified 08/18/25 14:19) SWELLING sitagliptin (From JANUVIA) Allergy (Unknown, Verified 08/18/25 14:19) PER H&P Medication List - Last Reconciled 08/18/25 by Lizabeth Adame MD albuterol sulfate 90 mcg/actuation (Ventolin HFA) 1 inh inhalation QID PRN 30 days alprazolam 2 mg PO BEDTIME amlodipine 5 mg PO DAILY 90 days blood sugar diagnostic (Accu-Chek Guide test strips) to be checked once daily blood-glucose meter (Accu-Chek Guide Glucose Meter) to be checked once daily cetirizine 10 mg PO DAILY clotrimazole 1% 1 appl topical bid 4 weeks dextroamphetamine-amphetamine 10 mg 1 tab PO DAILY dextroamphetamine-amphetamine 30 mg 1 tab PO TID fluticasone propionate 50 mcg/actuation (Flonase Allergy Relief) 1 spray intranasal DAILY FreeStyle Ajith 3 Sensor (blood-glucose sensor) test blood sugar 4 times a day NS hydrochlorothiazide 25 mg PO DAILY [Insulin pen needles Once a day] lancets (Accu-Chek Softclix Lancets) to be checked once daily [ajith Glucometer As directed NS] linaclotide (Linzess) 145 mcg PO QAM lisinopril 40 mg PO DAILY metoclopramide HCl 20 mg (2 x 10 mg) PO TID metoprolol succinate ER 25 mg PO BEDTIME mirabegron ER (Myrbetriq) 25 mg PO DAILY nystatin 1 appl topical DAILY 30 days omeprazole 40 mg PO DAILY ondansetron HCl mg PO DAILY oxcarbazepine 600 mg PO BID pen needle, diabetic T.i.d. propranolol 10 mg PO TID rosuvastatin 20 mg PO BEDTIME semaglutide 2 mg (0.75 mL) subcut QWEEK 90 days tamsulosin 0.4 mg PO BEDTIME Tobacco use date assessed: 04/21/25 Dental Screening Dental Screen Date: 04/21/25 HPI Annual PE HPI Details History of Present Illness The patient is a 54-year-old male presenting with a need for a physical examination and evaluation of his weight management. Diabetes Mellitus: - The patient has a history of Type 2 di abetes mellitus managed with oral medications and Ozempic. - A recent A1c level of 6.6% was noted, indicating good glycemic control. - The patient is currently not on insuli n therapy. Hypertension: - The patient has a history of essential hypertension.. Obesity and Weight Management: - The patient reports a significant weig ht reduction from 336 pounds to 229 pounds. - He attributes his weight loss primaril y to dietary restrictions and increased exercise. - The patient is currently taking Ozempi c and considering a transition to Zepbound to aid in appetite suppression. - He is eager to lose an additional 50 p ounds. Osteoarthritis: - The patient experiences [id number] o steoarthritis in his knee, attributing to mechanical issues while ascending and descending stairs. - He has history of multiple joint repla cements including both shoulders and his hip. - Furthermore, there is consideration fo r an upcoming knee replacement surgery. Psychiatric Conditions: - The patient has ongoing psychiatric ev aluation and management for anxiety, depression, and PTSD. Surgical History: - Bilateral shoulder replacement - Hip replacement - History of knee surgery Social History: - The patient is actively engaging in tw o miles of walking a day as part of his exercise regimen. - He follows a calorie-restricted diet t o manage his weight, reporting conscious efforts to maintain dietary control despite medication. Family History: - The patient reports a familial predisp osition to arthritis. Health Maintenance - Up-to-date glycemic control with an A1 c at 6.6%. - Consideration of transitioning from Oz empic to Zepbound for appetite suppression is in discussion. - Inquiry about flu vaccination was made with a probable plan for ad ministration. - Colon screening 2022 Patient Instructions - Patient to complete scheduled blood te sts including kidney, liver, pancreas, thyroid assessments, and blood count checks for anemia. - To follow up with shoulder specialist at [facility] regarding left shoulder discomfort post swimming incident. - Recommended application of heat for sh oulder pain management. - Consider flu vaccination administratio n. - Zepbound Rx sent, return for dose adju stment in one month if picked up other marcus continue with Ozempic f/u 3 M Review of Systems - General: No fever no chills - Neurological: No headaches no dizzin ess - Ear nose throat: No sore throat no hearing difficulty no ear pain - Cardiovascular: No syncope, no chest pain, no palpitations - Gastrointestinal: No nausea vomiting or diarrhea - Endocrine: No polyuria polydipsia no heat intolerance - Genitourinary: No dysuria - Skin: No new complaints Physical Exam General: Cooperative, healthy appearing, comfortable, no acute distress Orientation: Patient oriented x3 Head: Normal to inspection Ears: Within normal limit visually Nose: Normal external nose present Face and sinus: Normal facial exam Eyes: Appearance normal, extraocular movement intact pupils reactive Neck: Normal visual inspection and supple Respiratory: Normal respiratory effort and able to speak in complete sentences. Clear to auscultation, no stridor Cardiovascular: S1 and S2 RRR GI: Normal to inspection. Soft to palpation and nontender Skin: Turgor normal, no acute findings Neuro: Patient oriented x3, motor sensory intact, balance intact, tandem pass Extremities: Normal to inspection, but patient reports needing knee surgery due to bone on bone condition. pain left shoulder while lifting above head, dived in swiming pool forgot that he has artificial shoulder and since then have pain . 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, managed as type 2 Surgical History History of esophagogastroduodenoscopy (EGD) H/O colonoscopy History of ear surgery History of removal of laparoscopic gastric banding device History of left knee surgery History of lithotripsy History of laparoscopic appendectomy History of knee surgery History of discectomy History of lumbar fusion Family History Father Alcoholism Hyperlipidemia HTN (hypertension) CVD (cardiovascular disease) Mental illness in member of household Mother CAD (coronary artery disease) Breast cancer High cholesterol Diabetes mellitus CVD (cardiovascular disease) Mental illness in member of household Maternal Grandfather No problems noted. Maternal Grandmother No problems noted. Paternal Grandfather No problems noted. Paternal Grandmother No problems noted. Sister No problems noted. Sister No problems noted. Daughter No problems noted. Daughter No problems noted. Other Mental health disorder Social History Housing: Apartment Are you a primary workforce investment act career manager to a significant other at home: No Do you presently have visiting nurse or other home services: No Alcohol intake: current Alcohol intake frequency: holidays/special occasions only Patient Tobacco Use Status: Former Tobacco user e-Cigarette/Vaping Use: Currently Using Substance Use Type: Marijuana service: No Current occupational status: disabled Cognitive needs: No Hearing needs: No Vision needs: No Questionnaire Thrive Questionnaire Date Thrive assessed: 01/17/25 RISHI-7 AMB Questionnaire RISHI-7 Date RISHI - 7 assessed: 01/17/25 Source: Developed by Drs. Jan Del Rio, Gail Hayward, Son Hanks and colleagues, with an educational jeannie from [employer]. Physical exam (Primary Care) Vital Signs: Last Vital Signs Pulse 95 08/18/25 14:19 BP 130/70 08/18/25 14:19 Pulse Ox 97 08/18/25 14:19 BMI result Body Mass Index 33.8 Tobacco/Smoking Status: Tobacco use Status Tobacco use date assessed 04/21/25 08/18/25 14:25 Patient Tobacco Use Status Former Tobacco user 08/18/25 14:25 e-Cigarette/Vaping Use Currently Using 08/18/25 14:25 Thrive Assessment: Date of Thrive Assessment Date Thrive assessed 01/17/25 08/18/25 14:25 Office Procedures Flu Questionnaire Does the patient have a severe egg allergy?: No Does the patient have severe life threatening allergies?: No Does the patient have a fever or illness today?: No Has the patient ever had Guillain-Jenner Syndrome?: No Has the patient ever had any past reaction to a flu shot?: No Results AMB Hemoglobin A1c AMB Hemoglobin A1c 6.6 % Last Edit by Sly Lezama CMA on 08/18/25 14: 40 Immunizations Fluarix [id number] (PF) 45 mcg (15 mcg x 3)/0.5 mL IM syringe Performing Provider: Lizabeth Adame MD Performing Location: [facility] Administered by: Desirae Chery CMA on 08/18/25 14:52 Dose Route Admin Location Dispensed Lot Number Expiration Date [employer] 0.5 mL IM Right Deltoid 0.5 mL [id number] 05/01/26 [id number] [employer] VIS Given Date VIS Provided VIS Publication Date 08/18/25 Single Vaccine 24 Eligibility Eligibility Date Funding Source Not [facility] Eligible 08/18/25 Private Results Reviewed Results Reviewed: Laboratory Last Values Hgb A1c (Clinic) 6.6 % (4.0-6.0) H 08/18/25 14:39 Coding Level of Care Code Est Pt Level 4 (72127) Est Pt Prev Care 40-64y(69842) Diagnoses Encounter for general adult medical examination with abnormal findings Z00.01 Class 1 obesity due to excess calories with serious comorbidity and body mass index (BMI) of 33.0 to 33.9 in adult E66.811; E66.09; Z68.33 Body mass index: BMI 33.0-33.9 Obesity classification: adult class 1 (BMI 30 - 34.9) Serious obesity comorbidity presence: with serious comorbidity Recurrent major depressive disorder, in partial remission F33.41 Active/Remission status: in partial remission Hypertension, essential I10 Diabetes 1.5, managed as type 2 E13.9 Chronic GERD K21.9 Diabetic gastroparesis E11.43; K31.84 Shoulder pain, left M25.512 Burping R14.2 Lipid disorder E78.9 Assessment & Plan Assessment & Plan (1) Encounter for general adult medical examination with abnormal findings: Code(s): Z00.01 - Encounter for general adult medical examination with abnormal findings Category: Medical (2) Obesity due to excess calories: Code(s): E66.09 - Other obesity due to excess calories Category: Medical Qualifiers: Body mass index: BMI 33.0-33.9 Obesity classification: adult class 1 (BMI 30 - 34.9) Serious obesity comorbidity presence: with serious comorbidity Qualified Code(s): E66.811 - Obesity, class 1; E66.09 - Other obesity due to excess calories; Z68.33 - Body mass index [BMI] 33.0-33.9, adult (3) Depression, major, recurrent: Code(s): F33.9 - Major depressive disorder, recurrent, unspecified Category: Medical Qualifiers: Active/Remission status: in partial remission Qualified Code(s): F33.41 - Major depressive disorder, recurrent, in partial remission (4) Hypertension, essential: Code(s): I10 - Essential (primary) hypertension Category: Medical (5) Diabetes 1.5, managed as type 2: Code(s): E13.9 - Other specified diabetes mellitus without complications Category: Medical (6) Chronic GERD: Code(s): K21.9 - Gastro-esophageal reflux disease without esophagitis Category: Medical (7) Diabetic gastroparesis: Comment: . Gastric emptying study normal but he for got to stop the Reglan Code(s): E11.43 - Type 2 diabetes mellitus with diabetic autonomic (poly)neuropathy; K31.84 - Gastroparesis Category: Medical (8) Shoulder pain, left: Code(s): M25.512 - Pain in left shoulder Category: Medical (9) Burping: Code(s): R14.2 - Eructation Category: Medical (10) Lipid disorder: Code(s): E78.9 - Disorder of lipoprotein metabolism, unspecified Category: Medical Plan Diabetes Mellitus: - The patient has a history of Type 2 diabetes mellitus managed with oral medications and Ozempic. - A recent A1c level of 6.6% was noted, indicating good glycemic control. - The patient is currently not on insulin therapy. Hypertension: - The patient has a history of essential hypertension.. Obesity and Weight Management: - The patient reports a significant weight reduction from 336 pounds to 229 pounds. - He attributes his weight loss primarily to dietary restrictions and increased exercise. - The patient is currently taking Ozempic and considering a transition to Zepbound to aid in appetite suppression. - He is eager to lose an additional 50 pounds. Osteoarthritis: - The patient experiences [id number] osteoarthritis in his knee, attributing to mechanical issues while ascending and descending stairs. - He has history of multiple joint replacements including both shoulders and his hip. - Furthermore, there is consideration for an upcoming knee replacement surgery. Psychiatric Conditions: - The patient has ongoing psychiatric evaluation and management for anxiety, depression, and PTSD. Surgical History: - Bilateral shoulder replacement - Hip replacement - History of knee surgery Health Maintenance - Up-to-date glycemic control with an A1c at 6.6%. - Consideration of transitioning from Ozempic to Zepbound for appetite suppression is in discussion. - Inquiry about flu vaccination was made with a probable plan for administration. - Colon screening 2022 Patient Instructions - Patient to complete scheduled blood tests including kidney, liver, pancreas, t hyroid assessments, and blood count checks for anemia. - To follow up with shoulder specialist at [facility] regarding left shoulder discomfort post swimming incident. - Recommended application of heat for shoulder pain management. - Consider flu vaccination administration. - Zepbound Rx sent, return for dose adjustment in one month if picked up other marcus continue with Ozempic f/u 3 M Orders: Orders LDL Cholesterol Direct Today E11.43 - Type 2 diabetes mellitus with diabetic autonomic (poly)neuropathy, E13.9 - Other specified diabetes mellitus without complications, F33.41 - Major depressive disorder, recurrent, in partial remission, I10 - Essential (primary) hypertension, K21.9 - Gastro-esophageal reflux disease without esophagitis, K31.84 - Gastroparesis, Z00.01 - Encounter for general adult medical examination with abnormal findings Microalbumin, Random (w Creat) Today E11.43 - Type 2 diabetes mellitus with diabetic autonomic (poly)neuropathy, E13.9 - Other specified diabetes mellitus without complications, F33.41 - Major depressive disorder, recurrent, in partial remission, I10 - Essential (primary) hypertension, K21.9 - Gastro-esophageal reflux disease without esophagitis, K31.84 - Gastroparesis, Z00.01 - Encounter for general adult medical examination with abnormal findings AMB Hemoglobin A1c Today Z13.9 - Encounter for screening, unspecified TSH reflex Free T4 Today E66.01 - Morbid (severe) obesity due to excess calories Amylase Today E66.01 - Morbid (severe) obesity due to excess calories Influenza [id number] Immunization Today Z23 - Encounter for immunization Complete Blood Count Auto Diff Today E11.43 - Type 2 diabetes mellitus with diabetic autonomic (poly)neuropathy, E13.9 - Other specified diabetes mellitus without complications, F33.41 - Major depressive disorder, recurrent, in partial remission, I10 - Essential (primary) hypertension, K21.9 - Gastro-esophageal re flux disease without esophagitis, K31.84 - Gastroparesis, Z00.01 - Encounter for general adult medical examination with abnormal findings Comprehensive Met. Panel Today E11.43 - Type 2 diabetes mellitus with diabetic autonomic (poly)neuropathy, E13.9 - Other specified diabetes mellitus without complications, F33.41 - Major depressive disorder, recurrent, in partial remis loy, I10 - Essential (primary) hypertension, K21.9 - Gastro-esophageal reflux disease without esophagitis, K31.84 - Gastroparesis, Z00.01 - Encounter for general adult medical examination with abnormal findings Lipase Today E66.01 - Morbid (severe) obesity due to excess calories Medications: New Zepbound (tirzepatide (weight loss)) for 4 weeks 2.5 mg (0.5 mL) subcut QWEEK 2 mL 0RF NS E13.9 - Other specified diabetes mellitus without complications, E66.09 - Other obesity due to excess calories, E66.811 - Obesity, class 1, E78.9 - Disorder of lipoprotein metabolism, unspecified, I10 - Essential (primary) hypertension, Z68.33 - Body mass index [BMI] 33.0-33.9, adult On Hold semaglutide Hold Comment: zepbound started 2 mg (0.75 mL) subcut QWEEK 90 days 9 mL 0RF
--- OUTSIDE RECORDS SUMMARY | 2025-08-18 16:49 | XMS_ITS | Data Portability ---
Author Organization [place] - [facility], [facility] Address [address] [place] [address] Care Team Providers Care Immunology Specialist Name Role Phone KARIE TORIBIO Primary Care Provider [phone] Assessment Encounter Date Assessment Date Assessment LastModified by Organization Details LastModified Time 02/13/2025 02/13/2025 Assessment: Good chair transfer and gait with some abd gait w/o cane. Able 90+ hip flex Plan: Continue 2x/week per post op Md orders/ precautions. [email or web address] Not available 02/13/2025 10:42:19 02/17/2025 02/17/2025 Assessment: Improving mobility and gait without AD use. Plan: Continue 2x/week and progress independent HEP. [email or web address] Not available 02/17/2025 16:23:19 02/21/2025 02/21/2025 Assessment: Good active motion and improving strength. Normal gait level and improving strength with stairs. Plan: Continue short course of therapy and progress to discharge and independent HEP. [email or web address] Not available 02/21/2025 20:26:14 02/24/2025 02/24/2025 Assessment: Good active motion and improving strength. Normal gait level and improving strength with stairs. Plan: Continue with remaining appts and progress to discharge. [email or web address] Not available 02/24/2025 11:39:35 Plan of Treatment Reminders Order Date Submit Date Provider Last Modified By Organization Details Last Modified Time Details Appointments NEW PATIENT 20 2024 09:10A M Rei Inman MD Not available Not available Not available Lab None recorded . Referral None recorded . Procedures None recorded . Surgeries None recorded . Imaging XR, knee, 4 or more view - 4v R knee. room 2 2024 025 ricky [facility] Office, [address], [facility] [address], [place], [address], 06/14/2025 08:14:54 Medication Orders None recorded . Patient TargetsNo targets recorded. Patient InstructionsNo instructions recorded. Reason for Referral None Reported. Results Created Date Observation Date Name Description Value Unit Range Abnormal Flag Note LastModifiedBy Organization Detail LastModifiedTime 01/25/2001/24/2025 XR, hip + pelvi s, unila teral , 2 or 3 view No observ ation record ed. [facility] [address] [facility], [place], [address], 01/25/2025 06:51:47 02/08/2002/07/2025 XR, hip + pelvi s, unila teral , 2 or 3 view http:/ [email or web address] ?Encry pted=s hAaTro YD8dLq bEUv6g %2BXZw aYqtaq 0bqfl% 2Fg9IQ a4ajBk vP9nXo QUaueC m3YtLR FvZlgJ JJ8mAn HZtai3 3p0960 AC0KqY 36CWaS hKiQtr MwF INTERFACE [facility] [address], [address], 02/07/2025 13:51:56 02/08/20 25 02/07/2025 XR, hip + pelvi s, unila teral , 2 or 3 view http:/ [email or web address] ?Encry pted=s hAaTro YD8dLq bEUv6g %2BXZw aYqtaq 0bqfl% 2Fg9IQ a4ajBk vP9nXo QUaueC m3YtLR FvZlgJ JJ8mAn HZtai3 6k8619 AC0KqY 36CWaS hKiQtr MwF INTERFACE [facility] [address], [place], [address], 02/07/2025 13:51:58 06/07/20 25 06/07/2025 XR, knee, 4 or more view http:/ [email or web address] ?Encry pted=s hAaTro YD8dLq bEUv6g %2BXZw aYqtaq 0bqfl% 2Fg9IQ a4ajBk vP9nXo QUaueC m3YtLR FvZlgJ JJ8mAn HZtai3 0y1624 AC0Klb nqEUaO iKiQtr MwF INTERFACE [facility] Office [address] [facility] [address], [place], [address], 06/07/2025 14:05:28 06/07/20 25 06/07/2025 XR, knee, 4 or more view http:/ [email or web address] ?Encry pted=s hAaTro YD8dLq bEUv6g %2BXZw aYqtaq 0bqfl% 2Fg9IQ a4ajBk vP9nXo QUaueC m3YtLR FvZlgJ JJ8mAn HZtai3 9d3302 AC0Klb nqEUaO iKiQtr MwF INTERFACE [facility] Office [address] [facility] [address], [place], [address], 06/07/2025 14:05:30 Result Notes Documentation Provider Name and Address Organization Details Recorded Time Xr, Knee, 4 Or More View : [email or web address]? Encrypted=faGeSorSU4xScfV Uv6g%8FLZbwPtrmk6yblx%2Fg 3UPx9vsRofI3yEjARgviTq8Kt KKSpMpbUWQ1qVdFZfzb21f119 5UW0JatqmXVqYoXvIixGqT Not Available [facility] 06/07/2025 14:05: 29 Xr, Knee, 4 Or More View : [email or web address]? Encrypted=opYqOtmUW8iGkdX Uv6g%5DMDkrLnyew9jbfj%2Fg 4ATa1utClyD1sGcMYpvzTw1Yv SWDtGdgOZF7yNmLLotf78i823 2PL2BlncnYMoYjZhXgpFcN Not Available [facility] 06/07/2025 14:05: 30 Problems Name Problem SNOMED Code Status Onset Date Resolution Date Notes Provider Name and Address Organization Details Recorded Time Idiopathi c osteoarth ritis 007557323 Active 2015 Problem Code: M17.12; Problem Code Type: ICD-10; Status: 'A'; Not Available [facility] 4 11:59:24 Essential hypertens ion 69476666 Active 2023 MARINA mckoy [facility] 4 16:51:48 Diabetes mellitus 34205931 Active 2023 [employer] MARINA mckoy [facility] 4 16:52:00 Hyperlipi demia 77114566 Active 2023 MARINA mckoy [facility] 4 16:52:08 Acid reflux 569669061 Active 2023 MARINA mckoy [facility] 4 16:52:14 Pain of left shoulder joint 70257320607 339176 Active 2023 AILYN mckoy [facility] 4 11:42:23 Osteoarth ritis of joint of right shoulder region 76860588163 9100 Active 2023 Jorje Flowers MD [address], [facility] [place], [address] , [facility] 4 11:09:40 Rupture of rotator cuff of right shoulder 40417946986 859517 Active 2023 AILYN mckoy [facility] 4 13:39:54 Pain of shoulder region 11934714 Active 2023 Gene Mendes PA-C [address], [place], [address] , [facility] 4 18:56:45 Pain of hip region 09619223 [facility] 5 10:35:43 Postopera tive pain 260927600 Active 2024 Sri Morales APRN [address], [place], [address] , [facility] 5 11:29:53 Osteoarth ritis of right knee joint 12770512762 9100 Active 2024 Dung Carter PA-C [address], [place], [address] , [facility] 5 08:20:19 Problem Notes None recorded. Procedures Surgical History Date Name Laterality Status Provider Name and Address Organization Details Recorded Time 5 Sports Knee 4&1 completed Dung Carter PA-C [address], [place], [address], [facility] 06/08/2025 08:19:56 5 47035 Therapeutic Exercise (1:1) cancelled Geetha Bethea, FERN GATHERER [address], [place], [address], [facility] 02/28/2025 10:21:04 5 11974: Gait training cancelled Geetha Bethea, FERN GATHERER [address], [place], [address], [facility] 02/28/2025 10:21:04 5 27188: Manual therapy cancelled Geetha Bethea FERN GATHERER [address], [place], [address], [facility] 02/28/2025 10:21:04 5 85992 Therapeutic Exercise (1:1) completed George Dougherty, AT [address], [place], [address], [facility] 02/24/2025 11:38:30 5 09524: Gait training completed George Dougherty, AT [address], [place], [address], [facility] 02/24/2025 11:38:30 5 52888: Manual therapy completed George Dougherty, AT [address], [place], [address], [facility] 02/24/2025 11:38:30 5 75071 Therapeutic Exercise (1:1) completed George Dougherty, AT [address], [place], [address], [facility] 02/21/2025 20:23:44 5 32523: Gait training completed George Dougherty, AT [address], [place], [address], [facility] 02/21/2025 20:25:13 5 20380: Manual therapy completed eGorge Dougherty, AT [address], [place], [address], [facility] 02/21/2025 20:23:44 5 46888 Therapeutic Exercise (1:1) completed George Dougherty, AT [address], [place], [address], [facility] 02/17/2025 16:21:09 5 40023: Manual therapy completed George Dougherty, AT [address], [place], [address], [facility] 02/17/2025 16:21:09 5 77615: Therapeutic Activities (1:1) completed Buck Wilkins, PT [address] [facility], [place], [address], [facility] 02/13/2025 10:41:21 5 71951 Therapeutic Exercise (1:1) completed Buck Wilkins, PT [address], [place], [address], [facility] 02/13/2025 10:41:37 5 16491: Gait training completed Buck Wilkins, PT [address], [place], [address], [facility] 02/13/2025 10:41:27 5 29140: Manual therapy completed Buck Wilkins, PT [address], [place], [address], [facility] 02/11/2025 14:02:04 5 30847: Therapeutic Activities (1:1) completed George Dougherty, AT [address], [place], [address], [facility] 02/07/2025 12:44:53 5 21224 Therapeutic Exercise (1:1) completed George Dougherty, AT [address], [place], [address], [facility] 02/07/2025 12:44:43 5 49849: Gait training completed George Dougherty, AT [address], [place], [address], [facility] 02/07/2025 12:44:33 5 84210: Manual therapy completed George Dougherty, AT [address], [place], [address], [facility] 02/07/2025 12:44:41 5 37935 Therapeutic Exercise (1:1) completed Buck Kearnsser, PT [address], [place], [address], [facility] 02/02/2025 17:59:20 5 53714: Low complexity PT Eval completed Buck Pyser, PT [address], [place], [address], [facility] 02/02/2025 17:59:25 5 95033 Therapeutic Exercise (1:1) completed Buck Kearnsser, PT [address], [place], [address], [facility] 01/12/2025 18:01:36 5 92041: Low complexity PT Eval completed Buck Pyser, PT [address], [place], [address], [facility] 01/12/2025 18:01:40 5 18009 Therapeutic Exercise (1:1) cancelled Samm Arshad, DPT [address], [place], [address], [facility] 01/10/2025 13:48:50 5 67614: Low complexity PT Eval cancelled Samm Arshad, DPT [address], [place], [address], [facility] 01/10/2025 13:48:48 4 JZHip completed Rayshawn Ortiz PA-C [address], [place], [address], [facility] 10/06/2024 16:10:21 4 Hip Kenalog 2cc Injection, L/R completed Tonya Francisco PA-C [address], [place], [address], [facility] 09/05/2024 15:51:37 4 73117 Therapeutic Exercise (1:1) cancelled Jim Mendez, PT [address], [place], [address], [facility] 09/01/2024 13:07:51 4 72246: Hot or Cold Pack cancelled Jim Mendez, PT [address], [place], [address], [facility] 09/01/2024 13:07:51 4 47945: Manual therapy cancelled Jim Sedgwick, PT [address], [place], [address], [facility] 09/01/2024 13:07:51 4 11323 Therapeutic Exercise (1:1) cancelled Anshul Robbnyeni, FERN GATHERER [address], [place], [address], [facility] 09/01/2024 09:36:45 4 41348: Hot or Cold Pack cancelled Anshul oRbbnyeni, FERN GATHERER [address], [place], [address], [facility] 09/01/2024 09:36:45 4 88383: Manual therapy cancelled Anshul Teague, FERN GATHERER [address], [place], [address], [facility] 09/01/2024 09:36:45 4 88289 Therapeutic Exercise (1:1) cancelled Anshul Robbnyeni, FERN GATHERER [address], [place], [address], [facility] 08/29/2024 15:06:11 4 24899: Hot or Cold Pack cancelled Asnhul Robbnyeni, FERN GATHERER [address], [place], [address], [facility] 08/29/2024 15:06:11 63258: Manual therapy cancelled Anshul Robbnko, FERN GATHERER [address], [place], [address], [facility] 08/29/2024 15:06:11 18955 Therapeutic Exercise (1:1) completed Anshul Sebastiánarenyeni, FERN GATHERER [address], [place], [address], [facility] 08/26/2024 13:39:43 51724: Hot or Cold Pack completed Anshul Teague, FERN GATHERER [address], [place], [address], [facility] 08/26/2024 13:39:38 18607: Manual therapy completed Anshul Teague, FERN GATHERER [address], [place], [address], [facility] 08/26/2024 13:39:50 26676 Therapeutic Exercise (1:1) completed Jim Mendez, PT [address], [place], [address], [facility] 08/23/2024 14:06:45 06167: Hot or Cold Pack completed Jim Mendez, PT [address], [place], [address], [facility] 08/19/2024 16:49:01 4 43736: Manual therapy completed Jim Mendez, PT [address], [place], [address], [facility] 08/19/2024 16:49:01 72351 Therapeutic Exercise (1:1) completed Jim Mendez, PT [address], [place], [address], [facility] 08/19/2024 14:54:47 4 72130: Hot or Cold Pack completed Jim Mendez, PT [address], [place], [address], [facility] 08/18/2024 06:28:43 07164: Manual therapy completed Jim Mendez, PT [address], [place], [address], [facility] 08/19/2024 14:55:02 4 29002 Therapeutic Exercise (1:1) completed Jim Mendez, PT [address], [place], [address], [facility] 08/12/2024 14:56:25 82940: Hot or Cold Pack completed Jim Mendez, PT [address], [place], [address], [facility] 08/12/2024 14:56:25 97851: Manual therapy completed Jim Mendez, PT [address], [place], [address], [facility] 08/17/2024 14:04:01 35631 Therapeutic Exercise (1:1) completed Anshul Teague, FERN GATHERER [address], [place], [address], [facility] 08/11/2024 08:39:36 4 72858: Hot or Cold Pack completed Anshul Pisjosé, FERN GATHERER [address], [place], [address], [facility] 08/11/2024 08:39:36 4 00131: Manual therapy completed Anshul Teague, FERN GATHERER [address], [place], [address], [facility] 08/11/2024 08:39:36 32213 Therapeutic Exercise (1:1) completed Anshul Pisarenyeni, FERN GATHERER [address], [place], [address], [facility] 08/09/2024 15:01:04 22118: Hot or Cold Pack completed Anshul Pisarenyeni, FERN GATHERER [address], [place], [address], [facility] 08/09/2024 15:01:11 17079: Manual therapy completed Anshul Pisarenyeni, FERN GATHERER [address], [place], [address], [facility] 08/09/2024 15:01:18 4 13323 Therapeutic Exercise (1:1) completed Jim Mendez, PT [address], [place], [address], [facility] 07/27/2024 17:33:25 4 35743: Low complexity PT Eval completed Jim Mendez, PT [address], [place], [address], [facility] 07/27/2024 17:33:30 4 12850 Therapeutic Exercise (1:1) completed Anshul Teague, FERN GATHERER [address], [place], [address], [facility] 06/03/2024 15:03:51 4 55453: Hot or Cold Pack completed Anshul Teague, FERN GATHERER [address], [place], [address], [facility] 06/03/2024 15:04:16 4 85866: Manual therapy completed Anshul Teague FERN GATHERER [address], [place], [address], [facility] 06/03/2024 15:03:56 4 39428 Therapeutic Exercise (1:1) completed Jim Mendez, PT [address], [place], [address], [facility] 05/26/2024 16:42:01 4 83680: Hot or Cold Pack completed Jim Mendez, PT [address], [place], [address], [facility] 05/24/2024 15:30:31 4 13093: Manual therapy completed Jim Mendez, PT [address], [place], [address], [facility] 05/26/2024 16:38:03 4 94819 Therapeutic Exercise (1:1) cancelled Jim Mendez, PT [address], [place], [address], [facility] 05/17/2024 16:24:11 4 21381: Hot or Cold Pack cancelled Jim Mendez, PT [address], [place], [address], [facility] 05/17/2024 16:24:11 4 62724: Manual therapy cancelled Jim Mendez, PT [address], [place], [address], [facility] 05/17/2024 16:24:11 4 34934 Therapeutic Exercise (1:1) completed Jim Mendez, PT [address], [place], [address], [facility] 05/12/2024 08:37:56 4 48479: Hot or Cold Pack completed Jim Mendez, PT [address], [place], [address], [facility] 05/12/2024 08:37:56 4 06894: Manual therapy completed Jim Mendez, PT [address], [place], [address], [facility] 05/13/2024 14:23:31 4 48608 Therapeutic Exercise (1:1) completed Jim Mendez, PT [address], [place], [address], [facility] 05/11/2024 12:46:09 4 01983: Hot or Cold Pack completed Jim Mendez, PT [address], [place], [address], [facility] 05/09/2024 16:46:45 4 48219: Manual therapy completed Jim Mendez, PT [address], [place], [address], [facility] 05/11/2024 12:46:14 4 57007 Therapeutic Exercise (1:1) completed Anshul Pisjosé, FERN GATHERER [address], [place], [address], [facility] 05/04/2024 15:40:28 4 96057: Hot or Cold Pack completed Anshul Sebastiánareroman, FERN GATHERER [address], [place], [address], [facility] 05/04/2024 15:40:28 4 08431: Manual therapy completed Anshul Teague, FERN GATHERER [address], [place], [address], [facility] 05/04/2024 15:40:28 4 61482 Therapeutic Exercise (1:1) completed Anshul Teague, FERN GATHERER [address], [place], [address], [facility] 04/28/2024 14:15:05 4 10591: Hot or Cold Pack completed Anshul Teague, FERN GATHERER [address], [place], [address], [facility] 04/28/2024 14:15:05 4 59884: Manual therapy completed Anshul Teague, FERN GATHERER [address], [place], [address], [facility] 04/28/2024 14:15:05 4 96771 Therapeutic Exercise (1:1) completed Anshul Pisarenyeni, FERN GATHERER [address], [place], [address], [facility] 04/27/2024 11:56:00 4 49561: Hot or Cold Pack completed Anshul Pisarenyeni, FERN GATHERER [address], [place], [address], [facility] 04/26/2024 08:49:04 4 25529: Manual therapy completed Anshul Teague, FERN GATHERER [address], [place], [address], [facility] 04/27/2024 11:56:06 4 23665 Therapeutic Exercise (1:1) completed Jim Mendez, PT [address], [place], [address], [facility] 04/22/2024 10:54:18 4 03345: Hot or Cold Pack completed Jim Mendez, PT [address], [place], [address], [facility] 04/20/2024 15:08:14 4 07138: Manual therapy completed Jim Mendez, PT [address], [place], [address], [facility] 04/20/2024 15:08:14 4 01233 Therapeutic Exercise (1:1) completed Anshul Teague, FERN GATHERER [address], [place], [address], [facility] 04/19/2024 13:33:26 4 90606: Hot or Cold Pack completed Anshul Teague, FERN GATHERER [address], [place], [address], [facility] 04/19/2024 13:33:26 4 13799: Manual therapy completed Anshul Teague, FERN GATHERER [address], [place], [address], [facility] 04/19/2024 13:33:26 4 70161 Therapeutic Exercise (1:1) completed Jim Mendez, PT [address], [place], [address], [facility] 04/13/2024 17:45:15 4 21125: Hot or Cold Pack completed Jim Mendez, PT [address], [place], [address], [facility] 04/13/2024 17:45:15 4 63924: Manual therapy completed Jim Mendez, PT [address], [place], [address], [facility] 04/13/2024 17:45:15 4 31582 Therapeutic Exercise (1:1) completed Jim Mendez, PT [address], [place], [address], [facility] 04/13/2024 12:50:11 4 56800: Hot or Cold Pack completed Jim Mendez, PT [address], [place], [address], [facility] 04/11/2024 16:23:31 4 30172: Manual therapy completed Jim Mendez, PT [address], [place], [address], [facility] [facility] 04/13/2024 12:49:58 4 [id number] Therapeutic Exercise (1:1) cancelled Anshul Zahida, FERN GATHERER [address], [place], [address], [facility] 04/05/2024 13:09:51 4 50210: Hot or Cold Pack cancelled Anshul Pisarenyeni, FERN GATHERER [address], [place], [address], [facility] 04/05/2024 13:09:51 4 [id number]: Manual therapy cancelled Anshul Pisarenko, FERN GATHERER [address], [place], [address], [facility] 04/05/2024 13:09:51 4 [id number] Therapeutic Exercise (1:1) completed Anshul Pisarenko, FERN GATHERER [address], [place], [address], [facility] 04/01/2024 09:01:32 4 95634: Hot or Cold Pack completed Anshul Pisarenko, FERN GATHERER [address], [place], [address], [facility] 04/01/2024 09:01:32 4 [id number]: Manual therapy completed Anshul Pisarenko, FERN GATHERER [address], [place], [address], [facility] 04/01/2024 09:01:32 4 [id number] Therapeutic Exercise (1:1) completed Anshul Pisarenko, FERN GATHERER [address], [place], [address], [facility] 03/30/2024 10:55:55 4 19431: Hot or Cold Pack completed Anshul Pisarenko, FERN GATHERER [address], [place], [address], [facility] 03/30/2024 10:55:55 4 42751: Manual therapy completed Anshul Pisarenko, FERN GATHERER [address], [place], [address], [facility] 03/30/2024 10:55:55 4 [id number] Therapeutic Exercise (1:1) completed Anshul Pisarenko, FERN GATHERER [address], [place], [address], [facility] 03/25/2024 13:23:18 4 84531: Hot or Cold Pack completed Anshul Pisarenko, FERN GATHERER [address], [place], [address], [facility] 03/25/2024 13:23:18 4 03679: Manual therapy completed Anshul Pisarenko, FERN GATHERER [address], [place], [address], [facility] 03/25/2024 13:23:18 4 [id number] Therapeutic Exercise (1:1) completed Jim Mendez, PT [address], [place], [address], [facility] 03/24/2024 12:05:02 4 23927: Hot or Cold Pack completed Jim Mendez, PT [address], [place], [address], [facility] 03/22/2024 17:01:20 4 64115: Manual therapy completed Jim Mendez, PT [address], [place], [address], [facility] 03/22/2024 17:01:20 4 45692 Therapeutic Exercise (1:1) completed Jim Mendez, PT [address], [place], [address], [facility] 03/22/2024 12:04:17 4 94131: Hot or Cold Pack completed Jim Mendez, PT [address], [place], [address], [facility] 03/18/2024 16:48:43 4 41389: Manual therapy completed Jim Mendez, PT [address], [place], [address], [facility] 03/22/2024 12:03:11 4 15592 Therapeutic Exercise (1:1) completed Jim Mendez, PT [address], [place], [address], [facility] 03/18/2024 15:39:52 4 08368: Hot or Cold Pack completed Jim Mendez, PT [address], [place], [address], [facility] 03/16/2024 18:20:18 4 03889: Manual therapy completed Jim Mendez, PT [address], [place], [address], [facility] 03/16/2024 18:20:18 4 [id number] Therapeutic Exercise (1:1) completed Jim Mendez, PT [address], [place], [address], [facility] 03/16/2024 12:32:27 4 07712: Hot or Cold Pack completed Jim Mendez PT [address], [place], [address], [facility] 03/15/2024 15:25:54 4 63559: Manual therapy completed Jim Mendez, PT [address], [place], [address], [facility] 03/16/2024 12:32:37 4 06743 Therapeutic Exercise (1:1) cancelled Jim Mendez PT [address], [place], [address], [facility] 03/11/2024 05:57:59 4 [id number]: Hot or Cold Pack cancelled Jim Mendez, PT [address], [place], [address], [facility] 03/11/2024 05:57:59 4 83656: Manual therapy cancelled Jim Mendez, PT [address], [place], [address], [facility] 03/11/2024 05:57:59 4 54157 Therapeutic Exercise (1:1) completed Anshul Teague FERN GATHERER [address], [place], [address], [facility] 03/10/2024 13:47:16 4 69012: Hot or Cold Pack completed Anshul Pisarenko, FERN GATHERER [address], [place], [address], [facility] 03/10/2024 13:47:22 4 42412: Manual therapy completed Anshul Sebastiánarenko, FERN GATHERER [address], [place], [address], [facility] 03/10/2024 13:47:19 4 32734 Therapeutic Exercise (1:1) cancelled Anshul Pisarenko, FERN GATHERER [address], [place], [address], [facility] 03/07/2024 18:21:38 4 84857: Hot or Cold Pack cancelled Anshul Sebastiánarenko, FERN GATHERER [address], [place], [address], [facility] 03/07/2024 18:21:38 4 25288: Manual therapy cancelled Anshul Sebastiánarenyeni, FERN GATHERER [address], [place], [address], [facility] 03/07/2024 18:21:38 4 18887 Therapeutic Exercise (1:1) completed Jim Mendez, PT [address], [place], [address], [facility] 03/03/2024 15:17:19 4 20361: Hot or Cold Pack completed Jim Mendez, PT [address], [place], [address], [facility] 03/03/2024 15:37:06 4 75327: Manual therapy completed Jim Mendez, PT [address], [place], [address], [facility] 03/03/2024 15:17:29 4 99288 Therapeutic Exercise (1:1) completed Jim Mendez, PT [address], [place], [address], [facility] 03/02/2024 13:15:51 4 40632: Low complexity PT Eval completed Jim Andrea, PT [address], [place], [address], [facility] 03/02/2024 13:15:59 Imaging Results None recorded. Procedure Notes None recorded. Medical Equipment None Reported. Allergies Allergen ID Allergen Name Allergen Category Reaction Reaction Severity Criticality Documentation Date Start Date Code Code System Note Provider Name and Address Organization Details Recorded Time 338365 Cogentin medicatio n Not available Not available Not available 01/25/2024 44989 2 RxNorm MARINA CHUY [facility] 4 16:51:39 969977 morphine medicatio n Not available Not available Not available 01/05/2025 7052 RxNorm OLIVIA VELEZ [facility] 5 10:59:12 20340 Lyrica medicatio n Not available Not available Not available 01/04/20242009 46486 1 RxNorm Not Available [facility] 4 15:00:55 Medications Name Sig Start Date Stop Date Status Note LastModified by Organization Details LastModified Time celecoxib 200 mg capsule TAKE 1 CAPSULE BY MOUTH DAILY DIRECTED (STARTIN G 3 DAYS BEFORE SURGERY) active Not Available Not Available No t Available cyclobenz aprine 10 mg tablet TAKE 1 TABLET BY MOUTH THREE TIMES A DAY FOR 30 DAYS 01/05 completed Not Available Not Available Not Available amoxicill in 500 mg capsule TAKE 1 CAPSULE EVERY 6 HOURS UNTIL FINISHED 05/15 completed Not Available Not Available Not Available Adderall 30 mg tablet TAKE 1 TABLET BY MOUTH THREE TIMES A DAY FOR ADHD active Not Available Not Available No t Available oxcarbaze pine 150 mg tablet TAKE 1 TABLET BY MOUTH TWICE A DAY active Not Available Not Available No t Available haloperid ol 5 mg tablet active Not Available Not Available Not Available cetirizin e 10 mg tablet TAKE 1 TABLET BY MOUTH EVERY DAY active Not Available Not Available No t Available alprazola m 1 mg tablet TAKE 1 TABLET BY MOUTH TWICE DAILY AND TAKE 2 TABLETS EVERY NIGHT AT BEDTIME active Not Available Not Available No t Available fluconazo le 150 mg tablet TAKE 1 TABLET BY MOUTH EVERY WEEK FOR 4 WEEKS 01/05 completed Not Available Not Available Not Available meloxicam 15 mg tablet TAKE 1 TABLET BY MOUTH EVERY DAY AFTER MEAL active Not Available Not Available No t Available promethaz ine 12.5 mg tablet TAKE 1 TABLET BY MOUTH 3 TIMES A DAY NEEDED FOR NAUSEA AND VOMITING 01/05 completed Not Available Not Available Not Available ondansetr on HCl 4 mg tablet TAKE 1 TABLET BY MOUTH DAILY NEEDED FOR NAUSEA. active Not Available Not Available No t Available prednison e 20 mg tablet TAKE 2 TABLETS BY MOUTH EVERY DAY 01/05 completed Not Available Not Available Not Available alclometa sone 0.05 % topical cream APPLY TO EARS TWICE A DAY FOR 3 TO 5 DAYS WHEN CONDITIO N IS ACTIVE 09/07 completed Not Available Not Available Not Available clobetaso l 0.05 % topical cream 01/05 completed Not Available Not Available Not Available oxcarbaze pine 300 mg tablet TAKE 1 TABLET BY MOUTH IN THE MORNING AND TAKE 2 TABLETS AT BEDTIME DIRECTED active Not Available Not Available No t Available amlodipin e 5 mg tablet TAKE 1 TABLET BY MOUTH EVERY DAY active Not Available Not Available No t Available morphine ER 30 mg tablet,ex tended release Take 1 tablet every 12 hours by oral route for 7 days. 02/[address] was not comforta ble filling high dose - changed to 15mg Q12 Not Available Not Available Not Available omeprazol e 40 mg capsule,d elayed release TAKE 1 CAPSULE BY MOUTH DAILY active Not Available Not Available No t Available amoxicill in 500 mg tablet TAKE 1 EVERY 6 HOURS UNTIL FINISHED 05/15 completed Not Available Not Available Not Available ketorolac 10 mg tablet TAKE 1 TABLET BY MOUTH EVERY 8 HOURS. DO NOT TAKE FOR MORE THAN 5 DAYS. 01/05 completed Not Available Not Available Not Available propranol ol 10 mg tablet TAKE 1 TABLET BY MOUTH THREE TIMES A DAY active Not Available Not Available No t Available amoxicill in 875 mg tablet TAKE 1 TABLET BY MOUTH TWICE A DAY FOR 7 DAYS 01/05 completed Not Available Not Available Not Available metoclopr amide 5 mg tablet TAKE 1 TABLET BY MOUTH 3 TIMES A DAY 01/05 completed Not Available Not Available Not Available clindamyc in 1 % topical gel APPLY THIN LAYER TO AFFECTED AREAS ON LEGS EVERY DAY TO ACTIVE LESIONS 01/05 completed Not Available Not Available Not Available aspirin 325 mg tablet,de layed release TAKE 1 TABLET BY MOUTH TWO TIMES A DAY active Not Available Not Available No t Available tamsulosi n 0.4 mg capsule TAKE 1 CAPSULE BY MOUTH EVERY DAY active Not Available Not Available No t Available Nguyen-Hex 4 % topical liquid USE WASH EVERY DAY 01/05 completed Not Available Not Available Not Available morphine 30 mg immediate release tablet TAKE 1 TABLET BY MOUTH EVERY 4 HOURS 01/05 completed Not Available Not Available Not Available pseudoeph ynes-ghada aifenesin ER 80-700 mg tablet,ex tended release as directed 1 to 2 tablets q 8hrs prn pain 01/05 completed Status: 'Current '; Not Available Not Available Not Available oxycodone 5 mg capsule TAKE 1 CAPSULE BY MOUTH EVERY 8 HOURS NEEDED FOR PAIN FOR 14 DAYS 01/05 completed Not Available Not Available Not Available ibuprofen 400 mg tablet TAKE 1 TABLET ORALLY EVERY 6 HOURS NEEDED FOR PAIN 01/05 completed Not Available Not Available Not Available gabapenti n 300 mg capsule TAKE 1 CAPSULE BY MOUTH EVERY MORNING 1 CAPSULE AT LUNCH AND 2 CAPSULES AT BEDTIME active Not Available Not Available No t Available omeprazol e 20 mg capsule,d elayed release TAKE 1 CAPSULE BY MOUTH EVERY DAY 01/05 completed Not Available Not Available Not Available oxcarbaze pine 600 mg tablet TAKE 1 TABLET BY MOUTH TWICE A DAY active Not Available Not Available No t Available hydroxyzi ne HCl 25 mg tablet TAKE 2 TABLETS BY MOUTH AT BEDTIME active Not Available Not Available No t Available morphine ER 15 mg tablet,ex tended release Take 1 tablet 4 times a day by oral route for 7 days. 01/05 completed Not Available Not Available Not Available hydrochlo rothiazid e 25 mg tablet TAKE 1 TABLET BY MOUTH EVERY DAY active Not Available Not Available No t Available metoprolo l succinate ER 25 mg tablet,ex tended release 24 hr TAKE 1 TABLET BY MOUTH AT BEDTIME active Not Available Not Available No t Available nystatin 100,000 unit/gram topical powder APPLY TO AFFECTED AREA DAILY active Not Available Not Available No t Available lorazepam 1 mg tablet TAKE 1 TABLET BY MOUTH THREE TIMES A DAY 01/05 completed Not Available Not Available Not Available polyethyl trini glycol 3350 17 gram/dose oral powder TAKE 17 G BY MOUTH DAILY FOR 7 DAYS START 1 WEEK PRIOR TO COLONOSC OPY 01/05 completed Not Available Not Available Not Available zolpidem 10 mg tablet TAKE 1 TABLET BY MOUTH EVERYDAY AT BEDTIME 01/05 completed Not Available Not Available Not Available hydromorp nam 4 mg tablet Take 0.5-1 tablet every 4-6 hours as needed for severe pain. active Not Available Not Available No t Available morphine 15 mg immediate release tablet Take 1 tablet every 6 hours by oral route for 7 days. 01/05 completed Not Available Not Available Not Available lisinopri l 40 mg tablet TAKE 1 TABLET BY MOUTH EVERY DAY active Not Available Not Available No t Available fluticaso ne propionat e 50 mcg/actua tion nasal spray,josiane pension ADMINIST ER 1 SPRAY IN EACH NOSTRIL DAILY active Not Available Not Available No t Available clotrimaz ole 1 % topical cream 1 APPL TOPICALL Y 2 TIMES A DAY FOR 4 WEEKS 01/05 completed Not Available Not Available Not Available naproxen 500 mg tablet TAKE 1 TABLET BY MOUTH TWICE A DAY 01/05 completed Not Available Not Available Not Available metoclopr amide 10 mg tablet TAKE 2 TABLETS BY MOUTH 3 TIMES A DAY active Not Available Not Available No t Available amoxicill in 875 mg-potass ium clavulana te 125 mg tablet TAKE 1 TABLET BY MOUTH EVERY 12 HOURS FOR 7 DAYS 09/07 completed Not Available Not Available Not Available Adderall 10 mg tablet TAKE 1 TABLET BY MOUTH ONCE A DAY FOR ADHD active Not Available Not Available No t Available Ventolin HFA 90 mcg/actua tion aerosol inhaler INHALE 1 PUFF 4 TIMES A DAY NEEDED FOR SHORTNES S OF BREATH OR WHEEZING FOR 30 DAYS active Not Available Not Available No t Available oxycodone 5 mg tablet TAKE 1 TO 2 TABLETS BY MOUTH EVERY 4 HOURS NEEDED (TO LAST 7 DAYS) 01/05 completed Not Available Not Available Not Available Laxative (bisacody l) 5 mg tablet,de layed release TAKE 2 TABLETS BY MOUTH AT BEDTIME FOR 2 DAYS 01/05 completed Not Available Not Available Not Available Benadryl 2 % topical gel APPLY TOPICALL Y 4 TIMES A DAY 09/07 completed Not Available Not Available Not Available rosuvasta tin 20 mg tablet TAKE 1 TABLET BY MOUTH DAILY AT BEDTIME active Not Available Not Available No t Available metoclopr amide HCl Metoclop ramide HCl 10MG Tablet 01/05 completed Status: 'Current '; Not Available Not Available Not Available oxcarbaze pine OXcarbaz epine 600MG Tablet 01/05 completed Status: 'Current '; Not Available Not Available Not Available paliperid one ER 6 mg tablet,ex tended release 24 hr TAKE 1 TABLET BY MOUTH EVERY DAY 01/05 completed Not Available Not Available Not Available paliperid one ER 3 mg tablet,ex tended release 24 hr TAKE 1 TABLET BY MOUTH ONCE DAILY 01/05 completed Not Available Not Available Not Available Lantus Solostar U-100 Insulin 100 unit/mL (3 mL) subcutane ous pen INJECT 38 UNITS SUBCUTAN EOUSLY EVERY EVENING active Not Available Not Available No t Available oxycodone HCl-oxyco done-ASA 2 TABS Q8H PRN PAIN 10/10 completed Status: 'Discont inued'; Not Available Not Available Not Available GaviLyte- G 236 gram-22.7 4 gram-6.74 gram-5.86 gram oral solution PLEASE SEE ATTACHED FOR DETAILED DIRECTIO NS 01/05 completed Not Available Not Available Not Available paliperid one ER 1.5 mg tablet,ex tended release 24 hr TAKE 1 TABLET BY MOUTH EVERY DAY 01/05 completed Not Available Not Available Not Available Myrbetriq 25 mg tablet,ex tended release TAKE 1 TABLET BY MOUTH DAILY active Not Available Not Available No t Available Linzess 145 mcg capsule TAKE 1 CAPSULE BY MOUTH EVERY MORNING active Not Available Not Available No t Available Jardiance 10 mg tablet TAKE 1 TABLET BY MOUTH EVERY MORNING active Not Available Not Available No t Available Trulicity 1.5 mg/0.5 mL subcutane ous pen injector INJECT 0.5 ML SUBCUTAN EOUSLY EVERY WEEK FOR 30 DAYS 01/05 completed Not Available Not Available Not Available desvenlaf axine succinate ER 25 mg tablet,ex tended release 24 hr TAKE 1 TABLET BY MOUTH EVERY DAY active Not Available Not Available No t Available naloxone 4 mg/actuat ion nasal spray 1 SPRAY IN RIGHT NOSTRIL ONCE:MAY REPEAT EVERY 2-3 MINUTES UNTIL PATIENT RESPONDS .FOR OPIOD OVERDOSE active Not Available Not Available No t Available Trintelli x 10 mg tablet TAKE 1 TABLET BY MOUTH ONCE A DAY 01/05 completed Not Available Not Available Not Available Trintelli x 20 mg tablet TAKE 1 TABLET BY MOUTH EVERY DAY 01/05 completed Not Available Not Available Not Available Trulance 3 mg tablet TAKE 1 TABLET BY MOUTH EVERY DAY 01/05 completed Not Available Not Available Not Available BD Erica 2nd Gen Pen Needle 32 gauge x USE 3 TIMES A DAY active Not Available Not Available No t Available Ozempic 1 mg/dose (4 mg/3 mL) subcutane ous pen injector INJECT 1 MG (0.75 ML) SUBCUTAN EOUSLY WEEKLY 01/05 completed Not Available Not Available Not Available Ozempic 2 mg/dose (8 mg/3 mL) subcutane ous pen injector INJECT 2 MG (0.75 ML) SUBCUTAN EOUSLY EVERY WEEK active Not Available Not Available No t Available FreeStyle Ajith 3 Sensor device USE DIRECTED TO TEST BLOOD SUGAR 4 TIMES A DAY 01/05 completed Not Available Not Available Not Available Vitals Date Recorded Body height Body mass index (BMI) Body weight Provider Name and Address Organization Details Last Updated DateTime 06/07/2025 173.99 cm 35.2 kg/m2 965443.21 g Tracey Campos [place] - [facility] 06/07/2025 13:56:39 Social History None recorded. Functional Status None recorded. Mental Status None recorded. Family History Nothing Reported. Medical History Condition Response Allergies/Hayfever N Coronary Artery Disease N Anxiety/Depression N Emphysema N Thyroid Problems N COPD N Pacemaker N Kidney/Bladder Problems N Anemia N Vascular Disease N Gastrointestinal Disease N Heart Attack ([place]) N Cholesterol Y Diabetes Y Autoimmune disease N Bleeding Disorder N Orthotics N Arthritis N Seizures/Epilepsy N Blood Clot N AIDS/HIV N Congestive Heart Failure (CHF) N Acid Reflux (GERD) Y Cancer N Stroke N Asthma Y Peripheral Vascular Disease N Sleep Apnea N Hepatitis N Heart Disease N Rheumatoid Arthritis N Arrhythmia N Pulmonary Embolism N Fibromyalgia N Hypertension Y Osteoporosis N Past Encounters Encounter ID Performer Location Encounter Start Date Encounter Closed Date Diagnosis/Indication Diagnosis SNOMED-CT Code Diagnosis ICD10 Code Diagnosis IMO Codes Diagnosis Note [id number] MD Rosalie Romano [address] floor [address] [place] [address] 02/25/2024 11:17:51 03/18/2024 12:59:47 History of reverse prosthetic total arthroplasty of left shoulder 9805329580 [id number] Z96.612 History of total arthroplasty of left shoulder [id number] [id number] Z96.235 [id number] Jim Mendez, PT [facility] [address] [place] [address] 03/02/2024 12:22:36 03/02/2024 13:09:26 Aftercare [id number] Z47.1 History of total arthroplasty of left shoulder [id number] Z96.535 [id number] Jim Mendez, PT [facility] [address] [place] [address] 03/03/2024 14:29:38 03/03/2024 15:04:54 Aftercare [id number] Z47.1 History of total arthroplasty of left shoulder [id number] Z96.186 [id number] Anshul Teague, FERN GATHERER [facility] [address] [place] [address] 03/10/2024 13:24:24 03/10/2024 13:57:42 Aftercare [id number] Z47.1 History of total arthroplasty of left shoulder 8397363239 [id number] Z96.656 [id number] Jim Mendez, PT [facility] [address] [place] [address] 03/16/2024 11:13:57 03/16/2024 12:03:57 Aftercare [id number] Z47.1 History of total arthroplasty of left shoulder 8385633031 [id number] Z96.820 [id number] Jim Mendez, PT [facility] [address] [place] [address] 03/18/2024 14:50:24 03/18/2024 15:38:34 Aftercare [id number] Z47.1 History of total arthroplasty of left shoulder 5031996938 1435497 Z96.703 [id number] Jim Mendez, PT [facility] [address] [place] [address] 03/22/2024 11:33:13 03/22/2024 11:51:17 Aftercare [id number] Z47.1 History of total arthroplasty of left shoulder 5393210259 [id number] Z96.086 [id number] Jim Mendez, PT [facility] [address] [place] [place] [address] 03/24/2024 11:00:01 03/24/2024 11:41:24 Aftercare [id number] Z47.1 History of total arthroplasty of left shoulder 4742166233 [id number] Z96.390 [id number] Anshul Teague, FERN GATHERER [facility] [address] [facility] [place] [address] 03/29/2024 11:05:56 03/29/2024 13:05:27 Aftercare [id number] Z47.1 History of total arthroplasty of left shoulder [id number] Z96.518 [id number] Anshul Teague, FERN GATHERER [facility] [address] [facility] [place] [address] 03/31/2024 11:06:45 03/31/2024 11:46:56 Aftercare [id number] Z47.1 History of total arthroplasty of left shoulder [id number] Z96.708 [id number] Anshul Pisarenko, FERN GATHERER [facility] [address] [facility] [place] [address] 04/04/2024 12:06:37 04/04/2024 12:36:26 Aftercare [id number] Z47.1 History of total arthroplasty of left shoulder 6031425009 [id number] Z96.751 [id number] Jim Mendez, PT [facility] [address] [place] [address] 04/13/2024 11:59:14 04/13/2024 12:40:09 Aftercare [id number] Z47.1 History of total arthroplasty of left shoulder 8474360662 [id number] Z96.733 [id number] Jim Mendez, PT [facility] [address] [place] [address] 04/15/2024 10:04:03 04/15/2024 10:38:59 Aftercare [id number] Z47.1 History of total arthroplasty of left shoulder [id number] Z96.702 [id number] Anshul Sebastiánjosé, FERN GATHERER [facility] [address] [facility] [place] [address] 04/20/2024 12:57:01 04/20/2024 14:33:53 Aftercare [id number] Z47.1 History of total arthroplasty of left shoulder [id number] Z96.855 [id number] MICHELE Reynolds 2[address] [place] [address] 04/20/2024 09:37:03 05/10/2024 16:11:14 History of total arthroplasty of left shoulder [id number] Z96.727 [id number] Jim Mendez, PT [facility] [address] [facility] [place] [address] 04/22/2024 10:04:07 04/22/2024 10:18:49 Aftercare [id number] Z47.1 History of total arthroplasty of left shoulder [id number] Z96.684 [id number] Anshul Teague, FERN GATHERER [facility] [address] [facility] [place] [address] 04/27/2024 11:01:49 04/27/2024 11:39:41 Aftercare [id number] Z47.1 History of total arthroplasty of left shoulder [id number] [id number] Z96.404 [id number] Anshul Teague, FERN GATHERER [facility] [address] [facility] [place] [place] [address] 04/29/2024 09:35:01 04/29/2024 10:29:56 Aftercare [id number] Z47.1 History of total arthroplasty of left shoulder [id number] Z96.110 [id number] Anshul Teague, FERN GATHERER [facility] [address] [place] [address] 05/06/2024 13:05:47 05/06/2024 14:00:38 Aftercare [id number] Z47.1 History of total arthroplasty of left shoulder [id number] Z96.668 [id number] Jim Andrea, PT [facility] [address] [place] [address] 05/11/2024 12:03:26 05/11/2024 13:24:45 Aftercare [id number] Z47.1 History of total arthroplasty of left shoulder [id number] Z96.611 [id number] Jim Sedgwick, PT [facility] [address] [place] 0 05/13/2024 13:29:36 05/13/2024 13:56:38 Aftercare [id number] Z47.1 History of total arthroplasty of left shoulder [id number] Z96.343 [id number] Jim Mendez, PT [facility] [address] [facility] [place] [address] 05/26/2024 15:26:40 05/26/2024 15:39:13 Aftercare [id number] Z47.1 History of total arthroplasty of left shoulder [id number] 2605737 Z96.283 [id number] Anshul Teague, FERN GATHERER [facility] [address] [place] [address] 06/03/2024 13:57:23 06/03/2024 14:37:22 Aftercare [id number] Z47.1 History of total arthroplasty of left shoulder 1787114232 2431810 Z96.676 [id number] MD Rosalie Romano 2nd floor [address] [place] [address] 06/23/2024 10:27:04 07/18/2024 10:09:15 History of total arthroplasty of left shoulder [id number] 0845285 Z96.612 Osteoarthr itis of joint of right shoulder region 7395538562 20322 M19.340 [id number] Chuck Hernández , PT [facility] [address] [place], [place] 0 08/04/2024 11:34:41 08/04/2024 15:14:26 History of total arthroplasty of right shoulder 687848633 Z96.636 [id number] [facility] [address] [place] [address] 07/28/2024 08:04:25 07/28/2024 09:31:58 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 5351550431 Z96.536 [id number] Anshul Teague, FERN GATHERER [facility] [address] [place], [place] 0 08/09/2024 14:55:17 08/10/2024 08:12:11 History of total arthroplasty of right shoulder 622495416 Z96.904 [id number] Anshul Teague, FERN GATHERER [facility] [address] [place], [place] 0 08/11/2024 12:57:51 08/12/2024 08:37:05 History of total arthroplasty of right shoulder 750325093 Z96.768 [id number] Jim eMndez, PT [facility] [address] [place], [place] 0 08/17/2024 12:56:54 08/17/2024 15:00:26 History of total arthroplasty of right shoulder 965057843 Z96.720 [id number] Jim Mendez, PT [facility] [address] [place], [place] 0 08/19/2024 14:21:11 08/22/2024 07:56:33 History of total arthroplasty of right shoulder 012897223 Z96.506 [id number] Jim Mendez, PT [facility] [address] [place] [address] 08/23/2024 13:35:07 08/23/2024 14:33:28 History of total arthroplasty of right shoulder 795817293 Z96.958 [id number] Anshul Teague [facility] [address] [place] [address] 08/26/2024 13:00:07 08/26/2024 13:21:00 History of total arthroplasty of right shoulder 509181629 Z96.505 [id number] Tonya Francisco PA-C [facility] [address] [place] [address] 09/05/2024 13:48:12 09/21/2024 11:23:33 Pain of hip region 58089594 M25.551 [id number] Rayshawn Ortiz PA-C [facility] [address] [place] [address] 10/06/2024 14:33:27 10/24/2024 08:29:48 Osteoarthritis of right hip joint 6607265975 76578 M16.11 [id number] MD [facility] [address] [place] [address] [place] [address] 01/05/2025 10:25:37 01/17/2025 14:26:03 Pain of hip region 82172705 M25.551 [id number] Osteoarthr itis of right hip joint 7307858917 77804 M16.11 [id number] Rayshawn Hull, PT [facility] [address] [place] [address] 01/17/2025 07:06:23 01/17/2025 07:57:52 Osteoarthritis of hip [id number] M16.11 [id number] Fadumo Stoll PA-C [facility] [address] [place] [address] 01/20/2025 07:29:57 02/10/2025 04:02:26 Osteoarthritis of right hip joint [id number] 48414 M16.11 [id number] Buck Wilkins, PT [facility] [address] [place] [address] 02/03/2025 08:09:58 02/03/2025 08:30:58 Aftercare [id number] Z47.1 Z96.346 [id number] George Ladonna, AT [facility] [address] [place] [address] 02/07/2025 10:29:51 02/07/2025 11:06:31 Aftercare [id number] Z47.1 Z96.387 [id number] Rayshawn Ortiz PA-C [facility] [address] [place] [address] 02/07/2025 13:29:24 02/17/2025 09:12:44 Pain of hip region 77767821 M25.551 [id number] Osteoarthr itis of right hip joint 8815214512 76115 M16.11 [id number] Buck Wilkins, PT [facility] [address] [place] [address] 02/13/2025 09:56:38 02/13/2025 11:28:54 Aftercare 527745703 Z47.1 Z96.544 [id number] George Ladonna, AT [facility] [address] [place] [address] 02/17/2025 12:52:16 02/17/2025 14:15:31 Aftercare 940190971 Z47.1 Z96.085 [id number] George Dougherty, AT [facility] [address] [place] [address] 02/21/2025 08:58:28 02/21/2025 11:48:51 Aftercare [id number] Z47.1 Z96.302 [id number] George Dougherty, AT [facility] [address] [place] [address] 02/24/2025 10:58:44 02/24/2025 11:41:38 Aftercare [id number] Z47.1 Z96.904 [id number] MICHELE Arshad [address] [place] [address] 06/07/2025 13:47:15 06/14/2025 08:14:53 Pain of right knee joint 5287858300 70403 M25.561 725850 Osteoarthr itis of right knee joint 2139577965 63401 M17.11 [id number] Health Concerns Section Related Observation LastModified by Organization Detai ls LastModified Time None Recorded Concern Status LastModified by Organization Details LastModified Time None Recorded Advance Directives Directive None Recorded Payers Insurance Date Sequence Insurance Name Policy Number Policy Enamorado Covered Member ID Enamorado Member ID Guarantor Name 07/06/2025 1 [facility] - DOS ON OR AFTER 2023 - [employer] AND [employer] (MEDICARE REPLACEMENT/ADV ANTAGE - PPO) Joo Gordon [id number] Joo Gordon Notes Date Note Type Note Provider Name and Address Organization Details Recorded Time 02/13/2025 text/html Patient presents today reporting3-4/10 pain. Pt states having difficulty sleeping and muscle tightness about the hip and thigh. Saw Pa Ortiz 02/07/25, happy w status. Most pain first in am Buck Wilkins, PT [address], [place], [address], [facility] 02/13/2025 10:43:14 02/17/2025 text/html Patient presents today reporting 3/10 pain. George Dougherty, AT [address], [place], [address], [facility] 02/17/2025 16:24:05 02/21/2025 text/html Patient presents today reporting 2/10 pain. George Dougherty, AT [address], [place], [address], [facility] 02/21/2025 20:26:36 02/24/2025 text/html Patient presents today reporting 1/10 pain. Pt states feeling better with walking and less ache. George Dougherty, AT [address], [place], [address], [facility] 02/24/2025 11:40:01 06/07/2025 text/html I am seeing the patient today under the supervision of Dr. Flowers who was available but who did not see the patient. HPI: Joo is a 54-year-old male returns for follow-up evaluation regarding his right knee. He has a history of a recent right total hip arthroplasty earlier this year by Dr. Inman. Recently has noted increasing right knee pain. Has had cortisone in his knee in the past 6 to 7 months ago. He has had contralateral left knee surgery by Dr. Flowers in the past. Pain reported with transitioning from seated position to walking as well as with stair climbing and descending. Past family, medical, social history and review of systems has been reviewed, updated and signed by me and is located in the patient's chart. Examination: The patient is well appearing and in no apparent distress. Alert and oriented x3. Gait is asymmetric. Antalgic gait on the right. Varus alignment noted with single-leg and double leg stance. Right knee exam with tenderness to palpation medial joint line. Small effusion. No erythema, redness or warmth. Both lower extremities are neurovascular intact. X-rays ordered, obtained and independently reviewed today at [facility]. 4 views of the right knee including standing AP, standing Rayo, lateral and sunrise/merchant patella views were obtained. These are notable for end-stage grade 4 osteoarthritis involving the medial compartment.. Impression: Advanced end-stage osteoarthritis right knee Plan: Patient is reporting significant difficulties with the knee. Hinders his lifestyle. Pain 7/10. Treatment options both surgical and nonsurgical were discussed. He is offered a cortisone injection today which he agrees to for symptom relief. He is however interested in more definitive management and I recommended that he return to Dr. Inman for consultation regarding knee replacement. He agreed to injection today which was performed. Please see procedure note. He understands that any consideration to arthroplasty would have to be 3 months from today. Dung Carter PA-C [address], [place], [address], [facility] 06/08/2025 08:20:46
== END 2025-08-18 14:53 | disposition home or self-care (01) ==
LOC: HO.HMCC 14:16
PROVIDERS: PCP Internal Medicine; Visit Provider Internal Medicine
DX: Z00.01 Encounter for general adult medical examination with abnormal findings (principal); E11.43 Type 2 diabetes mellitus with diabetic autonomic (poly)neuropathy; E66.811 Obesity, class 1; Z68.33 Body mass index [BMI] 33.0-33.9, adult; F33.41 Major depressive disorder, recurrent, in partial remission; I10 Essential (primary) hypertension; K21.9 Gastro-esophageal reflux disease without esophagitis; K31.84 Gastroparesis; M25.512 Pain in left shoulder; R14.2 Eructation; E78.9 Disorder of lipoprotein metabolism, unspecified; Z23 Encounter for immunization

== ENCOUNTER 2025-10-19 13:09 | Outpatient (AMB) | payer OTHER, SELFPAY ==
--- OUTSIDE RECORDS SUMMARY | 2025-10-13 23:59 | XMS_ITS | Continuity of Care Document ---
Author Organization [facility] Address [address] [facility] [place] [address]- Care Team Providers Care Reconditioning Associate Name Role Phone Deep MILLER[facility] Primary Care Physician [phone] [id number] Date(s): 08/08/25 - 10/13/25 [facility] [address], [place] [address] [place] Attending Physician: Kiara Byrne Admitting Physician: Kiara Byrne Referring Physician: Deep MILLER, Lizabeth Encounter Type: Pre Office Visit Allergies, Adverse Reactions, Alerts Substance Criticality Severity Reaction Reaction Severity Status morphine Active Cogentin Active Lyrica sever swelling of head/temples Active Immunizations Given and Recorded Vaccine Date Status Refusal Reason tetanus/diphtheria/pertussis, acel(Tdap) 10/05/25 Given Medications acetaminophen 325 mg oral tablet 650 mg, By Mouth, Every 6 hours, May take OTC not to exceed 3000 mg/day, Refills 0, Maintenance, 01/25/25 6:43:00 AM EDT, Partial fill upon patient request if the prescription is for a schedule II opioid drug. Start Date: 01/25/25 Status: Ordered Medication Dispense Status: Completed Total Allowed Fills: 1 Fills Dispensed: 0 Adderall 10 mg oral tablet 1 tablet = 10 mg, By Mouth, Daily in AM, 0 Refills, Maintenance, 01/12/25 8:54:00 AM EDT, Partial fill upon patient request if the prescription is for a schedule II opioid drug. Start Date: 01/12/25 Status: Ordered Medication Dispense Status: Completed Total Allowed Fills: 1 Fills Dispensed: 0 ALPRAZolam 0.5 mg oral tablet 1 mg, 2, tablet, By Mouth, 3 times a day, PRN, Refills 0, Maintenance, for anxiety, 01/07/19 11:06:58AM EST Start Date: 01/07/19 Status: Ordered Medication Dispense Status: Completed Total Allowed Fills: 1 Fills Dispensed: 0 amLODIPine 5 mg oral tablet 5 mg, 1, tablet, By Mouth, Daily, # 90 tablet, Refills 0, Maintenance, 02/03/24 2:40:00 PM EDT, Partial fill upon patient request if the prescription is for a schedule II opioid drug. Start Date: 02/03/24 Status: Ordered Medication Dispense Status: Completed Quantity: 90.0 Unit: tablet Total Allowed Fills: 1 Fills Dispensed: 0 amphetamine-dextroamphetamine 30 mg oral tablet 1 tablet = 30 mg, By Mouth, 3 times a day, 0 Refills, Maintenance, 11/27/15 12:00:58 PM EST, Tablet Start Date: 11/27/15 Status: Ordered Medication Dispense Status: Completed Total Allowed Fills: 1 Fills Dispensed: 0 CeleBREX 200 mg oral capsule 1 capsule = 200 mg, By Mouth, Daily, 0 Refills, Maintenance, 01/24/25 8:46:00 AM EDT, Partial fill upon patient request if the prescription is for a schedule II opioid drug. Start Date: 01/24/25 Status: Ordered Medication Dispense Status: Completed Total Allowed Fills: 1 Fills Dispensed: 0 cetirizine 10 mg oral tablet 1 tablet = 10 mg, By Mouth, Daily, # 90 tablet, 0 Refills, Maintenance, 01/12/25 8:55:00 AM EDT, Tablet, Partial fill upon patient request if the prescription is for a schedule II opioid drug. Start Date: 01/12/25 Status: Ordered Medication Dispense Status: Completed Quantity: 90.0 Unit: tablet Total Allowed Fills: 1 Fills Dispensed: 0 Ecotrin 325 mg oral delayed release tablet 1 tablet = 325 mg, By Mouth, 2 times a day, # 60 tablet, 0 Refills, Maintenance, 01/25/25 6:41:00 AMEDT, EC Tablet, [facility], Partial fill upon patient request if the prescription is for a schedule II opioid drug., 172.72, cm, 01/25/25 6:38:00 EDT, Height, 105.4, kg, 01/24/25 17:37:00 EDT, Dry Weight Start Date: 01/25/25 Stop Date: 02/24/25 Status: Ordered Medication Dispense Status: Completed Quantity: 60.0 Unit: tablet Total Allowed Fills: 1 Fills Dispensed: 0 fluticasone 50 mcg/inh nasal spray 1 SPRAY INTRANASALLY DAILY INTO EACH NOSTRIL Start Date: 02/03/24 Status: Ordered Medication Dispense Status: Completed Total Allowed Fills: 1 Fills Dispensed: 0 gabapentin 300 mg oral capsule TAKE 1 CAPSULE BY MOUTH EVERY MORNING 1 CAPSULE AT LUNCH AND 2 CAPSULES AT BEDTIME Start Date: 02/03/24 Status: Ordered Medication Dispense Status: Completed Total Allowed Fills: 1 Fills Dispensed: 0 haloperidol 5 mg oral tablet 5 mg, 1, tablet, By Mouth, 2 times a day, # 60 tablet, Refills 0, Maintenance, 01/16/25 8:11:00 AM EDT, Partial fill upon patient request if the prescription is for a schedule II opioid drug. Start Date: 01/16/25 Status: Ordered Medication Dispense Status: Completed Quantity: 60.0 Unit: tablet Total Allowed Fills: 1 Fills Dispensed: 0 hydrochlorothiazide 25 mg oral tablet 25 mg, 1, tablet, By Mouth, Daily, Refills 0, Maintenance, 01/12/25 8:56:00 AM EDT, Partial fill upon patient request if the prescription is for a schedule II opioid drug. Start Date: 01/12/25 Status: Ordered Medication Dispense Status: Completed Total Allowed Fills: 1 Fills Dispensed: 0 hydrOXYzine hydrochloride 25 mg oral tablet 1 tablet = 25 mg, By Mouth, 4 times a day, 0 Refills, Maintenance, 02/03/24 2:37:00 PM EDT, Partial fill upon patient request if the prescription is for a schedule II opioid drug. Start Date: 02/03/24 Status: Ordered Medication Dispense Status: Completed Total Allowed Fills: 1 Fills Dispensed: 0 Jardiance 10 mg oral tablet 1 tablet = 10 mg, By Mouth, Daily in AM, # 30 tablet, 0 Refills, Maintenance, 01/07/19 11:09:23 AM EST, Tablet Start Date: 01/07/19 Status: Ordered Medication Dispense Status: Completed Quantity: 30.0 Unit: tablet Total Allowed Fills: 1 Fills Dispensed: 0 Lantus Solostar Pen 100 units/mL subcutaneous solution = 40 units, Subcutaneous Injection, Daily at bedtime, INJECT 38 UNIT (0.38 ML) SUBCUTANEOUSLY EVERYEVENING FOR 30 DAYS Start Date: 02/03/24 Status: Ordered Medication Dispense Status: Completed Total Allowed Fills: 1 Fills Dispensed: 0 Linzess 145 mcg oral capsule 1 capsule = 145 mcg, By Mouth, Daily, PRN Constipation, 0 Refills, Maintenance, 02/03/24 2:38:00 PM EDT, Partial fill upon patient request if the prescription is for a schedule II opioid drug. Start Date: 02/03/24 Status: Ordered Medication Dispense Status: Completed Total Allowed Fills: 1 Fills Dispensed: 0 lisinopril 40 mg oral tablet 1 tablet = 40 mg, By Mouth, Daily, TAKE 1 TABLET BY MOUTH EVERY DAY Start Date: 02/03/24 Status: Ordered Medication Dispense Status: Completed Total Allowed Fills: 1 Fills Dispensed: 0 metoclopramide 10 mg oral tablet 1 tablet = 10 mg, By Mouth, 3 times a day before meals and bedtime, 0 Refills, Maintenance, 02/03/24 2:39:00 PM EDT, Partial fill upon patient request if the prescription is for a schedule II opioid drug. Start Date: 02/03/24 Status: Ordered Medication Dispense Status: Completed Total Allowed Fills: 1 Fills Dispensed: 0 metoprolol 25 mg oral tablet, extended release 25 mg, 1, tablet, By Mouth, Daily, # 30 tablet, Refills 0, Maintenance, 08/14/21 9:43:00 AM EDT, Partial fill upon patient request if the prescription is for a schedule II opioid drug. Start Date: 08/14/21 Status: Ordered Medication Dispense Status: Completed Quantity: 30.0 Unit: tablet Total Allowed Fills: 1 Fills Dispensed: 0 mirabegron 25 mg oral tablet, extended release 1 tablet, By Mouth, Daily, SWALLOW WHOLE., # 30 tablet, 2 Refills, Maintenance, 01/17/25 8:54:00 AM EDT, [id number], 175, cm, 01/16/25 7:56:00 EDT, Height, 114.5, kg, 05/19/24 2:46:00 EDT, Dry Weight Start Date: 01/17/25 Status: Ordered Medication Dispense Status: Completed Quantity: 30.0 Unit: tablet Total Allowed Fills: 1 Fills Dispensed: 0 MiraLax Powder 1 pack/packet = 17 Gm, By Mouth, Daily, PRN Constipation, 0 Refills, Maintenance, 01/25/25 6:43:00 AM EDT, Powder, Partial fill upon patient request if the prescription is for a schedule II opioid drug. Start Date: 01/25/25 Status: Ordered Medication Dispense Status: Completed Total Allowed Fills: 1 Fills Dispensed: 0 Narcan 4 mg/0.1 mL nasal spray = 4 mg, Naris, Right, Once, may repeat every 2 to 3 minutes until patient responds use for opiod overdose, # 2 each, 0 Refills, Soft Stop, 08/30/23 5:46:00 AM EDT, [facility]/pharmacy #[id number], Partial fill upon patient request if the prescription is for a schedule II opioid drug., 175, cm, 08/30/23 2:26:00 EDT, Height, 111, kg, 08/30/23 2:26:00 EDT, Dry Weight Start Date: 08/30/23 Status: Ordered Medication Dispense Status: Completed Quantity: 2.0 Unit: each Total Allowed Fills: 1 Fills Dispensed: 0 nystatin topical 198784 u/gm powder 1 application, Topically, 2 times a day, # 15 Gm, 0 Refills, Maintenance, 01/16/25 8:11:00 AM EDT, Powder, Partial fill upon patient request if the prescription is for a schedule II opioid drug. Start Date: 01/16/25 Status: Ordered Medication Dispense Status: Completed Quantity: 15.0 Unit: g Total Allowed Fills: 1 Fills Dispensed: 0 omeprazole 20 mg oral enteric coated capsule 1 capsule = 20 mg, By Mouth, Daily in AM, # 30 capsule, 0 Refills, Maintenance, 09/09/13 1:45:32 AM EST, EC Capsule Start Date: 09/09/13 Status: Ordered Medication Dispense Status: Completed Quantity: 30.0 Unit: capsule Total Allowed Fills: 1 Fills Dispensed: 0 ondansetron 4 mg oral tablet TAKE 1 TABLET BY MOUTH DAILY NEEDED FOR NAUSEA. Start Date: 02/03/24 Status: Ordered Medication Dispense Status: Completed Total Allowed Fills: 1 Fills Dispensed: 0 OXcarbazepine 300 mg oral tablet 300 mg, 1, tablet, By Mouth, 2 times a day, Refills 0, Maintenance, 01/24/25 8:48:00 AM EDT, Partialfill upon patient request if the prescription is for a schedule II opioid drug. Start Date: 01/24/25 Status: Ordered Medication Dispense Status: Completed Total Allowed Fills: 1 Fills Dispensed: 0 OXcarbazepine 600 mg oral tablet, extended release 1 tablet = 600 mg, By Mouth, 2 times a day, 0 Refills, Maintenance, 02/03/24 2:41:00 PM EDT, Partial fill upon patient request if the prescription is for a schedule II opioid drug. Start Date: 02/03/24 Status: Ordered Medication Dispense Status: Completed Total Allowed Fills: 1 Fills Dispensed: 0 Ozempic (1 mg dose) 4 mg/3 mL subcutaneous solution 0 Refills, Maintenance, 07/01/24 9:26:00 AM EDT, Partial fill upon patient request if the prescription is for a schedule II opioid drug. Start Date: 07/01/24 Status: Ordered Medication Dispense Status: Completed Total Allowed Fills: 1 Fills Dispensed: 0 rosuvastatin 20 mg oral capsule 1 capsule = 20 mg, By Mouth, Daily, # 90 capsule, 0 Refills, Maintenance, 01/12/25 8:53:00 AM EDT, Capsule, Partial fill upon patient request if the prescription is for a schedule II opioid drug. Start Date: 01/12/25 Status: Ordered Medication Dispense Status: Completed Quantity: 90.0 Unit: capsule Total Allowed Fills: 1 Fills Dispensed: 0 sildenafil 100 mg oral tablet 1 tablet, By Mouth, Daily, BEFORE SEXUAL ACTIVITY., # 30 tablet, 0 Refills, Maintenance, 10/10/25 12:41:00 PM EST, [facility] #[id number], 172.72, cm, 01/25/25 10:24:00 EDT, Height, 105.4, kg, 01/24/25 17:37:00 EDT, Dry Weight Start Date: 10/10/25 Stop Date: 10/10/25 Status: Ordered Medication Dispense Status: Completed Quantity: 30.0 Unit: tablet Total Allowed Fills: 1 Fills Dispensed: 0 tamsulosin 0.4 mg oral capsule See Instructions, TAKE 1 CAPSULE BY MOUTH EVERY DAY, # 90 capsule, Refills 3, Maintenance, 06/12/25 2:12:00 PM EDT, Instructions Replace Required Details, Route to Pharmacy Electronically, [id number], 172.72, cm, 01/25/25 10:24:00 EDT, Height, 105.4, kg, 01/24/25 17:37:00 EDT, Dry Weight Start Date: 06/12/25 Status: Ordered Medication Dispense Status: Completed Quantity: 90.0 Unit: capsule Total Allowed Fills: 1 Fills Dispensed: 0 Ventolin HFA 108 mcg/inh inhalation aerosol with adapter INHALE 1 PUFF 4 TIMES A DAY NEEDED FOR SHORTNESS OF BREATH OR WHEEZING FOR 30 DAYS Start Date: 02/03/24 Status: Ordered Medication Dispense Status: Completed Total Allowed Fills: 1 Fills Dispensed: 0 Problem List Condition Confirmation Course Effective Dates Status H ealth Status Informant Anxiety Confirmed Active ADHD Confirmed Active Depression Confirmed Active GERD without esophagitis Confirmed Active Diabetic gastroparesis Confirmed Active HLD (hyperlipidemia) Confirmed Active HTN (hypertension) Confirmed Active 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 Mood disorder Confirmed Active SIMÓN (obstructive sleep apnea) Confirmed Active RLS (restless legs syndrome) Confirmed Active Severe obesity (BMI 35.0-39.9) with comorbidity Confirmed Active DM (diabetes mellitus), type 2 Confirmed Active Social History Social History Type Response Smoking Status Never (less than 100 in lifetime) entered on: 02/03/24 Sex Sex Representation Male (finding) Patient Care team information Care Team Personnel Name: Farrah Hanks RN Position: [facility] RN Member Role: Primary Care Nurse Name: Erika Mann RN Position: [facility] RN Member Role: Primary Care Nurse Name: Lizabeth Adame MD Position: Reference Physician Member Role: PCP Address: [address] [place] [address] Telecom: Name: Rosa M Montero RN Position: S RN Member Role: Primary Care Nurse Name: Valerie Hinojosa RN Position: [facility] Nurse Member Role: Primary Care Nurse Care Team Related Persons Name: ALFREDMomoMASSIEL Name: AWAIS CASTILLO Insurance Providers Guarantor name: GUMARO PICHARDO Health Plan Information #: 1 Payer: [facility] Payer Identifier: NA Member Number: [id number] Group Number: [id number] Subscriber Identifier: [id number] Relationship to Subscriber: self Coverage Type: Medicare Managed Care (Includes Medicare Advantage Plans) Coverage Verification Date: NA Telecom: NA Address: NA
--- OUTSIDE RECORDS SUMMARY | 2025-10-13 23:59 | XMS_ITS | Continuity of Care Document ---
Author Organization [facility] Address [address] [facility] [place] [address]- Care Team Providers Care Dermatology Procedural Physician Name Role Phone Deep MILLER, Asma Primary Care Physician [phone] [facility] Date(s): 09/13/25 - 10/13/25 [facility] [address] [place], [place] [address] Attending Physician: Chong Bowman Admitting Physician: Chong Bowman Referring Physician: Chong Bowman Encounter Type: Triage Allergies, Adverse Reactions, Alerts Substance Criticality Severity [...] Refills, Maintenance, 01/25/25 6:41:00 AMEDT, EC Tablet, [facility], Partial fill upon patient request if [...] 2 Refills, Maintenance, 01/17/25 8:54:00 AM EDT, [id number], 175, cm, 01/16/25 7:56:00 EDT, Height, 114.5, [...] Refills, Soft Stop, 08/30/23 5:46:00 AM EDT, [facility]/pharmacy #[id number], Partial fill upon patient request if the prescription is for a schedule II opioid drug., 175, cm, 08/30/23 2:26:00 EDT, Height, 111, kg, 08/30/23 2:26:00 EDT, Dry Weight Start Date: 08/30/23 Status: Ordered Medication Dispense Status: Completed Quantity: 2.0 Unit: each Total Allowed Fills: 1 Fills Dispensed: 0 nystatin topical 592261 u/gm powder 1 application, Topically, 2 times [...] 0 Refills, Maintenance, 10/10/25 12:41:00 PM EST, [facility] #[id number], 172.72, cm, 01/25/25 10:24:00 EDT, Height, 105.4, [...] Replace Required Details, Route to Pharmacy Electronically, [id number], 172.72, cm, 01/25/25 10:24:00 EDT, Height, 105.4, [...] Position: Reference Physician Member Role: PCP Address: [address] [place] [address] Telecom: Name: Rosa M Montero RN Position: S RN Member Role: Primary Care Nurse Name: Valerie Hinojosa RN Position: [facility] Nurse Member Role: Primary Care Nurse Care Team Related Persons Name: MASSIEL PICHARDO Name: AWAIS CASTILLO Insurance Providers Guarantor name: GUMARO PICHARDO [employer] Plan Information #: [address] [facility] C[facility] Payer Identifier: NA Member Number: [id number] Group Number: [id number] Subscriber Identifier: NA Relationship to Subscriber: self Coverage Type: Medicare Managed Care (Includes Medicare Advantage Plans) Coverage Verification Date: NA Telecom: NA Address: NA
--- OUTSIDE RECORDS SUMMARY | 2025-10-14 21:20 | XMS_ITS | Continuity of Care Document ---
Author Organization [facility] ter Address [address] [place] [id number]- Care Team Providers Care Car Checker Name Role Phone Deep MILLER, Asma Primary Care Physician [id number] Date(s): 10/14/25 - 10/14/[address] [address]- Encounter Diagnosis Rib fracture(Final) - 10/14/25 Discharge Disposition: A-D/C Home Attending Physician: Jj Dumas MD Admitting Physician: Jj Dumas MD Referring Physician: Not on Staff, Referring MD Encounter Type: Disch ES Allergies, Adverse Reactions, Alerts Substance Criticality Severity [...] Refills, Maintenance, 01/25/25 6:41:00 AMEDT, EC Tablet, [facility], Partial fill upon patient request [...] Allowed Fills: 1 Fills Dispensed: 0 gabapentin 100 mg oral capsule 100 mg, 1, capsule, By Mouth, 3 times a day, # 90 capsule, Refills 5, Tot. Refills 5, Maintenance, 10/14/25 8:57:00 PM EST, Route to Pharmacy Electronically, [facility], Partial fill upon patient request if the prescription is for a schedule II opioid drug., 172.72, cm, 01/25/25 10:24: 00 EDT, Height, 105.4, kg, 01/24/25 17:37:00 EDT, Dry Weight Start Date: 10/14/25 Status: Ordered Medication Dispense Status: Completed Quantity: 90.0 Unit: capsule Total Allowed Fills: 6 Fills Dispensed: 0 gabapentin 300 mg oral [...] Total Allowed Fills: 1 Fills Dispensed: 0 ibuprofen 400 mg oral tablet 400 mg, 1, tablet, By Mouth, Every 4 hours, PRN, # 60 tablet, Refills 0, Tot. Refills 0, Acute 10/15/25 8:57:00 PM EST, for pain, 10/14/25 8:56:00 PM EST, Route to Pharmacy Electronically, [facility], Partial fill upon patient request if the prescription is for a schedule II opioid drug., 172.72, cm, 01/25/25 10:24:00 EDT, Height, 105.4, kg, 01/24/25 17:37:00 EDT, Dry Weight Start Date: 10/14/25 Stop Date: 10/15/25 Status: Ordered Medication Dispense Status: Completed Quantity: [...] 2 Refills, Maintenance, 01/17/25 8:54:00 AM EDT, [id number], 175, cm, 01/16/25 7:56:00 EDT, Height, 114.5, [...] Refills, Soft Stop, 08/30/23 5:46:00 AM EDT, [facility]/pharmacy #[id number], Partial fill upon patient request if the prescription is for a schedule II opioid drug., 175, cm, 08/30/23 2:26:00 EDT, Height, 111, kg, 08/30/23 2:26:00 EDT, Dry Weight Start Date: 08/30/23 Status: Ordered Medication Dispense Status: Completed Quantity: 2.0 Unit: each Total Allowed Fills: 1 Fills Dispensed: 0 nystatin topical [id number] u/gm powder 1 application, Topically, 2 times [...] Total Allowed Fills: 1 Fills Dispensed: 0 oxyCODONE 5 mg oral tablet 5 mg, 1, tablet, By Mouth, Every 6 hours, PRN, # 5 tablet, Refills 0, Tot. Refills 0, Acute 10/15/25 8:57:00 PM EST, as needed for pain, 10/14/25 8:56:00 PM EST, Route to Pharmacy Electronically, [facility], Partial fill upon patient request if the prescription is for a schedule II opioid drug., 172.72, cm, 01/25/25 10:24:00 EDT, Height, 105.4, kg, 01/24/25 17:37:00 EDT, Dry Weight Start Date: 10/14/25 Stop Date: 10/15/25 Status: Ordered Medication Dispense Status: Completed Quantity: 5.0 Unit: tablet Total Allowed Fills: 1 Fills [...] 0 Refills, Maintenance, 10/10/25 12:41:00 PM EST, [id number], 172.72, cm, 01/25/25 10:24:00 EDT, Height, 105.4, [...] Replace Required Details, Route to Pharmacy Electronically, [id number], 172.72, cm, 01/25/25 10:24:00 EDT, Height, 105.4, [...] Total Allowed Fills: 1 Fills Dispensed: 0 Mental Status Mental Status Assessment Assessment Assessment Component Result Effecti ve Date [place] coma score total 15 Problem List Condition Confirmation Course Effective Dates [...] DM (diabetes mellitus), type 2 Confirmed Active Results Radiology Reports * Exam Date Time Procedure Performing Provider Status 10/14/25 6:[address] Angio Chest Auth (Alyssa ified) Notes: (CT Angio Chest) Reason For Exam: PE suspected, Intermediate prob, positive D-dimer,;Other: RESULT: CT Angio Chest CT Angio Chest INDICATION: Hx of Present Illness: from home. +etoh and marijuana , had a witnessed syncopal episode. panic attack then syncope with EMS. No fall with first episode, slid out of chair onto floor. no thinners. c o rib pain from previous fall; Reason: PE suspected, Intermediate prob, positive D-dimer,; Clinical Question(s): Pulmonary Embolism; TECHNIQUE: Spiral CTA of the chest was performed after rapid IV contrast administration without cardiac gating, triggered by an JOBY on the main pulmonary artery. Images are formatted in multiple planes using 2-D multiplanar and 3-D maximum intensity projection. 80 cc of Isovue 300 100cc vials was administered intravenously. Weight-based protocol using automatic tube modulation was used to optimize exposure parameters. CTDIvol Body: 11.10 mGy, DLP Body: 840 mGy*cm. COMPARISONS: CT chest without contrast 10/05/2025. ANGIOGRAPHIC FINDINGS: No pulmonary embolism to the lobar level. Motion degradation moderately limits assessment of distalvessels. Normal caliber pulmonary arteries. No interventricular septal bowing or reflux of contrastinto the IVC. RV:LV ratio < 0.9. No findings to suggest right heart strain. No acute aortic abnormality seen on this study performed without cardiac gating. NON-ANGIOGRAPHIC FINDINGS: Outreach Manager view findings, lines and tubes: None. Trachea and airways: Patent without evidence of tracheal or endobronchial lesion. Lungs and pleura: Mild dependent bilateral atelectasis. No focal consolidation. No effusion or pneumothorax. Mediastinum and romulo: No mass or hematoma. No mediastinal or hilar lymphadenopathy. Small type I hiatal hernia. Normal thyroid. Heart: Heart is normal in size. No pericardial effusion. No coronary arterial calcifications. Chest wall soft tissues: No acute abnormality. Mild symmetric bilateral gynecomastia. Diaphragm: Intact. Upper abdomen: No significant abnormality. Bones: Acute nondisplaced anterolateral right fourth rib fracture. Acute mildly displaced anterolateral right fifth and sixth rib fractures. Bilateral ariane shoulder arthroplasties. IMPRESSION: No evidence of pulmonary embolism to the lobar level. Evaluation is moderately limited by motion artifact. Acute-appearing right 4th-6th anterolateral rib fractures. No pneumothorax. I have personally reviewed the images and I agree with this report. WSN: [id number] Ordering Physician: jJ Dumas Dictated By: Tyree Edouard MD Dictated Date/Time: 10/14/25 7:15 pm Reviewed By: Jan Worley DO Signed By: Jan Worley DO Signed Date/Time: 10/14/25 7:20 pm Transcribed By: BI Transcribed Date/Time: 10/14/25 7:10 pm * Exam Date Time Procedure Performing Provider Status 10/14/25 5:51 PM Chest 2 Views Frontal and Lat Auth (Verified) Notes: (Chest 2 Views Frontal and Lat) Reason For Exam: Traumatic Chest Pain;Other: RESULT: Chest 2 Views Frontal and Lat AP and lateral chest dated October 14, 2025. Comparison films are from July 24, 2024. HISTORY: Chest pain. FINDINGS: The cardiac silhouette is within normal limits for size. Hilar and mediastinal structuresare unremarkable. No airspace infiltrate or pleural effusion is identified. Shoulder arthroplasty is again noted bilaterally. IMPRESSION: No evidence of acute pulmonary disease. Examination [address]. Thank you for allowing me to participate in the care of this patient. WSN: [id number] Ordering Physician: Jj Dumas Dictated By: Chuck Ortiz MD Dictated Date/Time: 10/14/25 5:57 pm Reviewed By: Chuck Ortiz MD Signed By: Chuck Ortiz MD Signed Date/Time: 10/14/25 5:57 pm Transcribed By: BI Transcribed Date/Time: 10/14/25 5:57 pm Vital Signs Most recent to oldest [Reference Range]: 1 2 3 Oxygen Saturation [94-100 %] 100 % (10/14/25 8:00 PM) 100 % (10/14/25 6:01 PM) 96 % (10/14/25 4:48 PM) Pulse Rate [55-90 bpm] 84 bpm (10/14/25 8:00 PM) 75 bpm (10/14/25 6:01 PM) 87 bpm (10/14/25 4:48 PM) Blood Pressure [90-138/55-84 mm Hg] 140/74mm Hg *H* (10/14/25 8:00 PM) 105/65mm Hg (10/14/25 6:01 PM) 99/71mm Hg (10/14/25 4:48 PM) Respiratory Rate [16-30 br/min] 20 br/min (10/14/25 8:00 PM) 18 br/min (10/14/25 6:01 PM) 16 br/min (10/14/25 4:48 PM) Temperature [96.8-100.4 DegF] 97.7 DegF (10/14/25 4:48 PM) Mode of Delivery (Oxygen) Room air (10/14/25 8:00 PM) Room air (10/14/25 6:01 PM) Room air (10/14/25 4:48 PM) Blood pressure sites Arm, right (10/14/25 6:01 PM) Arm, right (10/14/25 4:48 PM) Temperature Route Oral (10/14/25 4:48 PM) Social History Social History Type Response Smoking Status Never (less than 100 in lifetime) entered on: 02/03/24 Sex Male Sex Representation Male (finding) Status N/A Imaging * Event Display: Ultrasound Point of Care Authored Date: [id number] Note * Jj Dumas MD: PERFORM Event Display: Patient Education Leaflets Authored Date: [id number] Rib Fracture ?? [id number] Rib Fracture You broke 1 or more ribs. This is called a rib fracture. Rib fractures don't need a cast like otherbones. Healing time is different for each person. Most rib fractures take weeks to months. The first 3 to 4 weeks will be the most painful. During this time??deep breathing, coughing, or changing position from sitting to lying down, may cause the broken ends to move slightly. Home care ??? Rest. Don't do any heavy lifting or strenuous exertion until the pain goes away. ??? It hurts to breathe when you have a broken rib. This puts you at risk of getting pneumonia from poorairflow through your lungs. To prevent this: o Take??10 to 15 deep breaths at least 4 times a day, or as directed. Breathe out??through pursed lips as if you are blowing up a balloon.??If possible, actually blow up a balloon or a rubber glove.??This exercise builds up pressure inside the lung and prevents collapse of the small air sacs of the lung. This exercise may cause some pain at the site ofinjury. This is normal. o You may have gotten a breathing exercise device called an incentive spirometer. Use it at least 4 times a day, or as directed. o Holding a pillow or similar soft brace against the fracture site can help reduce your discomfort while using the spirometer or when coughing or sneezing. ??? Apply an ice pack over the injured area for 15 to 20 minutes every??1 to 2??hours. Do this for??the first??24 to 48 hours. To make an ice pack, put ice cubes in a plastic bag that seals at the top. Wrap the bag in a clean, thin towel or cloth. Never put ice or an ice pack directly on your skin. Keep using??ice packs??as needed to ease pain and swelling. ??? You may use??[id number] pain medicine??to control pain, unless another pain medicine was prescribed.??If you have chronic liver or kidney disease or ever had a stomach ulcer, gastrointestinal??bleeding, or take a blood thinner, talk with your healthcare provider??before??using these medicines. ??? If your pain is not controlled, contact your provider. Sometimes a stronger pain medicine may be needed. A nerve block can be done in case of severe pain. It will numb the nerve between the ribs. ??? Follow your healthcare provider's instructions on returning to normal activities. ?? Follow-up care Follow up with your healthcare provider as advised. In rare cases, a broken rib will cause complications in the first few days that may not be clearly seen during your initial exam. This can include collapsed lung, bleeding around the lung or into the belly (abdomen), or pneumonia. So watch for thesigns below. If X-rays were taken,??you will be told of any new findings that may affect your care. ?? Call 911 Call 911 if you have: ??? Dizziness, weakness or fainting ??? Shortness of breath with or without chest discomfort ??? Cough, coughing up blood, or abdominal pain that is new or gets worse. ??? Chest pain ??? Discomfort in other areas of your upper body, such as your shoulders, jaw, neck, or arms. ?? When to get medical advice Call your healthcare provider right away if any of these occur: ??? Increasing chest pain with breathing ??? Fever of 100.4??F (38??C) or above, or as directed by your provider ??? Chills ??? Congested cough, nausea, or vomiting ??? Difficulty with routine activities, such as dressing, taking a shower, and climbing stairs. ??? Pain that is not helped by your medicines. ?? Last Reviewed Date: 2024 00:00:00 ?? [employer]. All rights reserved. This information is not intended as a substitute for professional medical care. Always follow your healthcare professional's instructions. ?? Patient Care team information Care Team Personnel Name: Farrah Hanks RN Position: [facility] RN Member Role: Primary Care Nurse Name: Erika Mann RN Position: [facility] RN Member Role: Primary Care Nurse Name: Lizabeth Adame MD Position: Reference Physician Member Role: PCP Address: [address] Telecom: Name: Rosa M Montero RN Position: [facility] RN Member Role: Primary Care Nurse Name: Valerie Hinojosa RN Position: [facility] Nurse Member Role: Primary Care Nurse Care Team Related Persons Name: MASSIEL PICHARDO Name: AWAIS CASTILLO Insurance Providers Guarantor name: GUMARO PICHARDO Health Plan Information #: 1 Payer: [facility] Payer Identifier: NA Member Number: [id number] Group Number: [id number] Subscriber Identifier: [id number] Relationship to Subscriber: self Coverage Type: Medicare Managed Care (Includes Medicare Advantage Plans) Coverage Verification Date: JUANY Telecom: NA Address:
--- NOTE | 2025-10-19 13:18 | MHC.PC.OV ---
Vital Signs 10/19/25 13:20 10/19/25 14:31 10/19/25 14:31 10/19/25 14:31 Height 5 ft 9 in Weight 234 lb BMI 34.6 BP 130/84 122/88 118/82 114/82 Blood Pressure Location Lt brachial Position Sitting Supine Sitting Standing Respiration 16 Pulse 93 88 90 96 Pulse Source Pulse Oximeter Pulse Oximetry (%) 99 Oxygen Delivery Method Room Air Intake Visit Reasons: s/p fall Still Runner Required: No Accompanied by: Self / Same As Patient Allergies benztropine (From COGENTIN) Allergy (Unknown, Verified 10/19/25 13:23) SWEATING pregabalin (From LYRICA) Allergy (Unknown, Verified 10/19/25 13:23) SWELLING sitagliptin (From JANUVIA) Allergy (Unknown, Verified 10/19/25 13:23) PER H&P Tobacco use date assessed: 10/19/25 Dental Screening Dental Screen Date: 10/19/25 Did you have a dental visit in the last 12 months?: Yes Did you have a dental problem in the last 6 months where you did not have access to dental care?: No Was dental information given to patient?: Patient has dentist HPI HPI Comments History of Present Illness Details History of Present Illness - The patient is a 55-year-old male with a significant past medical history consisting of obesity, hyponatremia, marijuana dependence for which he has a medical license, PTSD, degenerative joint disease with a history of hip replacement and a planned knee replacement, diabetic gastroparesis, uncontrolled hypertension, uncontrolled type 2 diabetes mellitus, sleep apnea, erectile dysfunction, and GERD presenting for a follow-up visit after an emergency department (ED) discharge for syncope. - On October 14, he was taken to [facility] after a syncopal episode, which was preceded by dizziness and lightheadedness. - He reported consuming two nips of alcohol and smoking marijuana prior to the event, but denied chest pain or shortness of breath. - The fall resulted in right-sided lateral rib pain, and an X-ray at the ED confirmed anterolateral fractures of the right fourth, fifth, and sixth ribs. - His ED workup included a normal EKG, unremarkable blood work with no anemia or electrolyte disturbances, and a normal bedside cardiac ultrasound. We do not have records of the labs or echo. - The patient also reported receiving 7 stitches near his eye from a separate syncopal episode the week prior to that one, though this was not in the ED report. This episode of syncope came immediately after having a bowel movement. - He was discharged from the ED with ibuprofen, five tablets of oxycodone 5 mg, and gabapentin 100 mg TID, with instructions to follow up with his PCP and alternate ibuprofen with Tylenol. - He is stating the 5mg oxy didn't help and he would like a higher strength. - Since his discharge, the patient reports falling and passing out four more times, including an episode yesterday when he felt overwhelmed with heat upon standing. He denies any chest pain or shortness of breath prior to these episodes. - He expresses significant frustration with being unable to secure a timely appointment with his PCP, resulting in prolonged suffering and inadequate pain management. Review of Systems - General/Constitutional: Reports feeling overwhelmed with heat prior to syncopal episodes. - Neurological: Reports recurrent syncope, dizziness, and lightheadedness. - Respiratory: Reports developing a cough. Denies shortness of breath. - Cardiovascular: Denies chest pain. - Musculoskeletal: Reports severe right-sided lateral rib pain. All systems reviewed and are unremarkable except as noted in HPI Physical Exam General: Cooperative, healthy appearing, comfortable, no acute distress and well developed Orientation: Patient oriented x3 Limitations: No limitations Head: Normal to inspection Ears: Hearing grossly normal bilaterally Nose: Normal External nose present Face and sinus: Normal facial exam Eyes: Appearance normal, both eyes and all related structures Neck: Normal visual inspection and Yes full ROM Respiratory: Normal respiratory effort and able to speak in complete sentences. Skin: No rashes or lesions noted Neuro: Patient oriented x3 Extremities: Normal to inspection [facility] Medical History (Updated 10/19/25 @ 14:27 by Melody Zee PA-C) Ribs, multiple fractures Syncopal episodes Psychiatric illness Hospital discharge follow-up History of pneumonia Shortness of breath Pre-op examination Nausea & vomiting Colon cancer screening Insulin dependent type 1 diabetes mellitus Establishing care with new doctor, encounter for Back pain URI, acute Pneumonia Ear infection Erectile 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 Depression, major, recurrent ADHD Anxiety, generalized PTSD (post-traumatic stress disorder) Sleep apnea Hypertension, essential Chronic GERD 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, managed as type 2 Surgical History History of esophagogastroduodenoscopy (EGD) H/O colonoscopy History of ear surgery History of removal of laparoscopic gastric banding device History of left knee surgery History of lithotripsy History of laparoscopic appendectomy History of knee surgery History of discectomy History of lumbar fusion Family History Father Alcoholism Hyperlipidemia HTN (hypertension) CVD (cardiovascular disease) Mental illness in member of household Mother CAD (coronary artery disease) Breast cancer High cholesterol Diabetes mellitus CVD (cardiovascular disease) Mental illness in member of household Maternal Grandfather No problems noted. Maternal Grandmother No problems noted. Paternal Grandfather No problems noted. Paternal Grandmother No problems noted. Sister No problems noted. Sister No problems noted. Daughter No problems noted. Daughter No problems noted. Other Mental health disorder Social History Housing: Apartment Are you a primary career consultant to a significant other at home: No Do you presently have visiting nurse or other home services: No Alcohol intake: current Alcohol intake frequency: holidays/special occasions only Patient Tobacco Use Status: Former Tobacco user e-Cigarette/Vaping Use: Currently Using Substance Use Type: Marijuana service: No Current occupational status: disabled Cognitive needs: No Hearing needs: No Vision needs: No Questionnaire PHQ-9 Over the last 2 weeks, how often have you been bothered by any of the following problems? 1. Little interest or pleasure in doing things: several days 2. Feeling down, depressed, or hopeless: several days 3. Trouble falling or staying asleep, or sleeping too much: several days 4. Feeling tired or having little energy: several days 5. Poor appetite or overeating: not at all 6. Feeling bad about yourself - or that you are a failure or have let yourself or your family down: not at all 7. Trouble concentrating on things, such as reading the newspaper or watching television: not at all 8. Moving or speaking so slowly that other people could have noticed. Or the opposite - being so fidgety or restless that you have been moving around a lot more than usual: not at all 9. Thoughts that you would be better off or of hurting yourself in some way: not at all Total score: 4 Depression Screening Interpretation: Negative Depression Screening Done: Yes 07184 - PHQ-9 Billing: Yes Source: Developed by Drs. Jan Del Rio, Gail Hayward, Son Hanks and colleagues, with an educational jeannie from [employer]. Thrive Questionnaire Date Thrive assessed: 04/21/25 I am a: Patient What is your living situation today?: I choose not to answer this question Within the past 12 months, did the food you bought not last and you didn't have the money to get more?: I choose not to answer this question Within the past 12 months, did you worry whether your food would run out before you got money to buy more?: I choose not to answer this question Do you have trouble paying for medicines?: I choose not to answer this question Do you have trouble getting transportation to medical appointments?: I choose not to answer this question Do you have trouble paying your heating and electricity bill?: I choose not to answer this question Do you have trouble taking care of your child, family member or friend?: I choose not to answer this question Do you have trouble with day-to-day activities such as bathing, preparing meals, shopping, managing finances, etc.?: I choose not to answer this question Are you currently unemployed and looking for a job?: I choose not to answer this question Are you interested in more education?: I choose not to answer this question Please select the resources that you would like help with: None Currently or been in a relationship where the following occur: I choose not to answer THRIVE Score: 0 RISHI-7 AMB Questionnaire RISHI-7 Date RISHI - 7 assessed: 10/19/25 Feeling nervous, anxious, or on edge: 0 = Not at all Not being able to stop or control worryin = Not at all Worrying too much about different things: 0 = Not at all Trouble relaxin = Not at all Being so restless that it is hard to sit still: 0 = Not at all Becoming easily annoyed or irritable: 0 = Not at all Feeling afraid as if something awful might happen: 0 = Not at all Total RISHI-7 score (0-4 normal; 5-9 mild; 10-14 moderate; 15-21 severe): 0 Source: Developed by Drs. Jan Del Rio, Gail Hayward, Son Hanks and colleagues, with an educational jeannie from [employer]. RISHI-7 Assessment Billing RISHI-7 Assessment Tool: RISHI-7 Assessment 99046 Physical exam (Primary Care) Vital Signs: Last Vital Signs Pulse 96 10/19/25 14:31 Resp 16 10/19/25 13:20 BP 114/82 10/19/25 14:31 Pulse Ox 99 10/19/25 13:20 Oxygen Delivery Method Room Air 10/19/25 13:20 BMI result Body Mass Index 34.6 Tobacco/Smoking Status: Tobacco use Status Tobacco use date assessed 10/19/25 10/19/25 13:24 Patient Tobacco Use Status Former Tobacco user 10/19/25 13:20 e-Cigarette/Vaping Use Currently Using 10/19/25 13:20 PHQ-9: PHQ-9 Score PHQ-9: Total score 4 10/19/25 14:02 Depression Screening Interpretation: Negative Thrive Assessment: Date of Thrive Assessment Date Thrive assessed 04/21/25 10/19/25 13:20 Currently or been in a relationship where the following occur: I choose not to answer Coding Level of Care Code Est Pt Level 4 (23098) Diagnoses Syncopal episodes R55 Encounter type: initial encounter Closed fracture of multiple ribs of right side with routine healing, subsequent encounter S22.41XD Encounter type: subsequent encounter Fracture healing: with routine healing Fracture type: closed Laterality: right Additional Codes RISHI-7 Assessment Billing - RISHI-7 Assessment Tool: RISHI-7 Assessment [id number] ([id number]) PHQ-9 - 02237 - PHQ-9 Billing: Yes ([id number]) Assessment & Plan Assessment & Plan (1) Syncopal episodes: Code(s): R55 - Syncope and collapse Category: Medical Qualifiers: Encounter type: initial encounter Plan: Patient was informed and verbally consented to the use of an ambient scribe for clinic note documentation during this visit. Syncope, Recurrent - The etiology of the patient's recurrent syncope remains unclear. - Orthostatic hypotension was ruled out with in-office testing, negative orthostatics. - To further investigate a potential cardiac cause, a Holter monitor will be ordered for 14 days to ensure we capture at least one syncopal episode. - The patient will be contacted by the hospital to schedule the Holter monitor placement. - New lab work will be ordered for the patient to complete to ensure no electrolyte abnormality (hx of hypona) or anemia. - The patient is advised to follow up with his primary care physician, Dr. Adame, after the Holter monitor study is complete to discuss the results and next steps. i have messaged his PCP's MA to ensure a timely appt. (2) Ribs, multiple fractures: Code(s): S22.49XA - Multiple fractures of ribs, unspecified side, initial encounter for closed fracture Category: Medical Qualifiers: Encounter type: subsequent encounter Fracture healing: with routine healing Fracture type: closed Laterality: right Qualified Code(s): S22.41XD - Multiple fractures of ribs, right side, subsequent encounter for fracture with routine healing Plan: Acute Pain Due To Multiple Right Rib Fractures (3) - The patient reports severe, uncontrolled pain from his rib fractures, which is exacerbated by coughing. - He notes that the limited course of oxycodone he received was not sufficient. - Management recommendations include alternating Tylenol and Motrin, continuing gabapentin, and using lidocaine patches. - No new opioid prescriptions will be provided from this visit as pt has a diagnosis of opioid dependence on his diagnosis list. I also explained to the patient that no medications will take the pain away, he can take the meds recommended above and add a lidocaine patch. - An urgent message has been sent to his PCP, Dr. Adame, regarding his pain control needs and request for more oxycodone as she is his PCP and understands his dependence issues more than me, I just met this pt today. - The provider will personally speak with Dr. Adame tomorrow to ensure the patient's pain management is addressed before the weekend. Plan Care Coordination Issues - The patient expressed significant frustration with his inability to obtain a timely follow-up appointment with his PCP after ED discharge. - The veterinary practice manager will be engaged to address the patient's concerns regarding communication and scheduling difficulties. - Before they could speak, he decided he did not want to talk to anyone about his issues. Orders: Orders Complete Blood Count Auto Diff Today R55 - Syncope and collapse ECG 14 day holter monitor Today R55 - Syncope and collapse Comprehensive Met. Panel Today R55 - Syncope and collapse
[2025-10-19 13:20] VITALS: BP 130/84; PULSE 93; RESP 16; O2SAT 99; BMI 34.6
[2025-10-19 14:31] VITALS: BP 114/82; BP 118/82; BP 122/88; PULSE 88; PULSE 90; PULSE 96
--- OUTSIDE RECORDS SUMMARY | 2025-10-19 17:13 | XMS_ITS | Continuity of Care Document ---
Author Organization [place] - [facility], [address] floor Address [address] [place] [address] Care Team Providers Care Reed Press Feeder Name Role Phone TORIBIO TIWARI Primary Care Provider [phone] Assessment Encounter Date Assessment Date Assessment LastModified by Organization Details LastModified Time 08/24/2025 08/24/2025 History: Patient is a 54-year-old male presents to me for initial evaluation of right-sided knee pain. He had knee pain for many years. Cortisone gives him a couple weeks of relief. He takes ariv-iyy-mjbytan medications for discomfort. Has had 2 arthroscopies in that knee. Pain level IX/10. Reports pain at rest and significant limitations of activities including difficulty with stairs and getting out of a chair. Unable to kneel or squat. Reports a limp. PMH/PSH/MEDS/ALL/F MH/SOC HX/ROS are reviewed in detail per my medical intake sheet. Of note: Right hip replacement by me, PTSD on weekly ketamine, diabetes with A1c 6.6, high cholesterol, hypertension, multiple back surgeries General Exam: Vital signs are as noted below Mental status: Alert and lucid. Normal insight, affect and grooming. 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 No spasticity or clonus noted. Extremities: Calves are soft nontender, skin intact Orthopedic Examination: Right Knee: Varus alignment. Range of motion 5-115. Severe tenderness and crepitus medially. No instability. Mild effusion. Antalgic gait pattern favoring the right side. Full strength and sensation distally X-rays: Radiographs reviewed from his previous visit including a standing AP, Rayo view, nonweightbearing lateral views, and merchant view. These radiographs demonstrate end-stage osteoarthrits of the right knee. There is rcjv-cy-nrbl articulation, subchondral sclerosis, and osteophyte formation. Assessment: End-stage osteoarthritis of the right knee which has failed greater than 3 months of nonoperative treatment including medication, activity modification, and injections. The patient is in too much discomfort to participate in any meaningful physical therapy. PLAN: The patient was thoroughly counseled today regarding their knee condition, its natural history and the options, both operative and non-operative. The nature of knee replacement surgery, the potential risks, benefits, and complications, the magnitude of the surgery, the intensity of postoperative recovery as well as its elective nature were explained at length today. Although it is impossible to list all of the possible complications of any operation or procedure, I explained that some of the major complications that may arise include the following: Blood loss requiring transfusion, infection (early or late), blood clots, dislocation, pain (persistent or new), scars numbness or tenderness, unequal leg lengths, weakness, stiffness, loss of motion, clicking of implant, calcification, fracture of bone, instability of leg, nerve damage (paralysis or numbness), blood vessel damage, implant loosening, implant breakage, wearing of the implant, need for future surgery, allergic reaction, metal toxicity, medical complications including confusion, heart attack, stroke, or ). Issues regarding lifelong infection and activity precautions were reviewed. The longevity of the implants was discussed. The patient understands the potential need for revision surgery. We discussed performing the surgery in either an inpatient or outpatient setting as well as the pros and cons of both. The patient has elected to proceed in a inpatient setting. The patient will require clearance from a medical doctor prior to surgery. The patient wishes to schedule an elective total knee replacement at this time. Next planned follow-up is at the history and physical. The patient knows I will be happy to meet with them at any time in order to review any additional questions or concerns that they might have. [email or web address] Not available 08/25/2025 15:30:37 Plan of Treatment Reminders Order Date Submit Date Provider Last Modified By Organization Details Last Modified Time Details Appointments JASMIN Ac&Suzie 2025 11:00A M Juma Azar NP Not available Not available Not available SURGERY @ [facility] 2025 09:30A Amor Inman MD Not available Not available Not available POST OP 15 2025 09:30A Amor Fernandez, ROCK CRUSHER Not available Not available Not available PT INITIAL EVAL 2025 01:00P Amor Griffin, PT Not available Not available Not available PT FOLLOW-U P 2025 09:30A Amor Griffin, PT Not available Not available Not available PT FOLLOW-U P 2025 11:00A M Martine Zterrancenko, [employer]ELCOME WAGON HOST/HOSTESS Not available Not available Not available PT FOLLOW-U P 2025 12:30P M Martine Zubenko, WELCOME WAG[employer] HOST/HOSTESS Not available Not available Not available POST OP 15 2025 08:15A M Sofiomer Fernandez, ROCK CRUSHER Not available Not available Not available PT FOLLOW-U P 2025 11:00A M Martine Zubenko, [employer]ELCOME W[employer] HOST/HOSTESS Not available Not available Not available PT FOLLOW-U P 2025 12:30P M Martine Zubenko, WELCOME WAG[employer] HOST/HOSTESS Not available Not available Not available PT FOLLOW-U P 2025 12:00P M Martien Zubenko, WELCOME WAGON HOST/HOSTESS Not available Not available Not available PT FOLLOW-U P 2025 12:00P M Martine Zubenko, [employer]ELCOME [employer] HOST/HOSTESS Not available Not available Not available PT FOLLOW-U P 2025 11:00A M Martine Zterrancenko, [employer]EL[employer]E [employer] HOST/HOSTESS Not available Not available Not available PT FOLLOW-U P 2025 11:30A Amor Griffin, PT Not available Not available Not available PT FOLLOW-U P 2025 12:30P M Martine Zubenko, [employer]ELCOME [employer]AG[employer] HOST/HOSTESS Not available Not available Not available PT FOLLOW-U P 2025 12:00P M Martine Zubenko, WELCOME WAG[employer] HOST/HOSTESS Not available Not available Not available PT FOLLOW-U P 2025 11:00A M Martine Zubenko, WELCOME WAG[employer] HOST/HOSTESS Not available Not available Not available RECHECK 10 2025 10:50A M Rei Inman MD Not available Not available Not available Lab None recorded . Referral None recorded . Procedures None recorded . Surgeries None recorded . Imaging None recorded . Medication Orders None recorded . Patient TargetsNo targets recorded. Patient InstructionsNo instructions recorded. Reason for Referral None Reported. Problems Name Problem SNOMED Code Status Onset Date Resolution Date Notes Provider Name and Address Organization Details Recorded Time Idiopathi c osteoarth ritis 529543374 Active 2015 Problem Code: M17.12; Problem Code Type: ICD-10; Status: 'A'; Not Available [facility] 4 11:59:24 Essential hypertens ion 16509527 Active 2023 SOFI mckoy [facility] 4 16:51:48 Diabetes mellitus 17820511 Active 2023 [employer] SOFI mckoy [facility] 4 16:52:00 Hyperlipi demia 08967286 Active 2023 SOFI mckoy [facility] 4 16:52:08 Acid reflux 805957213 Active 2023 SOFI mckoy [facility] 4 16:52:14 Pain of left shoulder joint 43011921184 161623 Active 2023 AILYN mckoy [facility] 4 11:42:23 Osteoarth ritis of joint of right shoulder region 89512329755 9100 Active 2023 Jorje Flowers MD [address], [place], [address] , [facility] 4 11:09:40 Rupture of rotator cuff of right shoulder 67038345292 134330 Active 2023 AILYN RAPHAEL [facility] 4 13:39:54 Pain of shoulder region 19550251 Active 2023 Gene Mendes PA-C [address], [place], [address] , [facility] 4 18:56:45 Pain of hip region 29948267 Active 2024 OLIVIA VELEZ [facility] 5 10:35:43 Postopera tive pain 428325480 Active 2024 Sri Morales APRN [address], [place], [address] , [facility] 5 11:29:53 Osteoarth ritis of right knee joint 88162347939 9100 Active 2024 Dung Carter PA-C [address], [place], [address] , [facility] 08:20:19 Problem Notes None recorded. Procedures Surgical History Date Name Laterality Status Provider Name and Address Organization Details Recorded Time Sports Knee 4&1 completed Dung Carter PA-C [address], [place], [address], [facility] 06/08/2025 08:19:56 5 96528 Therapeutic Exercise (1:1) cancelled Geetha Bethea [employer] H[employer]/HOSTESS [address], [place], [address], [facility] 02/28/2025 10:21:04 5 07919: Gait training cancelled Geetha Bethea [employer] H[employer]/HOSTESS [address], [place], [address], [facility] 02/28/2025 10:21:04 5 26196: Manual therapy cancelled Geetha Bethea PTA [address], [place], [address], [facility] 02/28/2025 10:21:04 5 92090 Therapeutic Exercise (1:1) completed George Dougherty AT [address], [place], [address], [facility] 02/24/2025 11:38:30 5 13303: Gait training completed George Dougherty AT [address], [place], [address], [facility] 02/24/2025 11:38:30 5 35758: Manual therapy completed George Dougherty, AT [address], [place], [address], [facility] 02/24/2025 11:38:30 5 09042 Therapeutic Exercise (1:1) completed George Dougherty, AT [address], [place], [address], [facility] 02/21/2025 20:23:44 5 72548: Gait training completed George Dougherty, AT [address], [place], [address], [facility] 02/21/2025 20:25:13 5 00331: Manual therapy completed George Dougherty, AT [address], [place], [address], [facility] 02/21/2025 20:23:44 5 47939 Therapeutic Exercise (1:1) completed George Dougherty, AT [address], [place], [address], [facility] 02/17/2025 16:21:09 5 62784: Manual therapy completed George Dougherty, AT [address], [place], [address], [facility] 02/17/2025 16:21:09 5 17148: Therapeutic Activities (1:1) completed Buck Wilkins, PT [address], [place], [address], [facility] 02/13/2025 10:41:21 5 58917 Therapeutic Exercise (1:1) completed Buck Wilkins, PT [address], [place], [address], [facility] 02/13/2025 10:41:37 5 58658: Gait training completed Buck Wilkins, PT [address], [place], [address], [facility] 02/13/2025 10:41:27 5 15361: Manual therapy completed Buck Wilkins, PT [address], [place], [address], [facility] 02/11/2025 14:02:04 5 95156: Therapeutic Activities (1:1) completed George Dougherty, AT [address], [place], [address], [facility] 02/07/2025 12:44:53 5 83612 Therapeutic Exercise (1:1) completed George Dougherty, AT [address], [place], [address], [facility] 02/07/2025 12:44:43 5 19038: Gait training completed George Dougherty, AT [address], [place], [address], [facility] 02/07/2025 12:44:33 5 56616: Manual therapy completed George Dougherty, AT [address], [place], [address], [facility] 02/07/2025 12:44:41 5 61848 Therapeutic Exercise (1:1) completed Buck Wilkins, PT [address], [place], [address], [facility] 02/02/2025 17:59:20 5 17315: Low complexity PT Eval completed Buck Wilkins, PT [address], [place], [address], [facility] 02/02/2025 17:59:25 5 96998 Therapeutic Exercise (1:1) completed Buck Wilkins, PT [address], [place], [address], [facility] 01/12/2025 18:01:36 5 94378: Low complexity PT Eval completed Buck Wilkins, PT [address] [facility], [place], [address], [facility] 01/12/2025 18:01:40 5 09863 Therapeutic Exercise (1:1) cancelled Samm Arshad, DPT [address] [facility], [place], [place], , [facility] 01/10/2025 13:48:50 5 79268: Low complexity PT Eval cancelled Samm Arshad, DPT [address] [facility], [place], [place], , [facility] 01/10/2025 13:48:48 4 JZHip completed Rayshawn Ortiz PA-C [address] [facility], [place], [place], , [facility] 10/06/2024 16:10:21 4 Hip Kenalog 2cc Injection, L/R completed Tonya Francisco PA-C [address] [facility], [place], [place], , [facility] 09/05/2024 15:51:37 4 23730 Therapeutic Exercise (1:1) cancelled Jim Mendez, PT [address] [facility], [place], [address], [facility] 09/01/2024 13:07:51 4 25951: Hot or Cold Pack cancelled Jim Mendez, PT [address], [place], [place], , [facility] 09/01/2024 13:07:51 4 99145: Manual therapy cancelled Jim Mendez, PT [address], [place], [place], , [facility] 09/01/2024 13:07:51 66924 Therapeutic Exercise (1:1) cancelled Anshul Pisarenko, WELCOME WAGON HOST/HOSTESS [address], [place], [address], [facility] 09/01/2024 09:36:45 4 75167: Hot or Cold Pack cancelled Anshul Pisarenko, WELCOME WAG[employer] HOST/HOSTESS [address], [place], [address], [facility] 09/01/2024 09:36:45 58876: Manual therapy cancelled Anshul Pisarenko, WELCOME WAG[employer] HOST/HOSTESS [address], [place], [address], [facility] 09/01/2024 09:36:45 71825 Therapeutic Exercise (1:1) cancelled Anshul Sebastiánarenko, WELCOME WAG[employer] HOST/HOSTESS [address], [place], [address], [facility] 08/29/2024 15:06:11 4 86899: Hot or Cold Pack cancelled Anshul Pisarenko, WELCOME WAGON HOST/HOSTESS [address], [place], [address], [facility] 08/29/2024 15:06:11 13381: Manual therapy cancelled Anshul Sebastiánarenko, WELCOME WAG[employer] HOST/HOSTESS [address], [place], [address], [facility] 08/29/2024 15:06:11 64930 Therapeutic Exercise (1:1) completed Anshul Pisarenko, WELCOME WAGON HOST/HOSTESS [address], [place], [address], [facility] 08/26/2024 13:39:43 25978: Hot or Cold Pack completed Anshul Pisarenko, WELCOME WAGON HOST/HOSTESS [address], [place], [address], [facility] 08/26/2024 13:39:38 10/25/202 4 41006: Manual therapy completed Anshul Teague WELCOME WAG[employer] HOST/HOSTESS [address], [place], [address], [facility] 08/26/2024 13:39:50 34203 Therapeutic Exercise (1:1) completed Jim Mendez, PT [address], [place], [address], [facility] 08/23/2024 14:06:45 38940: Hot or Cold Pack completed Jim Mendez, PT [address], [place], [address], [facility] 08/19/2024 16:49:01 4 58164: Manual therapy completed Jim Mendez, PT [address], [place], [address], [facility] 08/19/2024 16:49:01 86553 Therapeutic Exercise (1:1) completed Jim Mendez, PT [address], [place], [address], [facility] 08/19/2024 14:54:47 67356: Hot or Cold Pack completed Jim Mendez, PT [address], [place], [address], [facility] 08/18/2024 06:28:43 97224: Manual therapy completed Jim Mendez, PT [address], [place], [address], [facility] 08/19/2024 14:55:02 61983 Therapeutic Exercise (1:1) completed Jim Mendez, PT [address], [place], [address], [facility] 08/12/2024 14:56:25 70231: Hot or Cold Pack completed Jim Mendez, PT [address], [place], [address], [facility] 08/12/2024 14:56:25 4 61272: Manual therapy completed Jim Mendez, PT [address], [place], [address], [facility] 08/17/2024 14:04:01 03364 Therapeutic Exercise (1:1) completed Anshul Teague, W[employer]E W[employer] HOST/HOSTESS [address], [place], [address], [facility] 08/11/2024 08:39:36 07065: Hot or Cold Pack completed Anshul Teague, W[employer]E W[employer] HOST/HOSTESS [address], [place], [address], [facility] 08/11/2024 08:39:36 4 97889: Manual therapy completed Anshul Teague, W[employer]E [employer] HOST/HOSTESS [address], [place], [address], [facility] 08/11/2024 08:39:36 92985 Therapeutic Exercise (1:1) completed Anshul Teague, W[employer]E W[employer] HOST/HOSTESS [address], [place], [address], [facility] 08/09/2024 15:01:04 03598: Hot or Cold Pack completed Anshul Teague, WELCOME WAG[employer] HOST/HOSTESS [address], [place], [address], [facility] 08/09/2024 15:01:11 46186: Manual therapy completed Anshul Teague, WELCOME W[employer] HOST/HOSTESS [address], [place], [address], [facility] 08/09/2024 15:01:18 38752 Therapeutic Exercise (1:1) completed Jim Mendez, PT [address], [place], [address], [facility] 07/27/2024 17:33:25 4 69836: Low complexity PT Eval completed Jim Mendez, PT [address], [place], [address], [facility] 07/27/2024 17:33:30 4 58096 Therapeutic Exercise (1:1) completed Anshul Teague, WELCOME WAG[employer] HOST/HOSTESS [address], [place], [address], [facility] 06/03/2024 15:03:51 4 40001: Hot or Cold Pack completed Anshul Teague, WELCOME WAG[employer] HOST/HOSTESS [address], [place], [address], [facility] 06/03/2024 15:04:16 4 66260: Manual therapy completed Anshul Teague, WELCOME WAG[employer] HOST/HOSTESS [address], [place], [address], [facility] 06/03/2024 15:03:56 4 08409 Therapeutic Exercise (1:1) completed Jim Mendez, PT [address], [place], [address], [facility] 05/26/2024 16:42:01 4 52554: Hot or Cold Pack completed Jim Mendez, PT [address], [place], [address], [facility] 05/24/2024 15:30:31 4 89277: Manual therapy completed Jim Mendez, PT [address], [place], [address], [facility] 05/26/2024 16:38:03 4 74194 Therapeutic Exercise (1:1) cancelled Jim Mendez, PT [address], [place], [address], [facility] 05/17/2024 16:24:11 4 64901: Hot or Cold Pack cancelled Jim Mendez, PT [address], [place], [address], [facility] 05/17/2024 16:24:11 4 22485: Manual therapy cancelled Jim Mendez, PT [address], [place], [address], [facility] 05/17/2024 16:24:11 4 93888 Therapeutic Exercise (1:1) completed Jim Mendez, PT [address], [place], [address], [facility] 05/12/2024 08:37:56 4 62891: Hot or Cold Pack completed Jim Mendez, PT [address], [place], [address], [facility] 05/12/2024 08:37:56 4 14462: Manual therapy completed Jim Mendez, PT [address], [place], [address], [facility] 05/13/2024 14:23:31 4 90065 Therapeutic Exercise (1:1) completed Jim Mendez, PT [address], [place], [address], [facility] 05/11/2024 12:46:09 4 22041: Hot or Cold Pack completed Jim Mendez, PT [address], [place], [address], [facility] 05/09/2024 16:46:45 4 56744: Manual therapy completed Jim Mendez, PT [address], [place], [address], [facility] 05/11/2024 12:46:14 4 24863 Therapeutic Exercise (1:1) completed Anshul Teague, W[employer]E [employer] HOST/HOSTESS [address], [place], [address], [facility] 05/04/2024 15:40:28 4 76034: Hot or Cold Pack completed Anshul Pisarenyeni, W[employer] HOST/HOSTESS [address], [place], [address], [facility] 05/04/2024 15:40:28 4 84405: Manual therapy completed Anshul Pisarenyeni, W[employer]E W[employer] HOST/HOSTESS [address], [place], [address], [facility] 05/04/2024 15:40:28 4 11560 Therapeutic Exercise (1:1) completed Anshul Pisarenyeni, [employer] [address], [place], [address], [facility] 04/28/2024 14:15:05 4 [id number]: Hot or Cold Pack completed Anshul Sebastiánarenyeni, [employer]ESS [address], [place], [address], [facility] 04/28/2024 14:15:05 4 33197: Manual therapy completed Anshul Loweryarenyeni, [employer]ESS [address], [place], [address], [facility] 04/28/2024 14:15:05 4 38270 Therapeutic Exercise (1:1) completed Anshul Loweryarenyeni, [employer]ESS [address], [place], [address], [facility] 04/27/2024 11:56:00 4 75582: Hot or Cold Pack completed Anshul Pisarenyeni, [employer]ESS [address], [place], [address], [facility] 04/26/2024 08:49:04 4 40002: Manual therapy completed Anshul Loweryarenyeni, [employer] [address], [place], [address], [facility] 04/27/2024 11:56:06 4 75975 Therapeutic Exercise (1:1) completed Jim Mendez, PT [address], [place], [address], [facility] 04/22/2024 10:54:18 4 34795: Hot or Cold Pack completed Jim Mendez, PT [address], [place], [address], [facility] 04/20/2024 15:08:14 4 08453: Manual therapy completed Jim Mendez, PT [address], [place], [address], [facility] 04/20/2024 15:08:14 4 60462 Therapeutic Exercise (1:1) completed Anshul Teague, [employer]ESS [address], [place], [address], [facility] 04/19/2024 13:33:26 4 26592: Hot or Cold Pack completed Anshul Teague [employer] [address], [place], [address], [facility] 04/19/2024 13:33:26 4 71123: Manual therapy completed Anshul Teague, [employer] [address], [place], [address], [facility] 04/19/2024 13:33:26 4 57016 Therapeutic Exercise (1:1) completed Jim Mendez, PT [address], [place], [address], [facility] 04/13/2024 17:45:15 4 96200: Hot or Cold Pack completed Jim Mendez, PT [address], [place], [address], [facility] 04/13/2024 17:45:15 4 25638: Manual therapy completed Jim Mendez, PT [address], [place], [address], [facility] 04/13/2024 17:45:15 4 05332 Therapeutic Exercise (1:1) completed Jim Mendez, PT [address], [place], [address], [facility] 04/13/2024 12:50:11 4 98716: Hot or Cold Pack completed Jim Mendez, PT [address], [place], [address], [facility] 04/11/2024 16:23:31 4 95589: Manual therapy completed Jim Mendez, PT [address], [place], [address], [facility] 04/13/2024 12:49:58 4 42558 Therapeutic Exercise (1:1) cancelled Anshul Pisjosé, [employer]ESS [address], [place], [address], [facility] 04/05/2024 13:09:51 4 47369: Hot or Cold Pack cancelled Anshul Pisjosé, [employer]ESS [address], [place], [address], [facility] 04/05/2024 13:09:51 4 68268: Manual therapy cancelled Anshul Pisjosé, [employer]HOSTESS [address], [place], [address], [facility] 04/05/2024 13:09:51 4 45373 Therapeutic Exercise (1:1) completed Anshul Teague, [employer]HOSTESS [address], [place], [address], [facility] 04/01/2024 09:01:32 4 25363: Hot or Cold Pack completed Anshul Zahida, [employer]ESS [address], [place], [address], [facility] 04/01/2024 09:01:32 4 52273: Manual therapy completed Anshul Teague, [employer]ESS [address], [place], [address], [facility] 04/01/2024 09:01:32 4 33335 Therapeutic Exercise (1:1) completed Anshul Teague, [employer]ESS [address], [place], [address], [facility] 03/30/2024 10:55:55 4 10069: Hot or Cold Pack completed Anshul Teague, [employer]ESS [address], [place], [address], [facility] 03/30/2024 10:55:55 4 09143: Manual therapy completed Anshul Teague, [employer]HOSTESS [address], [place], [address], [facility] 03/30/2024 10:55:55 4 88145 Therapeutic Exercise (1:1) completed Anshul Teague, [employer]HOSTESS [address], [place], [address], [facility] 03/25/2024 13:23:18 4 62465: Hot or Cold Pack completed Anshul Teague, [employer]HOSTESS [address], [place], [address], [facility] 03/25/2024 13:23:18 4 76167: Manual therapy completed Anshul Teague, [employer]HOSTESS [address], [place], [address], [facility] 03/25/2024 13:23:18 4 33958 Therapeutic Exercise (1:1) completed Jim Mendez, PT [address], [place], [address], [facility] 03/24/2024 12:05:02 4 02671: Hot or Cold Pack completed Jim Mendez, PT [address], [place], [address], [facility] 03/22/2024 17:01:20 4 59323: Manual therapy completed Jim Mendez, PT [address], [place], [address], [facility] 03/22/2024 17:01:20 4 50568 Therapeutic Exercise (1:1) completed Jim Mendez, PT [address], [place], [address], [facility] 03/22/2024 12:04:17 4 02596: Hot or Cold Pack completed Jim Mendez, PT [address], [place], [address], [facility] 03/18/2024 16:48:43 4 16342: Manual therapy completed Jim Mendez, PT [address], [place], [address], [facility] 03/22/2024 12:03:11 4 48214 Therapeutic Exercise (1:1) completed Jim Mendez, PT [address], [place], [address], [facility] 03/18/2024 15:39:52 4 34410: Hot or Cold Pack completed Jim Mendez, PT [address], [place], [address], [facility] 03/16/2024 18:20:18 4 47111: Manual therapy completed Jim Mendez, PT [address], [place], [address], [facility] 03/16/2024 18:20:18 4 82340 Therapeutic Exercise (1:1) completed Jim Mendez, PT [address], [place], [address], [facility] 03/16/2024 12:32:27 4 95009: Hot or Cold Pack completed Jim Mendez, PT [address], [place], [address], [facility] 03/15/2024 15:25:54 4 57065: Manual therapy completed Jim Mendez, PT [address], [place], [address], [facility] 03/16/2024 12:32:37 4 20149 Therapeutic Exercise (1:1) cancelled Jim Mendez, PT [address], [place], [address], [facility] 03/11/2024 05:57:59 4 97288: Hot or Cold Pack cancelled Jim Mendez, PT [address], [place], [address], [facility] 03/11/2024 05:57:59 4 88974: Manual therapy cancelled Jim Mendez, PT [address], [place], [address], [facility] 03/11/2024 05:57:59 4 70992 Therapeutic Exercise (1:1) completed Anshul Teague, [employer] H[employer]/HOSTESS [address], [place], [address], [facility] 03/10/2024 13:47:16 4 19741: Hot or Cold Pack completed Anshul Teague, [employer] H[employer]HOSTESS [address], [place], [address], [facility] 03/10/2024 13:47:22 4 60443: Manual therapy completed Anshul Teague, [employer]HOSTESS [address], [place], [address], [facility] 03/10/2024 13:47:19 4 52321 Therapeutic Exercise (1:1) cancelled Anshul Teague, [employer] H[employer]HOSTESS [address], [place], [address], [facility] 03/07/2024 18:21:38 4 97878: Hot or Cold Pack cancelled Anshul Teague, [employer] H[employer]/HOSTESS [address], [place], [address], [facility] 03/07/2024 18:21:38 4 89507: Manual therapy cancelled Anshul Teague, [employer] H[employer]HOSTESS [address], [place], [address], [facility] 03/07/2024 18:21:38 4 91485 Therapeutic Exercise (1:1) completed Jim Mendez, PT [address], [place], [address], [facility] 03/03/2024 15:17:19 4 48940: Hot or Cold Pack completed Jim Mendez, PT [address], [place], [address], [facility] 03/03/2024 15:37:06 4 62265: Manual therapy completed Jim Mendez, PT [address], [place], [address], [facility] 03/03/2024 15:17:29 4 20572 Therapeutic Exercise (1:1) completed Jim Mendez, PT [address], [place], [address], [facility] 03/02/2024 13:15:51 4 82982: Low complexity PT Eval completed Jim Mendez, PT [address], [place], [address], [facility] 03/02/2024 13:15:59 Imaging Results None recorded. Procedure Notes None recorded. Medical Equipment None Reported. Allergies Allergen ID Allergen Name Allergen Category Reaction Reaction Severity Criticality Documentation Date Start Date Code Code System Note Provider Name and Address Organization Details Recorded Time [id number] Cogentin medicatio n Not available Not available Not available 01/25/2024 59702 2 RxNorm SOFI VERA leelee [facility] 4 16:51:39 691926 morphine medicatio n Not available Not available Not available 01/05/2025 7052 RxNorm OLIVIA VELEZ [place]e [place] [facility] 5 10:59:12 134732 benztropi ne medicatio n Not available Not available Not available 10/06/2025 1424 RxNorm Not Available [facility] [facility] 5 13:54:49 559473 pregabali n medicatio n Not available Not available Not available 10/06/2025 45771 2 RxNorm Not Available [employer] 5 13:54:49 42653 Lyrica medicatio n Not available Not available Not available 01/04/20242009 39404 1 RxNorm Not Available [facility] 4 15:00:55 Medications Name Sig Start Date Stop Date Status Note LastModified by Organization Details LastModified Time celecoxib 200 mg capsule TAKE 1 CAPSULE BY MOUTH DAILY DIRECTED (STARTIN G 3 DAYS BEFORE SURGERY) 08/24 completed Not Available Not Available Not Available cyclobenz aprine 10 mg tablet TAKE [...] 1 TABLET BY MOUTH TWICE A DAY 08/24 completed Not Available Not Available Not Available haloperid ol 5 mg tablet 08/24 completed Not Available Not Available Not Available cetirizin [...] AND TAKE 2 TABLETS AT BEDTIME DIRECTED 08/24 completed Not Available Not Available Not Available amlodipin e 5 mg tablet TAKE 1 TABLET BY MOUTH DAILY active [...] release TAKE 1 CAPSULE BY MOUTH DAILY 08/24 completed Not Available Not Available Not Available amoxicill in 500 mg tablet TAKE [...] TABLET BY MOUTH TWO TIMES A DAY 08/24 completed Not Available Not Available Not Available tamsulosi n 0.4 mg capsule TAKE 1 CAPSULE BY MOUTH EVERY DAY active Not Available Not Available No t Available Nguyen-Hex 4 % topical liquid USE WASH EVERY DAY 01/05 completed Not Available Not Available Not Available morphine 30 mg immediate release tablet TAKE 1 TABLET BY MOUTH EVERY 4 HOURS 01/05 completed Not Available Not Available Not Available pseudoeprudy cardona aifenesin ER 80-700 mg tablet,ex tended release [...] TAKE 2 TABLETS BY MOUTH AT BEDTIME 08/24 completed Not Available Not Available Not Available morphine ER 15 mg tablet,ex tended [...] TAKE 1 TABLET BY MOUTH AT BEDTIME 08/24 completed Not Available Not Available Not Available nystatin 100,000 unit/gram topical powder APPLY TO AFFECTED AREA DAILY 08/24 completed Not Available Not Available Not Available lorazepam 1 mg tablet TAKE 1 [...] 4-6 hours as needed for severe pain. 08/24 completed Not Available Not Available Not Available morphine 15 mg immediate release tablet Take 1 tablet every 6 hours by oral route for 7 days. 01/05 completed Not Available Not Available Not Available lisinopri l 40 mg tablet TAKE 1 TABLET (40 MG) ORALLY DAILY active Not Available Not Available No t Available fluticaso ne propionat e 50 mcg/actua tion nasal spray,josiane pension INSTILL 1 SPRAY INTRANAS ALLY DAILY ADMINIST ER INTO EACH NOSTRIL active Not Available Not Available No t [...] INJECT 38 UNITS SUBCUTAN EOUSLY EVERY EVENING 08/24 completed Not Available Not Available Not Available oxycodone HCl-oxyco done-ASA 2 TABS Q8H [...] TAKE 1 CAPSULE BY MOUTH EVERY MORNING 08/24 completed Not Available Not Available Not Available Jardiance 10 mg tablet TAKE 1 TABLET BY MOUTH EVERY MORNING 08/24 completed Not Available Not Available Not Available Trulicity 1.5 mg/0.5 mL subcutane ous [...] MINUTES UNTIL PATIENT RESPONDS .FOR OPIOD OVERDOSE 08/24 completed Not Available Not Available Not Available Trintelli x 10 mg tablet TAKE [...] 2nd Gen Pen Needle 32 gauge x 5/32 USE 3 TIMES A DAY 08/24 completed Not Available Not Available Not Available Ozempic 1 mg/dose (4 mg/3 mL) subcutane ous pen injector INJECT 1 MG (0.75 ML) SUBCUTAN EOUSLY WEEKLY 01/05 completed Not Available Not Available Not Available Ozempic 2 mg/dose (8 mg/3 mL) subcutane ous pen injector 2 MG (0.75 ML) SUBCUTAN EOUSLY EVERY WEEK FOR 90 DAYS FURTHER REFILL NEED OFFICE VISIT active Not Available Not Available No t Available FreeStyle Ajith 3 Sensor device USE DIRECTED TO TEST BLOOD SUGAR 4 TIMES A DAY 01/05 completed Not Available Not Available Not Available Vitals Date Recorded Body height Body mass index (BMI) Body weight Provider Name and Address Organization Details Last Updated DateTime 08/24/2025 173.99 cm 34.5 kg/m2 034358.25 g OLIVIA VELEZ [place] [facility] 08/24/2025 09:24:10 Social History None recorded. Functional Status None recorded. Mental Status None recorded. Family History Nothing Reported. Medical History Condition Response Allergies/Hayfever N Coronary Artery Disease N Anxiety/Depression N Emphysema N Thyroid Problems N COPD N Pacemaker N Kidney/Bladder Problems N Anemia N Vascular Disease N Gastrointestinal Disease N Heart Attack ([place]) N Cholesterol Y Diabetes Y Autoimmune disease [...] ICD10 Code Diagnosis IMO Codes Diagnosis Note [id number] MD RICCARDO Davis [address] [place] [address] 08/24/2025 09:04:39 09/05/2025 08:34:52 Osteoarthritis of right knee joint [id number] 73858 M17.11 [id number] Health Concerns Section Related Observation LastModified by Organization Detai ls LastModified Time None Recorded Concern Status LastModified by Organization Details LastModified Time None Recorded Payers Encounter Date Sequence Insurance Name Policy Number Policy [place] Covered Member ID [place] Member ID Guarantor Name 08/24/2025 1 [facility] [employer] - DOS ON OR AFTER 2023 - GROUP HOME OPTIONS AND ONE CARE (MEDICARE REPLACEMENT/ADV ANTAGE - PPO) Joo Gordon [id number] Joo Gordon
--- OUTSIDE RECORDS SUMMARY | 2025-10-19 17:14 | XMS_ITS | Data Portability ---
Author Organization [facility], [facility] Address [address] [place] [address] Care Team Providers Care Industrial Relations Officer Name Role Phone TORIBIO TIWARI Primary Care Provider [phone] Assessment Encounter Date Assessment Date Assessment LastModified by Organization Details LastModified Time 02/17/2025 02/17/2025 Assessment: Improving mobility and gait without AD use. Plan: Continue 2x/week and progress independent HEP. Not available 02/17/2025 16:23:19 02/21/2025 02/21/2025 Assessment: Good active motion and improving strength. Normal gait level and improving strength with stairs. Plan: Continue short course of therapy and progress to discharge and independent HEP. [email or web address] Not available 02/21/2025 20:26:14 02/24/2025 02/24/2025 Assessment: Good active motion and improving strength. Normal gait level and improving strength with stairs. Plan: Continue with remaining appts and progress to discharge. [email or web address] Not available 02/24/2025 11:39:35 08/24/2025 08/24/2025 History: Patient is a 54-year-old male presents to me for initial evaluation of right-sided knee pain. He had knee pain for many years. Cortisone gives him a couple weeks of relief. He takes ppiq-qng-afpttys medications for discomfort. Has had 2 arthroscopies [...] and lucid. Normal insight, affect and grooming. MOTIVATIONAL SPEAKER: Gross motor coordination is intact. No spasticity [...] osteoarthrits of the right knee. There is pdut-un-vgyg articulation, subchondral sclerosis, and osteophyte formation. Assessment: [...] questions or concerns that they might have. [email or web address] Not available 08/25/2025 15:30:37 Plan of Treatment Reminders Order Date Submit Date Provider Last Modified By Organization Details Last Modified Time Details Appointments JASMIN Ac&Suzie 2025 11:00A M Juma Azar NP Not available Not available Not available [place] [facility] [place] 09:30A M Rei Inman MD Not available Not available Not available POST OP 15 2025 09:30A M Sofi Fernandez, SHEEP KILLER Not available Not available Not available PT INITIAL EVAL 2025 01:00P Amor Griffin, PT Not available Not available Not available PT FOLLOW-U P 2025 09:30A Amor Griffin, PT Not available Not available Not available PT FOLLOW-U P 2025 11:00A M Martine Alas, CFD ENGINEER Not available Not available Not available PT FOLLOW-U P 2025 12:30P M Martine Alas, CFD ENGINEER Not available Not available Not available POST OP 15 2025 08:15A Amor Fernandez, SHEEP KILLER Not available Not available Not available PT FOLLOW-U P 2025 11:00A M Martine Fischerko, CFD ENGINEER Not available Not available Not available PT FOLLOW-U P 2025 12:30P M Martine Amadoko, CFD ENGINEER Not available Not available Not available PT FOLLOW-U P 2025 12:00P M Martine Amadoko, CFD ENGINEER Not available Not available Not available PT FOLLOW-U P 2025 12:00P M Martine Felicianonko, CFD ENGINEER Not available Not available Not available PT FOLLOW-U P 2025 11:00A M Martine Fischerko, CFD ENGINEER Not available Not available Not available PT FOLLOW-U P 2025 11:30A Amor Griffin, PT Not available Not available Not available PT FOLLOW-U P 2025 12:30P Amor Alas, CFD ENGINEER Not available Not available Not available PT FOLLOW-U P 2025 12:00P M Martine Alas, CFD ENGINEER Not available Not available Not available PT FOLLOW-U P 2025 11:00A M Martine Alas, CFD ENGINEER Not available Not available Not available RECHECK 10 2025 10:50A M Rei Inman MD Not available Not available Not available Lab None recorded . Referral None recorded . Procedures None recorded . Surgeries None recorded . Imaging XR, knee, 4 or more view - 4v R knee. room 2 2024 025 [facility] Office, [address], [address], [place], [address], 06/14/2025 08:14:54 Medication Orders None recorded . Patient TargetsNo targets recorded. Patient InstructionsNo instructions recorded. Reason for Referral None Reported. Results Created Date Observation Date Name Description Value Unit Range Abnormal Flag Note LastModifiedBy Organization Detail LastModifiedTime 01/25/20 25 01/24/2025 XR, hip + pelvi s, unila teral , 2 or 3 view No observ ation record ed. [id number] [place], [address], 01/25/2025 06:51:47 02/08/2002/07/2025 XR, hip + pelvi s, unila teral , 2 or 3 view http:/ [email or web address] ?Encry pted=s hAaTro YD8dLq bEUv6g %2BXZw aYqtaq 0bqfl% 2Fg9IQ a4ajBk vP9nXo QUaueC m3YtLR FvZlgJ JJ8mAn HZtai3 8o5228 AC0KqY 36CWaS hKiQtr MwF INTERFACE [facility] [address], [place], [address], 02/07/2025 13:51:56 02/08/20 25 02/07/2025 XR, hip + pelvi s, unila teral , 2 or 3 view http:/ [email or web address] ?Encry pted=s hAaTro YD8dLq bEUv6g %2BXZw aYqtaq 0bqfl% 2Fg9IQ a4ajBk vP9nXo QUaueC m3YtLR FvZl [place] HZtai3 9q8857 AC0KqY 36CWaS hKiQtr MwF INTERFACE [facility] [address], [place], [address], 02/07/2025 13:51:58 06/07/20 25 06/07/2025 XR, knee, 4 or more view http:/ [email or web address] ?Encry pted=s hAaTro YD8dLq bEUv6g %2BXZw aYqtaq 0bqfl% 2Fg9IQ a4ajBk vP9nXo QUaueC m3YtLR FvZl JJ8mAn HZtai3 9g7503 AC0Klb nqEUaO iKiQtr MwF INTERFACE [facility] [address], [place], [address], 06/07/2025 14:05:28 06/07/20 25 06/07/2025 XR, knee, 4 or more view http:/ [email or web address] ?Encry pted=s hAaTro YD8dLq bEUv6g %2BXZw aYqtaq 0bqfl% 2Fg9IQ a4ajBk vP9nXo QUaueC m3YtLR FvZlg JJ8mAn HZtai3 4i6998 AC0Klb nqEUaO iKiQtr MwF INTERFACE [facility] [address], [place], [address], 06/07/2025 14:05:30 Result Notes Documentation Provider Name and Address Organization Details Recorded Time Xr, Knee, 4 Or More View : [email or web address]? Encrypted=coNgKuxAL7rXieN Uv6g%0BHKuqRtkhu7qqwj%2Fg 1FRd0ulIkfL8fFdQDrmjQe5Xo POQxRbaLDO5mShAAoya55k896 2GB8SetusBWhCvVqUlpSsA Not Available [facility] 06/07/2025 14:05: 29 Xr, Knee, 4 Or More View : [email or web address] Encrypted=bgDjDbwON4dVhrR Uv6g%3EWCadPnrfa8bwxd%2Fg 0BDa8nqJnqA4gOfCKbuxGg1Pe ESUyXgkRYS8iBrLVtrm44g207 4VE7FsjbmIMxGlXkLigKmH Not Available [facility] 06/07/2025 14:05: 30 Problems Name Problem SNOMED Code Status Onset Date Resolution Date Notes Provider Name and Address Organization Details Recorded Time Idiopathi c osteoarth ritis 485813332 Active 2015 Problem Code: M17.12; Problem Code Type: ICD-10; Status: 'A'; Not Available [facility] 4 11:59:24 Essential hypertens ion 09079545 Active 2023 SOFI mckoy [facility] 4 16:51:48 Diabetes mellitus 09048301 Active 2023 [employer]ARDIANCE [employer]ULIC[employer] SOFI mckoy [facility] 4 16:52:00 Hyperlipi demia 99147513 Active 2023 SOFI mckoy [facility] 4 16:52:08 Acid reflux 235526073 Active 2023 SOFI mckoy [facility] 4 16:52:14 Pain of left shoulder joint 23995350237 672234 Active 2023 AILYN mckoy [facility] 4 11:42:23 Osteoarth ritis of joint of right shoulder region 85579966355 9100 Active 2023 Jorje Flowers MD [address], [place], [address] , [facility] 4 11:09:40 Rupture of rotator cuff of right shoulder 80181600062 977707 Active 2023 AILYN mckoy, [facility] 4 13:39:54 Pain of shoulder region 67592191 Active 2023 Gene Mendes PA-C [address], [place], [address] , [facility] 4 18:56:45 Pain of hip region 98974256 Active 2024 OLIVIA mckoy [facility] 5 10:35:43 Postopera tive pain 188261935 Active 2024 Sri Morales APRN [address], [place], [address] , [facility] 5 11:29:53 Osteoarth ritis of right knee joint 33277485886 9100 Active 2024 Dung Carter PA-C [address], [place], [address] , [facility] 5 08:20:19 Problem Notes None recorded. Procedures Surgical History Date Name Laterality Status Provider Name and Address Organization Details Recorded Time 5 Sports Knee 4&1 completed Dung Carter PA-C [address], [place], [address], [facility] 06/08/2025 08:19:56 5 82103 Therapeutic Exercise (1:1) cancelled Geetha Bethea PTA [address], [place], [address], [facility] 02/28/2025 10:21:04 5 07907: Gait training cancelled Damwes Fustanislawe, CFD ENGINEER [address], [place], [address], [facility] 02/28/2025 10:21:04 5 35434: Manual therapy cancelled Damleannana Fudge, CFD ENGINEER [address], [place], [address], [facility] 02/28/2025 10:21:04 5 89794 Therapeutic Exercise (1:1) completed George Dougherty, AT [address], [place], [address], [facility] 02/24/2025 11:38:30 5 11205: Gait training completed George Dougherty, AT [address], [place], [address], [facility] 02/24/2025 11:38:30 5 78613: Manual therapy completed George Dougherty, AT [address], [place], [address], [facility] 02/24/2025 11:38:30 5 30264 Therapeutic Exercise (1:1) completed George Dougherty, AT [address], [place], [address], [facility] 02/21/2025 20:23:44 5 54958: Gait training completed George Dougherty, AT [address], [place], [address], [facility] 02/21/2025 20:25:13 5 17599: Manual therapy completed George Dougherty, AT [address], [place], [address], [facility] 02/21/2025 20:23:44 5 73046 Therapeutic Exercise (1:1) completed George Dougherty, AT [address], [place], [address], [facility] 02/17/2025 16:21:09 5 03510: Manual therapy completed George Dougherty, AT [address], [place], [address], [facility] 02/17/2025 16:21:09 5 25438: Therapeutic Activities (1:1) completed Buck Wilkins, PT [address], [place], [address], [facility] 02/13/2025 10:41:21 5 28499 Therapeutic Exercise (1:1) completed Buck Wilkins, PT [address], [place], [address], [facility] 02/13/2025 10:41:37 5 59908: Gait training completed Buck Wilkins, PT [address], [place], [address], [facility] 02/13/2025 10:41:27 5 91927: Manual therapy completed Buck Wilkins, PT [address], [place], [address], [facility] 02/11/2025 14:02:04 5 90681: Therapeutic Activities (1:1) completed George Dougherty, AT [address], [place], [address], [facility] 02/07/2025 12:44:53 5 22862 Therapeutic Exercise (1:1) completed George Dougherty, AT [address], [place], [address], [facility] 02/07/2025 12:44:43 5 76349: Gait training completed George Dougherty, AT [address], [place], [address], [facility] 02/07/2025 12:44:33 5 68723: Manual therapy completed George Dougherty AT [address] [facility], [place], [address], [facility] 02/07/2025 12:44:41 5 24997 Therapeutic Exercise (1:1) completed Buck Kearnsser, PT [address], [place], [address], [facility] 02/02/2025 17:59:20 5 30603: Low complexity PT Eval completed Buck Kearnsser, PT [address], [place], [address], [facility] 02/02/2025 17:59:25 5 62544 Therapeutic Exercise (1:1) completed Buck Wilkins, PT [address], [place], [address], [facility] 01/12/2025 18:01:36 5 96957: Low complexity PT Eval completed Buck Wilkins, PT [address], [place], [address], [facility] 01/12/2025 18:01:40 5 18905 Therapeutic Exercise (1:1) cancelled Samm Arshad DPT [address], [place], [address], [facility] 01/10/2025 13:48:50 5 73999: Low complexity PT Eval cancelled Samm Arshad DPT [address], [place], [address], [facility] 01/10/2025 13:48:48 4 JZHip completed Rayshawn Ortiz PA-C [address], [place], [address], [facility] 10/06/2024 16:10:21 4 Hip Kenalog 2cc Injection, L/R completed Tonya Francisco PA-C [address], [place], [address], [facility] 09/05/2024 15:51:37 4 36370 Therapeutic Exercise (1:1) cancelled Jim Mendez, PT [address], [place], [address], [facility] 09/01/2024 13:07:51 4 13463: Hot or Cold Pack cancelled Jim Mendez, PT [address], [place], [address], [facility] 09/01/2024 13:07:51 4 94274: Manual therapy cancelled Jim Mendez, PT [address], [place], [address], [facility] 09/01/2024 13:07:51 4 47084 Therapeutic Exercise (1:1) cancelled Anshul Sebastiánarenko, CFD ENGINEER [address], [place], [address], [facility] 09/01/2024 09:36:45 4 06614: Hot or Cold Pack cancelled Anshul Sebastiánarenko, CFD ENGINEER [address], [place], [address], [facility] 09/01/2024 09:36:45 4 30485: Manual therapy cancelled Anshul Sebastiánarenko, CFD ENGINEER [address], [place], [address], [facility] 09/01/2024 09:36:45 4 55464 Therapeutic Exercise (1:1) cancelled Anshul Pisarenko, CFD ENGINEER [address], [place], [address], [facility] 08/29/2024 15:06:11 4 07663: Hot or Cold Pack cancelled Anshul Pisarenyeni, CFD ENGINEER [address], [place], [address], [facility] 08/29/2024 15:06:11 09714: Manual therapy cancelled Anshul Zamudionyeni, CFD ENGINEER [address], [place], [address], [facility] 08/29/2024 15:06:11 04754 Therapeutic Exercise (1:1) completed Anshul Zamudioseanyeni, CFD ENGINEER [address], [place], [address], [facility] 08/26/2024 13:39:43 50316: Hot or Cold Pack completed Anshul Zamudioseanyeni, CFD ENGINEER [address], [place], [address], [facility] 08/26/2024 13:39:38 93323: Manual therapy completed Anshul Zamudioseanyeni, CFD ENGINEER [address], [place], [address], [facility] 08/26/2024 13:39:50 26275 Therapeutic Exercise (1:1) completed Jim Mendez, PT [address], [place], [address], [facility] 08/23/2024 14:06:45 84385: Hot or Cold Pack completed Jim Mendez, PT [address], [place], [address], [facility] 08/19/2024 16:49:01 92638: Manual therapy completed Jim Mendez, PT [address], [place], [address], [facility] 08/19/2024 16:49:01 10366 Therapeutic Exercise (1:1) completed Jim Mendez, PT [address], [place], [address], [facility] 08/19/2024 14:54:47 4 17641: Hot or Cold Pack completed Jim Mendez, PT [address], [place], [address], [facility] 08/18/2024 06:28:43 11531: Manual therapy completed Jim Mendez, PT [address], [place], [address], [facility] 08/19/2024 14:55:02 87855 Therapeutic Exercise (1:1) completed Jim Mendez, PT [address], [place], [address], [facility] 08/12/2024 14:56:25 70385: Hot or Cold Pack completed Jim Mendez, PT [address], [place], [address], [facility] 08/12/2024 14:56:25 91837: Manual therapy completed Jim Mendez, PT [address], [place], [address], [facility] 08/17/2024 14:04:01 34608 Therapeutic Exercise (1:1) completed Anshul Teague, CFD ENGINEER [address], [place], [address], [facility] 08/11/2024 08:39:36 4 58030: Hot or Cold Pack completed Anshul Teague, CFD ENGINEER [address], [place], [address], [facility] 08/11/2024 08:39:36 81790: Manual therapy completed Anshul Tegaue, CFD ENGINEER [address], [place], [address], [facility] 08/11/2024 08:39:36 4 78241 Therapeutic Exercise (1:1) completed Anshul Teague, CFD ENGINEER [address], [place], [address], [facility] 08/09/2024 15:01:04 4 52350: Hot or Cold Pack completed Anshul Teague, CFD ENGINEER [address], [place], [address], [facility] 08/09/2024 15:01:11 4 88051: Manual therapy completed Anshul Teague, CFD ENGINEER [address], [place], [address], [facility] 08/09/2024 15:01:18 4 31139 Therapeutic Exercise (1:1) completed Jim Mendez, PT [address], [place], [address], [facility] 07/27/2024 17:33:25 4 46237: Low complexity PT Eval completed Jim Mendez, PT [address], [place], [address], [facility] 07/27/2024 17:33:30 4 23092 Therapeutic Exercise (1:1) completed Anshul Teague, CFD ENGINEER [address], [place], [address], [facility] 06/03/2024 15:03:51 4 00264: Hot or Cold Pack completed Anshul Teague, CFD ENGINEER [address], [place], [address], [facility] 06/03/2024 15:04:16 4 96612: Manual therapy completed Anshul Teague, CFD ENGINEER [address], [place], [address], [facility] 06/03/2024 15:03:56 4 63800 Therapeutic Exercise (1:1) completed Jim Mendez, PT [address], [place], [address], [facility] 05/26/2024 16:42:01 4 60316: Hot or Cold Pack completed Jim Mendez, PT [address], [place], [address], [facility] 05/24/2024 15:30:31 4 61131: Manual therapy completed Jim Mendez, PT [address], [place], [address], [facility] 05/26/2024 16:38:03 4 39395 Therapeutic Exercise (1:1) cancelled Jim Mendez, PT [address], [place], [address], [facility] 05/17/2024 16:24:11 4 72859: Hot or Cold Pack cancelled Jim Mendez, PT [address], [place], [address], [facility] 05/17/2024 16:24:11 4 00179: Manual therapy cancelled Jim Mendez, PT [address], [place], [address], [facility] 05/17/2024 16:24:11 4 32850 Therapeutic Exercise (1:1) completed Jim Mendez, PT [address], [place], [address], [facility] 05/12/2024 08:37:56 4 56812: Hot or Cold Pack completed Jim Mendez, PT [address], [place], [address], [facility] 05/12/2024 08:37:56 4 76199: Manual therapy completed Jim Mendez, PT [address], [place], [address], [facility] 05/13/2024 14:23:31 4 81514 Therapeutic Exercise (1:1) completed Jim Mendez, PT [address], [place], [address], [facility] 05/11/2024 12:46:09 4 78679: Hot or Cold Pack completed Jim Mendez, PT [address], [place], [address], [facility] 05/09/2024 16:46:45 4 90367: Manual therapy completed Jim Mendez, PT [address], [place], [address], [facility] 05/11/2024 12:46:14 4 80803 Therapeutic Exercise (1:1) completed Anshul Teague, CFD ENGINEER [address], [place], [address], [facility] 05/04/2024 15:40:28 4 20460: Hot or Cold Pack completed Anshul Teague, CFD ENGINEER [address], [place], [address], [facility] 05/04/2024 15:40:28 4 00299: Manual therapy completed Anshul Teague, CFD ENGINEER [address], [place], [address], [facility] 05/04/2024 15:40:28 4 76401 Therapeutic Exercise (1:1) completed Anshul Teague, CFD ENGINEER [address], [place], [address], [facility] 04/28/2024 14:15:05 4 30727: Hot or Cold Pack completed Anshul Teague, CFD ENGINEER [address], [place], [address], [facility] 04/28/2024 14:15:05 4 59111: Manual therapy completed Anshul Teague, CFD ENGINEER [address], [place], [address], [facility] 04/28/2024 14:15:05 4 25249 Therapeutic Exercise (1:1) completed Anshul Teague, CFD ENGINEER [address], [place], [address], [facility] 04/27/2024 11:56:00 4 96983: Hot or Cold Pack completed Anshul Teague, CFD ENGINEER [address], [place], [address], [facility] 04/26/2024 08:49:04 4 92542: Manual therapy completed Anshul Teague, CFD ENGINEER [address], [place], [address], [facility] 04/27/2024 11:56:06 4 32456 Therapeutic Exercise (1:1) completed Jim Mendez, PT [address], [place], [address], [facility] 04/22/2024 10:54:18 4 14379: Hot or Cold Pack completed Jim Mendez, PT [address], [place], [address], [facility] 04/20/2024 15:08:14 4 60329: Manual therapy completed Jim Mendez, PT [address], [place], [address], [facility] 04/20/2024 15:08:14 4 87971 Therapeutic Exercise (1:1) completed Anshul Teague, CFD ENGINEER [address], [place], [address], [facility] [facility] 04/19/2024 13:33:26 4 63633: Hot or Cold Pack completed Anshul Teague, CFD ENGINEER [address], [place], [address], [facility] 04/19/2024 13:33:26 4 83281: Manual therapy completed Anshul Teague, CFD ENGINEER [address], [place], [address], [facility] 04/19/2024 13:33:26 4 88583 Therapeutic Exercise (1:1) completed Jim Mendez, PT [address], [place], [address], [facility] 04/13/2024 17:45:15 4 06013: Hot or Cold Pack completed Jim Mendez, PT [address], [place], [address], [facility] 04/13/2024 17:45:15 4 55491: Manual therapy completed Jim Mendez, PT [address], [place], [address], [facility] 04/13/2024 17:45:15 4 03408 Therapeutic Exercise (1:1) completed Jim Mendez, PT [address], [place], [address], [facility] 04/13/2024 12:50:11 4 17706: Hot or Cold Pack completed Jim Mendez, PT [address], [place], [address], [facility] 04/11/2024 16:23:31 4 68316: Manual therapy completed Jim Mendez, PT [address], [place], [address], [facility] 04/13/2024 12:49:58 4 52050 Therapeutic Exercise (1:1) cancelled Anshul Teague, CFD ENGINEER [address], [place], [address], [facility] 04/05/2024 13:09:51 4 22949: Hot or Cold Pack cancelled Anshul Sebastiánarenko, CFD ENGINEER [address], [place], [address], [facility] 04/05/2024 13:09:51 4 04677: Manual therapy cancelled Anshul Sebastiánarenyeni, CFD ENGINEER [address], [place], [address], [facility] 04/05/2024 13:09:51 4 93400 Therapeutic Exercise (1:1) completed Asnhul Loweryarenyeni, CFD ENGINEER [address], [place], [address], [facility] 04/01/2024 09:01:32 4 50122: Hot or Cold Pack completed Anshul Zamudionyeni, CFD ENGINEER [address], [place], [address], [facility] 04/01/2024 09:01:32 4 46542: Manual therapy completed Anshul Tegaue, CFD ENGINEER [address], [place], [address], [facility] 04/01/2024 09:01:32 4 67155 Therapeutic Exercise (1:1) completed Anshul Teague, CFD ENGINEER [address], [place], [address], [facility] 03/30/2024 10:55:55 4 54320: Hot or Cold Pack completed Anshul Teauge, CFD ENGINEER [address], [place], [address], [facility] 03/30/2024 10:55:55 4 97594: Manual therapy completed Anshul Teague, CFD ENGINEER [address], [place], [address], [facility] 03/30/2024 10:55:55 4 54739 Therapeutic Exercise (1:1) completed Anshul Teague, CFD ENGINEER [address], [place], [address], [facility] 03/25/2024 13:23:18 4 63854: Hot or Cold Pack completed Anshul Teague, CFD ENGINEER [address], [place], [address], [facility] 03/25/2024 13:23:18 4 37186: Manual therapy completed Anshul Teague, CFD ENGINEER [address], [place], [address], [facility] 03/25/2024 13:23:18 4 20283 Therapeutic Exercise (1:1) completed Jim Mendez, PT [address], [place], [address], [facility] 03/24/2024 12:05:02 4 75902: Hot or Cold Pack completed Jim Mendez, PT [address], [place], [address], [facility] 03/22/2024 17:01:20 4 09623: Manual therapy completed Jim Mendez, PT [address], [place], [address], [facility] 03/22/2024 17:01:20 4 53520 Therapeutic Exercise (1:1) completed Jim Mendez, PT [address], [place], [address], [facility] 03/22/2024 12:04:17 4 37628: Hot or Cold Pack completed Jim Mendez, PT [address], [place], [address], [facility] 03/18/2024 16:48:43 4 37007: Manual therapy completed Jim Mendez, PT [address], [place], [address], [facility] 03/22/2024 12:03:11 4 20536 Therapeutic Exercise (1:1) completed Jim Mendez, PT [address], [place], [address], [facility] 03/18/2024 15:39:52 4 28805: Hot or Cold Pack completed Jim Mendez, PT [address], [place], [address], [facility] 03/16/2024 18:20:18 4 65248: Manual therapy completed Jim Mendez, PT [address], [place], [address], [facility] 03/16/2024 18:20:18 4 14099 Therapeutic Exercise (1:1) completed Jim Mendez, PT [address], [place], [address], [facility] 03/16/2024 12:32:27 4 91516: Hot or Cold Pack completed Jim Mendez, PT [address], [place], [address], [facility] 03/15/2024 15:25:54 4 76831: Manual therapy completed Jim Mendez, PT [address], [place], [address], [facility] 03/16/2024 12:32:37 4 67338 Therapeutic Exercise (1:1) cancelled Jim Mendez, PT [address], [place], [address], [facility] 03/11/2024 05:57:59 4 66092: Hot or Cold Pack cancelled Jim Mendez, PT [address], [place], [address], [facility] 03/11/2024 05:57:59 4 06125: Manual therapy cancelled Jim Mendez, PT [address], [place], [address], [facility] 03/11/2024 05:57:59 4 58927 Therapeutic Exercise (1:1) completed Anshul Teague, CFD ENGINEER [address], [place], [address], [facility] 03/10/2024 13:47:16 4 96956: Hot or Cold Pack completed Anshul Teague, CFD ENGINEER [address], [place], [address], [facility] 03/10/2024 13:47:22 4 28736: Manual therapy completed Anshul Teague, CFD ENGINEER [address], [place], [address], [facility] 03/10/2024 13:47:19 4 48945 Therapeutic Exercise (1:1) cancelled Anshul Teague, CFD ENGINEER [address], [place], [address], [facility] 03/07/2024 18:21:38 4 03518: Hot or Cold Pack cancelled Anshul Teague, CFD ENGINEER [address], [place], [address], [facility] 03/07/2024 18:21:38 4 80840: Manual therapy cancelled Anshul Teague, CFD ENGINEER [address], [place], [address], [facility] 03/07/2024 18:21:38 4 87854 Therapeutic Exercise (1:1) completed Jim Mendez, PT [address], [place], [address], [facility] 03/03/2024 15:17:19 4 33324: Hot or Cold Pack completed Jim Mendez, PT [address], [place], [address], [facility] 03/03/2024 15:37:06 4 73238: Manual therapy completed Jim Mendez, PT [address], [place], [address], [facility] 03/03/2024 15:17:29 4 09412 Therapeutic Exercise (1:1) completed Jim Mendez, PT [address], [place], [address], [facility] 03/02/2024 13:15:51 4 60568: Low complexity PT Eval completed Jim Mendez, PT [address], [place], [address], [facility] 03/02/2024 13:15:59 Imaging Results None recorded. Procedure Notes None recorded. Medical Equipment None Reported. Allergies Allergen ID Allergen Name Allergen Category Reaction Reaction Severity Criticality Documentation Date Start Date Code Code System Note Provider Name and Address Organization Details Recorded Time 873304 Cogentin medicatio n Not available Not available Not available 01/25/2024 99627 2 RxNorm SOFI CHUY [facility] 4 16:51:39 999673 morphine medicatio n Not available Not available Not available 01/05/2025 7052 RxNorm OLIVIA VELEZ [facility] 5 10:59:12 084565 benztropi ne medicatio n Not available Not available Not available 10/06/2025 1424 RxNorm Not Available [facility] External Data Service - prod 13:54:49 821289 pregabali n medicatio n Not available Not available Not available 10/06/2025 22146 2 RxNorm Not Available carlos - External Data Service - prod 5 13:54:49 59407 Lyrica medicatio n Not available Not available Not available 01/04/20242009 47985 1 RxNorm Not Available [facility] 15:00:55 Medications Name Sig Start Date Stop [...] completed Not Available Not Available Not Available pseudoadolfo cardona aifenesin ER 80-700 mg tablet,ex tended [...] 2nd Gen Pen Needle 32 gauge x /32 USE 3 TIMES A DAY 08/24 completed [...] Updated DateTime 06/07/2025 173.99 cm 35.2 kg/m2 476182.21 g Tracey Campos [facility] 06/07/2025 13:56:39 Date Recorded Body height Body mass index (BMI) Body weight Provider Name and Address Organization Details Last Updated DateTime 08/24/2025 173.99 cm 34.5 kg/m2 203724.25 g OLIVIA VELEZ [facility] 08/24/2025 09:24:10 Social History None recorded. Functional Status None recorded. Mental Status None recorded. Family History Nothing Reported. Medical History Condition Response Coronary Artery Disease N Anxiety/Depression N Emphysema N COPD N Pacemaker N Vascular Disease N Gastrointestinal Disease N Autoimmune disease N Orthotics N Arthritis N Blood Clot N Acid Reflux (GERD) Y Cancer N Stroke N Rheumatoid Arthritis N Arrhythmia N Fibromyalgia N Allergies/Hayfever N Thyroid Problems N Kidney/Bladder Problems N Anemia N Heart Attack ([place]) N Cholesterol Y Diabetes Y Bleeding Disorder N Seizures/Epilepsy N AIDS/HIV N Congestive Heart Failure (CHF) N Asthma Y Peripheral Vascular Disease N Sleep Apnea N Hepatitis N Heart Disease N Pulmonary Embolism N Hypertension Y Osteoporosis N Past Encounters Encounter ID Performer Location Encounter Start Date Encounter Closed Date Diagnosis/Indication Diagnosis SNOMED-CT Code Diagnosis ICD10 Code Diagnosis IMO Codes Diagnosis Note [id number] MD Rosalie Romano 2nd floor [address] [place] [address] 02/25/2024 11:17:51 03/18/2024 12:59:47 History of reverse prosthetic total arthroplasty of left shoulder [id number] 2148952 Z96.612 History of total arthroplasty of left shoulder 4990439546 1873894 Z96.908 [id number] Jim [place]ville, PT [facility] [address] [facility] [place] [address] 03/02/2024 12:22:36 03/02/2024 13:09:26 Aftercare 780672571 Z47.1 History of total arthroplasty of left shoulder 2446016382 4386772 Z96.692 [id number] Jim [place], PT [facility] [address] [place] [address] 03/03/2024 14:29:38 03/03/2024 15:04:54 Aftercare 323108591 Z47.1 History of total arthroplasty of left shoulder 0565442637 8174312 Z96.357 [id number] Anshul Teague, CFD ENGINEER [facility] [address] [place] [address] 03/10/2024 13:24:24 03/10/2024 13:57:42 Aftercare 216182198 Z47.1 History of total arthroplasty of left shoulder 4538493094 0589545 Z96.784 [id number] Jim [place], PT [facility] [address] [place] [address] 03/16/2024 11:13:57 03/16/2024 12:03:57 Aftercare 925763808 Z47.1 History of total arthroplasty of left shoulder 3754006139 2373552 Z96.211 [id number] Jim Andrea, PT [facility] [address] [place] [address] 03/18/2024 14:50:24 03/18/2024 15:38:34 Aftercare 571444660 Z47.1 History of total arthroplasty of left shoulder 9839866349 3236858 Z96.999 [id number] Jim Mendez, PT [facility] [address] [place] [address] 03/22/2024 11:33:13 03/22/2024 11:51:17 Aftercare 749930646 Z47.1 History of total arthroplasty of left shoulder 7214333513 8233410 Z96.317 [id number] Jim Mendez, PT [facility] [address] [place] [id number] 03/24/2024 11:00:01 03/24/2024 11:41:24 Aftercare 805108906 Z47.1 History of total arthroplasty of left shoulder 0693302784 8095916 Z96.361 [id number] Anshul Teague, CFD ENGINEER [facility] [address] [place] [id number] 03/29/2024 11:05:56 03/29/2024 13:05:27 Aftercare 749870295 Z47.1 History of total arthroplasty of left shoulder 0628430143 5016249 Z96.849 [id number] Anshul Teague, CFD ENGINEER [facility] [address] [place] [id number] 03/31/2024 11:06:45 03/31/2024 11:46:56 Aftercare [id number] Z47.1 History of total arthroplasty of left shoulder 0699278344 6767371 Z96.122 [id number] Anshul Teague, CFD ENGINEER [facility] [address] [place] [address] 04/04/2024 12:06:37 04/04/2024 12:36:26 Aftercare [id number] Z47.1 History of total arthroplasty of left shoulder 7364469143 9664234 Z96.321 [id number] Jim Mendez, PT [facility] [address] [place] [id number] 04/13/2024 11:59:14 04/13/2024 12:40:09 Aftercare 722005673 Z47.1 History of total arthroplasty of left shoulder 5834557003 7487823 Z96.028 [id number] Jim Mendez, PT [facility] [address] [place] [id number] 04/15/2024 10:04:03 04/15/2024 10:38:59 Aftercare [id number] Z47.1 History of total arthroplasty of left shoulder 8532990510 8532947 Z96.832 [id number] Anshul Teague, CFD ENGINEER [facility] [address] [facility] [place] [address] 04/20/2024 12:57:01 04/20/2024 14:33:53 Aftercare [id number] Z47.1 History of total arthroplasty of left shoulder 1440822713 7717440 Z96.658 [id number] MICHELE Reynolds 2nd floor [address] [place] [id number] 04/20/2024 09:37:03 05/10/2024 16:11:14 History of total arthroplasty of left shoulder 8976663090 7943095 Z96.468 [id number] Jim Mendez, PT [facility] [address] [facility] [place] [address] 04/22/2024 10:04:07 04/22/2024 10:18:49 Aftercare 417037415 Z47.1 History of total arthroplasty of left shoulder 6806481943 1857621 Z96.059 [id number] Anshul Teague, CFD ENGINEER [facility] [address] [facility] [place] [address] 04/27/2024 11:01:49 04/27/2024 11:39:41 Aftercare 826830275 Z47.1 History of total arthroplasty of left shoulder 0062199970 5054950 Z96.473 [id number] Anshul Teague, CFD ENGINEER [facility] [address] [facility] [place] [address] 04/29/2024 09:35:01 04/29/2024 10:29:56 Aftercare 500046082 Z47.1 History of total arthroplasty of left shoulder 3823207722 9526749 Z96.193 [id number] Anshul Teague, CFD ENGINEER [facility] [address] [facility] [place] [address] 05/06/2024 13:05:47 05/06/2024 14:00:38 Aftercare 386937011 Z47.1 History of total arthroplasty of left shoulder 4879595610 8971219 Z96.637 [id number] Jim Andrea, PT [facility] [address] [facility] [place] [address] 05/11/2024 12:03:26 05/11/2024 13:24:45 Aftercare 797141372 Z47.1 History of total arthroplasty of left shoulder 4167068070 0466751 Z96.585 [id number] Jim Andrea, PT [facility] [address] [facility] [place] [address] 05/13/2024 13:29:36 05/13/2024 13:56:38 Aftercare 886088576 Z47.1 History of total arthroplasty of left shoulder 0959359189 1270440 Z96.326 [id number] Jim Mendez, PT [facility] [address] [facility] [place] [address] 05/26/2024 15:26:40 05/26/2024 15:39:13 Aftercare [id number] Z47.1 History of total arthroplasty of left shoulder 5184943300 4409057 Z96.526 [id number] Anshul Teague, CFD ENGINEER [facility] [address] [place] [address] 06/03/2024 13:57:23 06/03/2024 14:37:22 Aftercare 783896756 Z47.1 History of total arthroplasty of left shoulder 4921743064 6597060 Z96.176 [id number] MD Rosalie Romano 2nd floor [address] [place] [address] 06/23/2024 10:27:04 07/18/2024 10:09:15 History of total arthroplasty of left shoulder 5678444632 4489191 Z96.612 Osteoarthr itis of joint of right shoulder region 6444694426 40449 M19.726 [id number] Chuck Hernández , PT [facility] [address] [facility] [place] [address] 08/04/2024 11:34:41 08/04/2024 15:14:26 History of total arthroplasty of right shoulder 151072395 Z96.[id number] [place] [address] 07/28/2024 08:04:25 07/28/2024 09:31:58 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 3430810713 Z96.693 [id number] Anshul Pisarenko, CFD ENGINEER [facility] [address] [place] [address] 08/09/2024 14:55:17 08/10/2024 08:12:11 History of total arthroplasty of right shoulder 344983960 Z96.920 [id number] Anshul Loweryarenyeni, CFD ENGINEER [facility] [address] [place] [address] 08/11/2024 12:57:51 08/12/2024 08:37:05 History of total arthroplasty of right shoulder 800804781 Z96.667 [id number] Jim Mendez, PT [facility] [address] [place] [address] 08/17/2024 12:56:54 08/17/2024 15:00:26 History of total arthroplasty of right shoulder 867977511 Z96.840 [id number] Jim Mendez, PT [facility] [address] [place] [address] 08/19/2024 14:21:11 08/22/2024 07:56:33 History of total arthroplasty of right shoulder 422439163 Z96.319 [id number] Jim Mendez, PT [facility] [address] [place] [address] 08/23/2024 13:35:07 08/23/2024 14:33:28 History of total arthroplasty of right shoulder 219128700 Z96.860 [id number] Anshul Pisarenko, CFD ENGINEER [facility] [address] [place] [address] 08/26/2024 13:00:07 08/26/2024 13:21:00 History of total arthroplasty of right shoulder 169359446 Z96.665 [id number] Tonya Francisco PA-C [facility] [address] [place] [address] 09/05/2024 13:48:12 09/21/2024 11:23:33 Pain of hip region 33832483 M25.551 [id number] Rayshawn Ortiz PA-C [facility] [address] [place] [place] [address] 10/06/2024 14:33:27 10/24/2024 08:29:48 Osteoarthritis of right hip joint 9325153134 57570 M16.11 [id number] MD [facility] Davis [facility] [place] [address] 01/05/2025 10:25:37 01/17/2025 14:26:03 Pain of hip region 57409049 M25.551 [id number] Osteoarthr itis of right hip joint 2433058231 98044 M16.11 [id number] Rayshawn Hull, PT [facility] [address] [place] [place] [address] 01/17/2025 07:06:23 01/17/2025 07:57:52 Osteoarthritis of hip 204307520 M16.11 [id number] Fadumo Stoll PA-C [facility] [address] [place] [address] 01/20/2025 07:29:57 02/10/2025 04:02:26 Osteoarthritis of right hip joint 4775980804 23319 M16.11 [id number] Buck Wilkins, PT [facility] [address] [place] [place] [address] 02/03/2025 08:09:58 02/03/2025 08:30:58 Aftercare 491271284 Z47.1 Z96.342 [id number] George Dougherty, AT [facility] [address] [place] [place] [address] 02/07/2025 10:29:51 02/07/2025 11:06:31 Aftercare [id number] Z47.1 Z96.353 [id number] MICHELE Toney - [facility] [address] [place] [address] 02/07/2025 13:29:24 02/17/2025 09:12:44 Pain of hip region 02406927 M25.551 [id number] Osteoarthr itis of right hip joint 6048429186 80151 M16.11 [id number] Buck Pyser, PT [facility] [address] [place] [address] 02/13/2025 09:56:38 02/13/2025 11:28:54 Aftercare 481486718 Z47.1 Z96.778 [id number] George Dougherty, AT [facility] [address] [place] [address] 02/17/2025 12:52:16 02/17/2025 14:15:31 Aftercare [id number] Z47.1 Z96.806 [id number] Georgerena KincaidDougherty, AT [facility] [address] [place] [address] 02/21/2025 08:58:28 02/21/2025 11:48:51 Aftercare [id number] Z47.1 Z96.905 [id number] Georgerena KincaidDougherty, AT [facility] [address] [place] [address] 02/24/2025 10:58:44 02/24/2025 11:41:38 Aftercare 466237813 Z47.1 Z96.[id number] [place] [address] 06/07/2025 13:47:15 06/14/2025 08:14:53 Pain of right knee joint 3580238431 65219 M25.561 [id number] Osteoarthr itis of right knee joint 1348272892 91266 M17.11 [id number] MD RICCARDO Davis - [facility] 2[address] floor [address] [place] [address] 08/24/2025 09:04:39 09/05/2025 08:34:52 Osteoarthritis of right knee joint 6787991930 M17.11 [id number] Health Concerns Section Related Observation LastModified by Organization Detai ls LastModified Time None Recorded Concern Status LastModified by Organization Details LastModified Time None Recorded Advance Directives Directive None Recorded Payers Insurance Date Sequence Insurance Name Policy Number Policy Enamorado Covered Member ID Enamorado Member ID Guarantor Name 10/09/2025 1 [facility] - DOS ON OR AFTER 2023 - ALF OPTIONS AND ONE CARE (MEDICARE REPLACEMENT/ADV ANTAGE - PPO) Joo Gordon [id number] Joo Gordon Notes Date Note Type Note Provider Name and Address Organization Details Recorded Time 02/17/2025 text/html Patient presents today reporting 3/10 pain. George Dougherty, AT [address], [place], [address], [facility] 02/17/2025 16:24:05 02/21/2025 text/html Patient presents today reporting 2/10 pain. George Dougherty, AT [address], [place], [address], [facility] 02/21/2025 20:26:36 02/24/2025 text/html Patient presents today reporting 1/10 pain. Pt states feeling better with walking and less ache. George Dougherty, AT [address], [place], [address], [facility] 02/24/2025 11:40:01 [...] ordered, obtained and independently reviewed today at [facility]. 4 views of the right knee [...] months from today. Dung Carter PA-C [address] [facility] [address], [place], [address], [facility] 06/08/2025 08:20:46
== END 2025-10-19 16:28 | disposition home or self-care (01) ==
LOC: HO.HMCC 13:10
PROVIDERS: PCP Internal Medicine; Visit Provider Physician Assistant
DX: R55 Syncope and collapse (principal); S22.41XD Multiple fractures of ribs, right side, subsequent encounter for fracture with routine healing

== ENCOUNTER → 2025-10-19 13:09 | Outpatient (BNVA) | payer OTHER, SELFPAY | PROVIDERS: PCP Internal Medicine; Visit Provider Physician Assistant | DX: R55 Syncope and collapse (principal); S22.41XD Multiple fractures of ribs, right side, subsequent encounter for fracture with routine healing; W19.XXXD Unspecified fall, subsequent encounter; Z91.81 History of falling | CPT/HCPCS: 96127; 99212 ==